=== PATIENT | female | born 1940 | race Caucasian/White ===

== ENCOUNTER 2019-07-28 16:24 | Outpatient (CLI) | payer MEDICARE, SELFPAY ==
--- NOTE | 2019-07-28 | XR_ITS ---
WS: [id number] LUMBAR SPINE TECHNIQUE: 3 views of the lumbar spine CLINICAL INFORMATION: BACK PAIN, HX OF SURGERY COMPARISON: 45 FINDINGS: Osteopenia. Lumbar scoliosis convex left. Aortic calcification. 5 nonrib-bearing lumbar vertebral bod ies. Disc space narrowing worse at L2-L3 L3-L4 and L4-L5. 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 Disc space narrowing L5-S1. Slight anterolisthesis L3 on L4 measuring 4 mm. Moderate facet arthropathy low er lumbar spine. XR/XR lumbar spine 2-3V* [id number] IMPRESSION: 1. Osteopenia. Lumbar scoliosis convex left. 2. No acute appearing compression fractures. 3. Disc space narrowing worse at L2-L3, L3-L4, and L4-L5. 4. 4 mm anterolisthesis L3 on L4.
== END 2019-07-28 16:25 | disposition home or self-care (01) ==
LOC: RADOUTREAD 07-29 11:39
PROVIDERS: PCP Family Medicine; Visit Provider Family Medicine
DX: Z76.89 Persons encountering health services in other specified circumstances (principal)

== ENCOUNTER 2020-01-22 18:39 | Emergency (ER) | payer MEDICARE, SELFPAY ==
[2020-01-22 18:48] VITALS: BP 169/78; PULSE 84; RESP 20; TEMP 36.6; O2SAT 90; BMI 26.6
--- NOTE | 2020-01-22 18:58 | ED_ITS ---
HPI - Female Genitourinary General: Chief complaint: Urogenital-Female Stated complaint: URINATION PROBLEMS Time Seen by Provider: 01/22/20 18:54 Source: patient Mode of arrival: ambulatory Limitations: no limitations History of Present Illness: HPI Narrative: 79-year-old female who states she has not been able to urinate since last night. Patient states that anytime she goes is only dribble. She is having some discomfort in her lower abdomen. She denies any fever. She denies any worsening improving factors. She has no history of urinary retention in the past. She has had no vomiting or diarrhea. Associated symptoms: Deny abdominal pain, headache(s) or nausea Review of Systems Const: Denies: fever(s), chills, body aches or change in appetite Eyes: Denies: blurry vision or eye discomfort ENMT: Denies: throat pain or dental pain Card: Denies: chest pain Resp: Denies: dyspnea GI: Denies: abdominal pain, nausea, vomiting or diarrhea : Reports: difficulty voiding Musc: Denies: neck pain or back pain Skin/Breast: Denies: rash Neuro: Denies: headache(s) Psych: Denies: depression Conner/Lymph: Denies: easy bruising All/Imm: Denies: urticaria Physical Exam Const: COMMON NORMALS: no acute distress, patient oriented x3 and healthy appearing HENMT: COMMON NORMALS: normocephalic and atraumatic HEAD & SCALP: normocephalic and atraumatic Eye: COMMON NORMALS: Equal, round and reactive pupils present and EOMs intact bilaterally PUPIL: Yes Equal, round and reactive pupils present Neck/C-Spine: COMMON NORMALS: full ROM and supple Chest: COMMONS NORMALS: normal inspection of the chest and normal palpation of entire chest wall Resp: COMMON NORMALS: normal respiratory effort, No retractions, No use of accessory muscles and clear to auscultation bilaterally AUSCULTATION: clear to auscultation bilaterally Cardio: COMMON NORMALS: regular rate, regular rhythm and No murmurs present (Cardio) RATE: regular rate RHYTHM: regular rhythm GI: COMMON NORMALS: Normal to inspection, nondistended, normoactive bowel sounds present, Soft to palpation, non-tender and no masses PALPATION: Yes Soft to palpation Extremity: COMMON NORMALS: normal to inspection and full ROM Neuro: COMMON NORMALS: patient oriented x3, moves all extremities and no focal motor deficits Psych: COMMON NORMALS: mental status grossly normal, Normal thought process present and cooperative THOUGHT PROCESS: Normal thought process present Skin: COMMON NORMALS: no rashes or lesions noted and no wounds GENERAL SKIN EXAM: no rashes or lesions noted Course Vital Signs: Vital signs: Vital Signs Temperature 97.9 F 01/22/20 18:48 Pulse Rate 75 01/22/20 20:29 Respiratory Rate 14 01/22/20 20:29 Blood Pressure 141/62 01/22/20 20:29 Pulse Oximetry 90 01/22/20 20:29 MDM - Female MDM Narrative: Medical decision making narrative: Patient presents with urinary hesitance and dysuria. Patient does have a urinary tract infection. CT scan here is normal and she had no urinary retention. We will place her on antibiotics. Patient is stable for discharge and is to follow-up with primary care doctor in 3 to 5 days return if worsening. Lab Data: Labs: Lab Results 01/22/20 01/22/20 01/22/20 Range/Units 19:30 20:22 20:22 WBC 7.8 (4.0-10.0) 10^3/ uL RBC 3.36 L (4.1-5.3) 10^6/u L Hgb 11.3 L (11.5-15.3) g/dL Hct 37.4 (37.0-47.0) % MCV 111.3 H (81-99) fL MCH 33.6 (28.0-34.0) pg MCHC 30.2 (30.0-36.0) g/dL RDW 14.7 (12.1-15.1) % Plt Count 248 (130-400) 10^3/c mm MPV 9.8 (7.4-10.4) fL Neut % (Auto) 54.3 % Lymph % (Auto) 29.5 % [place] % (Auto) 10.5 % Eos % (Auto) 4.3 % Baso % (Auto) 1.0 % Neut # (Auto) 4.26 (1.8-7.7) 10^3/u L Lymph # (Auto) 2.3 (0.8-4.8) 10^3/u L Clare # (Auto) 0.8 (0.2-0.9) 10^3/u L Eos # (Auto) 0.3 (0.0-0.8) 10^3/u L Baso # (Auto) 0.1 (0.0-0.1) 10^3/u L Nucleated RBC % (a uto) 0 % Nucleated RBCs # 0.0 /100WBC Sodium 135 L (136-145) mmol/L Chloride 103 (98-107) mmol/L Carbon Dioxide 26 (22-29) mmol/L BUN 24 H (8-23) mg/dL Creatinine 0.7 (0.5-0.9) mg/dL GFR Calculation Not Reportable Glucose 92 (65-115) mg/dL Calculated Osmolal ity 276 L (285-295) mOsm/k g Calcium 9.5 (8.5-10.5) mg/dL Total Bilirubin 1.7 H (0.15-1.2) mg/dL AST 32 (0-32) U/L ALT 18 (0-33) U/L Alkaline Phosphata se 66 (35-105) IU/L Total Protein 6.1 L (6.6-8.7) g/dL Albumin 4.2 (3.5-5.2) g/dL Globulin 1.9 (1.3-4.6) g/dL Urine Color Alpine (Yellow) Urine Appearance Clear (CLEAR) Urine pH 8 H (5-7) Ur Specific Gravit y 1.010 (1.005-1.030) Urine Protein 3+ H (Negative) Urine Glucose (UA) Norm (Normal) Urine Ketones Negative (Negative) Urine Blood Neg (Negative) Urine Nitrate Positive H (Negative) Urine Bilirubin 2+ H (NEGATIVE) Prot Sulfosalicyli c Acd Negative (Negative) Urine Urobilinogen 8 H (Negative) mg/dL Ur Leukocyte Gloria ase Negative (Negative) Urine RBC 0-4 H (0-2) /hpf Urine WBC 0-4 H (0-5) /hpf Ur Squamous Epith Cells 0-4 H (0-5) Amorphous Sediment Not Reportable Urine Bacteria Trace (NONE) Imaging Data: CT Abd/Pel: Radiologist's impression: [address] [address] [address] Scan Report Signed Patient: Meenu Villalba Ashwin Unit #: [id number] : 1940 Age/Sex: 79 / F ADM Date: 01/22/20 Loc: ER Room/Bed: Attending Dr: Ordering Provider/Ordering MD: Mar Leon MD Date of Service: 01/22/20 Procedure(s): CT abdomen pelvis wo con [id number] Accession Number(s): [id number] Report Number: [id number] PROCEDURE INFORMATION: Exam: CT Abdomen And Pelvis Without Contrast Exam date and time: 01/22/2020 8:21 PM Age: 79 years old Clinical indication: Prior surgery; Surgery date: 6+ months; Surgery type: L-sp; Patient HX: C/O weakness - nausea - difficulty urinating - bladder distention; Additional info: Abd pain TECHNIQUE: Imaging protocol: Computed tomography of the abdomen and pelvis without contrast. Radiation optimization: All CT scans at this facility use at least one of these dose optimization techniques: automated exposure control; mA and/or kV adjustment per patient size (includes targeted exams where dose is matched to clinical indication); or iterative reconstruction. COMPARISON: CR Hip 2-3v LEFT wwo Pelv* [id number] 08/23/2016 2:52 PM RADIATION DOSE METRICS: Total DLP (mGy-cm): 564.38 FINDINGS: Lungs: There are severe emphysematous changes at the lung bases. Liver: Normal. No mass. Gallbladder and bile ducts: There is sludge and/or gravel in the gallbladder. Pancreas: Normal. No ductal dilation. Spleen: Normal. No splenomegaly. Adrenals: Normal. No mass. Kidneys and ureters: Normal. No hydronephrosis. Stomach and bowel: There is diverticulosis of the colon without evidence of diverticulitis. Colonic constipation is present. Appendix: No evidence of appendicitis. Intraperitoneal space: Unremarkable. No free air. No significant fluid collection. Vasculature: Infrarenal lower abdominal aorta is ectatic.Calcified plaque is present within multiple vascular structures. Lymph nodes: Unremarkable. No enlarged lymph nodes. Bladder: There is a Squires catheter and air in the bladder. Reproductive: Unremarkable as visualized. Bones/joints: Unremarkable. No acute fracture. Soft tissues: Unremarkable. CT/CT abdomen pelvis wo con [id number] IMPRESSION: 1. Colonic constipation is present. 2. There are severe emphysematous changes at the lung bases. 3. There is sludge and/or gravel in the gallbladder. Discharge Plan Discharge Patient Disposition: Home Clinical Impression: Urinary tract infection Qualifiers: Urinary tract infection type: acute cystitis Hematuria presence: without hematuria Qualified Code(s): N30.00 - Acute cystitis without hematuria Condition: Stable Prescriptions: New Keflex 500 mg capsule 500 mg PO Q6H 7 Days Qty: 28 RF: 0 Discharge Orders: Discharge Order (Routine); Ordered 01/22/20 Ordered By: Mar Leon Referrals: Dottie Fletcher MD [Primary Care Provider] - 1-3 days Discharge Diet: Advance as tolerated Discharge Activity: Resume usual activity Patient Instructions: Urinary Tract Infection in Women (ED) Coding Level of Care Code ED Cistern Room Working Supervisor for Chg Fwd Exam Comprehensive
[2020-01-22 20:06] LABS: Urine Appearance Clear (CLEAR); Urine Color Orange (Yellow)
[2020-01-22 20:07] LABS: Bilirubin Urine 2+ (NEGATIVE); Blood Urine Neg (Negative); Glucose Urine UA Norm (Normal); Ketones Urine Negative (Negative); Leukocyte Esterase Urine Negative (Negative); Nitrate Urine Positive (Negative); Protein Urine 3+ (Negative); Sulfosalicylic Acid Urine Negative (Negative); Urobilinogen Urine 8 mg/dL (Negative); pH Urine 8 (5-7)
[2020-01-22 20:08] LABS: Add Urine Microscopic? YES
[2020-01-22 20:10] LABS: Add Urine Culture? No; Bacteria Urine TRACE; RBC Urine 0-4 /hpf (0-2); Squamous Epithelial Cell Urine 0-4 (0-5); WBC Urine 0-4 /hpf (0-5)
--- NOTE | 2020-01-22 20:14 | CTR_ITS ---
PROCEDURE INFORMATION: Exam: CT Abdomen And Pelvis Without Contrast Exam date and time: 01/22/2020 8:21 PM Age: 79 years old Clinical indication: Prior surgery; Surgery date: 6+ months; Surgery type: L-sp; Patient HX: C/O weakness - nausea - difficulty urinating - bladder distention; Additional info: Abd pain TECHNIQUE: Imaging protocol: Computed tomography of the abdomen and pelvis without contrast. Radiation optimization: All CT scans at this facility use at least one of these dose optimization techniques: automated exposure control; mA and/or kV adjustment per patient size (includes targeted exams where dose is matched to clinical indication); or iterative reconstruction. COMPARISON: CR Hip 2-3v LEFT wwo Pelv* [id number] 08/23/2016 2:52 PM RADIATION DOSE METRICS: Total DLP (mGy-cm): 564.38 FINDINGS: Lungs: There are severe emphysematous changes at the lung bases. Liver: Normal. No mass. Gallbladder and bile ducts: There is sludge and/or gravel in the gallbladder. Pancreas: Normal. No ductal dilation. Spleen: Normal. No splenomegaly. Adrenals: Normal. No mass. Kidneys and ureters: Normal. No hydronephrosis. Stomach and bowel: There is diverticulosis of the colon without evidence of diverticulitis. Colonic constipation is present. Appendix: No evidence of appendicitis. Intraperitoneal space: Unremarkable. No free air. No significant fluid collection. Vasculature: Infrarenal lower abdominal aorta is ectatic.Calcified plaque is present within multiple vascular structures. Lymph nodes: Unremarkable. No enlarged lymph nodes. Bladder: There is a Squires catheter and air in the bladder. Reproductive: Unremarkable as visualized. Bones/joints: Unremarkable. No acute fracture. Soft tissues: Unremarkable. CT/CT abdomen pelvis con [id number] IMPRESSION: 1. Colonic constipation is present. 2. There are severe emphysematous changes at the lung bases. 3. There is sludge and/or gravel in the gallbladder. Radiation Dose CTDIVOL = (mGy): DLP = 564.38 (mGy-cm)
[2020-01-22 20:27] LABS: Basophils # 0.1 10^3/uL (0.0-0.1); Eosinophils # 0.3 10^3/uL (0.0-0.8); Eosinophils % 4.3 %; Hematocrit 37.4 % (37.0-47.0); Hemoglobin 11.3 g/dL (11.5-15.3); Lymphocytes # 2.3 10^3/uL (0.8-4.8); Lymphocytes % 29.5 %; Mean Corpuscular HGB Conc 30.2 g/dL (30.0-36.0); Mean Corpuscular Hemoglobin 33.6 pg (28.0-34.0); Mean Corpuscular Volume 111.3 fL (81-99); Mean Platelet Volume 9.8 fL (7.4-10.4); Monocytes # 0.8 10^3/uL (0.2-0.9); Monocytes % 10.5 %; Neutrophils # 4.26 10^3/uL (1.8-7.7); Neutrophils % 54.3 %; Nucleated Red Blood Cells % 0 %; Platelet Count 248 10^3/cmm (130-400); Red Blood Count 3.36 10^6/uL (4.1-5.3); Red Cell Distribution Width 14.7 % (12.1-15.1); White Blood Count 7.8 10^3/uL (4.0-10.0)
[2020-01-22 20:29] VITALS: BP 141/62; PULSE 75; RESP 14; O2SAT 90
[2020-01-22] MEDS: sodium chloride 0.9% 1,000 ML 999 ML IV (20:30)
[2020-01-22 20:46] LABS: Alanine Aminotransferase 18 U/L (0-33); Albumin Level 4.2 g/dL (3.5-5.2); Alkaline Phosphatase 66 IU/L (35-105); Aspartate Amino Transferase 32 U/L (0-32); Blood Urea Nitrogen 24 mg/dL (8-23); Calcium 9.5 mg/dL (8.5-10.5); Carbon Dioxide 26 mmol/L (22-29); Chloride 103 mmol/L (98-107); Globulin 1.9 g/dL (1.3-4.6); Glucose 92 mg/dL (65-115); Total Bilirubin 1.7 mg/dL (0.15-1.2); Total Protein 6.1 g/dL (6.6-8.7)
[2020-01-22 21:27] LABS: Osmolality Calculated 278 mOsm/kg (285-295)
[2020-01-22 21:28] LABS: Anion Gap 11.3 (5-19); Potassium 4.3 mmol/L (3.5-5.1); Sodium 136 mmol/L (136-145)
[2020-01-22] MEDS: cefTRIAXone 1,000 MG in sodium chloride 0.9% (plus) 50 ML 100 MG IV (21:28)
[2020-01-22 21:29] VITALS: BP 138/92; PULSE 71; RESP 14; O2SAT 93
== END 2020-01-22 21:55 | disposition home or self-care (01) ==
PROVIDERS: Emergency Provider Emergency Medicine; PCP Family Medicine
DX: N30.00 Acute cystitis without hematuria (principal)
CPT/HCPCS: 12345; 51702; 74176; 80053; 81001; 85025; 87086; 96365; 99283; J0696; J7030

== ENCOUNTER 2020-07-06 15:03 | Emergency (ER) | payer MEDICARE, SELFPAY ==
[2020-07-06 15:12] VITALS: BP 129/77; PULSE 88; RESP 20; TEMP 36.6; O2SAT 91; BMI 21.7
[2020-07-06 15:16] VITALS: BP 140/72; PULSE 77; RESP 18; O2SAT 90
[2020-07-06 16:24] VITALS: BP 140/72; PULSE 78; RESP 18; O2SAT 92
--- NOTE | 2020-07-06 16:25 | PC.NURSE ---
History of COPD Wears O2 as needed
[2020-07-06 17:33] LABS: Add Urine Microscopic? YES; Bilirubin Urine Neg (Negative); Blood Urine Neg (Negative); Glucose Urine UA Norm (Normal); Ketones Urine Negative (Negative); Leukocyte Esterase Urine Trace (Negative); Nitrate Urine Negative (Negative); Protein Urine Trace (Negative); Urine Appearance Clear (CLEAR); Urine Color Yellow (Yellow); Urobilinogen Urine Norm (Negative); pH Urine 6.5 (5-7)
[2020-07-06 17:35] LABS: Alanine Aminotransferase 12 U/L (0-33); Albumin Level 3.8 g/dL (3.5-5.2); Alkaline Phosphatase 82 IU/L (35-105); Aspartate Amino Transferase 23 U/L (0-32); Blood Urea Nitrogen 20 mg/dL (8-23); Calcium 9.5 mg/dL (8.5-10.5); Carbon Dioxide 27 mmol/L (22-29); Chloride 104 mmol/L (98-107); Globulin 2.9 g/dL (1.3-4.6); Glucose 95 mg/dL (65-115); Osmolality Calculated 292 mOsm/kg (285-295); Sodium 140 mmol/L (136-145); Total Bilirubin 0.8 mg/dL (0.15-1.2); Total Protein 6.7 g/dL (6.6-8.7)
[2020-07-06 17:36] LABS: Add Urine Culture? No; Bacteria Urine 1+ /hpf; RBC Urine 0-4 /hpf (0-2); Squamous Epithelial Cell Urine 0-4 /hpf (0-5); WBC Urine 0-4 /hpf (0-5)
[2020-07-06 17:45] LABS: Basophils # 0.1 10^3/uL (0.0-0.1); Basophils % 0.9 %; Eosinophils # 0.4 10^3/uL (0.0-0.8); Eosinophils % 5.2 %; Hematocrit 39.1 % (37.0-47.0); Lymphocytes # 1.9 10^3/uL (0.8-4.8); Lymphocytes % 23.9 %; Mean Corpuscular HGB Conc 30.7 g/dL (30.0-36.0); Mean Corpuscular Hemoglobin 33.4 pg (28.0-34.0); Mean Corpuscular Volume 108.9 fL (81-99); Mean Platelet Volume 9.7 fL (7.4-10.4); Monocytes # 0.7 10^3/uL (0.2-0.9); Monocytes % 8.9 %; Neutrophils # 4.84 10^3/uL (1.8-7.7); Neutrophils % 60.7 %; Nucleated Red Blood Cells % 0 %; Platelet Count 301 10^3/cmm (130-400); Red Blood Count 3.59 10^6/uL (4.1-5.3); Red Cell Distribution Width 14.4 % (12.1-15.1)
[2020-07-06 18:20] VITALS: BP 135/96; PULSE 79; RESP 18; O2SAT 97
--- NOTE | 2020-07-06 18:26 | ED_ITS ---
HPI - Female Genitourinary General: Chief complaint: Urogenital-Female Stated complaint: phy referral/unable to urinate Time Seen by Provider: 07/06/20 16:17 History of Present Illness: HPI Narrative: The patient is a 79-year-old female who came in with urinary bladder obstruction. She has not urinated for the past 2 days. Squires catheter was placed on arrival with large urine output. She has had some urine infections in the past but never not been able to urinate. She feels suprapubic fullness. After Squires placed it resolved. Associated symptoms: Deny abdominal pain or headache(s) Review of Systems General: Reports: 10 or more systems reviewed and unremarkable except in HPI and below Const: Denies: fatigue Eyes: Denies: change in vision, blurry vision or eye redness ENMT: Denies: throat pain, swelling of lips/tongue, ear or mastoid pain or nasal congestion Card: Denies: chest pain, palpitations, irregular heart rhythm, edema, dyspnea on exertion or orthopnea Resp: Denies: dyspnea, productive cough or non-productive cough GI: Denies: abdominal pain, diarrhea or GI cramping : Reports: other (suprapubic fullness); Denies: flank pain, difficulty voiding, urinary frequency or urinary urgency Musc: Denies: neck pain, back pain, extremity pain, joint pain, joint redness, limited range of motion or muscle weakness Skin/Breast: Denies: rash, pruritus, erythema, skin pain or skin tenderness Neuro: Denies: headache(s), numbness in extremities, weakness in extremities, sensory changes, difficulty walking, dizziness, confusion or Slurred speech present Psych: Denies: anxiety or depression Endo: Denies: polyuria All/Imm: Denies: urticaria, throat swelling or tongue swelling Physical Exam Const: COMMON NORMALS: no acute distress, average body habitus, patient oriented x3, no limitations, healthy appearing, alert and well nourished GENERAL APPEARANCE: cooperative, comfortable, well kempt and well developed ORIENTATION/CONSCIOUSNESS: Yes awake, Yes oriented to person, Yes oriented to place and Yes oriented to time HENMT: COMMON NORMALS: normocephalic, external ears normal and Normal external nose present HEAD & SCALP: normal to inspection and normocephalic NOSE: Normal external nose present EXTERNAL EAR: Yes external ears normal MOUTH: Normal oral and palatal mucosa present THROAT: posterior oropharynx normal Eye: COMMON NORMALS: Equal, round and reactive pupils present and EOMs intact bilaterally GENERAL EYE: appearance normal, both eyes and all related structures PUPIL: Yes Equal, round and reactive pupils present Neck/C-Spine: COMMON NORMALS: full ROM, no lymphadenopathy, no meningeal signs and no JVD GENERAL: Yes normal visual inspection Lymph: LYMPHATIC: no lymphadenopathy noted Chest: COMMONS NORMALS: normal inspection of the chest and normal palpation of entire chest wall Resp: COMMON NORMALS: normal respiratory effort, No retractions, No use of accessory muscles, clear to auscultation bilaterally and percussion normal EFFORT & INSPECTION: Yes able to speak in complete sentences AUSCULTATION: clear to auscultation bilaterally PERCUSSION: percussion normal Cardio: COMMON NORMALS: no JVD, regular rate, regular rhythm, S1 normal heart sound present, S2 normal heart sound present and Peripheral pulses 2+ throughout RATE: regular rate RHYTHM: regular rhythm HEART SOUNDS: S1 normal heart sound present and S2 normal heart sound present PERIPHERAL PULSES: Peripheral pulses 2+ throughout GI: COMMON NORMALS: Normal to inspection, nondistended, normoactive bowel sounds present, Soft to palpation and no masses PALPATION: Yes Soft to palpation OTHER: Mild suprapubic tenderness and fullness present. After Squires placed this resolved : COMMON NORMALS: Yes no CVA tenderness BLADDER/KIDNEY EXAM: Yes no CVA tenderness Back/Pelvis: COMMON NORMALS: no CVA tenderness, thoracic and lumbar spine normal to inspection, no thoracic nor lumbar tenderness and thoraco-lumbar ROM normal Extremity: COMMON NORMALS: normal to inspection, full ROM, capillary refill normal, no joint enlargement and no pedal edema GENERAL: Yes normal exam except as noted Neuro: COMMON NORMALS: patient oriented x3, CN's II-XII intact bilaterally, moves all extremities, no focal motor deficits, no sensory deficits noted and gait normal SENSORIUM/ORIENTATION: Yes alert, Yes oriented to person, Yes oriented to place and Yes oriented to time MENINGEAL SIGNS: Yes no meningeal signs Psych: COMMON NORMALS: mental status grossly normal, Normal thought process present, cooperative, normal affect and speech normal APPEARANCE: Yes well kempt ATTITUDE: Yes calm SPEECH: Yes normal speech THOUGHT PROCESS: Normal thought process present Skin: COMMON NORMALS: no rashes or lesions noted GENERAL SKIN EXAM: no rashes or lesions noted Course Vital Signs: Vital signs: Vital Signs Temperature 97.9 F 07/06/20 15:12 Pulse Rate 79 07/06/20 18:20 Respiratory Rate 18 07/06/20 18:20 Blood Pressure 135/96 07/06/20 18:20 Pulse Oximetry 97 07/06/20 18:20 MDM - Female MDM Narrative: Medical decision making narrative: The patient came in with urinary bladder obstruction. A Squires was placed with lots of urine drained. She is now more comfortable. Kidney function normal. Stable for discharge and follow-up with urology. Case management referral placed to help with this. Differential Diagnosis: Differential diagnosis: Likely abdominal pain Lab Data: Labs: Lab Results 07/06/20 07/06/20 07/06/20 Range/Units 16:20 17:09 17:09 WBC 8.0 (4.0-10.0) 10^3/ uL RBC 3.59 L (4.1-5.3) 10^6/u L Hgb 12.0 (11.5-15.3) g/dL Hct 39.1 (37.0-47.0) % MCV 108.9 H (81-99) fL MCH 33.4 (28.0-34.0) pg MCHC 30.7 (30.0-36.0) g/dL RDW 14.4 (12.1-15.1) % Plt Count 301 (130-400) 10^3/c mm MPV 9.7 (7.4-10.4) fL Neut % (Auto) 60.7 % Lymph % (Auto) 23.9 % [place] % (Auto) 8.9 % Eos % (Auto) 5.2 % Baso % (Auto) 0.9 % Neut # (Auto) 4.84 (1.8-7.7) 10^3/u L Lymph # (Auto) 1.9 (0.8-4.8) 10^3/u L [place] # (Auto) 0.7 (0.2-0.9) 10^3/u L Eos # (Auto) 0.4 (0.0-0.8) 10^3/u L Baso # (Auto) 0.1 (0.0-0.1) 10^3/u L Nucleated RBC % (a uto) 0 % Nucleated RBCs # 0.0 /100WBC Sodium 140 (136-145) mmol/L Potassium 4.0 (3.5-5.1) mmol/L Chloride 104 (98-107) mmol/L Carbon Dioxide 27 (22-29) mmol/L Anion Gap 13.0 (5-19) BUN 20 (8-23) mg/dL Creatinine 0.6 (0.5-0.9) mg/dL GFR Calculation Not Reportable Glucose 95 (65-115) mg/dL Calculated Osmolal ity 292 (285-295) mOsm/k g Calcium 9.5 (8.5-10.5) mg/dL Total Bilirubin 0.8 (0.15-1.2) mg/dL AST 23 (0-32) U/L ALT 12 (0-33) U/L Alkaline Phosphata se 82 (35-105) IU/L Total Protein 6.7 (6.6-8.7) g/dL Albumin 3.8 (3.5-5.2) g/dL Globulin 2.9 (1.3-4.6) g/dL Urine Color Yellow (Yellow) Urine Appearance Clear (CLEAR) Urine pH 6.5 (5-7) Ur Specific Gravit y 1.030 (1.005-1.030) Urine Protein Trace (Negative) Urine Glucose (UA) Norm (Normal) Urine Ketones Negative (Negative) Urine Blood Neg (Negative) Urine Nitrate Negative (Negative) Urine Bilirubin Neg (Negative) Urine Urobilinogen Norm (Negative) mg/dL Ur Leukocyte Gloria ase Trace H (Negative) Urine RBC 0-4 H (0-2) /hpf Urine WBC 0-4 H (0-5) /hpf Ur Squamous Epith Cells 0-4 H (0-5) /hpf Amorphous Sediment Not Reportable Urine Bacteria 1+ H (NONE) /hpf Discharge Plan Discharge Patient Disposition: Home Clinical Impression: Bladder obstruction, Urinary tract infection Condition: Stable Prescriptions: New ciprofloxacin HCl 500 mg tablet 500 mg PO Q12H Qty: 20 RF: 0 No Action multivitamin Tablet 1 tab PO DAILY RF: 0 Ventolin HFA 90 mcg/actuation HFA aerosol inhaler 1 puff INHALATION Q4H PRN (Reason: Shortness Of Breath) RF: 0 Stiolto Respimat 2.5-2.5 mcg/actuation mist 1 puff INHALATION DAILY RF: 0 Discharge Orders: Discharge ED (Routine); Ordered 07/06/20 Ordered By: Saw Medrano Referrals: Anthony Nielson MD [Primary Care Provider] - Discharge Diet: Advance as tolerated Discharge Activity: Resume usual activity Patient Instructions: Acute Urinary Retention in Women (ED) Activity Restrictions/Additional Instructions: You have a Squires catheter that has been placed in the ED. Please follow-up with urology in 1 to 2 weeks to have this removed. Take the antibiotics to treat your urinary tract infection. Return to ER with worsening symptoms. I have placed a case management referral to help you get an appointment with a urologist. They should contact you tomorrow Coding Level of Care Code ED Social Sciences Instructor for Chg Fwd Exam Comprehensive
[2020-07-06] MEDS: ciprofloxacin 500 mg Tablet PO (18:39)
[2020-07-06 18:44] VITALS: BP 135/96; PULSE 75; RESP 18; TEMP -7.7; TEMP 18; O2SAT 98
--- NOTE | 2020-07-06 18:55 | ED_ITS ---
HPI - Female Genitourinary General: Chief complaint: Urogenital-Female Stated complaint: phy referral/unable to urinate Time Seen by Provider: 07/06/20 16:17 History of Present Illness: HPI Narrative: The patient is an 79-year-old female who came to the ER complaining she was not able to urinate for the past 2 days. She also had suprapubic fullness and tenderness there. She occasionally gets urinary tract infections. Squires catheter was placed with large urinary output. Associated symptoms: Deny abdominal pain or headache(s) Review of Systems General: Reports: 10 or more systems reviewed and unremarkable except in HPI and below Const: Denies: fatigue Eyes: Denies: change in vision, blurry vision or eye redness ENMT: Denies: throat pain, swelling of lips/tongue, ear or mastoid pain or nasal congestion Card: Denies: chest pain, palpitations, irregular heart rhythm, edema, dyspnea on exertion or orthopnea Resp: Denies: dyspnea, productive cough or non-productive cough GI: Denies: abdominal pain, diarrhea or GI cramping : Reports: oliguria; Denies: flank pain, difficulty voiding, urinary frequency or urinary urgency Musc: Denies: neck pain, back pain, extremity pain, joint pain, joint redness, limited range of motion or muscle weakness Skin/Breast: Denies: rash, pruritus, erythema, skin pain or skin tenderness Neuro: Denies: headache(s), numbness in extremities, weakness in extremities, sensory changes, difficulty walking, dizziness, confusion or Slurred speech present Psych: Denies: anxiety or depression Endo: Denies: polyuria All/Imm: Denies: urticaria, throat swelling or tongue swelling Physical Exam Const: COMMON NORMALS: no acute distress, average body habitus, patient oriented x3, no limitations, healthy appearing, alert and well nourished GENERAL APPEARANCE: cooperative, comfortable, well kempt and well developed ORIENTATION/CONSCIOUSNESS: Yes awake, Yes oriented to person, Yes oriented to place and Yes oriented to time HENMT: COMMON NORMALS: normocephalic, external ears normal and Normal external nose present HEAD & SCALP: normal to inspection and normocephalic NOSE: Normal external nose present EXTERNAL EAR: Yes external ears normal MOUTH: Normal oral and palatal mucosa present THROAT: posterior oropharynx normal Eye: COMMON NORMALS: Equal, round and reactive pupils present and EOMs intact bilaterally GENERAL EYE: appearance normal, both eyes and all related structures PUPIL: Yes Equal, round and reactive pupils present Neck/C-Spine: COMMON NORMALS: full ROM, no lymphadenopathy, no meningeal signs and no JVD GENERAL: Yes normal visual inspection Lymph: LYMPHATIC: no lymphadenopathy noted Chest: COMMONS NORMALS: normal inspection of the chest and normal palpation of entire chest wall Resp: COMMON NORMALS: normal respiratory effort, No retractions, No use of accessory muscles, clear to auscultation bilaterally and percussion normal EFFORT & INSPECTION: Yes able to speak in complete sentences AUSCULTATION: clear to auscultation bilaterally PERCUSSION: percussion normal Cardio: COMMON NORMALS: no JVD, regular rate, regular rhythm, S1 normal heart sound present, S2 normal heart sound present and Peripheral pulses 2+ throughout RATE: regular rate RHYTHM: regular rhythm HEART SOUNDS: S1 normal heart sound present and S2 normal heart sound present PERIPHERAL PULSES: Peripheral pulses 2+ throughout GI: COMMON NORMALS: Normal to inspection, nondistended, normoactive bowel sounds present, Soft to palpation and no masses INSPECTION: Yes normal to inspection PALPATION: Yes Soft to palpation OTHER: Mild suprapubic fullness and tenderness. : COMMON NORMALS: Yes no CVA tenderness BLADDER/KIDNEY EXAM: Yes no CVA tenderness Back/Pelvis: COMMON NORMALS: no CVA tenderness, thoracic and lumbar spine normal to inspection, no thoracic nor lumbar tenderness and thoraco-lumbar ROM normal Extremity: COMMON NORMALS: normal to inspection, full ROM, capillary refill normal, no joint enlargement and no pedal edema GENERAL: Yes normal exam except as noted Neuro: COMMON NORMALS: patient oriented x3, CN's II-XII intact bilaterally, m oves all extremities, no focal motor deficits, no sensory deficits noted and gait normal SENSORIUM/ORIENTATION: Yes alert, Yes oriented to person, Yes oriented to place and Yes oriented to time MENINGEAL SIGNS: Yes no meningeal signs Psych: COMMON NORMALS: mental status grossly normal, Normal thought process present, cooperative, normal affect and speech normal APPEARANCE: Yes well kempt ATTITUDE: Yes calm SPEECH: Yes normal speech THOUGHT PROCESS: Normal thought process present Skin: COMMON NORMALS: no rashes or lesions noted GENERAL SKIN EXAM: no rashes or lesions noted Course Vital Signs: Vital signs: Vital Signs Temperature 18 F L 01/21/21 18:44 Pulse Rate 75 07/06/20 18:44 Respiratory Rate 18 07/06/20 18:44 Blood Pressure 135/96 07/06/20 18:44 Pulse Oximetry 98 07/06/20 18:44 MDM - Female MDM Narrative: Medical decision making narrative: The patient came to the ER with acute urinary retention. Squires was placed with large urinary drainage. Kidney function was fine. Recommended keeping it in and following up with primary care doctor and urology however she demanded it be removed. At her request the Squires catheter was removed and she was discharged. Recommended returning to the ER in 6 hours if she does not urinate. Follow-up with primary care physician in 2 days. ER with worsening symptoms at any time Lab Data: Labs: Lab Results 07/06/20 07/06/20 07/06/20 Range/Units 16:20 17:09 17:09 WBC 8.0 (4.0-10.0) 10^3/ uL RBC 3.59 L (4.1-5.3) 10^6/u L Hgb 12.0 (11.5-15.3) g/dL Hct 39.1 (37.0-47.0) % MCV 108.9 H (81-99) fL MCH 33.4 (28.0-34.0) pg MCHC 30.7 (30.0-36.0) g/dL RDW 14.4 (12.1-15.1) % Plt Count 301 (130-400) 10^3/c mm MPV 9.7 (7.4-10.4) fL Neut % (Auto) 60.7 % Lymph % (Auto) 23.9 % [place] % (Auto) 8.9 % Eos % (Auto) 5.2 % Baso % (Auto) 0.9 % Neut # (Auto) 4.84 (1.8-7.7) 10^3/u L Lymph # (Auto) 1.9 (0.8-4.8) 10^3/u L [place] # (Auto) 0.7 (0.2-0.9) 10^3/u L Eos # (Auto) 0.4 (0.0-0.8) 10^3/u L Baso # (Auto) 0.1 (0.0-0.1) 10^3/u L Nucleated RBC % (a uto) 0 % Nucleated RBCs # 0.0 /100WBC Sodium 140 (136-145) mmol/L Potassium 4.0 (3.5-5.1) mmol/L Chloride 104 (98-107) mmol/L Carbon Dioxide 27 (22-29) mmol/L Anion Gap 13.0 (5-19) BUN 20 (8-23) mg/dL Creatinine 0.6 (0.5-0.9) mg/dL GFR Calculation Not Reportable Glucose 95 (65-115) mg/dL Calculated Osmolal ity 292 (285-295) mOsm/k g Calcium 9.5 (8.5-10.5) mg/dL Total Bilirubin 0.8 (0.15-1.2) mg/dL AST 23 (0-32) U/L ALT 12 (0-33) U/L Alkaline Phosphata se 82 (35-105) IU/L Total Protein 6.7 (6.6-8.7) g/dL Albumin 3.8 (3.5-5.2) g/dL Globulin 2.9 (1.3-4.6) g/dL Urine Color Yellow (Yellow) Urine Appearance Clear (CLEAR) Urine pH 6.5 (5-7) Ur Specific Gravit y 1.030 (1.005-1.030) Urine Protein Trace (Negative) Urine Glucose (UA) Norm (Normal) Urine Ketones Negative (Negative) Urine Blood Neg (Negative) Urine Nitrate Negative (Negative) Urine Bilirubin Neg (Negative) Urine Urobilinogen Norm (Negative) mg/dL Ur Leukocyte Gloria ase Trace H (Negative) Urine RBC 0-4 H (0-2) /hpf Urine WBC 0-4 H (0-5) /hpf Ur Squamous Epith Cells 0-4 H (0-5) /hpf Amorphous Sediment Not Reportable Urine Bacteria 1+ H (NONE) /hpf Discharge Plan Discharge Patient Disposition: Home Clinical Impression: Bladder obstruction, Urinary tract infection Condition: Stable Prescriptions: New ciprofloxacin HCl 500 mg tablet 500 mg PO Q12H Qty: 20 RF: 0 No Action multivitamin Tablet 1 tab PO DAILY RF: 0 Ventolin HFA 90 mcg/actuation HFA aerosol inhaler 1 puff INHALATION Q4H PRN (Reason: Shortness Of Breath) RF: 0 Stiolto Respimat 2.5-2.5 mcg/actuation mist 1 puff INHALATION DAILY RF: 0 Discharge Orders: Discharge ED (Routine); Ordered 07/06/20 Ordered By: Saw Medrano Referrals: Anthony Nielson MD [Primary Care Provider] - Discharge Diet: Advance as tolerated Discharge Activity: Resume usual activity Patient Instructions: Acute Urinary Retention in Women (ED) Activity Restrictions/Additional Instructions: You have a Squires catheter that has been placed in the ED. Please follow-up with urology in 1 to 2 weeks to have this removed. Take the antibiotics to treat your urinary tract infection. Return to ER with worsening symptoms. I have p laced a case management referral to help you get an appointment with a urologist. They should contact you tomorrow Coding Level of Care Code ED Business Instructor for Deonte Kaiser
--- NOTE | 2020-07-07 09:44 | DCPLANNER ---
medical services manager had message to schedule a follow up appointment for patient with Dr. Skelton. medical services manager called the office of Dr. Skelton, spoke with Michelle, gave clinic patients information. medical services manager was told that patients information would be printed and reviewed. Clinic will call patient with appointment information.
--- NOTE | 2020-07-11 07:56 | DCPLANNER ---
Patient has a follow up appointment scheduled for Friday, July 14, [address] at 8:[address] Skelton. Clinic will call patient with appointment information.
--- NOTE | 2020-07-18 08:41 | DCPLANNER ---
Patient had a follow up appointment scheduled for 07.14.[address] Skelton - appointment was cancelled
== END 2020-07-06 18:59 | disposition home or self-care (01) ==
PROVIDERS: Emergency Provider Family Medicine; PCP Family Medicine
DX: N39.0 Urinary tract infection, site not specified (principal); N32.0 Bladder-neck obstruction
CPT/HCPCS: 12345; 51702; 80053; 81001; 85025; 99283

== ENCOUNTER 2020-09-01 14:14 | Emergency (ER) | payer MEDICARE, SELFPAY ==
[2020-09-01 14:34] VITALS: BP 133/73; PULSE 99; RESP 22; TEMP 36.4; O2SAT 88; BMI 22.4
--- NOTE | 2020-09-01 15:12 | XR_ITS ---
WS: [id number] XR chest 1V portable [id number] REASON FOR EXAM: SOB FINDINGS: Comparison examination 12/15/2018. Mild tortuosity of the thoracic aorta without aneurysmal dilatation. Normal heart size. Right lower lobe airspace consolidation with right pleural effusion. There also appears to be patchy infiltrative change in the right upper lung. Bony thorax intact for age. XR/XR chest 1V portable [id number] IMPRESSION: Changes in the right lung compatible with subacute pneumonitis.
[2020-09-01 16:35] LABS: Basophils # 0.1 10^3/uL (0.0-0.1); Basophils % 1.5 %; Eosinophils # 0.3 10^3/uL (0.0-0.8); Hematocrit 37.4 % (37.0-47.0); Hemoglobin 11.1 g/dL (11.5-15.3); Lymphocytes % 11.7 %; Mean Corpuscular HGB Conc 29.7 g/dL (30.0-36.0); Mean Corpuscular Hemoglobin 31.7 pg (28.0-34.0); Mean Corpuscular Volume 106.9 fL (81-99); Mean Platelet Volume 9.2 fL (7.4-10.4); Monocytes # 0.9 10^3/uL (0.2-0.9); Monocytes % 9.8 %; Neutrophils # 6.36 10^3/uL (1.8-7.7); Neutrophils % 73.5 %; Nucleated Red Blood Cells % 0 %; Platelet Count 399 10^3/cmm (130-400); Red Cell Distribution Width 14.9 % (12.1-15.1); White Blood Count 8.7 10^3/uL (4.0-10.0)
[2020-09-01 16:43] LABS: D Dimer 1.39 ug/mIFEU (0-0.59)
[2020-09-01 16:53] LABS: Troponin(5th) Baseline 9 ng/L (0-10)
[2020-09-01 17:01] LABS: Procalcitonin 0.59 ng/mL (0-0.5)
--- NOTE | 2020-09-01 17:12 | ECG_ITS ---
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 Measurements Intervals Sharon Rate: 88 P: 81 OK: 158 QRS: 50 QRSD: 92 T: 64 QT: 359 QTc: 435 Interpretive Statements SINUS RHYTHM LOW QRS VOLTAGE IN PRECORDIAL LEADS [QRS DEFLECTION < 1.0 mV IN CHEST LEADS] SEPTAL MYOCARDIAL INFARCTION , PROBABLY OLD [40+ ms Q WAVE IN V1/V2] Compared to ECG 12/15/2018 21:14:13 Low QRS voltage now present Myocardial infarct finding still present Electronically Signed On 09-01-2020 23:28:13 CDT by Pilar Matta M.D. [id number]
[2020-09-01 17:13] LABS: Alanine Aminotransferase 14 U/L (0-33); Albumin Level 3.2 g/dL (3.5-5.2); Alkaline Phosphatase 113 IU/L (35-105); Anion Gap 15.8 (5-19); Aspartate Amino Transferase 18 U/L (0-32); Blood Urea Nitrogen 14 mg/dL (8-23); C Reactive Protein 53.2 mg/L (0.0-4.9); Calcium 8.7 mg/dL (8.5-10.5); Carbon Dioxide 24 mmol/L (22-29); Chloride 103 mmol/L (98-107); Creatinine Clr Calc Pharmacy 51.1025; Globulin 3.7 g/dL (1.3-4.6); Glucose 100 mg/dL (65-115); Osmolality Calculated 289 mOsm/kg (285-295); Potassium 3.8 mmol/L (3.5-5.1); Sodium 139 mmol/L (136-145); Total Bilirubin 0.6 mg/dL (0.15-1.2); Total Protein 6.9 g/dL (6.6-8.7)
--- NOTE | 2020-09-01 17:16 | CTR_ITS ---
PROCEDURE INFORMATION: Exam: CT Angiography Chest With Contrast Exam date and time: 09/01/2020 5:35 PM Age: 80 years old Clinical indication: Shortness of breath; Patient HX: C/O worsening SOB; Additional info: SOB, hypoxia TECHNIQUE: Imaging protocol: Computed tomographic angiography of the chest with contrast. 3D rendering (Not supervised by radiologist): MIP and/or 3D reconstructed images were created by the technologist. Radiation optimization: All CT scans at this facility use at least one of these dose optimization techniques: automated exposure control; mA and/or kV adjustment per patient size (includes targeted exams where dose is matched to clinical indication); or iterative reconstruction. Contrast material: OMNI 350; Contrast volume: 76 ml; Contrast route: INTRAVENOUS (IV); COMPARISON: CT chest con [id number] 01/10/2016 8:36 AM RADIATION DOSE METRICS: Total DLP (mGy-cm): 531.16 FINDINGS: There are degenerative changes of the spine. There is marked panlobular emphysema. There is a large right pleural effusion which is somewhat loculated. There are numerous pulmonary nodules throughout the right lung. The these are concerning for metastatic disease. There is a large central nodular which could represent a lung carcinoma primary measuring approximately 2.5 cm. The scarring versus is pulmonary nodules seen within the left upper lobe as well. The There is no pneumothorax. The central airways are normal in caliber. The thyroid gland is unremarkable. There is no axillary adenopathy. There is no mediastinal adenopathy. No hilar adenopathy is seen. There is no evidence for pulmonary embolism. The aorta is normal in caliber with no evidence for aneurysm or dissection. The heart is normal in size. There is no evidence for right heart failure. High density material is seen within the gallbladder which could represent stones or sludge. CT/CT angio chest PE protcl [id number] IMPRESSION: 1. Marked pulmonary emphysema. 2. Extensive pulmonary nodules especially involving the right lung concerning for metastatic disease. PET scanning should be considered. Bronchoscopy may be warranted. 3. Large right pleural effusion. 4. No evidence for pulmonary embolism. Radiation Dose CTDIVOL = (mGy): DLP = 531.16 (mGy-cm)
--- NOTE | 2020-09-01 17:59 | PC.NURSE ---
EKG done at done at 1745 and shown to ER doctor
[2020-09-01] MEDS: iohexol 350 mg/mL 100 mL Btl IV (18:16)
[2020-09-01] MEDS: cefTRIAXone 1,000 MG in sodium chloride 0.9% (plus) 50 ML 100 MG IV (18:28)
--- NOTE | 2020-09-01 19:03 | ED_ITS ---
HPI - SOB/Dyspnea General: Chief Complaint: Shortness of Breath/Dyspnea Stated Complaint: can't get 02 past 70% Time Seen by Provider: 09/01/20 14:54 Source: patient and family () Mode of arrival: ambulatory Limitations: no limitations History of Present Illness: HPI Narrative: She is an 80 year old female with a history of chronic respiratory failure from COPD and is on 2.5 lpm of oxygen. She has been feeling unwell for about 2 weeks and is more short of breath than usual. With any activity she gets short of breath. She noticed that when she walked about 6 feet her oxygen saturation dropped to about 70% on room air. When she arrived she was placed on oxygen at 3lpm and according to the nurse for home wheelchair to the bed on this oxygen her saturations dropped to the low 80s. She denies any fever but says she has had right-sided chest pain intermittently for about 2 weeks. MD elicited complaint: shortness of breath and chest pain Pertinent past history: COPD Onset (ago): week(s) (2) Context: occurred during exertion Timing: intermittent Severity: severe Exacerbating factors: exertion Relieving factors: rest Known history of: COPD Associated symptoms: Reports chest pain (right side) and cough; Deny abdominal pain, chest congestion, diaphoresis, dizziness, extremity pain, fever(s), hemoptysis, lightheadedness, myalgias, nausea, orthopnea, palpitations, paresthesias, polydipsia, polyuria, rash, sense of impending doom, syncope or vomiting Review of Systems General: Reports: 10 or more systems reviewed and unremarkable except in HPI and below Const: Denies: fever(s) or diaphoresis Eyes: Denies: change in vision or blurry vision ENMT: Denies: throat pain, enlarged tonsils, odynophagia, hoarseness, mouth pain or swelling of lips/tongue Card: Reports: chest pain (right side); Denies: palpitations, lightheadedness, syncope or orthopnea Resp: Denies: hemoptysis or chest congestion GI: Denies: abdominal pain, nausea or vomiting : Denies: flank pain, difficulty voiding, dysuria, urinary frequency, urinary urgency or urinary hesitancy Musc: Denies: extremity pain Skin/Breast: Denies: rash, pruritus or erythema Neuro: Denies: dizziness Endo: Denies: polyuria Physical Exam Const: COMMON NORMALS: no acute distress, average body habitus, patient oriented x3, no limitations, healthy appearing, alert and well nourished HENMT: COMMON NORMALS: normocephalic, atraumatic and moist oral mucous membranes HEAD & SCALP: normocephalic and atraumatic Eye: COMMON NORMALS: Equal, round and reactive pupils present, EOMs intact bilaterally, conjunctivae normal and no scleral icterus CONJUNCTIVA: Yes conjunctivae normal PUPIL: Yes Equal, round and reactive pupils present Neck/C-Spine: COMMON NORMALS: no meningeal signs and no JVD Chest: COMMONS NORMALS: normal inspection of the chest and normal palpation of entire chest wall Resp: COMMON NORMALS: normal respiratory effort, No retractions, No use of accessory muscles and percussion normal AUSCULTATION: rales and diminished lung sounds on the right PERCUSSION: percussion normal Cardio: COMMON NORMALS: no JVD, regular rate, regular rhythm, S1 normal heart sound present, S2 normal heart sound present, No gallops present (Cardio), No clicks present (Cardio), No murmurs present (Cardio), No rub (Cardio) and Peripheral pulses 2+ throughout RATE: regular rate RHYTHM: regular rhythm HEART SOUNDS: S1 normal heart sound present and S2 normal heart sound present PERIPHERAL PULSES: Peripheral pulses 2+ throughout GI: COMMON NORMALS: Normal to inspection, nondistended, normoactive bowel sounds present, Soft to palpation, non-tender, No hepatosplenomegaly present, no masses and no bruits PALPATION: Yes Soft to palpation and Yes No hepatosplenomegaly present Extremity: COMMON NORMALS: normal to inspection, full ROM, capillary refill normal, no calf tenderness and no pedal edema Neuro: COMMON NORMALS: patient oriented x3 SENSORIUM/ORIENTATION: Yes alert MENINGEAL SIGNS: Yes no meningeal signs Skin: COMMON NORMALS: no rashes or lesions noted, no wounds, turgor normal, no jaundice, no petechiae and no mottling GENERAL SKIN EXAM: no rashes or lesions noted and turgor normal Course Reevaluation(s): Reevaluation #1: Discussed her lab and imaging findings with her. Explained that the CT scan findings are worrisome for metastatic disease to the right lung as well as right-sided pleural effusion. Because her procalcitonin is mildly elevated I think she may also have some pneumonia in addition to the above. I explained that i would like to admit her for a work up of her lung findings, especially as she desaturates with any activity. She initially agreed but during our conversation she changed her mind and decided to go home since she has an appointment with the uniform patrol police officer, Dr. Urbina next week Friday. She said since he has access to records he can see what is going on and arrange for biopsies/pleural effusion analysis. Advised that if anything changes in her symptoms that she needs to return for evaluation. She voiced understanding and is in agreement with the plan. We will send her home with a prescription for antibiotics for pneumonia. Time: 19:03 Vital Signs: Vital signs: Vital Signs Temperature 97.6 F 09/01/20 14:34 Pulse Rate 90 09/01/20 19:43 Respiratory Rate 17 09/01/20 19:43 Blood Pressure 121/98 09/01/20 19:43 Pulse Oximetry 92 09/01/20 19:43 MDM - SOB/Dyspnea MDM Narrative: Medical decision making narrative: 80-year-old female patient with a history of COPD who presents to the emergency department with worsening shortness of breath. She also has right-sided chest pain. Evaluation in the emergency department including blood work, chest x-ray and CTA of her chest has pulmonary nodules concerning for metastatic disease of her right lung as well as a right pleural effusion. She desaturated with any activity even while she was on oxygen in the emergency department. Advised that she be admitted to the hospital but she declined admission since she has an appointment with the uniform patrol police officer next week Friday. She did promise to return if her symptoms worsen. She is sent home with a prescription for Augmentin and azithromycin for pneumonia. Medical Records: Attestation: I reviewed the patient's medical records. Lab Data: Attestation: I reviewed the patient's lab results. Labs: Lab Results 09/01/20 09/01/20 09/01/20 Range/Units 16:22 16:22 16:22 WBC 8.7 (4.0-10.0) 10^3/ uL RBC 3.50 L (4.1-5.3) 10^6/u L Hgb 11.1 L (11.5-15.3) g/dL Hct 37.4 (37.0-47.0) % MCV 106.9 H (81-99) fL MCH 31.7 (28.0-34.0) pg MCHC 29.7 L (30.0-36.0) g/dL RDW 14.9 (12.1-15.1) % Plt Count 399 (130-400) 10^3/c mm MPV 9.2 (7.4-10.4) fL Neut % (Auto) 73.5 % Lymph % (Auto) 11.7 % Zapata % (Auto) 9.8 % Eos % (Auto) 3.0 % Baso % (Auto) 1.5 % Neut # (Auto) 6.36 (1.8-7.7) 10^3/u L Lymph # (Auto) 1.0 (0.8-4.8) 10^3/u L Zapata # (Auto) 0.9 (0.2-0.9) 10^3/u L Eos # (Auto) 0.3 (0.0-0.8) 10^3/u L Baso # (Auto) 0.1 (0.0-0.1) 10^3/u L Nucleated RBC % (a uto) 0 % Nucleated RBCs # 0.0 /100WBC D-Dimer 1.39 H (0-0.59) ug/mIFE U Sodium 139 (136-145) mmol/L Potassium 3.8 (3.5-5.1) mmol/L Chloride 103 (98-107) mmol/L Carbon Dioxide 24 (22-29) mmol/L Anion Gap 15.8 (5-19) BUN 14 (8-23) mg/dL Creatinine 0.5 (0.5-0.9) mg/dL GFR Calculation Not Reportable Glucose 100 (65-115) mg/dL Calculated Osmolal ity 289 (285-295) mOsm/k g Calcium 8.7 (8.5-10.5) mg/dL Total Bilirubin 0.6 (0.15-1.2) mg/dL AST 18 (0-32) U/L ALT 14 (0-33) U/L Alkaline Phosphata se 113 H (35-105) IU/L Troponin T Baselin e (0-10) ng/L Troponin T 120 Min dickson (0-10) ng/L Delta Troponin T (0-10) ABS# C-Reactive Protein 53.2 H (0.0-4.9) mg/L Total Protein 6.9 (6.6-8.7) g/dL Albumin 3.2 L (3.5-5.2) g/dL Globulin 3.7 (1.3-4.6) g/dL Procalcitonin 0.59 H (0-0.5) ng/mL 09/01/20 09/01/20 Range/Units 16:22 18:26 WBC (4.0-10.0) 10^3/ uL RBC (4.1-5.3) 10^6/u L Hgb (11.5-15.3) g/dL Hct (37.0-47.0) % MCV (81-99) fL MCH (28.0-34.0) pg MCHC (30.0-36.0) g/dL RDW (12.1-15.1) % Plt Count (130-400) 10^3/c mm MPV (7.4-10.4) fL Neut % (Auto) % Lymph % (Auto) % Zapata % (Auto) % Eos % (Auto) % Baso % (Auto) % Neut # (Auto) (1.8-7.7) 10^3/u L Lymph # (Auto) (0.8-4.8) 10^3/u L Zapata # (Auto) (0.2-0.9) 10^3/u L Eos # (Auto) (0.0-0.8) 10^3/u L Baso # (Auto) (0.0-0.1) 10^3/u L Nucleated RBC % (a uto) % Nucleated RBCs # /100WBC D-Dimer (0-0.59) ug/mIFE U Sodium (136-145) mmol/L Potassium (3.5-5.1) mmol/L Chloride (98-107) mmol/L Carbon Dioxide (22-29) mmol/L Anion Gap (5-19) BUN (8-23) mg/dL Creatinine (0.5-0.9) mg/dL GFR Calculation Glucose (65-115) mg/dL Calculated Osmolal ity (285-295) mOsm/k g Calcium (8.5-10.5) mg/dL Total Bilirubin (0.15-1.2) mg/dL AST (0-32) U/L ALT (0-33) U/L Alkaline Phosphata se (35-105) IU/L Troponin T Baselin e 9 (0-10) ng/L Troponin T 120 Min dickson 9.74 (0-10) ng/L Delta Troponin T 0.74 (0-10) ABS# C-Reactive Protein (0.0-4.9) mg/L Total Protein (6.6-8.7) g/dL Albumin (3.5-5.2) g/dL Globulin (1.3-4.6) g/dL Procalcitonin (0-0.5) ng/mL Imaging Data^: CTA Chest: Attestation: I personally reviewed and interpreted this imaging study as follows: Radiologist's impression: [place] [address] CT Scan Report Signed Patient: Meenu Villalba #: [id number] : 1940Acct#:[id number] Age/Sex: 80 / FADM Date: 09/01/20 [facility] Dr: Ordering Provider/Ordering MD: Juan Luis Veliz [place] [facility] [place] of Service: 09/01/20 Procedure(s): CT angio chest PE prot [id number] Accession Number(s): [id number] Report Number: [id number] PROCEDURE INFORMATION: Exam: CT Angiography Chest With Contrast Exam date and time: 09/01/2020 5:35 PM Age: 80 years old Clinical indication: Shortness of breath; Patient HX: C/O worsening SOB; Additional info: SOB, hypoxia TECHNIQUE: Imaging protocol: Computed tomographic angiography of the chest with contrast. 3D rendering (Not supervised by radiologist): MIP and/or 3D reconstructed images were created by the technologist. Radiation optimization: All CT scans at this facility use at least one of these dose optimization techniques: automated exposure control; mA and/or kV adjustment per patient size (includes targeted exams where dose is matched to clinical indication); or iterative reconstruction. Contrast material: OMNI 350; Contrast volume: 76 ml; Contrast route: INTRAVENOUS (IV); COMPARISON: CT chest wo con [id number] 01/10/2016 8:36 AM RADIATION DOSE METRICS: Total DLP (mGy-cm): 531.16 FINDINGS: There are degenerative changes of the spine. There is marked panlobular emphysema. There is a large right pleural effusion which is somewhat loculated. There are numerous pulmonary nodules throughout the right lung. The these are concerning for metastatic disease. There is a large central nodular which could represent a lung carcinoma primary measuring approximately 2.5 cm. The scarring versus is pulmonary nodules seen within the left upper lobe as well. The There is no pneumothorax. The central airways are normal in caliber. The thyroid gland is unremarkable. There is no axillary adenopathy. There is no mediastinal adenopathy. No hilar adenopathy is seen. There is no evidence for pulmonary embolism. The aorta is normal in caliber with no evidence for aneurysm or dissection. The heart is normal in size. There is no evidence for right heart failure. High density material is seen within the gallbladder which could represent stones or sludge. CT/CT angio chest PE protcl [id number] IMPRESSION: 1. Marked pulmonary emphysema. 2. Extensive pulmonary nodules especially involving the right lung concerning for metastatic disease. PET scanning should be considered. Bronchoscopy may be warranted. 3. Large right pleural effusion. 4. No evidence for pulmonary embolism. Radiation Dose CTDIVOL = (mGy): DLP = 531.16 (mGy-cm) Dictated By:Santana Vaughan MD Signed By:Santana Vaughan Date/Time:09/01/201848 DD/ 46 CXR: Attestation: I personally reviewed and interpreted this imaging study as follows: Radiologist's impression: [address] [place] [address] XRay Report Signed Patient: Meenu Villalba #: [id number] : 1940Acct#:[id number] Age/Sex: 80 / FADM Date: 09/01/20 Loc: ERRoom/Bed: Attending Dr: Ordering Provider/Ordering MD: Juan Luis Veliz MD, [facility] [place] of Service: 09/01/20 Procedure(s): XR chest 1V portable [id number] Accession Number(s): [id number] Report Number: [id number] WS: [id number] XR chest 1V portable [id number] REASON FOR EXAM: SOB FINDINGS: Comparison examination 12/15/2018. Mild tortuosity of the thoracic aorta without aneurysmal dilatation. Normal heart size. Right lower lobe airspace consolidation with right pleural effusion. There also appears to be patchy infiltrative change in the right upper lung. Bony thorax intact for age. XR/XR chest 1V portable [id number] IMPRESSION: Changes in the right lung compatible with subacute pneumonitis. Dictated By:Jonathan Potts Jr, MD Signed By:Jonathan Potts Jr MDSigned Date/Time:09/01/20 1524 DD/ 1522 EKG Data^: EKG 1: Attestation: I personally reviewed and interpreted this EKG as follows: EKG Interpretation Date: 09/01/20 EKG interpretation time: 14:48 Prior EKG tracings: not available for review Interpretation: Sinus rhythm. Heart rate [address] changes. Discharge Plan Discharge Patient Disposition: Home Clinical Impression: Pulmonary nodules, Pleural effusion on right Pneumonia Qualifiers: Pneumonia type: due to unspecified organism Laterality: unspecified laterality Lung location: unspecified part of lung Qualified Code(s): J18.9 - Pneumonia, unspecified organism Acute and chronic respiratory failure Qualifiers: Respiratory failure complication: hypoxia Qualified Code(s): J96.21 - Acute and chronic respiratory failure with hypoxia Condition: Stable Prescriptions: New azithromycin 250 mg tablet See Rx Instructions .ROUTE .COMPLEX Qty: 6 RF: 0 amoxicillin 500 mg capsule 1,000 mg PO Q8H 7 Days Qty: 42 RF: 0 prednisone 20 mg tablet 20 mg PO DAILY 5 Days Qty: 10 RF: 0 Continued multivitamin Tablet 1 tab PO QAM RF: 0 cyclobenzaprine 10 mg Tablet 5 mg PO BID PRN (Reason: Muscle Spasm) RF: 0 calcium 500 mg Tablet 500 mg PO QAM RF: 0 naproxen 500 mg tablet 500 mg PO BID PRN (Reason: Pain) RF: 0 Trelegy Ellipta 200-62.5-25 mcg Blister With Device 1 inh INHALATION QAM RF: 0 Vitamin C 1 tab PO QAM RF: 0 Vitamin D3 1 cap PO QAM RF: 0 magnesium oxide 1 tab PO QAM RF: 0 vitamin A 1 cap PO QAM RF: 0 vitamin E 1 cap PO QAM RF: 0 Discharge Orders: Discharge ED (Routine); Ordered 09/01/20 Ordered By: Juan Luis Veliz Referrals: Anthony Nielson MD [Primary Care Provider] - 1-3 days Yves Urbina MD [Physician] - 09/06/20 (as scheduled) Discharge Diet: Usual diet Discharge Activity: Increase activity as tolerated Patient Instructions: Pleural Effusion (ED), Pulmonary Nodules (ED), Pneumonia (ED) Activity Restrictions/Additional Instructions: Return for any new or worsening symptoms. Follow-up with your primary care provider within 3 days. Follow-up with Dr. Urbina as scheduled next Friday. Take the antibiotic and steroids as prescribed. Coding Level of Care Code ED [employer] [facility] [employer] Fwd Exam Comprehensive
--- NOTE | 2020-09-01 19:04 | PC.NURSE ---
REPORT RECEIVED FROM [facility] TRANSFERRED TO [facility]
[2020-09-01 19:06] VITALS: BP 145/106; PULSE 88; RESP 16; O2SAT 94
[2020-09-01 19:17] LABS: Troponin 5 2HR 9.74 ng/L (0-10); Troponin 5 2HR Delta 0.74 ABS# (0-10)
[2020-09-01 19:43] VITALS: BP 121/98; PULSE 90; RESP 17; O2SAT 92
== END 2020-09-01 19:47 | disposition home or self-care (01) ==
PROVIDERS: Emergency Provider Family Medicine; PCP Family Medicine
DX: J44.0 Chronic obstructive pulmonary disease with (acute) lower respiratory infection (principal); J18.9 Pneumonia, unspecified organism; J96.21 Acute and chronic respiratory failure with hypoxia; R91.8 Other nonspecific abnormal finding of lung field; J90 Pleural effusion, not elsewhere classified
CPT/HCPCS: 71045; 71275; 80053; 84145; 84484; 85025; 85378; 86140; 93005; 96365; 99284; J0696; Q9967

== ENCOUNTER → 2020-09-06 12:42 | Day surgery (SDC) | payer MEDICARE, SELFPAY ==
[2020-09-06 13:00] VITALS: BP 153/80; PULSE 72; RESP 18; TEMP 36.6; O2SAT 98
--- NOTE | 2020-09-06 13:52 | XR_ITS ---
WS: [id number] Exam: XR chest 1V portable [id number] Date/Time of Exam: 09/06/2020 1:52 PM Reason For Exam: post thoracentesis Comparison 09/01/2020. There has been significant reduction in right pleural effusion apparently secondary to thoracentesis. There are multiple ill-defined nodules in the right lung. There are patchy infiltrates throughout th e right lung. The left lung is fully expanded. There is hyperinflation and emphysematous change noted . Cardiomediastinal structures are unremarkable. The lungs are fully expanded. No pneumothorax. Very small residual right pleural effusion remains. Thoracolumbar scoliosis. XR/XR chest 1V portable [id number] IMPRESSION: 1. Reduction in right-sided pleural effusion secondary to thoracentesis. No pne umothorax is seen. 2. Multiple ill-defined nodules in the right lung. Patchy infiltrates in the ri ght lung as well as emphysematous change.
--- NOTE | 2020-09-06 13:53 | PM.OP ---
Operative Report Date of procedure: September 06, 2020 Pulmonary & Critical Care Medicine Procedure - Thoracentesis Procedure: Right pleural thoracentesis Indication: Right pleural effusion Architectural Modeler(s): Yves Urbina MD Consent: Signed and placed in chart Anesthesia: 10 cc 1% lidocaine without epinephrine Description: Right pleural effusion was localized using ultrasound guidance and the site was marked accordingly. After chlorhexidine skin prep, area was draped in a sterile manner. 1% lidocaine was used for local anesthesia. Thoracentesis catheter was then inserted into the pleural space with aspiration of thousand cc of pleural fluid. Appearance was straw-colored. EBL: 5 cc Complications: None PCXR: 1. Reduction in right-sided pleural effusion secondary to thoracentesis. No pneumothorax is seen. 2. Multiple ill-defined nodules in the right lung. Patchy infiltrates in the right lung as well as emphysematous change. Ultrasound guidance used: Yes. Image saved to ultrasound machine yes. Image 1: Right pleural effusion Image 2: S/p right side thoracentesis Associated Problem List Diagnoses (1) Pleural effusion on right: (2) Pneumonia: Qualifiers: Laterality: unspecified laterality Lung location: unspecified part of lung Pneumonia type: due to unspecified organism Qualified Code(s): J18.9 - Pneumonia, unspecified organism (3) Pulmonary nodules:
[2020-09-06 14:49] LABS: Mononuclear %, Pleural Fluid 93 %; Mononuclear, Pleural Fluid # 1.049 10^3/uL; Polynuclear Cells, Pleural # 0.083 10^3/uL; Polynuclear Cells, Pleural % 7 %
[2020-09-06 16:06] LABS: Albumin Body Fluid 2.3 g/dL; Amylase Body Fluid 61 U/L; Cholesterol Body Fluid 64 mg/dL (0-200); Fluid Alkaline Phos. 40 IU/L; LDH Body Fluid 180 U/L; Total Protein Pleural Fluid 3.7 g/dL; Triglycerides Body Fluid 28 mg/dL (0-150); Uric Acid Body Fluid 4 mg/dL
[2020-09-06 16:53] LABS: Appearance, Pleural Fluid CLOUDY (CLEAR); Color, Pleural Fluid Yellow (Pale Yellow); Right Pleural Fluid Right Lung
[2020-09-20 10:08] LABS: PD-L1 (Clone 22C3) by IHC BBPL See Report
== END ==
LOC: OPS 12:50 → GILAB 12:53
PROVIDERS: PCP Family Medicine; Visit Provider Internal Medicine Pulmonary Disease
DX: J90 Pleural effusion, not elsewhere classified (principal); J18.9 Pneumonia, unspecified organism; R91.8 Other nonspecific abnormal finding of lung field
CPT/HCPCS: 32555; 71045; 80500; 82042; 82150; 82465; 82945; 83615; 83986; 84075; 84157; 84315; 84478; 84560; 87015; 87070; 87075; 87102; 87116; 87205; 87206; 87801; 88305; 88307; 88342; 89050

== ENCOUNTER 2020-09-12 09:58 | Outpatient (CLI) | payer MEDICARE, SELFPAY ==
[2020-09-12 12:21] LABS: Basophils # 0.2 10^3/uL (0.0-0.1); Basophils % 1.6 %; Eosinophils # 0.4 10^3/uL (0.0-0.8); Eosinophils % 3.9 %; Hematocrit 42.1 % (37.0-47.0); Hemoglobin 12.4 g/dL (11.5-15.3); Lymphocytes # 1.3 10^3/uL (0.8-4.8); Lymphocytes % 11.6 %; Mean Corpuscular HGB Conc 29.5 g/dL (30.0-36.0); Mean Corpuscular Hemoglobin 31.2 pg (28.0-34.0); Mean Corpuscular Volume 105.8 fL (81-99); Mean Platelet Volume 9.2 fL (7.4-10.4); Monocytes # 1.1 10^3/uL (0.2-0.9); Monocytes % 9.9 %; Neutrophils # 8.28 10^3/uL (1.8-7.7); Neutrophils % 72.6 %; Nucleated Red Blood Cells % 0 %; Platelet Count 465 10^3/cmm (130-400); Red Blood Count 3.98 10^6/uL (4.1-5.3); Red Cell Distribution Width 14.9 % (12.1-15.1); White Blood Count 11.4 10^3/uL (4.0-10.0)
[2020-09-12 12:55] LABS: Alanine Aminotransferase 14 U/L (0-33); Albumin Level 3.6 g/dL (3.5-5.2); Alkaline Phosphatase 98 IU/L (35-105); Anion Gap 11.7 (5-19); Aspartate Amino Transferase 18 U/L (0-32); Blood Urea Nitrogen 14 mg/dL (8-23); CA 125 47.5 U/mL (0-35); CA 15-3 89.2 U/mL (0-25); Calcium 9.3 mg/dL (8.5-10.5); Carbon Dioxide 30 mmol/L (22-29); Chloride 99 mmol/L (98-107); Globulin 3.7 g/dL (1.3-4.6); Glucose 98 mg/dL (65-115); Osmolality Calculated 284 mOsm/kg (285-295); Potassium 3.7 mmol/L (3.5-5.1); Sodium 137 mmol/L (136-145); Total Bilirubin 0.8 mg/dL (0.15-1.2); Total Protein 7.3 g/dL (6.6-8.7)
[2020-09-12 13:51] LABS: Carcinoembryonic Antigen 237.3 ng/mL (0.0-4.7)
--- NOTE | 2020-09-12 14:25 | ONC CON_ITS ---
Dr. Ling New Patient Note Patient: Meenu Villalba Unit #: [id number]: 1940 Dicatated By: Keri Ling M.D.Date of Visit: Sep 12, 2020 Onc MED New Patient/Consult Referring Physician: Yves Uribna History of Present Illness: Ms. 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 She was also complaining of right shoulder pain which was progressive in the last few weeks. So on September 01, 2020 she had [place] chest [place] [facility] [place] [facility] which showed no evidence of PE but extensive right pulmonary nodules and large right pleural effusion and marked pulmonary emphysema. At that time patient was advised inpatient care which he refused and she was discharged home on azithromycin and prednisone 20 mg p.o. daily for 5 days and was referred to pulmonology. As per medical record patient has history of stable right upper lobe nodular parenchymal scarring and before that in 2011 she underwent bronchoscopy and cervical mediastinoscopy for left lingular mass, both were negative for malignancy. She also had CT PET scan done which showed no abnormal uptake. Her follow-up CT scan of chest showed improvement of left lingular mass-effect or consolidation.. Patient has history of tuberculosis in 1940s and received treatment as outpatient. Patient has history of smoking but quit in 1999., No alcohol use. Patient denies any hemoptysis or hematemesis, denies any headaches blurred vision or double vision, denies any new bony pains except right shoulder pain, as per patient with thoracentesis her right shoulder pain did improve but now again progressive. No shortness of breath at rest, patient is on home oxygen. Denies any fever or chills denies any productive cough denies any jaundice denies any bony pains.Denies any weight loss Past Medical History: Ms. Villalba's medical history consists of chronic obstructive pulmonary disease, chronic respiratory failure, pulmonary nodules, and history of TB in 1945. Past Surgical History: Ms. Villalba's surgical/procedural history consists of Back Surgery in 1979. Medications: Calcium 1 Tablet (of 500 mg) Oral daily, Cholecalciferol 1 Tablet (of 125 mcg ) Oral daily, CVS E 1 Caplet (of 200 Units) Capsule Oral daily, Daily Value Multivitamin 1 Tablet Oral daily, Magnesium Oxide 1 Caplet (of 400 mg) Capsule Oral daily, Naprosyn 1 Tablet (of 500 mg) Oral q 12 hours PRN, Trelegy Ellipta 1 Inhalation (of 100-62.5-25 mcg/inh) Aerosol Powder, Breath Activated Inhalation daily, Vitamin A 1 Tablet (of 2400 mcg ) Oral daily, Vitamin C 1 Caplet (of 500 mg) Capsule Oral daily Allergies: Aspirin and Sulfamethoxazole-Trimethoprim. Social History: Ms. Villalba is and she is retired. Ms. Villalba quit smoking 21 years ago but had smoked for 41 years. She is a former drinker. Ms. Villalba reports the following support systems: lives with spouse, significant other, family, or friends and lives in own house. Family History: There is no documented family history. Review Of Symptoms: Review of Systems is not available for this patient. Vital Signs: Performed on Sep 12, 2020 11:00: 10, 5, 0.00, 0.00 sq.m, 94 % (LOW), 89 /min, 20 /min, 114/61 mm(hg), 96.4 F (LOW), and 132.6 lbs (HIGH). Performance Status: 2 - Ambulatory/capable of all self-care, unable to perform any work activities. Up and about more than 50% of waking hours. (ECOG) Physical Examination: ENMT - No mouth sores, no thrush, no jaundice, Respiratory - No breath sound at the right lung base few mid right lung crackles, left lung clear to auscultation with poor air entry, Cardiovascular - Regular rate and rhythm of heart, Abdomen - Soft, bowel sounds present, Extremities - No visible edema. Lab/Imaging: Most recent lab results are not available for this patient. Impression: Malignant pleural effusion per diagnostic/therapeutic thoracentesis done on September 06, 2020 and cytology confirmed positive for malignancy but immunohistochemistry is pending Right pleural effusion, malignant. COPD/emphysema, on home oxygen G6PD variant History of tuberculosis in childhood Degenerative disc disease History of recurrent urine tract infections. Plan: Discussed with patient regarding her pleural fluid cytology report which confirmed presence of malignant cell, case was discussed with pathology, immunohistochemistry stains to confirm the primary and histology is pending, also PD-L1 status, molecular profiling was also requested to identify targetable therapeutic mutations. Case was discussed with Dr. Urbina, regarding her progressive right shoulder pain as per patient, her pain did improve with thoracentesis, so was requested to evaluate her for repeat thoracentesis if needed. In the meantime we will give her prescription for Percocet. As per pulmonology, her CT PET scan which was done last Friday showed uptake in pleural effusion in the right lung, as well as there was a solitary lesion in the left lobe of the liver. We will obtain the report and review In the meantime,will obtain the report and review and also order tumor markers CA 19???9, CA-125, CEA, CA 15.3/CA 27-29 , will also obtain baseline CBC and CMP Patient return to clinic in 2 weeks for further discussion. Signed By: Keri Ling M.D. <<Signature on File>>
== END 2020-09-12 09:59 | disposition home or self-care (01) ==
LOC: ONCMED 10:02
PROVIDERS: PCP Family Medicine; Visit Provider Internal Medicine Hematology & Oncology
DX: C80.1 Malignant (primary) neoplasm, unspecified (principal); J91.0 Malignant pleural effusion; K76.9 Liver disease, unspecified; J43.9 Emphysema, unspecified; D75.A Glucose-6-phosphate dehydrogenase (G6PD) deficiency without anemia; M25.511 Pain in right shoulder; Z86.11 Personal history of tuberculosis; Z87.440 Personal history of urinary (tract) infections; Z87.891 Personal history of nicotine dependence; Z99.81 Dependence on supplemental oxygen
CPT/HCPCS: 36415; 80053; 82378; 85025; 86300; 86301; 86304; 99215

== ENCOUNTER 2020-09-13 10:55 | Outpatient (CLI) | payer MEDICARE, SELFPAY ==
[2020-09-14 11:37] LABS: CA 27.29 85 U/mL (<38)
== END 2020-09-13 10:56 | disposition home or self-care (01) ==
PROVIDERS: PCP Family Medicine; Visit Provider Internal Medicine Hematology & Oncology
DX: J91.0 Malignant pleural effusion (principal)
CPT/HCPCS: 36415; 86300

== ENCOUNTER → 2020-09-15 10:48 | Day surgery (SDC) | payer MEDICARE, SELFPAY ==
[2020-09-15 11:08] VITALS: BMI 21.9
[2020-09-15 11:14] VITALS: BP 134/67; PULSE 104; RESP 24; TEMP 36.5; O2SAT 89
--- NOTE | 2020-09-15 11:49 | XR_ITS ---
WS: [id number] CHEST XRAY TECHNIQUE: Portable chest. CLINICAL INFORMATION: post right thoracentesis COMPARISON: September 06, 2020 FINDINGS: Post right thoracentesis. No pneumothorax. Heart: Normal cardiac silhouette. Lungs: . No pneumothorax. Patchy infiltrates throughout the right lung with ill-defined opacities in the right lower lobe similar to previous. Hyperinflation with advanced emphysematous changes. Tiny am ount of residual right pleural fluid. Bones: Thoracolumbar curve. XR/XR chest 1V portable [id number] IMPRESSION: No pneumothorax post right thoracentesis.
--- NOTE | 2020-09-15 12:10 | PM.OP ---
Operative Report Date of procedure: September 15, 2020 Pulmonary & Critical Care Medicine Procedure -right side thoracentesis Procedure: Right pleural effusion thoracentesis Indication: Recurrent right pleural effusion Contact Center Associate(s): Yves Urbina MD Consent: Signed and placed in chart Anesthesia: 10 cc 1% lidocaine without epinephrine Description: Right pleural effusion was localized using ultrasound guidance and the site was marked accordingly. After chlorhexidine skin prep, area was draped in a sterile manner. 1% lidocaine was used for local anesthesia. Thoracentesis catheter was then inserted into the right pleural space with aspiration of 400 cc of pleural fluid. Appearance was straw-colored. Ultrasound guidance used: Yes. Image saved to ultrasound machine yes. Prior to thoracentesis right pleural effusion Post thoracentesis EBL: 5-10 cc Complications: None PCXR: No pneumothorax Associated Problem List Diagnoses (1) Recurrent right pleural effusion: (2) Small cell lung cancer:
== END | disposition home or self-care (01) ==
PROVIDERS: PCP Family Medicine; Visit Provider Internal Medicine Pulmonary Disease
DX: J90 Pleural effusion, not elsewhere classified (principal); C34.90 Malignant neoplasm of unspecified part of unspecified bronchus or lung
CPT/HCPCS: 32555; 71045

== ENCOUNTER → 2020-09-22 10:38 | Outpatient (BNVA) | payer MEDICARE, SELFPAY | PROVIDERS: PCP Family Medicine; Visit Provider Internal Medicine Pulmonary Disease | DX: C34.90 Malignant neoplasm of unspecified part of unspecified bronchus or lung (principal); Z20.822 Contact with and (suspected) exposure to COVID-19 | CPT/HCPCS: 87635 ==

== ENCOUNTER 2020-09-29 15:24 | Observation (INO) | payer MEDICARE, SELFPAY ==
[2020-09-27 17:16] VITALS: BMI 21.9
[2020-09-29] VITALS (19 sets, daily range): BP systolic 111–155; BP diastolic 63–97; PULSE 78–100; RESP 14–22; TEMP 36.3–36.7; O2SAT 90–100
--- NOTE | 2020-09-29 | SC_ITS ---
WS: [id number] C-arm fluoroscopy of the left chest for port placement, 09/29/2020 Clinical Data: RAMON CATH Comparison: Portable chest, 09/15/2020. Findings: A port has been inserted in the left internal jugular vein. SC/C-arm FL for CVA 42009 Impression: Satisfactory port insertion.
--- NOTE | 2020-09-29 | SCC_ITS ---
Procedure Done: Placement of PowerPort in the left internal jugular vein Fluoroscopic guidance and interpretation for placement of catheter Ultrasound guidance to access the right internal jugular vein 14.7 seconds of fluoroscopic guidance, for a cumulative dose of 3.95 mGy, was provided to Dr. Hernandez by the radiology department. C-arm images of the chest were saved for the patient's permanent record. [facility]
[2020-09-29] MEDS: sodium chloride 0.9% 1,000 ML 30 ML IV (12:10)
--- NOTE | 2020-09-29 12:21 | ANES.PREANE2 ---
Pre-Anesthetic Assessment Pre-Anesthetic Assessment: Height/Weight: Height 1.65 m Weight 59.874 kg Temp Pulse Resp BP Pulse Ox 97.8 F 88 16 135/89 94 09/29/20 11:59 09/29/20 11:59 09/29/20 11:59 09/29/20 11:59 09/29/20 11:59 Preop Diagnosis: cancer Proposed Procedure: Operation Date: 09/29/20 13:00 Proposed Procedures p Portacath Placement 02850 C34.90(Not Applicable) - Estrada Hernandez MD Was Beta Anurag taken within 24 hours: N/A Was Clonidine taken within 24 hours: N/A Last intake: Intake Last Liquid Date 09/28/20 Last Liquid Time 07:00 Last Solid Date 09/28/20 Last Solid Time 17:00 Social: Social History: Tobacco (h/o smoking) and No alcohol Exam: Pre-Anes Outpt Exam: alert, oriented x 3 and regular rate & rhythm Airway: Submandibular: WNL Cervical ROM: WNL MP: 2 Dentition: Full Pulmonary: Pulmonary: COPD Comments: Lung CA, pleural effusion, O2 Anesthetic Plan: ASA status: 3 Anesthesia: MAC Risk of > 500 ml blood loss (7ml/kg in children): No Meds/Allergies Current Medications: Current Medications Generic Name Dose Route Start Last Admin Trade Name Freq PRN Reason Stop Dose Admin Sodium Chloride 1,000 mls @ 30 ml s/hr 09/29/20 11:45 09/29/20 12:10 Sodium Chloride 0.9% IV 09/30/20 11:44 30 mls/hr .Q24H [place] Administration PFSH Anesthesia PFSH: Medical History Chronic obstructive pulmonary disease Small cell lung cancer Surgical History History of back surgery History of colonoscopy 2014 Social History Smoking and tobacco status: former smoker Quit status (tobacco): has quit using tobacco Year quit tobacco: 1999 [id number] Second hand smoke exposure: Yes Smoking risk assessment/counseling performed?: Yes Alcohol intake: former Caregiver/support person: No Lives independently: Yes Household members: spouse Housing: House Marital status: service: No Current occupational status: retired Pets and animals: Yes History of recent travel: No Current gender identity: Female Data Anesthesia Cardiac Studies: No Data to Display
--- NOTE | 2020-09-29 12:40 | W.PM.OPSUD ---
Surgery/Procedure H&P Update DATE OF PROCEDURE: September 29, 2020 DATE H&P PERFORMED: 09/18/20 H&P UPDATE INFORMATION: I have reviewed H&P completed within last 30 days, I have examined patient prior to procedure and No changes to prior documentation PREOP DIAGNOSIS: cancer PLANNED PROCEDURE: Operation Date: 09/29/20 13:00 Proposed Procedures p Portacath Placement 85302 C34.90(Not Applicable) - Estrada Hernandez MD
--- NOTE | 2020-09-29 13:07 | PM.OP ---
Operative Report Date of procedure: September 29, 2020 Pre-op Diagnosis: Right lung cancer Post-op diagnosis: same Procedure Done: Placement of PowerPort in the left internal jugular vein Fluoroscopic guidance and interpretation for placement of catheter Ultrasound guidance to access the right internal jugular vein Pathology: none sent Surgeon: Estrada Hernandez Anesthesia: MAC Complications: Left pneumothorax Condition: stable Disposition: PACU Procedure: The patient was taken to the Operating Room and the chest and neck bilaterally were prepped and draped in a sterile manner after the antibiotic had been administered and shoulder rolls had been placed. A total of 10 mL of 1% lidocaine with 0.5% Marcaine was infiltrated under the clavicle on the left side at the site of the planned entry into the subclavian vein. After 3 attempts I could not access the left subclavian vein and I was concerned that I had created an iatrogenic pneumothorax. An ultrasound was used to access the left internal jugular vein, patent flow noted with no evidence of thrombus. An introducer needle was then used to access the left internal jugular vein and after withdrawing blood syringe was removed and a guidewire passed under fluoroscopy into the superior vena cava. The site of the planned port was then marked on the chest and a 15 blade was used to make a 3 cm skin incision this was extended into the subcutaneous tissue using electrocautery and a subcutaneous pocket over the pectoralis fascia was created 2-0 Vicryl suture was used to suture the port to the pectoral fascia in the pocket on 3 sides. The catheter, after having been flushed with hep saline, was attached to the tunneler and a tunnel created between the port site and the left internal jugular vein entry site. Under fluoroscopy the dilator sheath was passed over the guidewire into the proximal superior vena cava. The inner dilator was removed and the sheath left behind and~ the catheter was introduced through the peel-away sheath with the tip in the superior vena cava. The peel-away sheath was removed. The proximal end of the catheter was cut to the right size and was attached to the port. Using a Narayan needle the port was accessed, it withdrew blood easily and flushed easily. A final 5cc of heparin was used to flush the PowerPort. The subcutaneous tissue was approximated using interrupted 3-0 Vicryl sutures and the skin at the introducer site and the port site was closed using subcuticular running 4-0 Monocryl sutures. Surgical glue was applied and the patient was stable throughout the procedure. Fluoroscopic guidance and interpretation was performed for introduction of the guidewire in the left internal jugular vein, passage of dilator and placement of catheter tip in the distal superior vena cava.
[2020-09-29] MEDS: heparin, porcine 1,000 unit/mL INJ 10 mL 6000 UNIT IRRIGATION (14:12)
[2020-09-29] MEDS: lidocaine 1% INJ 20 mL 10 ML INJECTION (14:24)
--- NOTE | 2020-09-29 14:43 | XR_ITS ---
WS: [id number] Portable AP upright chest, 09/29/2020 Clinical Data: port placement r/o ptx Comparison: Portable chest, 09/15/2020. Findings: There is a small left apical pneumothorax of 5%. The right internal jugular venous catheter ends in the superior vena cava. There is a moderate right pleural effusion which has increased. Ther e are pleural based densities in the right apex. There is interstitial change throughout the right lo wer lobe. The heart size is normal. XR/XR chest 1V portable [id number] Impression: 1. Small left apical pneumothorax following insertion of left internal jugular venous catheter. 2. Dr. Hernandez was notified of this finding at 1500 hours. 3. Development of right pleural effusion. 4. Development of pleural-based nodular densities in the right upper lobe.
[2020-09-29] MEDS: fentaNYL 50 mcg/mL INJ 2mL IVP ×2 (14:59→15:04)
--- NOTE | 2020-09-29 15:19 | ANE.PACU2 ---
Inpatient post-anesthesia follow up: Airway intact: Yes Vital signs: Temperature 97.4 F Pulse Rate 79 Respiratory Rate 21 Blood Pressure 113/69 Pulse Oximetry 91 Oxygen Delivery Me thod Nasal Cannula Oxygen Flow Rate 4 Fraction of Inspir ed Oxygen Hydration adequate: Yes Nausea and vomiting: No Pain level: 1 Mental status: Baseline
[2020-09-29] MEDS: oxyCODONE-APAP 5-325 mg Tablet 1 TAB PO (15:30)
[2020-09-29] MEDS: sennosides-docusate Tablet 1 TAB PO (17:46)
--- NOTE | 2020-09-29 19:18 | XR_ITS ---
WS: [id number] Portable AP upright chest, 09/29/2020, 1608 hours Clinical Data: left ptx Comparison: Portable chest, 09/29/2020, 1449 hours. Findings: The left pneumothorax remains the same. The left Port-A-Cath is in the same position. The r ight pleural effusion and right apical pleural thickening are the same. XR/XR chest 1V portable [id number] Impression: No change in small left apical pneumothorax.
[2020-09-30] VITALS: BP 122/65; PULSE 93; RESP 18; TEMP 36.7; O2SAT 97
[2020-09-30 04:00] VITALS: BP 114/70; PULSE 92; RESP 17; TEMP 36.6; O2SAT 95
--- NOTE | 2020-09-30 06:00 | XRR_ITS ---
PROCEDURE INFORMATION: Exam: XR Chest Exam date and time: 09/30/2020 7:13 AM Age: 80 years old Clinical indication: Shortness of breath; Additional info: Ptx TECHNIQUE: Imaging protocol: XR of the chest. Views: 1 view. COMPARISON: CR XR chest 1V portable [id number] 09/29/2020 2:48 PM FINDINGS: Lungs: The lungs are somewhat hyperinflated with increased interstitial markings, likely representing COPD. Nodular opacities are again seen scattered throughout the right lung, the largest in the right upper lobe. Streaky left basilar atelectasis. Biapical scarring noted. Pleural spaces: Unchanged small right pleural effusion with adjacent atelectasis. Pneumonia should be excluded clinically. Heart/Mediastinum: Stable cardiomediastinal silhouette. Vasculature: Left IJ approach MediPort is in satisfactory position, with distal tip in the SVC, approximately 7 cm above the SVC/RA junction. Bones/joints: Degenerative changes of the shoulder joints noted. No acute osseous injury seen. XR/XR chest 1V portable [id number] IMPRESSION: 1. Persistent small left pleural effusion with adjacent atelectasis. Pneumonia should be excluded clinically. 2. Possible mild pulmonary congestion. 3. COPD changes. 4. Unchanged nodular opacities throughout the right lung.
[2020-09-30 08:00] VITALS: BP 120/61; PULSE 87; RESP 18; TEMP 36.8; O2SAT 90
[2020-09-30] MEDS: sennosides-docusate Tablet 1 TAB PO (08:28)
[2020-09-30 08:37] VITALS: PULSE 101; RESP 18; O2SAT 93
--- NOTE | 2020-09-30 10:11 | PC.CHAP ---
Pastoral Care Encounter/Spiritual Assessment Type of Contact [] Declined storm door maker visit [] Patient/Family/Request visit [] Outpatient visit [] Follow-up visit [] Physician referral [] Code/Alert [x] Routine visit [] Staff referral [] Actively dying [] Patient sleeping [] Family support [] [] Out of room [] Palliative care [] [] Receiving care in room [] Pre-surgical visit [] Trauma [] Long length of stay [] ICU visit [] Other: Relational/Emotional Strength [x] Patient feels connected with others/family/visitors/staff [] Distress [] Loneliness/isolation [] Abandonment Spirituality of Patient [x] Person of Joyce [x] Attends Rastafari of their Joyce [x] Believes in Prayer [] Reads Bible or Latter Day materials [] There are Spiritual issues to be addressed Marketing Production Manager Interventions [x] Prayer [x] Active listening [x] Non-anxious presence [x] Spiritual/emotional support [] Crisis/trauma care [] Spiritual counseling [] Bereavement support [] Provided bereavement packet [] Provided Bible/devotional materials [] Provided toy/stuffed animal, coloring book to patient or family member [] Provided Communion [] Anointing/[place] [] Salvation [x] Completed spiritual assessment [] Other: Impact on Illness or Injury [] Angry [] Fearful [] Anxious [] Often cries [] Exhaustion [] Unable to work [] Unable to attend lutheran [] Unable to walk/stand [] Unable to read [] Unable to drive [] Unable to eat/drink [] Unable to sleep [] Unable to be with family [] Patient intubated [] Other: Summary Pt preparing to be discharged. SO in room who is her ride. As we visited, [employer] arrived with her tank to take with her. She requested prayer. Time spent with patient 5 m
--- NOTE | 2020-09-30 10:39 | PC.NURSE ---
discussed discharge instructions with the patient and her , both verbalized understanding. patient was taken by wheelchair with oxygen to private vehicle accompanied by her .
[2020-09-30 10:41] VITALS: BP 120/61; PULSE 101; RESP 18; TEMP 36.8; O2SAT 93
--- NOTE | 2020-10-02 19:02 | P.DS_ITS ---
Discharge Providers Date of Admission: 09/29/20 15:24 Date of Discharge: September 30, 2020 Attending Provider at Admission: Estrada Hernandez MD Attending Provider at Discharge: Estrada Hernandez MD Primary Care Provider: Anthony Nielson MD Reason for Visit 2 Reason for Visit: small cell lung cx Hospital Course Hospital Course This is a 80-year-old female with small cell cancer of the right lung who underwent a PowerPort placement on 09/29/2020. Postprocedure chest x-ray showed a small 5% left pneumothorax. Patient is admitted to the hospital for observati on and a chest x-ray the following morning showed resolution of pneumothorax. At time of discharge her vital signs are stable she is tolerating regular diet and her pain was well controlled Discharge Data Data Completed and Pending: Completed Studies During Hospitalization Category Date Time Status CXRP [XR chest 1V portable [id number]] R outine Exams 09/29/20 14:43 Completed XR chest 1V jhonny ble [id number] Routine Exams 09/29/20 19:18 Completed XR chest 1V jhonny ble [id number] Routine Exams 09/30/20 06:00 Completed Vitals: Last Vital Signs Temp 98.3 F 09/30/20 10:41 Pulse 101 H 09/30/20 10:41 Resp 18 09/30/20 10:41 BP 120/61 09/30/20 10:41 Pulse Ox 93 09/30/20 10:41 Discharge Plan Discharge Patient Disposition: Home Condition: Stable Prescriptions: Continued multivitamin Tablet 1 tab PO QAM RF: 0 oxycodone-acetaminophen 5-325 mg Tablet 1 tab PO Q6H PRN (Reason: Pain) RF: 0 Discharge Orders: Discharge Order (Routine); Ordered 09/30/20 Ordered By: Estrada Hernandez Referrals: Estrada Hernandez MD [Physician] - Patient Instructions: Using Oxygen at Home (GEN), Hypoxia (GEN), Opioid Safety Activity Restrictions/Additional Instructions: Diet Advance to normal diet as tolerated, increase fluid intake as much as possible. Activity Avoid strenuous activity for 2 weeks but continue with daily activities includin g walking as tolerated. Do not lift more than 10 pounds for 2 weeks Return to work/school You can return to work/ school whenever you feel ready as long as you don?t have to lift more than 10 pounds at work. If you have paperwork that needs to be completed for time off from work, please contact my office Driving You can resume driving once you stop using narcotic pain medications, and transi tion to non-opioid pain medications like Tylenol, Motrin, Aleve, etc. Medications Pain Take opioid pain medications as prescribed and transition to non-opioid pain medications like Tylenol, Motrin, Aleve etc. over the next few days. The goal of the pain medications is to make the pain bearable and not to be pain free since you recently had surgery. Resume all home medications after surgery as per the medication reconciliation list Nausea Nausea is common after surgery, take nausea medications as needed and stay on a liquid bland diet until nausea resolves. Constipation The combination of surgery, anesthesia and pain medications can result in constipation. Take stool softeners as prescribed. If you do not have a bowel movement in 3 days, please take an [id number] laxative like MiraLAX to address the constipation. Shower It is ok to shower but avoid getting the wound wet for 48 hours after surgery. Do not soak in bathtub, swimming pool or hot tub for 2 weeks. Wound care If you had open wound, pack it with ribbon gauze once daily. The glue applied to the incision will peel slowly over the next two weeks. The stitches used are dissolvable and will not need to be removed. If you have greer, they will be removed 2 weeks after surgery at follow up in my clinic. Do not apply antibiotics or other medications on the incision Problems with the wound You can develop some redness around the incision from bruising after surgery. If there is increasing pain, redness, tenderness around the incision with or without drainage, please contact my office to rule out an infection. Sometimes the skin at the incisions can separate, resulting in reopening of the wound. Cover the wound with antibiotic cream and sterile dressings and contact my office. Contact physician Call the office at [phone] during office hours or go the Emergency Room after hours for - ?Fever to 100.4 or greater ?Shaking chills ?Pain that increases over time ?Redness, warmth, or pus draining from incision sites ?Persistent nausea or inability to take in liquids Discharge Attestations Time Spent in Discharge Care*: less than 30 min Quality Metrics Clinical Quality Measures During this hospital stay, did patient experience: None Coding Level of Care Code Acute [facility] FW DC note
--- NOTE | 2020-10-04 17:19 | PC.RESP ---
Pulmonary Rehab information sent to patient.
== END 2020-09-30 10:25 | disposition home or self-care (01) ==
LOC: MEDSURG 15:25
PROVIDERS: Admitting Provider Surgery; PCP Family Medicine; Visit Provider Surgery
PROC: (CPT 36561; principal; 2020-09-29 13:00)
DX: C34.90 Malignant neoplasm of unspecified part of unspecified bronchus or lung (principal); J44.9 Chronic obstructive pulmonary disease, unspecified; Z99.81 Dependence on supplemental oxygen; Z87.891 Personal history of nicotine dependence
CPT/HCPCS: 36561; 71045; 77001; 94664; 94762; 96365; C1788; G0378; J0690; J1644; J2704; J3010; J3490; J7030

== ENCOUNTER 2020-10-09 09:40 | Outpatient (CLI) | payer MEDICARE, SELFPAY ==
[2020-10-09 10:30] LABS: Basophils # 0.1 10^3/uL (0.0-0.1); Basophils % 1.3 %; Eosinophils # 0.2 10^3/uL (0.0-0.8); Eosinophils % 3.4 %; Hemoglobin 11.5 g/dL (11.5-15.3); Lymphocytes # 1.1 10^3/uL (0.8-4.8); Lymphocytes % 16.4 %; Mean Corpuscular HGB Conc 29.5 g/dL (30.0-36.0); Mean Corpuscular Hemoglobin 31.1 pg (28.0-34.0); Mean Corpuscular Volume 105.4 fL (81-99); Mean Platelet Volume 9.8 fL (7.4-10.4); Monocytes # 0.8 10^3/uL (0.2-0.9); Monocytes % 11.6 %; Nucleated Red Blood Cells % 0 %; Platelet Count 434 10^3/cmm (130-400); Red Cell Distribution Width 17.2 % (12.1-15.1); White Blood Count 6.7 10^3/uL (4.0-10.0)
[2020-10-09] MEDS: alteplase 1 mg/mL SDV 2 mL 2 MG IV (10:30)
[2020-10-09 10:57] LABS: Alanine Aminotransferase < 5 U/L (0-33); Albumin Level 3.3 g/dL (3.5-5.2); Alkaline Phosphatase 129 IU/L (35-105); Anion Gap 14.1 (5-19); Aspartate Amino Transferase 25 U/L (0-32); Blood Urea Nitrogen 10 mg/dL (8-23); Calcium 8.4 mg/dL (8.5-10.5); Carbon Dioxide 27 mmol/L (22-29); Chloride 103 mmol/L (98-107); Globulin 3.5 g/dL (1.3-4.6); Glucose 96 mg/dL (65-115); Osmolality Calculated 289 mOsm/kg (285-295); Potassium 4.1 mmol/L (3.5-5.1); Sodium 140 mmol/L (136-145); Total Bilirubin 0.8 mg/dL (0.15-1.2); Total Protein 6.8 g/dL (6.6-8.7)
[2020-10-09 12:18] VITALS: RESP 16
[2020-10-09] MEDS: oxyCODONE-APAP 5-325 mg Tablet 1 TAB PO (12:18)
[2020-10-09] MEDS: ondansetron 2 mg/ML SDV 2 mL 8 MG IV (12:20)
[2020-10-09] MEDS: sodium chloride 0.9% 250 ML 75 ML IV (12:20)
--- NOTE | 2020-10-16 00:34 | ONC FU_ITS ---
[facility] Patient Note Patient: Meenu Villalba Unit #: [id number]: 1940 Dictated By: Ingris RasheedDate of Visit: Oct 09, 2020 Onc MED Follow-Up/Prog Note Chief Complaint: Malignant right pleural effusion History of Present Illness: Ms. Villalba is an 80-year-old female with history of severe COPD, history of tuberculosis in childhood, G6PD variant, degenerative disc disease, history of recurrent urinary tract infections, was evaluated by pulmonology on September 06, 2020 for progressive shortness of breath, as per patient on September 01, [address] [facility] for progressive shortness of breath over the period of 2 weeks and requiring more oxygen to maintain her saturation above 90% patient is on home oxygen chronically. She was also complaining of right shoulder pain which was progressive in the last few weeks. So on September 01, 2020 she had a CTA chest done in [facility] which showed no evidence of PE but extensive right pulmonary nodules and large right pleural effusion and marked pulmonary emphysema. At that time patient was advised inpatient care which he refused and she was discharged home on azithromycin and prednisone 20 mg p.o. daily for 5 days and was referred to pulmonology. As per medical record patient has history of stable right upper lobe nodular parenchymal scarring and before that in 2011 she underwent bronchoscopy and cervical mediastinoscopy for left lingular mass, both were negative for malignancy. She also had CT PET scan done which showed no abnormal uptake. Her follow-up CT scan of chest showed improvement of left lingular mass-effect or consolidation.. Patient has history of tuberculosis in 1940s and received treatment as outpatient. Patient has history of smoking but quit in 1999., No alcohol use. Patient denies any hemoptysis or hematemesis, denies any headaches blurred vision or double vision, denies any new bony pains except right shoulder pain, as per patient with thoracentesis her right shoulder pain did improve but now again progressive. No shortness of breath at rest, patient is on home oxygen. Denies any fever or chills denies any productive cough denies any jaundice denies any bony pains.Denies any weight loss. Ms. Villalba was seen by Dr. Ling on September 12, 2020 recommendations for treatment of the malignant cell/pleural effusion per therapeutic thoracentesis from September 06, 2020. The cytology confirmed positive for malignancy but immunohistochemistry is pending. Her PET CT imaging did show pleural effusion with uptake in the right lung as well as a solitary lesion in the left lobe of the liver. Dr. Ling recommended that she pursue treatment with carboplatin etoposide. She did have venous access device placement with a PowerPort into the internal left jugular vein per Dr. Hernandez on September 29, 2020. She had a small 5% left pneumothorax and was admitted for observation and the chest x-ray the following morning showed resolution of the pneumothorax. Mrs. Villalba is here today for her first cycle of carboplatin etoposide. She has no new concerns today. She states that she feels that she is healing well. Her Port-A-Cath does not seem to be bothering her. She has had no fever or chills. She denies any mouth sores, sore throat or difficulty swallowing. She denies any new shortness of breath orthopnea. She denies any cough or hemoptysis. She has had no nausea or vomiting. She denies any diarrhea or constipation. She denies any pre-existing significant peripheral neuropathy symptoms. She denies any mouth sores, sore throat or difficulty swallowing. Overall she states she feels pretty good but is short of breath but that is not new for her. She is not having orthopnea and again is not having hemoptysis. Her ECOG is 1. Past Medical History: Chronic obstructive pulmonary disease Chronic respiratory failure Pulmonary nodules History of TB in 89 Past Surgical History: Port placement in 2020 Back Surgery in 1979 Allergies: Aspirin and Sulfamethoxazole-Trimethoprim. Medications: Calcium 1 Tablet (of 500 mg) Oral daily Cholecalciferol 1 Tablet (of 125 mcg ) Oral daily CVS E 1 Caplet (of 200 Units) Capsule Oral daily Daily Value Multivitamin 1 Tablet Oral daily Magnesium Oxide 1 Caplet (of 400 mg) Capsule Oral daily Naprosyn 1 Tablet (of 500 mg) Oral q 12 hours PRN Trelegy Ellipta 1 Inhalation (of 100-62.5-25 mcg/inh) Aerosol Powder, Breath Activated Inhalation daily Vitamin A 1 Tablet (of 2400 mcg ) Oral daily Vitamin C 1 Caplet (of 500 mg) Capsule Oral daily Family History: Social History: Ms. Villalba is and she is retired. Ms. Villalba quit smoking 21 years ago but had smoked for 41 years. She is a former drinker. Ms. Villalba reports the following support systems: lives with spouse, significant other, family, or friends and lives in own house. Review Of Symptoms: see above Vital Signs: Performed on Oct 09, 2020 14:50 Height - 65.00 in Temperature - 98.1 F (LOW) Pulse - 97 /min Respiration - 16 /min BP - 116/60 mm(hg) O2 Sat - 90 % (LOW) Pain - 2 Performed on Oct 09, 2020 11:08 Height - 65.00 in Weight - 116.8 lbs (LOW) BSA - 1.57 sq.m BMI - 19.44 Temperature - 97.3 F (LOW) Pulse - 91 /min Respiration - 18 /min BP - 103/62 mm(hg) O2 Sat - 91 % (LOW) Pain - 2 Fatigue - 0,2 - Ambulatory/capable of all self-care, unable to perform any work activities. Up and about more than 50% of waking hours. (ECOG) Physical Examination: Constitutional Alert, oriented, no acute distress. Skin pink, warm and dry. Head Normocephalic; atraumatic. Eyes Conjunctivae and sclerae are clear and without icterus. Pupils are reactive and equal. Hematologic/Lymphatic No petechiae or purpura. No tender or palpable lymph nodes in the cervical or supraclavicular areas. Respiratory Lungs are clear to auscultation without rhonchi or wheezing. Cardiovascular Regular rate and rhythm of heart without murmurs,clicks, gallops or rubs. Abdomen Non-tender, non-distended, no masses or ascites. Good bowel sounds noted in all quads. No guarding or rebound tenderness. No pulsatile masses. Back/Spine Non-tender to palpation. Extremities No visible deformities, no cyanosis, clubbing or edema. Musculoskeletal No tenderness or swelling, normal range of motion without obvious weakness. Integumentary No rashes or lesions. Psychiatric Alert and oriented times three. Coherent speech. Verbalizes understanding of our discussions today. Laboratory:Test performed on Oct 09, 2020 10:05 Sodium 140 mmol/L Potassium 4.1 mmol/L Chloride 103 mmol/L CO2 27 mmol/L Anion Gap 14.1 BUN 10 mg/dL Creatinine 0.4 mg/dL Cr Clearance (Est) 104.7400 mL/min Glucose 96 mg/dL Osmolality - Calculated 289 mOsm/kg Calcium 8.4 mg/dL Protein, Total 6.8 g/dL Albumin 3.3 g/dL Globulin 3.5 g/dL Bilirubin, Total 0.8 mg/dL ALT (SGPT) < 5 U/L AST (SGOT) 25 U/L Alkaline Phosphatase 129 IU/L WBC 6.7 10 3/uL RBC 3.70 10 6/uL HGB 11.5 g/dL HCT 39.0 % MCV 105.4 fL MCH 31.1 pg MCHC 29.5 g/dL RDW 17.2 % Platelet Count 434 10 3/cmm MPV 9.8 fL Neutrophils 4.50 10 3/uL Lymphocytes 1.1 10 3/uL Monocytes 0.8 10 3/uL Eosinophils 0.2 10 3/uL Basophils 0.1 10 3/uL Neutrophil % 67.0 % Lymphocyte % 16.4 % Monocyte % 11.6 % Eosinophil % 3.4 % Basophils % 1.3 % NRBC % 0 % Impression: Malignant pleural effusion per diagnostic/therapeutic thoracentesis done on September 06, 2020 and cytology confirmed positive for malignancy but immunohistochemistry is pending Right pleural effusion, malignant. COPD/emphysema, on home oxygen G6PD variant History of tuberculosis in childhood Degenerative disc disease History of recurrent urine tract infections. Plan: PROBLEMS ADDRESSED TODAY !. Malignant pleural effusion- her pleural fluid cytology report confirmed presence of malignant cell. Her case was discussed with pathology per Dr Ling. immunohistochemistry stains to confirm the primary and histology is pending, also PD-L1 status, molecular profiling was also requested to identify targetable therapeutic mutations. Case was also discussed with Dr. Urbina per Dr Ling, regarding her progressive right shoulder pain as per patient, her pain did improve with thoracentesis. Mrs. Villalba been offered chemotherapy with carboplatin and etoposide. A. Proceed with cycle 1 day 1 carboplatin etoposide. B. Aggressive antiemetics prior to chemotherapy and Compazine lorazepam as needed for antiemetics at home. C. Today's labs reviewed in detail discussed with Mr. Villalba and a copy was given to her. WBC 6.7, hemoglobin 11.5, platelets 4 and 34,000 ANC is 4500. Potassium 4.1 creatinine 0.4 random glucose 96 LFTs are normal. Her CA 15-3 on September 12, 2020 was 89.2. CA 19 9 was normal at 0.6 her CA 27-29 was 85, Ca1 25 was 47.5 and her CEA was 237.3. D. I requested MRI of the head with contrast as part of her staging as well as family concerns of short-term memory loss, dizziness and confusion. 2. Follow-up plan A. She will have weekly interim counts with CBC CMP. PattiAlanis PaulaRush requested that she return for day follow-up in 1 week. C. She will be due for her second cycle of chemotherapy and office visit along with labs in 4 weeks. D. Mrs. Villalba was instructed to contact us in interim should questions or problems arise. 3. Patient education regarding chemotherapy treatment plan A. The patient was informed of chemotherapy plan and specific drugs were discussed. We also discussed how chemotherapy works and identified common side effects including alopecia; myelosuppression-including neutropenia, anemia, thrombocytopenia; peripheral neuropathy; fatigue; nausea; diarrhea; constipation; bleeding or bruising; skin changes; mouth sores; drug hypersensitivity/allergic reactions or anaphylaxis and extravasation. They have also been informed how to contact the clinic with side effects or symptoms, including but not limited to fever greater than 100.4???, chills, sore throat, bleeding or bruising that is not explained or mouth sores, cough, nasal discharge, diarrhea, constipation, nausea and/or vomiting not relieved with medications on hand at home, as well as any other concern or question they may have. Our hours are 8:00 a.m. to 4:30 p.m. on Friday through and 8-12:00 on Friday. However, someone is business operations analyst 24 hours per day and they have been advised to contact the [facility] at if it is after hours. We have also discussed potential long-term side effects of chemotherapy including secondary cancers, infertility, pulmonary complications, cardiac complications, and again peripheral neuropathy. We have discussed that they certainly need to let us know before taking any antioxidants or herbal or further dietary supplements, as we are unsure of how these agents react with chemotherapy and we request that they avoid these products for now. They were informed that it is okay to take multivitamins at normal doses. They verbally state that they understand to take all medications as directed by their healthcare provider unless otherwise indicated. They also verbalized understanding to leave the pressure dressing on the intravenous administration site for at least two hours after treatment. Instructions for oral care with baking soda and salt water rinses as well as a guide for use of [id number] medication were provided with the treatment plan. They have been given a written patient treatment plan, of which a copy is in the chart, as well as specific drug information. They have no questions and verbalized understanding and are willing to proceed with chemotherapy at this time. The majority of this visit was spent in face to face communication with this patient in regards to the plan of care, side effect identification and management. Total time spent on this patient's care today including review of patient's records prior to the visit, discussion of treatment plan, side effect identification and management as well as answering questions from the patient and family; and post visit documentation was 60 minutes. Signed By: Ingris Rasheed-, [facility] Serg Ling MD <<Signature on File>>
== END 2020-10-09 09:41 | disposition home or self-care (01) ==
PROVIDERS: PCP Family Medicine; Visit Provider Nurse Practitioner
DX: Z51.11 Encounter for antineoplastic chemotherapy (principal); J91.0 Malignant pleural effusion; J44.9 Chronic obstructive pulmonary disease, unspecified; J96.10 Chronic respiratory failure, unspecified whether with hypoxia or hypercapnia; R91.1 Solitary pulmonary nodule; Z99.81 Dependence on supplemental oxygen; Z79.899 Other long term (current) drug therapy
CPT/HCPCS: 36415; 36593; 80053; 85025; 96367; 96375; 96413; 96417; 99215; J1100; J2405; J2997; J7040; J7050; J9045; J9181

== ENCOUNTER 2020-10-10 06:28 | Outpatient (CLI) | payer MEDICARE, SELFPAY ==
[2020-10-10] MEDS: alteplase 1 mg/mL SDV 2 mL 2 MG IV (13:11)
[2020-10-10] MEDS: ondansetron 2 mg/ML SDV 2 mL 8 MG IVP (13:43)
[2020-10-10] MEDS: sodium chloride 0.9% 250 ML IV (13:43)
== END 2020-10-10 06:29 | disposition home or self-care (01) ==
LOC: ONCMED 06:30
PROVIDERS: PCP Family Medicine; Visit Provider Internal Medicine Hematology & Oncology
DX: Z51.11 Encounter for antineoplastic chemotherapy (principal); J91.0 Malignant pleural effusion; J96.10 Chronic respiratory failure, unspecified whether with hypoxia or hypercapnia; R91.1 Solitary pulmonary nodule; J43.9 Emphysema, unspecified; Z99.81 Dependence on supplemental oxygen; Z79.899 Other long term (current) drug therapy
CPT/HCPCS: 36593; 96367; 96375; 96413; J1100; J2405; J2997; J7040; J7050; J9181

== ENCOUNTER 2020-10-11 07:21 | Outpatient (CLI) | payer MEDICARE, SELFPAY ==
[2020-10-11] MEDS: palonosetron 0.25 mg/5 mL SDV IV (13:04)
[2020-10-11] MEDS: sodium chloride 0.9% 250 ML 75 ML IV (13:04)
== END 2020-10-11 07:22 | disposition home or self-care (01) ==
LOC: ONCMED 07:23
PROVIDERS: PCP Family Medicine; Visit Provider Internal Medicine Hematology & Oncology
DX: Z51.11 Encounter for antineoplastic chemotherapy (principal); J91.0 Malignant pleural effusion
CPT/HCPCS: 96367; 96413; J1100; J2469; J7040; J7050; J9181

== ENCOUNTER 2020-10-16 05:52 | Outpatient (RCR) | payer MEDICARE, SELFPAY ==
[2020-10-16 13:06] LABS: Basophils # 0.1 10^3/uL (0.0-0.1); Basophils % 0.8 %; Eosinophils % 0.5 %; Hematocrit 32.1 % (37.0-47.0); Hemoglobin 9.9 g/dL (11.5-15.3); Lymphocytes # 1.4 10^3/uL (0.8-4.8); Lymphocytes % 21.5 %; Mean Corpuscular HGB Conc 30.8 g/dL (30.0-36.0); Mean Corpuscular Hemoglobin 30.7 pg (28.0-34.0); Mean Corpuscular Volume 99.7 fL (81-99); Mean Platelet Volume 10.3 fL (7.4-10.4); Monocytes # 0.1 10^3/uL (0.2-0.9); Monocytes % 0.9 %; Neutrophils # 4.74 10^3/uL (1.8-7.7); Neutrophils % 72.9 %; Nucleated Red Blood Cells % 0 %; Platelet Count 177 10^3/cmm (130-400); Red Blood Count 3.22 10^6/uL (4.1-5.3); Red Cell Distribution Width 15.4 % (12.1-15.1); White Blood Count 6.5 10^3/uL (4.0-10.0)
[2020-10-16 13:51] LABS: Alanine Aminotransferase 10 U/L (0-33); Albumin Level 3.5 g/dL (3.5-5.2); Alkaline Phosphatase 104 IU/L (35-105); Anion Gap 14.7 (5-19); Aspartate Amino Transferase 20 U/L (0-32); Blood Urea Nitrogen 43 mg/dL (8-23); Calcium 8.6 mg/dL (8.5-10.5); Carbon Dioxide 25 mmol/L (22-29); Chloride 95 mmol/L (98-107); Globulin 3.1 g/dL (1.3-4.6); Glucose 119 mg/dL (65-115); Osmolality Calculated 284 mOsm/kg (285-295); Potassium 3.7 mmol/L (3.5-5.1); Sodium 131 mmol/L (136-145); Total Bilirubin 0.7 mg/dL (0.15-1.2); Total Protein 6.6 g/dL (6.6-8.7)
[2020-10-16 14:02] LABS: Slide Review Slide Review Perform
--- NOTE | 2020-10-24 22:20 | ONC FU_ITS ---
[facility] Patient Note Patient: Meenu Villalba Unit #: [id number]: [id number] Dictated By: Ingris RasheedDate of Visit: October 16, 2020 Onc MED Follow-Up/Prog Note Chief Complaint: Malignant right pleural effusion History of Present Illness: Ms. Villalba is an 80-year-old female with history of severe COPD, history of tuberculosis in childhood, G6PD variant, degenerative disc disease, history of recurrent urinary tract infections, was evaluated by pulmonology on September 06, 2020 for progressive shortness of breath, as per patient on September 01, 2020 she went to [facility] for progressive shortness of breath over the period of 2 weeks and requiring more oxygen to maintain her saturation above 90% patient is on home oxygen chronically. She was also complaining of right shoulder pain which was progressive in the last few weeks. So on September 01, 2020 she had a CTA chest done in [facility] which showed no evidence of PE but extensive right pulmonary nodules and large right pleural effusion and marked pulmonary emphysema. At that time patient was advised inpatient care which he refused and she was discharged home on azithromycin and prednisone 20 mg p.o. daily for 5 days and was referred to pulmonology. As per medical record patient has history of stable right upper lobe nodular parenchymal scarring and before that in 2011 she underwent bronchoscopy and cervical mediastinoscopy for left lingular mass, both were negative for malignancy. She also had CT PET scan done which showed no abnormal uptake. Her follow-up CT scan of chest showed improvement of left lingular mass-effect or consolidation.. Ms Villalba has history of tuberculosis in 1940s and received treatment as outpatient. Patient has history of smoking but quit in 1999., No alcohol use. She denies any hemoptysis or hematemesis, denies any headaches blurred vision or double vision, denies any new bony pains except right shoulder pain, as per patient with thoracentesis her right shoulder pain did improve but now again progressive. No shortness of breath at rest, patient is on home oxygen. Denies any fever or chills denies any productive cough denies any jaundice denies any bony pains. Denies any weight loss. Ms. Villalba was seen by Dr. Ling on September 12, 2020 recommendations for treatment of the malignant cell/pleural effusion per therapeutic thoracentesis from September 06, 2020. The cytology confirmed positive for malignancy but immunohistochemistry is pending. Her PET CT imaging did show pleural effusion with uptake in the right lung as well as a solitary lesion in the left lobe of the liver. Dr. Ling recommended that she pursue treatment with carboplatin etoposide. She did have venous access device placement with a PowerPort into the internal left jugular vein per Dr. Hernandez on September 29, 2020. She had a small 5% left pneumothorax and was admitted for observation and the chest x-ray the following morning showed resolution of the pneumothorax. Mrs. Villalba is here today for followup after starting her first cycle of carboplatin etoposide on September. She states overall she is doing pretty good. She did have some intermittent nausea but denies any emesis. She denies any vision changes or headaches. She denies any fever or chills. She states her appetite is relatively good. She states that her energy is fair. She is able to do her ADLs without any assistance. She has no new concerns today. She denies any pain. She states that she has been queasy off and on. She has had good luck with Zofran in the past. She denies any diarrhea or constipation. She denies any peripheral neuropathy. She has had no hearing changes or ringing in her ears. Her ECOG is 2. Past Medical History: Chronic obstructive pulmonary disease Chronic respiratory failure Pulmonary nodules History of TB in 89 Past Surgical History: Port placement in 2020 Back Surgery in 1979 Allergies: Aspirin and Sulfamethoxazole-Trimethoprim. Medications: Daily Value Multivitamin 1 Tablet Oral daily oxyCODONE-Acetaminophen 1 - 2 Tablet (of 5-325 mg) Oral q 4 hours PRN Prochlorperazine Maleate 1 Tablet (of 10 mg) Oral daily PRN Trelegy Ellipta 1 Inhalation (of 100-62.5-25 mcg/inh) Aerosol Powder, Breath Activated Inhalation daily Family History: Social History: Ms. Villalba is and she is retired. Ms. Villalba quit smoking 21 years ago but had smoked for 41 years. She is a former drinker. Ms. Villalba reports the following support systems: lives with spouse, significant other, family, or friends and lives in own house. Review Of Symptoms: <See Above> Vital Signs: Performed on October 16, 2020 14:07 Height - 65.00 in Temperature - 97.6 F (LOW) Pulse - 81 /min Respiration - 17 /min BP - 106/65 mm(hg) O2 Sat - 95 % (LOW) Pain - 0,2 - Ambulatory/capable of all self-care, unable to perform any work activities. Up and about more than 50% of waking hours. (ECOG) Physical Examination: Constitutional Alert, oriented, no acute distress. Skin pink, warm and dry. Head Normocephalic; atraumatic. Eyes Conjunctivae and sclerae are clear and without icterus. Pupils are reactive and equal. Back/Spine Non-tender to palpation. Extremities No visible deformities, no cyanosis, clubbing or edema. Musculoskeletal No tenderness or swelling, normal range of motion without obvious weakness. Integumentary No rashes or lesions. Psychiatric Alert and oriented times three. Coherent speech. Verbalizes understanding of our discussions today. Laboratory:Test performed on October 16, 2020 12:45 Sodium 131 mmol/L Potassium 3.7 mmol/L Chloride 95 mmol/L CO2 25 mmol/L Anion Gap 14.7 BUN 43 mg/dL Creatinine 0.9 mg/dL Cr Clearance (Est) 41.0000 mL/min Glucose 119 mg/dL Osmolality - Calculated 284 mOsm/kg Calcium 8.6 mg/dL Protein, Total 6.6 g/dL Albumin 3.5 g/dL Globulin 3.1 g/dL Bilirubin, Total 0.7 mg/dL ALT (SGPT) 10 U/L AST (SGOT) 20 U/L Alkaline Phosphatase 104 IU/L WBC 6.5 10 3/uL RBC 3.22 10 6/uL HGB 9.9 g/dL HCT 32.1 % MCV 99.7 fL MCH 30.7 pg MCHC 30.8 g/dL RDW 15.4 % Platelet Count 177 10 3/cmm MPV 10.3 fL Neutrophils 4.74 10 3/uL Lymphocytes 1.4 10 3/uL Monocytes 0.1 10 3/uL Eosinophils 0.0 10 3/uL Basophils 0.1 10 3/uL Neutrophil % 72.9 % Lymphocyte % 21.5 % Monocyte % 0.9 % Eosinophil % 0.5 % Basophils % 0.8 % NRBC % 0 % CBC Slide Review Slide Review Perform SLIDE REVIEW AGREES WITH AUTOMATED RESULT Impression: Malignant pleural effusion per diagnostic/therapeutic thoracentesis done on September 06, 2020 and cytology confirmed positive for malignancy but immunohistochemistry is pending Right pleural effusion, malignant. COPD/emphysema, on home oxygen G6PD variant History of tuberculosis in childhood Degenerative disc disease History of recurrent urine tract infections. Plan/Problems Addressed at this Visit: PROBLEMS ADDRESSED TODAY !. Malignant pleural effusion- her pleural fluid cytology report confirmed presence of malignant cell. Her case was discussed with pathology per Dr Ling. immunohistochemistry stains to confirm the primary and histology is pending, also PD-L1 status, molecular profiling was also requested to identify targetable therapeutic mutations. Case was also discussed with Dr. Urbina per Dr Ling, regarding her progressive right shoulder pain as per patient, her pain did improve with thoracentesis. Mrs. Villalba been offered chemotherapy with carboplatin and etoposide. A. Proceed with cycle 1 day 8 carboplatin etoposide. She was treated on days 1 through 3. B. Aggressive antiemetics prior to chemotherapy and Compazine lorazepam as needed for antiemetics at home. We will have her add scopolamine patch and ondansetron to her antiemetics at home. C. Today's labs reviewed in detail discussed with Ms. Villalba and a copy was given to her. WBC 6.5, hemoglobin 9.9, platelets 277,000, ANC is 4740. Potassium 3.7 random glucose 119 BUN is 40 creatinine 0.9 albumin 3.5 LFTs are normal. Her CA 15-3 on September 12, 2020 was 89.2. CA 19 9 was normal at 0.6 her CA 27-29 was 85, Ca1 25 was 47.5 and her CEA was 237.3. D. I requested MRI of the head with contrast as part of her staging as well as family concerns of short-term memory loss, dizziness and confusion. This has not yet been obtained. 2. Follow-up plan A. She will have weekly interim counts with CBC CMP. B. She will be due for her second cycle of chemotherapy and office visit along with labs in 3 weeks. C. Mrs. Villalba was instructed to contact us in interim should questions or problems arise. Signed By: Ingris Rasheed-, [facility] Keri Ling MD <<Signature on File>>
== END 2020-10-23 08:00 | disposition home or self-care (01) ==
LOC: ONCMED 05:52
PROVIDERS: PCP Family Medicine; Visit Provider Nurse Practitioner
DX: J91.0 Malignant pleural effusion (principal); J43.9 Emphysema, unspecified; Z86.11 Personal history of tuberculosis; M19.90 Unspecified osteoarthritis, unspecified site; N39.0 Urinary tract infection, site not specified; Z99.81 Dependence on supplemental oxygen; Z79.899 Other long term (current) drug therapy
CPT/HCPCS: 36415; 80053; 85025; 99214

== ENCOUNTER 2020-10-23 08:12 | Inpatient (IN) | payer MEDICARE, SELFPAY ==
[2020-10-23] VITALS (66 sets, daily range): BP systolic 70–138; BP diastolic 39–78; PULSE 84–143; RESP 15–37; TEMP 36.4–38.3; O2SAT 20–100; BMI 21.9
--- NOTE | 2020-10-23 08:55 | ECG_ITS ---
[facility] Test Date: 2020-10-23 Pat Name: Meenu Villalba Department: Room: Gender: Female [employer]: : [id number] Requested By: Hernan Christopher Order Number: [id number] Dafne MD: Gosia Rogel M.D. Measurements Intervals [place] Rate: 98 P: 78 VA: 149 QRS: 24 QRSD: 89 T: 93 QT: 324 QTc: 415 Interpretive Statements SINUS RHYTHM NONSPECIFIC ST & T-WAVE ABNORMALITY Compared to ECG 09/01/2020 17:43:34 T-wave abnormality now present Myocardial infarct finding no longer present Electronically Signed On 10-24-2020 9:28:26 CDT by Gosia Rogel M.D. [email or web address]
--- NOTE | 2020-10-23 08:55 | XRR_ITS ---
PROCEDURE INFORMATION: Exam: XR Chest Exam date and time: 10/23/2020 8:57 AM Age: 80 years old Clinical indication: Cough and dyspnea and shortness of breath; Prior surgery; Surgery type: Port; Patient HX: HX of lung cancer; Additional info: Dyspnea/cough TECHNIQUE: Imaging protocol: XR of the chest. Views: 1 view. COMPARISON: CR (CHEST, ) 09/30/2020 7:48 AM FINDINGS: Tubes, catheters and devices: Med port catheter again demonstrated. Lungs: Poorly defined ovoid density overlying the superolateral aspect of the right lung field, suspicious for malignancy. COPD and interstitial prominence. Pleural spaces: Unremarkable. Asymmetric right basilar airspace/pleural disease. Heart/Mediastinum: No cardiomegaly. Bones/joints: Osteopenia and degenerative change. XR/XR chest 1V portable [id number] IMPRESSION: 1. Poorly defined ovoid density overlying the superolateral aspect of the right lung field, suspicious for malignancy. 2. COPD and asymmetric right basilar airspace/pleural disease.
[2020-10-23 09:26] LABS: ABG PH Result 7.48 (7.35-7.45); Alveolar-Arterial Oxygen Gradi 4.3 mmHg (5-10); Arterial Blood Gas Hematocrit 26.3 % (37-47); Base Excess ABG 3.1 mmol/L (-2.0-2.0); Blood Gas Allen Test Pos; Blood Gas Operator Identificat CAK; Blood Gas Sample Site Radial, right; Blood Gas Sample Type Arterial; Carboxyhemoglobin 2.3 %THgb (0.4-20.1); HCO3 ABG 26.7 mmol/L (22-26); HGB O2 Sat 91.1 % (95-100); Ionized Calcium Level - ABG 1.2 mmol/L (1.1-1.4); Methemoglobin 0.9 % (0.4-1.5); Oxygen Device NC; Oxygen Saturation ABG 94.1; PO2 ABG 72.2 mmHg (80.0-100.0); Potassium Level - ABG 3.4 mmol/L (3.5-5.0); Total Hemoglobin 8.6 g/dL (12-16)
[2020-10-23 09:37] LABS: Lymphocytes # 0.2 10^3/uL (0.8-4.8); Lymphocytes % 72.7 %; Mean Corpuscular HGB Conc 31.5 g/dL (30.0-36.0); Mean Corpuscular Hemoglobin 30.5 pg (28.0-34.0); Mean Platelet Volume 12.5 fL (7.4-10.4); Monocytes % 12.1 %; Neutrophils % 15.2 %; Nucleated Red Blood Cells % 0 %; Red Blood Count 2.03 10^6/uL (4.1-5.3); Red Cell Distribution Width 15.2 % (12.1-15.1)
[2020-10-23 09:51] LABS: Alanine Aminotransferase 10 U/L (0-33); Albumin Level 3.4 g/dL (3.5-5.2); Alkaline Phosphatase 98 IU/L (35-105); Anion Gap 17.3 (5-19); Aspartate Amino Transferase 17 U/L (0-32); Blood Urea Nitrogen 44 mg/dL (8-23); Calcium 8.7 mg/dL (8.5-10.5); Carbon Dioxide 26 mmol/L (22-29); Chloride 91 mmol/L (98-107); Globulin 2.7 g/dL (1.3-4.6); Glucose 101 mg/dL (65-115); Osmolality Calculated 283 mOsm/kg (285-295); Potassium 3.3 mmol/L (3.5-5.1); Sodium 131 mmol/L (136-145); Total Bilirubin 1.2 mg/dL (0.15-1.2); Total Protein 6.1 g/dL (6.6-8.7)
--- NOTE | 2020-10-23 09:51 | W.ED.SOB ---
HPI - SOB/Dyspnea General: Chief Complaint: Shortness of Breath/Dyspnea Stated Complaint: SOB Time Seen by Provider: 10/23/20 08:16 History of Present Illness: HPI Narrative: 80-year-old female brought in by EMS. When she arrives here she first told me that her problem was she just been weak she has been getting progressively weak for the last few months she is distressed because her has to care for her and he can barely manage. She wants something done try to regain her health. We completed the rest of her interview she denied any active acute symptoms and denied any major medical problems. When I went back to review her electronic medical record found that she had recently been diagnosed lung cancer and it started on chemotherapy when I asked her about this she recalled it. Labs were ordered later in the visit when I went back to talk to her about the results she cannot recall that I had been in the room her is with her at that time. See notes below. MD elicited complaint: shortness of breath Pertinent past history: COPD and other (lung CA) Onset (ago): month(s) Context: recent illness and other (started chemno therapy 1 wk ago) Timing: constant and progressively worsening Severity: moderate Exacerbating factors: exertion Relieving factors: oxygen and rest Associated symptoms: Reports chest congestion; Deny abdominal pain, chest pain, cough, diaphoresis, dizziness, extremity pain, fever(s), hemoptysis, lightheadedness, myalgias, nausea, orthopnea, palpitations, paresthesias, polydipsia, polyuria, rash, sense of impending doom, syncope or vomiting Treatment prior to arrival: oxygen Review of Systems Const: Denies: fever(s) or diaphoresis ENMT: Denies: throat pain, ear or mastoid pain, nasal discharge or nasal congestion Card: Denies: chest pain, palpitations, lightheadedness, syncope or orthopnea Resp: Reports: chest congestion; Denies: hemoptysis GI: Denies: abdominal pain, nausea or vomiting : Denies: flank pain, difficulty voiding, dysuria, urinary frequency or urinary urgency Musc: Denies: extremity pain Skin/Breast: Denies: rash or pruritus Neuro: Denies: dizziness Endo: Denies: polyuria or polydipsia PFS ED PFSH: Medical History (Updated 10/24/20 @ 12:44 by Hernan Skaggs DO) Chronic obstructive pulmonary disease Small cell lung cancer Metastatic Surgical History History of back surgery History of colonoscopy 2014 Social History Smoking and tobacco status: former smoker Quit status (tobacco): has quit using tobacco Year quit tobacco: 1999 [id number] Second hand smoke exposure: Yes Smoking risk assessment/counseling performed?: Yes Alcohol intake: former Caregiver/support person: No Lives independently: Yes Household members: spouse Housing: House Marital status: service: No Current occupational status: retired Pets and animals: Yes History of recent travel: No Current gender identity: Female Physical Exam Const: COMMON NORMALS: no acute distress GENERAL APPEARANCE: cooperative and comfortable ORIENTATION/CONSCIOUSNESS: Yes awake and Yes oriented to person HENMT: COMMON NORMALS: normocephalic, atraumatic and hearing grossly normal bilaterally HEAD & SCALP: normocephalic and atraumatic Eye: COMMON NORMALS: Equal, round and reactive pupils present, EOMs intact bilaterally, conjunctivae normal and no scleral icterus CONJUNCTIVA: Yes conjunctivae normal PUPIL: Yes Equal, round and reactive pupils present Neck/C-Spine: COMMON NORMALS: no JVD Resp: COMMON NORMALS: normal respiratory effort, No retractions, No use of accessory muscles and clear to auscultation bilaterally AUSCULTATION: clear to auscultation bilaterally Cardio: COMMON NORMALS: no JVD, regular rate, regular rhythm and No murmurs present (Cardio) RATE: regular rate RHYTHM: regular rhythm GI: COMMON NORMALS: Soft to palpation and No hepatosplenomegaly present AUSCULTATION: Yes normoactive bowel sounds PALPATION: Yes Soft to palpation, No Tenderness to palpation present (GI), No Guarding due to palpation present (GI) and Yes No hepatosplenomegaly present Extremity: COMMON NORMALS: normal to inspection, capillary refill normal, no clubbing, cyanosis or edema, no calf tenderness and no pedal edema Neuro: SENSORIUM/ORIENTATION: Yes oriented to person Skin: COMMON NORMALS: no rashes or lesions noted GENERAL SKIN EXAM: no rashes or lesions noted Course Vital Signs: Vital signs: Vital Signs Temperature 97.2 F L 10/24/20 08:00 Pulse Rate 101 H 05/11/21 12:00 Respiratory Rate 33 H 10/24/20 12:00 Blood Pressure 112/69 10/24/20 12:00 Pulse Oximetry 84 L 10/24/20 12:00 MDM - SOB/Dyspnea MDM Narrative: Medical decision making narrative: Initial labs came back her hemoglobin significantly low at 6 to she is neutropenic and thrombocytopenic most likely due to her chemotherapy called talk to Dr. Ling he agreed with the recommendation that she be admitted for transfusion of blood possible platelet and reverse isolation prophylactic antibiotics and Neulasta. Went to Dr. Nolan this time and we talked her was in the room he was quite angry. He had expected her to be admitted directly to the floor because they wanted to be in the hospital and he did not feel was appropriate that she was in the emergency room charge nurse and I as well as the patient's nurse discussed this with him for approximately 30 minutes during the course of the conversation it became apparent that it was difficult for both the and the patient to follow the discussion he did not understand that we were recommending that she be admitted and was upset that we were going to send her home. When the was in the room the patient became upset and demanded to go home immediately. Earlier she had wanted to stay in the hospital. Mini-Mental status exam was performed at the bedside patient poor scored very poorly she could not do serial sevens she could not name or address or phone number could not identify time or place but was able to identify person. I called and talked with her son is next of kin he asked that we encourage him to continue to stay. I called Dr. Ling back asked him to come and help us try to convince her hoping that a familiar face would be able to convince her to stay. Talk to Dr. Redd about the situation. He seen the patient when he seen the patient and his was not in the room and she was once again very agreeable and understanding he did not was not opposed to admission. At that point we went ahead and admit the patient orders are written. Believe there is some underlying dementia with this patient which seems to be exacerbated by the stress of the situation and her medical condition. Lab Data: Labs: Lab Results 10/23/20 10/23/20 10/23/20 Range/Units 09:15 09:22 09:22 WBC 0.3 L* (4.0-10.0) 10^3/ uL RBC 2.03 L (4.1-5.3) 10^6/u L Hgb 6.2 L* (11.5-15.3) g/dL Hct 19.7 L* (37.0-47.0) % MCV 97.0 (81-99) fL MCH 30.5 (28.0-34.0) pg MCHC 31.5 (30.0-36.0) g/dL RDW 15.2 H (12.1-15.1) % Plt Count 10 L* (130-400) 10^3/c mm MPV 12.5 H (7.4-10.4) fL Neut % (Auto) 15.2 % Lymph % (Auto) 72.7 % [place] % (Auto) 12.1 % Eos % (Auto) 0.0 % Baso % (Auto) 0.0 % Neut # (Auto) 0.05 L* (1.8-7.7) 10^3/u L Lymph # (Auto) 0.2 L (0.8-4.8) 10^3/u L [place] # (Auto) 0.0 L (0.2-0.9) 10^3/u L Eos # (Auto) 0.0 (0.0-0.8) 10^3/u L Baso # (Auto) 0.0 (0.0-0.1) 10^3/u L Nucleated RBC % (a uto) 0 % Nucleated RBCs # 0.0 /100WBC Specimen Type Arterial Sample Site Radial, right ABG pH 7.48 H (7.35-7.45) ABG pCO2 36.0 (35-45) mmHg ABG pO2 72.2 L (80.0-100.0) mmH g ABG HCO3 26.7 H (22-26) mmol/L ABG O2 Saturation 94.1 ABG Base Excess 3.1 H (-2.0-2.0) mmol/ L Mahesh Test Pos A-a O2 Gradient 4.3 L (5-10) mmHg Hematocrit 26.3 L (37-47) % Hgb O2 Saturation 91.1 L (95-100) % Carboxyhemoglobin 2.3 (0.4-20.1) %THgb Methemoglobin 0.9 (0.4-1.5) % Total Hemoglobin 8.6 L (12-16) g/dL Sodium 133.0 131 L (131-143) mmol/L Potassium 3.4 L 3.3 L (3.5-5.0) mmol/L Glucose 105.0 101 (70-115) mg/dL Ionized Calcium 1.2 (1.1-1.4) mmol/L O2 Delivery Device Nc O2 Liters/Min 4.0 % Cushion Cover Inspector ID Cak Chloride 91 L (98-107) mmol/L Carbon Dioxide 26 (22-29) mmol/L Anion Gap 17.3 (5-19) BUN 44 H (8-23) mg/dL Creatinine 1.3 H (0.5-0.9) mg/dL GFR Calculation Not Reportable Calculated Osmolal ity 283 L (285-295) mOsm/k g Lactic Acid (0.5-2.2) mmol/L Calcium 8.7 (8.5-10.5) mg/dL Magnesium (1.7-2.3) mg/dL Iron (37-145) ug/dL TIBC mcg/dl % Saturation (20-50) % Unsat Iron Binding (112-347) ug/dL Ferritin (15-150) ng/mL Total Bilirubin 1.2 (0.15-1.2) mg/dL AST 17 (0-32) U/L ALT 10 (0-33) U/L Alkaline Phosphata se 98 (35-105) IU/L Total Protein 6.1 L (6.6-8.7) g/dL Albumin 3.4 L (3.5-5.2) g/dL Globulin 2.7 (1.3-4.6) g/dL Procalcitonin (0-0.5) ng/mL TSH (0.27-4.20) uIU/ mL Urine Color (Yellow) Urine Appearance (CLEAR) Urine pH (5-7) Ur Specific Gravit y (1.005-1.030) Urine Protein (Negative) Urine Glucose (UA) (Normal) Urine Ketones (Negative) Urine Blood (Negative) Urine Nitrate (Negative) Urine Bilirubin (Negative) Urine Urobilinogen (Negative) mg/dL Ur Leukocyte Gloria ase (Negative) Urine RBC (0-2) /hpf Urine WBC (0-5) /hpf Ur Squamous Epith Cells (0-5) /hpf Amorphous Sediment Urine Bacteria (NONE) /hpf Hyaline Casts /lpf Blood Type Rho(D) Type Antibody Screen Crossmatch 10/23/20 10/23/20 10/23/20 Range/Units 09:22 09:22 09:22 WBC (4.0-10.0) 10^3/ uL RBC (4.1-5.3) 10^6/u L Hgb (11.5-15.3) g/dL Hct (37.0-47.0) % MCV (81-99) fL MCH (28.0-34.0) pg MCHC (30.0-36.0) g/dL RDW (12.1-15.1) % Plt Count (130-400) 10^3/c mm MPV (7.4-10.4) fL Neut % (Auto) % Lymph % (Auto) % [place] % (Auto) % Eos % (Auto) % Baso % (Auto) % Neut # (Auto) (1.8-7.7) 10^3/u L Lymph # (Auto) (0.8-4.8) 10^3/u L [place] # (Auto) (0.2-0.9) 10^3/u L Eos # (Auto) (0.0-0.8) 10^3/u L Baso # (Auto) (0.0-0.1) 10^3/u L Nucleated RBC % (a uto) % Nucleated RBCs # /100WBC Specimen Type Sample Site ABG pH (7.35-7.45) ABG pCO2 (35-45) mmHg ABG pO2 (80.0-100.0) mmH g ABG HCO3 (22-26) mmol/L ABG O2 Saturation ABG Base Excess (-2.0-2.0) mmol/ L Mahesh Test A-a O2 Gradient (5-10) mmHg Hematocrit (37-47) % Hgb O2 Saturation (95-100) % Carboxyhemoglobin (0.4-20.1) %THgb Methemoglobin (0.4-1.5) % Total Hemoglobin (12-16) g/dL Sodium (131-143) mmol/L Potassium (3.5-5.0) mmol/L Glucose (70-115) mg/dL Ionized Calcium (1.1-1.4) mmol/L O2 Delivery Device O2 Liters/Min % Cushion Cover Inspector ID Chloride (98-107) mmol/L Carbon Dioxide (22-29) mmol/L Anion Gap (5-19) BUN (8-23) mg/dL Creatinine (0.5-0.9) mg/dL GFR Calculation Calculated Osmolal ity (285-295) mOsm/k g Lactic Acid (0.5-2.2) mmol/L Calcium (8.5-10.5) mg/dL Magnesium 1.7 (1.7-2.3) mg/dL Iron 165 H (37-145) ug/dL TIBC 182 mcg/dl % Saturation 90.6 H (20-50) % Unsat Iron Binding < 17 L (112-347) ug/dL Ferritin 1399 H (15-150) ng/mL Total Bilirubin (0.15-1.2) mg/dL AST (0-32) U/L ALT (0-33) U/L Alkaline Phosphata se (35-105) IU/L Total Protein (6.6-8.7) g/dL Albumin (3.5-5.2) g/dL Globulin (1.3-4.6) g/dL Procalcitonin 2.28 H (0-0.5) ng/mL TSH 2.80 (0.27-4.20) uIU/ mL Urine Color (Yellow) Urine Appearance (CLEAR) Urine pH (5-7) Ur Specific Gravit y (1.005-1.030) Urine Protein (Negative) Urine Glucose (UA) (Normal) Urine Ketones (Negative) Urine Blood (Negative) Urine Nitrate (Negative) Urine Bilirubin (Negative) Urine Urobilinogen (Negative) mg/dL Ur Leukocyte Gloria ase (Negative) Urine RBC (0-2) /hpf Urine WBC (0-5) /hpf Ur Squamous Epith Cells (0-5) /hpf Amorphous Sediment Urine Bacteria (NONE) /hpf Hyaline Casts /lpf Blood Type Rho(D) Type Antibody Screen Crossmatch 10/23/20 10/23/20 10/23/20 Range/Units 09:27 12:15 13:26 WBC (4.0-10.0) 10^3/ uL RBC (4.1-5.3) 10^6/u L Hgb (11.5-15.3) g/dL Hct (37.0-47.0) % MCV (81-99) fL MCH (28.0-34.0) pg MCHC (30.0-36.0) g/dL RDW (12.1-15.1) % Plt Count (130-400) 10^3/c mm MPV (7.4-10.4) fL Neut % (Auto) % Lymph % (Auto) % [place] % (Auto) % Eos % (Auto) % Baso % (Auto) % Neut # (Auto) (1.8-7.7) 10^3/u L Lymph # (Auto) (0.8-4.8) 10^3/u L [place] # (Auto) (0.2-0.9) 10^3/u L Eos # (Auto) (0.0-0.8) 10^3/u L Baso # (Auto) (0.0-0.1) 10^3/u L Nucleated RBC % (a uto) % Nucleated RBCs # /100WBC Specimen Type Sample Site ABG pH (7.35-7.45) ABG pCO2 (35-45) mmHg ABG pO2 (80.0-100.0) mmH g ABG HCO3 (22-26) mmol/L ABG O2 Saturation ABG Base Excess (-2.0-2.0) mmol/ L Mahesh Test A-a O2 Gradient (5-10) mmHg Hematocrit (37-47) % Hgb O2 Saturation (95-100) % Carboxyhemoglobin (0.4-20.1) %THgb Methemoglobin (0.4-1.5) % Total Hemoglobin (12-16) g/dL Sodium (131-143) mmol/L Potassium (3.5-5.0) mmol/L Glucose (70-115) mg/dL Ionized Calcium (1.1-1.4) mmol/L O2 Delivery Device O2 Liters/Min % Cushion Cover Inspector ID Chloride (98-107) mmol/L Carbon Dioxide (22-29) mmol/L Anion Gap (5-19) BUN (8-23) mg/dL Creatinine (0.5-0.9) mg/dL GFR Calculation Calculated Osmolal ity (285-295) mOsm/k g Lactic Acid 2.2 (0.5-2.2) mmol/L Calcium (8.5-10.5) mg/dL Magnesium (1.7-2.3) mg/dL Iron (37-145) ug/dL TIBC mcg/dl % Saturation (20-50) % Unsat Iron Binding (112-347) ug/dL Ferritin (15-150) ng/mL Total Bilirubin (0.15-1.2) mg/dL AST (0-32) U/L ALT (0-33) U/L Alkaline Phosphata se (35-105) IU/L Total Protein (6.6-8.7) g/dL Albumin (3.5-5.2) g/dL Globulin (1.3-4.6) g/dL Procalcitonin (0-0.5) ng/mL TSH (0.27-4.20) uIU/ mL Urine Color Yellow (Yellow) Urine Appearance Clear (CLEAR) Urine pH 5 (5-7) Ur Specific Gravit y 1.020 (1.005-1.030) Urine Protein Neg (Negative) Urine Glucose (UA) Norm (Normal) Urine Ketones 1+ H (Negative) Urine Blood Trace H (Negative) Urine Nitrate Negative (Negative) Urine Bilirubin Neg (Negative) Urine Urobilinogen Norm (Negative) mg/dL Ur Leukocyte Gloria ase Negative (Negative) Urine RBC 0-4 H (0-2) /hpf Urine WBC 0-4 H (0-5) /hpf Ur Squamous Epith Cells 0-4 H (0-5) /hpf Amorphous Sediment Not Reportable Urine Bacteria Trace (NONE) /hpf Hyaline Casts 0-4 H /lpf Blood Type O Positive Rho(D) Type Positive / 4+ Antibody Screen Negative Crossmatch See Detail Discharge Plan Discharge Patient Disposition: Admitted As Inpatient Admit Provider: Panfilo Redd Clinical Impression: Anemia, Thrombocytopenia, Small cell lung cancer, Leukopenia, Recurrent right pleural effusion, Dementia Condition: Stable Coding Level of Care Code ED Group Sales Manager for g Fwd Exam Comprehensive
[2020-10-23 10:03] LABS: Slide Review Slide Review Perform
[2020-10-23 10:05] LABS: Hematocrit 19.7 % (37.0-47.0); Hemoglobin 6.2 g/dL (11.5-15.3); Neutrophils # 0.05 10^3/uL (1.8-7.7); Platelet Count 10 10^3/cmm (130-400); White Blood Count 0.3 10^3/uL (4.0-10.0)
[2020-10-23 10:08] LABS: Add Urine Microscopic? YES; Bilirubin Urine Neg (Negative); Blood Urine Trace (Negative); Glucose Urine UA Norm (Normal); Ketones Urine 1+ (Negative); Leukocyte Esterase Urine Negative (Negative); Nitrate Urine Negative (Negative); Protein Urine Neg (Negative); Urine Appearance Clear (CLEAR); Urine Color Yellow (Yellow); Urobilinogen Urine Norm (Negative); pH Urine 5 (5-7)
[2020-10-23 10:09] LABS: Bacteria Urine TRACE /hpf; Hyaline Casts Urine 0-4 /lpf; RBC Urine 0-4 /hpf (0-2); Squamous Epithelial Cell Urine 0-4 /hpf (0-5); WBC Urine 0-4 /hpf (0-5)
[2020-10-23 10:10] LABS: Add Urine Culture? No
--- NOTE | 2020-10-23 11:48 | PC.NURSE ---
Dr Skaggs and Justin CN in room explaining labs and the importance of being hospitalized for abdnormal labs. Both and are not understanding the severity of the pt condition. Pt states Your playing a game on me We dont have to do your Bullshit Pt is not oriented with the situation and condition. agrees with his and thinks all not necessary.
--- NOTE | 2020-10-23 11:53 | PC.NURSE ---
ER doctor in room to speak with Pt and Spouse. Both parties are not understanding implications of AMA forms. Spouse states he will call the laborer cutting tool if we don't let them leave. Pt tells ER doctor that she doesn't know who made her come to the ER but then states she called 911 to come to the hospital. Pt is not alert and oriented at this time.
[2020-10-23 12:11] LABS: Magnesium 1.7 mg/dL (1.7-2.3)
[2020-10-23] MEDS: cefepime 2,000 MG in sodium chloride 0.9% (plus) 50 ML 100 MG IV (12:15)
[2020-10-23] MEDS: potassium chloride ER 20 mEq Tablet 40 MEQ PO (12:15)
--- NOTE | 2020-10-23 12:17 | CT_ITS ---
WS: [id number] CT HEAD NONCONTRAST HISTORY: AMS, lung CA TECHNIQUE: Contiguous axial imaging performed through the brain in 2.5 mm imaging. Bone and soft tiss ue windows. Sagittal and coronal reformats reviewed. All CT scans at [facility] use at le ast one of these dose optimization techniques: automated exposure control; mA and/or kV adjustment pe r patient size (includes targeted exams where dose is matched to clinical indication); or iterative r econstruction. DLP: 871.55 mGy.cm COMPARISON: 09/13/2015 No acute intracranial hemorrhage, midline shift or mass effect. Mild atrophy and mild chronic microvascular ischemic disease. Several small lacunar infarcts in the i nsular ribbons and external capsules bilaterally. No large infarct. No sulcal effacement. Bilateral b orly ganglia calcifications. Ventricles: Normal size with no hydrocephalus. Paranasal sinuses: As visualized are clear. Mastoid air cells: Well pneumatized. Calvarium and scalp: Skull is intact with no soft tissue edema or swelling. CT/CT head wo con* [id number] IMPRESSION: 1. No acute intracranial hemorrhage or edema. 2. Mild atrophy with chronic microvascular ischemic disease.
[2020-10-23 13:02] LABS: Procalcitonin 2.28 ng/mL (0-0.5)
--- NOTE | 2020-10-23 13:35 | PM.HP ---
Providers/Chief Complaint Chief Complaint: SOB History of Present Illness Meenu Villalba is a 80 year old female who presents to the emergency department with shortness of breath, fatigue, severe weakness. She denies any fever. She recently started chemotherapy with carboplatinum etopside for metastatic lung cancer. She has had no significant cough. There is been no exposure to Covid, personal history of Covid. She has not seen any blood in her stools or had any black or tarry stools. and patient relates she has had some memory problems in the last several months. She reports she has some low back pain for which she takes oxycodone, and has not had a dose today. She has had no hemoptysis, loss of bowel or bladder control, paresthesias. Review of Systems General: Reports: 10 or more systems reviewed and unremarkable except in HPI and below Const: Reports: fatigue and malaise; Denies: fever(s) or chills Eyes: Denies: change in vision ENMT: Denies: throat pain Card: Denies: chest pain Resp: Reports: dyspnea; Denies: productive cough or non-productive cough GI: Denies: abdominal pain, nausea or vomiting : Denies: flank pain Musc: Denies: neck pain Skin/Breast: Denies: rash Neuro: Denies: headache(s) Psych: Reports: anxiety and memory loss; Denies: depression Endo: Denies: polyuria Conner/Lymph: Denies: easy bruising All/Imm: Denies: urticaria Medications/Allergies Home Medications Medication Instructions Recorded Confirmed Last Taken Type oxycodone-acetaminophen 1 tab PO Q6H PRN 09/29/20 10/23/20 10/22/20 History naproxen 500 mg PO BID PRN 10/23/20 10/23/20 Unknown History ondansetron HCl [Zofran] 4 mg PO Q6H PRN 10/23/20 10/23/20 Unknown History prochlorperazine maleate 10 mg PO Q6H PRN 10/23/20 10/23/20 Unknown History scopolamine base 1 mg TRANSDERMAL Q3D 10/23/20 10/23/20 10/23/20 History Allergies Allergy/AdvReac Type Severity Reaction Status Date / Time aspirin Allergy Unknown Verified 10/23/20 08:23 PFSH Acute PFSH: Medical History (Updated 10/23/20 @ 14:20 by Panfilo Redd MD) Chronic obstructive pulmonary disease Small cell lung cancer Metastatic Surgical History History of back surgery History of colonoscopy 2014 Social History Smoking and tobacco status: former smoker Quit status (tobacco): has quit using tobacco Year quit tobacco: 1999 [id number] Second hand smoke exposure: Yes Smoking risk assessment/counseling performed?: Yes Alcohol intake: former Caregiver/support person: No Lives independently: Yes Household members: spouse Housing: House Marital status: service: No Current occupational status: retired Pets and animals: Yes History of recent travel: No Current gender identity: Female Vitals/I&O/Wt Last Vital Signs Temp 97.8 F 10/23/20 08:14 Pulse 111 H 10/23/20 12:00 Resp 23 H 10/23/20 12:00 BP 95/47 10/23/20 12:00 Pulse Ox 95 10/23/20 12:00 10/22/20 10/23/20 10/23/20 22:59 06:59 14:59 Intake Total 50 / 50 Balance 50 / 50 Weight last 48 hrs Weight 59.874 kg Physical Exam Narrative: EXAM NARRATIVE: General exam is an anxious appearing female, in mild respiratory distress HEENT: Pupils equally round. Oropharynx clear. Neck is supple no lymphadenopathy or thyromegaly Cardiovascular slight tachycardia, regular, no murmur Lungs diminished breath sounds at the bases no wheezes or crackles Abdomen is soft, positive bowel sounds. No obvious organomegaly exam is deferred Extremities no cyanosis clubbing or edema Skin no rash Neuro no focal deficits, 5-minute recall 1/3. Reflective of conversation, need for transfusion, cares her performs for her.. Data : 10/23/20 09:22 10/23/20 09:22 Other data: ABG demonstrates pH is 7.48, PCO2 36, PO2 72 on 4 L. LFTs are within normal limits. Lactate acid is within normal limits. Magnesium level 1.7 Procalcitonin 2.28 Urinalysis 0-4 reds 0-[address] no acute changes Chest x-ray right lung mass, right pleural effusion, unchanged EKG demonstrates sinus rhythm, normal axis, nonspecific ST-T wave changes A&P Assessment and plan (1) Anemia: Significant anemia since starting chemotherapy Check stool Hemoccult, iron studies but I suspect this to be chemotherapy-induced Transfuse 1 unit packed red blood cells secondary to hemoglobin of 6.2. Recheck hemoglobin tomorrow following transfusion. Status: Acute (2) Leukopenia: ANC 50. Cefepime initiated in the emergency department Obtain blood and urine cultures Continue cefepime every 12 hours Neupogen will be initiated, and I have discussed this with oncology. Status: Acute (3) Thrombocytopenia: Significant thrombocytopenia. Although likely not actively bleeding with her significant anemia will transfuse 1 unit of pheresis platelets Repeat platelet count in the morning Status: Acute (4) Small cell lung cancer: Widely metastatic. Chemotherapy recently started. Dr. Ling is his primary oncologist. Status: Acute (5) Acute kidney injury: Hydration Recheck creatinine in the morning Status: Acute (6) Hyponatremia: Follow sodium closely. May be secondary to lung malignancy, or renal failure CT head negative for acute abnormality. Status: Acute Additional A&P Information Chronic hypoxic respiratory failure, chronically on 4 L of oxygen for COPD. DuoNeb as needed. Full code currently, will need to readdress SCDs for DVT prophylaxis ICU admission secondary to severe symptomatic anemia as well as severe thrombocytopenia. Protonix for GI prophylaxis Attestations Medical Necessity Statement*: Will need greater than 2 midnight stay for treatment of severe pancytopenia post chemotherapy as well as concern for infection secondary to ANC less than 500 Time Spent in Patient Care: Greater than 35 minutes Critical Care Time: Critical Care Time (min): 69 Other Attestations: The high probability of a clinically significant, sudden or life threatening deterioration of the patient's [hematology, pulmonary, renal] system(s) required my full and direct attention, intervention and personal management. The critical care time is as shown. This time is in addition to time spent performing any reported procedures but includes the following: [x] Data and vital sign review and interpretation [x] Patient assessment, examination and intervention [x] Documentation [x] Medication orders and management Coding Level of Care Code Acute Outreach Liaison for [facility] Fwd Diagnoses Anemia D64.9 Leukopenia D72.819 Thrombocytopenia D69.6 Small cell lung cancer C34.90 Acute kidney injury N17.9 Hyponatremia E87.1
[2020-10-23] MEDS: sodium chloride 0.9% 500 ML 100 ML IV (14:00)
[2020-10-23 14:02] LABS: Lactic Sepsis W/Reflex 2.2 mmol/L (0.5-2.2)
[2020-10-23 14:50] LABS: Iron 165 ug/dL (37-145)
[2020-10-23 15:09] LABS: Ferritin 1399 ng/mL (15-150); Percent Saturation 90.6 % (20-50); Total Iron Binding Capacity 182 mcg/dl; Unsaturated Iron Binding < 17 ug/dL (112-347)
[2020-10-23 15:25] LABS: Reflex Lactate Order REFLEX LACTIC ORDERD
[2020-10-23] MEDS: sodium chlor 0.9% + KCl 20 mEq 20 MEQ/1,000 ML BAG 75 MEQ IV (16:51)
[2020-10-23] MEDS: alteplase 1 mg/mL SDV 2 mL 2 MG XX ×2 (17:08→18:49)
--- NOTE | 2020-10-23 18:17 | PC.NURSE ---
Patient was brought to unit at 1500 on 4 L NC. One unit of blood was already running. Patient is alert and oriented to self, place, time and situation but is confused. stated that this is baseline.
[2020-10-23 19:07] LABS: Lactic Acid level (Lactate) 1.7 mmol/L (0.5-2.2)
[2020-10-23] MEDS: ipratropium-albuterol 3 mL Neb INHALATION (20:15)
[2020-10-23] MEDS: oxyCODONE-APAP 5-325 mg Tablet 1 TAB PO (21:45)
[2020-10-23] MEDS: LORazepam 2 mg/mL INJ 1 mL 0.5 MG IVP (22:05)
[2020-10-24] VITALS (70 sets, daily range): BP systolic 69–139; BP diastolic 30–91; PULSE 72–130; RESP 11–34; TEMP 36.2–37.9; O2SAT 73–100
[2020-10-24] MEDS: cefepime 2,000 MG in sodium chloride 0.9% (plus) 50 ML 100 MG IV ×2 (00:34→12:46)
[2020-10-24] MEDS: lactated ringers 500 ML 999 ML IV (01:34)
[2020-10-24 02:16] LABS: Hematocrit 23.1 % (37.0-47.0); Hemoglobin 7.7 g/dL (11.5-15.3)
[2020-10-24] MEDS: sodium chloride 0.9% 500 ML 999 ML IV (02:44)
[2020-10-24 05:16] LABS: Hematocrit 26.3 % (37.0-47.0); Lymphocytes # 0.3 10^3/uL (0.8-4.8); Lymphocytes % 82.9 %; Mean Corpuscular HGB Conc 32.7 g/dL (30.0-36.0); Mean Corpuscular Hemoglobin 30.1 pg (28.0-34.0); Mean Platelet Volume 9.2 fL (7.4-10.4); Monocytes # 0.1 10^3/uL (0.2-0.9); Monocytes % 14.3 %; Neutrophils % 2.8 %; Nucleated Red Blood Cells % 0 %; Platelet Count 51 10^3/cmm (130-400); Red Blood Count 2.86 10^6/uL (4.1-5.3); Red Cell Distribution Width 17.2 % (12.1-15.1)
[2020-10-24] MEDS: sodium chlor 0.9% + KCl 20 mEq 20 MEQ/1,000 ML BAG 75 MEQ IV ×2 (05:17→21:56)
[2020-10-24 05:37] LABS: Hemoglobin 8.6 g/dL (11.5-15.3); Neutrophils # 0.01 10^3/uL (1.8-7.7); White Blood Count 0.4 10^3/uL (4.0-10.0)
[2020-10-24 05:38] LABS: Slide Review Slide Review Perform
[2020-10-24 05:49] LABS: Alanine Aminotransferase 10 U/L (0-33); Albumin Level 2.9 g/dL (3.5-5.2); Alkaline Phosphatase 89 IU/L (35-105); Anion Gap 11.4 (5-19); Aspartate Amino Transferase 17 U/L (0-32); Blood Urea Nitrogen 37 mg/dL (8-23); Carbon Dioxide 25 mmol/L (22-29); Chloride 102 mmol/L (98-107); Globulin 2.7 g/dL (1.3-4.6); Glucose 100 mg/dL (65-115); Osmolality Calculated 287 mOsm/kg (285-295); Potassium 4.4 mmol/L (3.5-5.1); Sodium 134 mmol/L (136-145); Total Bilirubin 1.3 mg/dL (0.15-1.2); Total Protein 5.6 g/dL (6.6-8.7)
--- NOTE | 2020-10-24 05:49 | PC.NURSE ---
Shift Summary Patient in room resting sitting up, received 1 unit of blood and 1 of platelets, she had a panic attack over some back pain around 2100, gave her oxy but she was breathing so hard, and complaining of pain constantly that her respiratory rate jumped and her heart rate spiked, had to give her Ativan just to get her to relax long enough for her pain medicine to kick in. After she received her blood, her blood pressure became very soft, Contacted Dr Tena and received orders to rechecked her hemoglobin and gave her a 1 L bolus around 0300 still not much improvement so had to get an order from Dr Tena for Levo, Patient woke up around 4 and while awake her pressures improved, but once she fell back asleep her maps dropped down into the 50s again so started the Levo.
[2020-10-24] MEDS: ipratropium-albuterol 3 mL Neb INHALATION ×3 (07:39→20:59)
[2020-10-24] MEDS: pantoprazole DR 40 mg Tablet PO (09:20)
[2020-10-24] MEDS: vancomycin 750 MG in sodium chloride 0.9% 250 ML 250 MG IV (09:20)
--- NOTE | 2020-10-24 10:07 | PM.PN ---
Subjective Subjective: Interval history: Meenu reports she feels okay this morning. She denies being short of breath. She did run a temperature last night, the highest being 100.9. Medications: Reviewed: Yes Vitals/I&O/Wt Last Vital Signs Temp 97.2 F L 10/24/20 08:00 Pulse 80 10/24/20 08:00 Resp 22 H 10/24/20 08:00 BP 134/58 10/24/20 08:00 Pulse Ox 100 10/24/20 07:39 10/23/20 10/24/20 10/24/20 22:59 06:59 14:59 Intake Total 435 / 485 1342.887 / 1827.887 543.128 / 543.128 Output Total 300 / 300 150 / 450 Balance 135 / 185 1192.887 / 1377.887 543.128 / 543.128 Weight last 48 hrs Weight 56.245 kg Weight 59.874 kg Physical Exam Narrative: EXAM NARRATIVE: General exam no apparent distress Neck is supple no lymphadenopathy or thyromegaly Cardiovascular slight tachycardia, regular, no murmur Lungs diminished breath sounds at the bases no wheezes or crackles Abdomen is soft, positive bowel sounds. No obvious organomegaly Extremities no cyanosis clubbing or edema Data : 10/24/20 04:41 10/24/20 04:41 Micro: Microbiology 10/23/20 09:27 Urine Culture - Preliminary Urine,Clean Catch 10/23/20 13:34 Blood Culture - Preliminary Blood SPECIMEN COLLECTED 10/23/20 13:26 Blood Culture - Preliminary Blood SPECIMEN COLLECTED A&P Assessment and plan (1) Anemia: Significant anemia since starting chemotherapy No evidence of iron deficiency. Stool Hemoccult pending. I suspect this to be chemotherapy-induced Received 1 unit packed red blood cells and hemoglobin improved to 8.6 Status: Acute (2) Leukopenia: ANC today 10, lower than yesterday Now with fever and neutropenia Continue cefepime Add vancomycin Await cultures Continue Neupogen started October 23 Status: Acute (3) Thrombocytopenia: Significant thrombocytopenia. No active bleeding Improved to 51,000 following 1 pheresis unit of platelets October 23 Status: Acute (4) Small cell lung cancer: Widely metastatic. Chemotherapy recently started. Dr. Ling is his primary oncologist. Status: Acute (5) Acute kidney injury: With hydration renal function has returned to baseline Status: Acute (6) Hyponatremia: Improved with hydration CT head negative for acute abnormality. Status: Acute Additional A&P Information Hypotension. Norepinephrine started last night. Will wean off. Chronic hypoxic respiratory failure, chronically on 4 L of oxygen for COPD. DuoNeb as needed. Full code currently, will need to readdress SCDs for DVT prophylaxis Protonix for GI prophylaxis Potential transfer to floor today if weans off norepinephrine and continues to remain stable. Attestations Medical Necessity Statement*: Needs continued hospitalization for IV antibiotics secondary to fever neutropenia, awaiting cultures Critical Care Time: The high probability of a clinically significant, sudden or life threatening deterioration of the patient's [hematologic, infectious, pulmonary] system(s) required my full and direct attention, intervention and personal management. The critical care time is as shown. This time is in addition to time spent performing any reported procedures but includes the following: [x] Data and vital sign review and interpretation [x] Patient assessment, examination and intervention [x] Documentation [x] Medication orders and management Critical Care Time (min): 34 Coding Level of Care Code Acute Neurosurgical Nurse Practitioner for Chg Fwd Diagnoses Anemia D64.9 Leukopenia D72.819 Thrombocytopenia D69.6 Small cell lung cancer C34.90 Acute kidney injury N17.9 Hyponatremia E87.1
--- NOTE | 2020-10-24 17:51 | PC.NURSE ---
Patients was in room and raised his voice at this nurse saying, How am I suppose to get an update on my when I cant hear my phone This nurse explained to patients that the only way we communicate with family is via phone or in person in the hospital. Patients responded, I need to know what is going on with my god damn . The situation was deescalated and the nurse explained that the would have to get updates in person since he cant hear on his phone.
[2020-10-25] VITALS (27 sets, daily range): BP systolic 76–124; BP diastolic 37–78; PULSE 78–115; RESP 15–32; TEMP 36.5–37.3; O2SAT 89–99; BMI 21.8
[2020-10-25] MEDS: cefepime 2,000 MG in sodium chloride 0.9% (plus) 50 ML 100 MG IV ×2 (00:07→11:30)
--- NOTE | 2020-10-25 00:15 | PC.NURSE ---
called report to ale Nelson RN
[2020-10-25] MEDS: ipratropium-albuterol 3 mL Neb INHALATION ×3 (01:37→18:56)
[2020-10-25] MEDS: oxyCODONE-APAP 5-325 mg Tablet 1 TAB PO (01:43)
[2020-10-25] MEDS: vancomycin 750 MG in sodium chloride 0.9% 250 ML 250 MG IV (03:23)
--- NOTE | 2020-10-25 04:22 | PC.NURSE ---
Pt taken by bed to room 266 tolerated well VSS
[2020-10-25 07:20] LABS: Hematocrit 24.7 % (37.0-47.0); Lymphocytes # 0.5 10^3/uL (0.8-4.8); Lymphocytes % 79.4 %; Mean Corpuscular HGB Conc 32.4 g/dL (30.0-36.0); Mean Corpuscular Hemoglobin 29.9 pg (28.0-34.0); Mean Corpuscular Volume 92.2 fL (81-99); Mean Platelet Volume 10.7 fL (7.4-10.4); Monocytes # 0.1 10^3/uL (0.2-0.9); Monocytes % 8.8 %; Neutrophils % 10.3 %; Nucleated Red Blood Cells % 0 %; Platelet Count 44 10^3/cmm (130-400); Red Blood Count 2.68 10^6/uL (4.1-5.3); Red Cell Distribution Width 17.4 % (12.1-15.1)
[2020-10-25 07:36] LABS: Alanine Aminotransferase 9 U/L (0-33); Albumin Level 2.8 g/dL (3.5-5.2); Alkaline Phosphatase 81 IU/L (35-105); Anion Gap 9.8 (5-19); Aspartate Amino Transferase 14 U/L (0-32); Blood Urea Nitrogen 22 mg/dL (8-23); Calcium 7.8 mg/dL (8.5-10.5); Carbon Dioxide 25 mmol/L (22-29); Chloride 106 mmol/L (98-107); Globulin 2.5 g/dL (1.3-4.6); Glucose 94 mg/dL (65-115); Osmolality Calculated 287 mOsm/kg (285-295); Potassium 3.8 mmol/L (3.5-5.1); Sodium 137 mmol/L (136-145); Total Protein 5.3 g/dL (6.6-8.7)
[2020-10-25 08:42] LABS: Neutrophils # 0.07 10^3/uL (1.8-7.7); Slide Review Slide Review Perform; White Blood Count 0.7 10^3/uL (4.0-10.0)
[2020-10-25] MEDS: pantoprazole DR 40 mg Tablet PO (08:46)
[2020-10-25] MEDS: sodium chlor 0.9% + KCl 20 mEq 20 MEQ/1,000 ML BAG 75 MEQ IV (10:49)
--- NOTE | 2020-10-25 13:34 | P.PN_ITS ---
Subjective Subjective: Interval history: Meenu feels weak and more short of breath this morning. Medications: Reviewed: Yes Vitals/I&O/Wt Last Vital Signs Temp 97.7 F 10/25/20 12:00 Pulse 101 H 10/25/20 12:00 Resp 18 10/25/20 12:00 BP 76/47 10/25/20 12:00 Pulse Ox 94 10/25/20 12:00 10/24/20 10/25/20 10/25/20 22:59 06:59 14:59 Intake Total 1260 / 2294.061 865 / 3159.061 2284.5 / 2284.5 Output Total 300 / 300 Balance 1260 / 2294.061 565 / 2859.061 2284.5 / 2284.5 Weight last 48 hrs Weight 59.557 kg Weight 59.421 kg Weight 56.245 kg Physical Exam Narrative: EXAM NARRATIVE: General exam no apparent distress Neck is supple no lymphadenopathy or thyromegaly Cardiovascular regular rate and rhythm, no murmur Lungs diminished breath sounds at the bases no wheezes or crackles Abdomen is soft, positive bowel sounds. No obvious organomegaly Extremities no cyanosis clubbing or edema Data : 10/25/20 06:42 10/25/20 06:42 Micro: Microbiology 10/23/20 09:27 Urine Culture - Final Urine,Clean Catch 10/23/20 13:34 Blood Culture - Preliminary Blood NEGATIVE TO DATE 10/23/20 13:26 Blood Culture - Preliminary Blood NEGATIVE TO DATE A&P Assessment and plan (1) Anemia: Significant anemia since starting chemotherapy No evidence of iron deficiency. Stool Hemoccult pending. I suspect this to be chemotherapy-induced Received 1 unit packed red blood cells and hemoglobin today is 8.0. Status: Acute (2) Leukopenia: ANC today 70, slightly improved Continue vancomycin and cefepime for fever with neutropenia. Cultures negative to date. Continue Neupogen started October 23 Status: Acute (3) Thrombocytopenia: Significant thrombocytopenia. No active bleeding Improved to 51,000 following 1 pheresis unit of platelets October 23. Today 44,000 Status: Acute (4) Small cell lung cancer: Widely metastatic. Chemotherapy recently started. Dr. Ling is his primary oncologist. Status: Acute (5) Acute kidney injury: With hydration renal function has returned to baseline She is now tolerating p.o. intake. Fluids discontinued today Status: Acute (6) Hyponatremia: Improved with hydration CT head negative for acute abnormality. Status: Acute Additional A&P Information Hypotension. Improved Chronic hypoxic respiratory failure, chronically on 4 L of oxygen for COPD. DuoNeb as needed. Weakness. Physical therapy consultation. Add nutritional supplement Protein calorie malnutrition present on admission. At calorie supplement. Full code currently SCDs for DVT prophylaxis Protonix for GI prophylaxis Will need home health. Attestations Medical Necessity Statement*: Needs continued hospitalization for IV antibiotics secondary to fever and neutropenia, awaiting recovery of neutrophil count Coding Level of Care Code Acute Natural Gas Shothole Driller for Chg Fwd Diagnoses Anemia D64.9 Leukopenia D72.819 Thrombocytopenia D69.6 Small cell lung cancer C34.90 Acute kidney injury N17.9 Hyponatremia E87.1
--- NOTE | 2020-10-25 13:42 | PC.OT ---
OT SCREEN COMPLETED. PATIENT WAS ABLE TO DEMONSTRATE BED MOBILITY AND ADL PERFORMANCE WITH OUT DIFFICULTIES. REPORTS THAT SHE JUST WANTS TO GO HOME. NO FURTHER SKILLED OT REQUIRED AT THIS TIME.
--- NOTE | 2020-10-25 17:03 | PC.PT ---
PT note; patient sleeping on multiple attempts at evaluation today, will reattempt tomorrow.
--- NOTE | 2020-10-25 18:56 | PC.RESP ---
Pulmonary Rehab information sent to patient.
[2020-10-25 20:42] LABS: Vancomycin Trough < 4.0 ug/mL (10-15)
[2020-10-25] MEDS: vancomycin 1,000 MG in sodium chloride 0.9% 250 ML 250 MG IV (21:30)
[2020-10-26] VITALS (9 sets, daily range): BP systolic 95–103; BP diastolic 54–64; PULSE 91–99; RESP 16–25; TEMP 36.4–37.2; O2SAT 86–96; BMI 21.8
[2020-10-26] MEDS: cefepime 2,000 MG in sodium chloride 0.9% (plus) 50 ML 100 MG IV (00:11)
[2020-10-26] MEDS: LORazepam 2 mg/mL INJ 1 mL 0.5 MG IVP (01:17)
[2020-10-26 05:28] LABS: Basophils % 1.5 %; Hematocrit 26.2 % (37.0-47.0); Hemoglobin 8.2 g/dL (11.5-15.3); Lymphocytes # 0.9 10^3/uL (0.8-4.8); Lymphocytes % 41.3 %; Mean Corpuscular HGB Conc 31.3 g/dL (30.0-36.0); Mean Corpuscular Hemoglobin 29.8 pg (28.0-34.0); Mean Corpuscular Volume 95.3 fL (81-99); Mean Platelet Volume 12.8 fL (7.4-10.4); Monocytes # 0.4 10^3/uL (0.2-0.9); Monocytes % 19.4 %; Neutrophils % 31.5 %; Platelet Count 45 10^3/cmm (130-400); Red Blood Count 2.75 10^6/uL (4.1-5.3); Red Cell Distribution Width 17.4 % (12.1-15.1); White Blood Count 2.1 10^3/uL (4.0-10.0)
[2020-10-26 05:46] LABS: Anion Gap 8.6 (5-19); Blood Urea Nitrogen 13 mg/dL (8-23); Calcium 7.6 mg/dL (8.5-10.5); Carbon Dioxide 26 mmol/L (22-29); Chloride 106 mmol/L (98-107); Glucose 89 mg/dL (65-115); Osmolality Calculated 284 mOsm/kg (285-295); Potassium 3.6 mmol/L (3.5-5.1); Sodium 137 mmol/L (136-145)
[2020-10-26 06:05] LABS: Neutrophils # 0.65 10^3/uL (1.8-7.7)
[2020-10-26 06:06] LABS: Slide Review Slide Review Perform
--- NOTE | 2020-10-26 08:43 | P.DS_ITS ---
Discharge Providers Date of Admission: 10/23/20 15:36 Date of Discharge: October 26, 2020 Attending Provider at Admission: Panfilo Redd MD Attending Provider at Discharge: Panfilo Redd MD Diagnoses at Discharge Discharge Diagnosis (1) Anemia: Status: Acute (2) Leukopenia: Status: Acute (3) Thrombocytopenia: Status: Acute (4) Small cell lung cancer: Status: Acute Permanent problem details: Metastatic (5) Acute kidney injury: Status: Acute (6) Hyponatremia: Status: Acute Reason for Visit Reason for Visit: SOB Hospital Course Hospital Course Meenu is an 80-year-old female with metastatic lung cancer who presented with pancytopenia following chemotherapy. Shortly after admission she developed fever. Pneumonia was not noted on x-ray. Minimal right pleural effusion was noted, consistent with x-rays done following previous thoracentesis. Urinalysis was negative. Cultures were obtained and she was started on cefepime as well as vancomycin and monitored closely. She was given 1 pheresis unit of platelets secondary to markedly low platelet count of 10,001 unit of packed red blood cells secondary to hemoglobin of 6.2 which was symptomatic. During her hospital stay fever went away, cultures ultimately were negative, and with Neupogen her white blood cell count increased to 2.1 by discharged with an ANC of 650. Her ANC at time of admission was 50. She will follow-up with her primary care oncologist in 3 to 5 days. She will finish a 7-day course of Levaquin. Home oxygen evaluation prior to discharge. Home health and home physical therapy at discharge. Physical Exam Narrative: EXAM NARRATIVE: General exam no apparent distress Cardiovascular regular rate and rhythm Lungs diminished breath sounds bilaterally but clear Abdomen is soft, positive bowel sounds Extremities no cyanosis clubbing or edema Discharge Data Data Completed and Pending: Completed Studies During Hospitalization Category Date Time Status CT head wo con* 7 0450 Stat Cat Scan 10/23/20 12:17 Completed XR chest 1V jhonny [id number] Stat Exams 10/23/20 08:55 Completed Pending at discharge Category Date Time Status Blood Culture Sta t Lab 10/23/20 13:34 Results Labs from last 24 hours 10/26/20 10/26/20 10/25/20 04:26 04:26 20:00 WBC 2.1 L RBC 2.75 L Hgb 8.2 L Hct 26.2 L MCV 95.3 MCH 29.8 MCHC 31.3 RDW 17.4 H Plt Count 45 L MPV 12.8 H Neut % (Auto) 31.5 Lymph % (Auto) 41.3 [place] % (Auto) 19.4 Eos % (Auto) 1.0 Baso % (Auto) 1.5 Neut # (Auto) 0.65 L* Lymph # (Auto) 0.9 [place] # (Auto) 0.4 Eos # (Auto) 0.0 Baso # (Auto) 0.0 Nucleated RBC % (a uto) 1.0 Nucleated RBCs # 0.0 Sodium 137 Potassium 3.6 Chloride 106 Carbon Dioxide 26 Anion Gap 8.6 BUN 13 Creatinine 0.4 L GFR Calculation Not Reportable Glucose 89 Calculated Osmolal ity 284 L Calcium 7.6 L Vancomycin Trough < 4.0 L 10/25/20 06:42 WBC 0.7 L* RBC 2.68 L Hgb 8.0 L Hct 24.7 L MCV 92.2 MCH 29.9 MCHC 32.4 RDW 17.4 H Plt Count 44 L MPV 10.7 H Neut % (Auto) 10.3 Lymph % (Auto) 79.4 [place] % (Auto) 8.8 Eos % (Auto) 0.0 Baso % (Auto) 0.0 Neut # (Auto) 0.07 L* Lymph # (Auto) 0.5 L [place] # (Auto) 0.1 L Eos # (Auto) 0.0 Baso # (Auto) 0.0 Nucleated RBC % (a uto) 0 Nucleated RBCs # 0.0 Sodium Potassium Chloride Carbon Dioxide Anion Gap BUN Creatinine GFR Calculation Glucose Calculated Osmolal ity Calcium Vancomycin Trough Vitals: Last Vital Signs Temp 97.5 F L 10/26/20 07:54 Pulse 91 10/26/20 07:54 Resp 25 H 10/26/20 07:54 BP 98/60 10/26/20 07:54 Pulse Ox 93 10/26/20 07:54 Discharge Plan Discharge Patient Disposition: Home Health Service Condition: Stable Prescriptions: New levofloxacin 750 mg tablet 750 mg PO DAILY 7 Days Qty: 7 RF: 0 pantoprazole 40 mg Tablet,Delayed Release (Dr/Ec) 40 mg PO DAILY Qty: 30 RF: 0 Continued oxycodone-acetaminophen 5-325 mg Tablet 1 tab PO Q6H PRN (Reason: Pain) RF: 0 Zofran 4 mg Tablet 4 mg PO Q6H PRN (Reason: Nausea) RF: 0 prochlorperazine maleate 10 mg tablet 10 mg PO Q6H PRN (Reason: Nausea) RF: 0 scopolamine base 1 mg over 3 days patch 3 day 1 mg transdermal Q3D RF: 0 Discontinued naproxen 500 mg tablet 500 mg PO BID PRN (Reason: Pain) RF: 0 Discharge Orders: Discharge Order (Routine); Ordered 10/26/20 Ordered By: Panfilo Redd Referrals: Keri Ling MD [Staff Physician] - 4-7 days Discharge Diet: Regular Discharge Activity: Increase activity as tolerated Patient Instructions: Opioid Safety Activity Restrictions/Additional Instructions: Ensure 3 times a day with meals Keep follow-up with your oncologist Take all medicine as prescribed Home health with home physical therapy Home oxygen evaluation prior to discharge Discharge Attestations Time Spent in Discharge Care*: greater than 30 min Quality Metrics Clinical Quality Measures During this hospital stay, did patient experience: None Coding Level of Care Code Acute g DC note Diagnoses Anemia D64.9 Leukopenia D72.819 Thrombocytopenia D69.6 Small cell lung cancer C34.90 Acute kidney injury N17.9 Hyponatremia E87.1
[2020-10-26] MEDS: pantoprazole DR 40 mg Tablet PO (09:00)
[2020-10-26] MEDS: vancomycin 1,000 MG in sodium chloride 0.9% 250 ML 250 MG IV (09:04)
--- NOTE | 2020-10-26 09:35 | PC.SOCIAL ---
Pg 2 IMM Explained to pt & spouse Pg 2 IMM. No questions voiced. Provided pt a copy. Signed, dated, & timed a copy & placed in chart.
--- NOTE | 2020-10-26 12:13 | PC.NURSE ---
Patient given discharge instructions, all questions answered. Patients port de-accessed, pt tolerated well. Patient discharged at this time in stable condition.
--- NOTE | 2020-10-26 14:49 | PC.PT ---
PT evaluation attempted this a.m., patient sitting up eating with spouse, patient spouse state no needs, planning to return home this afternoon
== END 2020-10-26 11:45 | disposition home health service (06) | DRG 809 ==
LOC: ER 13:07 → ICU 14:20 → MEDSURG 10-25 04:26
PROVIDERS: Internal Medicine; Admitting Provider Internal Medicine; Emergency Provider Family Medicine; Visit Provider Internal Medicine
DX: D61.810 Antineoplastic chemotherapy induced pancytopenia (principal); C34.90 Malignant neoplasm of unspecified part of unspecified bronchus or lung; N17.9 Acute kidney failure, unspecified; E87.1 Hypo-osmolality and hyponatremia; J96.11 Chronic respiratory failure with hypoxia; E46 Unspecified protein-calorie malnutrition; J90 Pleural effusion, not elsewhere classified; D61.1 Drug-induced aplastic anemia; T45.1X5A Adverse effect of antineoplastic and immunosuppressive drugs, initial encounter; D70.1 Agranulocytosis secondary to cancer chemotherapy; Z79.899 Other long term (current) drug therapy; M54.5 Low back pain; Z79.891 Long term (current) use of opiate analgesic; J44.9 Chronic obstructive pulmonary disease, unspecified; Z87.891 Personal history of nicotine dependence; Z99.81 Dependence on supplemental oxygen; Z68.21 Body mass index [BMI] 21.0-21.9, adult
CPT/HCPCS: 36415; 36430; 36591; 36600; 70450; 71045; 80048; 80051; 80053; 80202; 81001; 82330; 82728; 82805; 83540; 83550; 83605; 83735; 84145; 84443; 85014; 85018; 85025; 86850; 86900; 86920; 87040; 87086; 87641; 93005; 94640; 96365; 96372; 99285; 99291; 99292; J0692; J1442; J2060; J2997; J3370; J7040; J7050; P9016; P9035

== ENCOUNTER 2020-12-08 10:02 | Outpatient (CLI) | payer MEDICARE, SELFPAY ==
[2020-12-08 11:29] LABS: Basophils # 0.1 10^3/uL (0.0-0.1); Basophils % 0.9 %; Eosinophils # 0.1 10^3/uL (0.0-0.8); Eosinophils % 1.5 %; Hematocrit 37.7 % (37.0-47.0); Hemoglobin 11.5 g/dL (11.5-15.3); Lymphocytes # 1.2 10^3/uL (0.8-4.8); Lymphocytes % 12.9 %; Mean Corpuscular HGB Conc 30.5 g/dL (30.0-36.0); Mean Corpuscular Hemoglobin 31.4 pg (28.0-34.0); Mean Platelet Volume 10.2 fL (7.4-10.4); Monocytes # 0.9 10^3/uL (0.2-0.9); Monocytes % 9.4 %; Neutrophils # 6.93 10^3/uL (1.8-7.7); Nucleated Red Blood Cells % 0 %; Platelet Count 266 10^3/cmm (130-400); Red Blood Count 3.66 10^6/uL (4.1-5.3); Red Cell Distribution Width 20.8 % (12.1-15.1); White Blood Count 9.2 10^3/uL (4.0-10.0)
[2020-12-08 11:50] LABS: Alanine Aminotransferase 6 U/L (0-33); Albumin Level 3.3 g/dL (3.5-5.2); Alkaline Phosphatase 106 IU/L (35-105); Anion Gap 17.8 (5-19); Aspartate Amino Transferase 17 U/L (0-32); Blood Urea Nitrogen 11 mg/dL (8-23); Calcium 9.3 mg/dL (8.5-10.5); Carbon Dioxide 23 mmol/L (22-29); Chloride 100 mmol/L (98-107); Globulin 3.4 g/dL (1.3-4.6); Glucose 86 mg/dL (65-115); Osmolality Calculated 283 mOsm/kg (285-295); Potassium 3.8 mmol/L (3.5-5.1); Sodium 137 mmol/L (136-145); Total Bilirubin 1.1 mg/dL (0.15-1.2); Total Protein 6.7 g/dL (6.6-8.7)
[2020-12-09 12:53] LABS: Quest SARS-CoV-2 RNA NOT DETECTED (NOT DETECTED)
== END 2020-12-08 10:03 | disposition home or self-care (01) ==
LOC: ONCMED 10:06
PROVIDERS: Visit Provider Internal Medicine Hematology & Oncology
DX: J91.0 Malignant pleural effusion (principal); C78.7 Secondary malignant neoplasm of liver and intrahepatic bile duct; J43.9 Emphysema, unspecified; Z99.81 Dependence on supplemental oxygen; Z79.899 Other long term (current) drug therapy; Z20.822 Contact with and (suspected) exposure to COVID-19
CPT/HCPCS: 36415; 80053; 85025; 87635

== ENCOUNTER 2020-12-13 05:49 | Outpatient (RCR) | payer MEDICARE, SELFPAY ==
--- NOTE | 2020-12-11 11:36 | ONC FU_ITS ---
Dr. Ling follow up note Patient: Meenu Villalba Unit #: [id number]: 1940 Dicatated By: Keri Ling M.D.Date of Visit:Dec 11, 2020 Onc Med Follow-up/Prog Note History of Present Illness: Ms. Villalba is an 80-year-old female with history of severe COPD, history of tuberculosis in childhood, G6PD variant, degenerative disc disease, history of recurrent urinary tract infections, was evaluated by pulmonology on September 06, 2020 for progressive shortness of breath, as per patient on September 01, 2020 she went to [facility] for progressive shortness of breath over the period of 2 weeks and requiring more oxygen to maintain her saturation above 90% patient is on home oxygen chronically. She was also complaining of right shoulder pain which was progressive in the last few weeks. So on September 01, 2020 she had a CTA chest done in [facility] which showed no evidence of PE but extensive right pulmonary nodules and large right pleural effusion and marked pulmonary emphysema. At that time patient was advised inpatient care which he refused and she was discharged home on azithromycin and prednisone 20 mg p.o. daily for 5 days and was referred to pulmonology. As per medical record patient has history of stable right upper lobe nodular parenchymal scarring and before that in 2011 she underwent bronchoscopy and cervical mediastinoscopy for left lingular mass, both were negative for malignancy. She also had CT PET scan done which showed no abnormal uptake. Her follow-up CT scan of chest showed improvement of left lingular mass-effect or consolidation.. Ms Villalba has history of tuberculosis in 1940s and received treatment as outpatient. Patient has history of smoking but quit in 1999., No alcohol use. She denies any hemoptysis or hematemesis, denies any headaches blurred vision or double vision, denies any new bony pains except right shoulder pain, as per patient with thoracentesis her right shoulder pain did improve but now again progressive. No shortness of breath at rest, patient is on home oxygen. Denies any fever or chills denies any productive cough denies any jaundice denies any bony pains. Denies any weight loss. Ms. Villalba was seen on September 12, 2020 recommendations for treatment of the malignant cell/pleural effusion per therapeutic thoracentesis from September 06, 2020. The cytology confirmed positive for malignancy but immunohistochemistry Confirmed small cell lung cancer. Her PET CT imaging did show pleural effusion with uptake in the right lung as well as a solitary lesion in the left lobe of the liver. recommended that she pursue treatment with carboplatin etoposide. She did have venous access device placement with a PowerPort into the internal left jugular vein per Dr. Hernandez on September 29, 2020. She had a small 5% left pneumothorax and was admitted for observation and the chest x-ray the following morning showed resolution of the pneumothorax. r first cycle of carboplatin etoposide was started on September. Came for follow-up, denies any specific complaint except generalized weakness and fatigue, poor appetite, as per patient she tolerated first cycle of chemotherapy well but subsequently got sick and was admitted to hospital and then due to 1 or another reason she could not come for follow-up. Now her children are helping her and she wants to try systemic therapy again. Denies any fever chills denies any nausea or vomiting denies any diarrhea or constipation denies any hemoptysis or hematemesis, off and on right shoulder pain but somewhat better. No headaches blurred vision or double vision, no melena or hematochezia. Medications: Daily Value Multivitamin 1 Tablet Oral daily, oxyCODONE-Acetaminophen 1 - 2 Tablet (of 5-325 mg) Oral q 4 hours PRN, Prochlorperazine Maleate 1 Tablet (of 10 mg) Oral daily PRN, Trelegy Ellipta 1 Inhalation (of 100-62.5-25 mcg/inh) Aerosol Powder, Breath Activated Inhalation daily Allergies: Aspirin and Sulfamethoxazole-Trimethoprim. Review of Systems: Review of Systems is not available for this patient. Vital Signs: Performed on Dec 11, 2020 10:59 Height - 65.00 in Weight - 104.2 lbs (LOW) BSA - 1.50 sq.m BMI - 17.34 (LOW) Performance Status: 1 - No physically strenuous activity, but ambulatory and able to carry out light or sedentary work (e.g. office work, light house work). (ECOG) Physical Examination: ENMT - No mouth sores, no thrush, no jaundice, Respiratory - Few right lung basilar rales otherwise clear, Cardiovascular - Regular rate and rhythm of heart, Abdomen - Soft, bowel sounds present, Extremities - No visible edema. Lab/Imaging: Test performed on Dec 08, 2020 11:35 SARS-CoV-2 RNA (COVID-19) NOT DETECTED A Not Detected (negative) test result for this test means that SARS-CoV-2 RNA was not present in the specimen above the limit of detection. A negative result does not rule out the possibility of COVID-19 and should not be used as the sole basis for treatment or patient management decisions. If COVID-19 is still suspected, based on exposure history together with other clinical findings, re-testing should be considered in consultation with public health authorities. Laboratory test results should always be considered in the context of clinical observations and epidemiological data in making a final diagnosis and patient management decisions. This patient specimen was tested using an FDA EUA pooling method. Patient specimens with low viral loads may not be detected in sample pools due to the decreased sensitivity of pooled testing. Please review the Fact Sheets and FDA authorized labeling available for health care providers and patients using the following websites: [email or web address]-19/[email or web address]/fact-sheet2 [email or web address]/home/Covid-19/Patients/NAAT/ fact-sheet2 This test has been authorized by the FDA under an Emergency Use Authorization (EUA) for use by authorized laboratories. Due to the current public health emergency, [facility] is receiving a high volume of samples from a wide variety of swabs and media for COVID-19 testing. In order to serve patients during this public health crisis, samples from appropriate clinical sources are being tested. Negative test results derived from specimens received in non-commercially manufactured viral collection and transport media, or in media and sample collection kits not yet authorized by FDA for COVID-19 testing should be cautiously evaluated and the patient potentially subjected to extra precautions such as additional clinical monitoring, including collection of an additional specimen. Methodology: Nucleic Acid Amplification Test (NAAT) includes RT-PCR or TMA Additional information about COVID-19 can be found at the [facility] website: [email or web address]. THIS TEST WAS PERFORMED AT: [facility] [address] [place] [address] JASON BRADLEY DO,MPH Test performed on Dec 08, 2020 10:57 Sodium 137 mmol/L Potassium 3.8 mmol/L Chloride 100 mmol/L CO2 23 mmol/L Anion Gap 17.8 BUN 11 mg/dL Creatinine 0.4 mg/dL Cr Clearance (Est) 92.2600 mL/min Glucose 86 mg/dL Osmolality - Calculated 283 mOsm/kg Calcium 9.3 mg/dL Protein, Total 6.7 g/dL Albumin 3.3 g/dL Globulin 3.4 g/dL Bilirubin, Total 1.1 mg/dL ALT (SGPT) 6 U/L AST (SGOT) 17 U/L Alkaline Phosphatase 106 IU/L WBC 9.2 10 3/uL RBC 3.66 10 6/uL HGB 11.5 g/dL HCT 37.7 % MCV 103.0 fL MCH 31.4 pg MCHC 30.5 g/dL RDW 20.8 % Platelet Count 266 10 3/cmm MPV 10.2 fL Neutrophils 6.93 10 3/uL Lymphocytes 1.2 10 3/uL Monocytes 0.9 10 3/uL Eosinophils 0.1 10 3/uL Basophils 0.1 10 3/uL Neutrophil % 75.0 % Lymphocyte % 12.9 % Monocyte % 9.4 % Eosinophil % 1.5 % Basophils % 0.9 % NRBC % 0 % Test performed on Dec 08, 2020 00:00 Manual Diff Cancelled via OM: Cancelled in Connected System Test performed on October 16, 2020 12:45 CBC Slide Review Slide Review Perform SLIDE REVIEW AGREES WITH AUTOMATED RESULT Impression: Malignant pleural effusion per diagnostic/therapeutic thoracentesis done on September 06, 2020 and cytology confirmed positive for malignancy but immunohistochemistry Confirmed small cell lung cancer Right pleural effusion, malignant. CT PET scan showed uptake in right pleural effusion as well as a solitary lesion in the left lobe of the liver COPD/emphysema, on home oxygen G6PD variant History of tuberculosis in childhood Degenerative disc disease History of recurrent urine tract infections. Plan: Discussed with patient regarding her labs white blood count 9.2 hemoglobin 11.5 hematocrit 37.7 platelets 266,000 CMP within normal limits Clinically, patient is doing reasonably well now being treated with systemic therapy with carboplatin/etoposide., Her cycle #2 was delayed, initially because of in patient care due to hospitalization and then due to some personal reasons. Now patient is willing to proceed with further systemic therapy so we will proceed with cycle #2 with carboplatin/etoposide today followed by Neulasta to prevent chemotherapy-induced neutropenia and leukopenia and patient return to clinic 1 week after the third dose of etoposide with CBC CMP, plan to do follow-up CT PET scan after next cycle of chemotherapy if it shows good response, will consolidate with another cycle and may add immunotherapy/Tecentriq, which will be used as maintenance after fourth cycle of chemotherapy. Patient was advised and encouraged to maintain nutrition and hydration, will continue supportive care as neededCase and her prognosis, was discussed with patient, her and her daughter in detail Signed By: Keri Ling M.D. <<Signature on File>>
[2020-12-11] MEDS: ondansetron 2 mg/ML SDV 2 mL 8 MG IVP (12:00)
[2020-12-11] MEDS: sodium chloride 0.9% 250 ML IV (12:00)
[2020-12-12] MEDS: sodium chloride 0.9% 250 ML 75 ML IV (10:55)
[2020-12-12] MEDS: ondansetron 2 mg/ML SDV 2 mL 8 MG IVP (10:55)
[2020-12-13] MEDS: sodium chloride 0.9% 250 ML 75 ML IV (10:46)
[2020-12-13] MEDS: palonosetron 0.25 mg/5 mL SDV IV (10:46)
[2020-12-13] MEDS: alteplase 1 mg/mL SDV 2 mL 2 MG IV (11:25)
== END 2020-12-13 23:59 | disposition home or self-care (01) ==
LOC: ONCMED 05:49
PROVIDERS: Visit Provider Internal Medicine Hematology & Oncology
DX: Z51.11 Encounter for antineoplastic chemotherapy (principal); J91.0 Malignant pleural effusion; J43.9 Emphysema, unspecified; Z99.81 Dependence on supplemental oxygen; M19.90 Unspecified osteoarthritis, unspecified site; Z87.440 Personal history of urinary (tract) infections; Z86.19 Personal history of other infectious and parasitic diseases; Z79.899 Other long term (current) drug therapy
CPT/HCPCS: 96367; 96375; 96413; 96417; 99215; J1100; J2405; J2469; J2997; J7040; J7050; J9045; J9181

== ENCOUNTER 2021-01-10 05:44 | Outpatient (RCR) | payer MEDICARE, SELFPAY ==
[2020-12-19 10:13] LABS: Basophils % 1.4 %; Eosinophils # 0.1 10^3/uL (0.0-0.8); Eosinophils % 1.7 %; Hematocrit 22.7 % (37.0-47.0); Hemoglobin 7.1 g/dL (11.5-15.3); Lymphocytes # 0.8 10^3/uL (0.8-4.8); Lymphocytes % 26.7 %; Mean Corpuscular HGB Conc 31.3 g/dL (30.0-36.0); Mean Corpuscular Hemoglobin 31.4 pg (28.0-34.0); Mean Corpuscular Volume 100.4 fL (81-99); Mean Platelet Volume 10.3 fL (7.4-10.4); Monocytes % 0.7 %; Nucleated Red Blood Cells % 0 %; Platelet Count 128 10^3/cmm (130-400); Red Blood Count 2.26 10^6/uL (4.1-5.3); Red Cell Distribution Width 18.6 % (12.1-15.1); White Blood Count 2.9 10^3/uL (4.0-10.0)
[2020-12-19 10:33] LABS: Alanine Aminotransferase 9 U/L (0-33); Albumin Level 3.3 g/dL (3.5-5.2); Alkaline Phosphatase 83 IU/L (35-105); Anion Gap 13.2 (5-19); Aspartate Amino Transferase 15 U/L (0-32); Blood Urea Nitrogen 26 mg/dL (8-23); Calcium 8.7 mg/dL (8.5-10.5); Carbon Dioxide 29 mmol/L (22-29); Chloride 96 mmol/L (98-107); Glucose 107 mg/dL (65-115); Osmolality Calculated 285 mOsm/kg (285-295); Potassium 3.2 mmol/L (3.5-5.1); Sodium 135 mmol/L (136-145); Total Bilirubin 1.4 mg/dL (0.15-1.2); Total Protein 6.3 g/dL (6.6-8.7)
[2020-12-19 10:49] LABS: Slide Review Slide Review Perform
[2020-12-19] MEDS: sodium chloride 0.9% 250 ML 999 ML IV (11:40)
[2020-12-19] MEDS: alteplase 1 mg/mL SDV 2 mL 2 MG IV (11:50)
[2020-12-19] MEDS: diphenhydrAMINE 25 mg Capsule PO (12:10)
[2020-12-19] MEDS: acetaminophen 325 mg Tablet 650 MG PO (12:10)
[2020-12-19 13:55] VITALS: BP 111/52; PULSE 74; RESP 18; TEMP 36.2; O2SAT 98
[2020-12-19 14:10] VITALS: BP 112/54; PULSE 76; RESP 18; TEMP 36.6; O2SAT 99
[2020-12-19 14:40] VITALS: BP 112/56; PULSE 97; RESP 18; TEMP 36.4; O2SAT 97
[2020-12-19 15:15] VITALS: BP 108/52; PULSE 76; RESP 18; TEMP 36.5; O2SAT 99
[2020-12-19] MEDS: FUROsemide 10 mg/mL SDV 2mL 20 MG IV (15:20)
[2020-12-19 18:07] LABS: Magnesium 1.5 mg/dL (1.7-2.3)
--- NOTE | 2020-12-20 17:42 | ONC FU_ITS ---
Dr. Ling follow up note Patient: Meenu Villalba Unit #: [id number]: 1940 Dicatated By: Keri Ling M.D.Date of Visit:Dec 19, 2020 Onc Med Follow-up/Prog Note History of Present Illness: Ms. 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 She was also complaining of right shoulder pain which was progressive in the last few weeks. So on September 01, 2020 she had a CTA chest done in [facility] which showed no evidence of PE but extensive right pulmonary nodules and large right pleural effusion and marked pulmonary emphysema. At that time patient was advised inpatient care which he refused and she was discharged home on azithromycin and prednisone 20 mg p.o. daily for 5 days and was referred to pulmonology. As per medical record patient has history of stable right upper lobe nodular parenchymal scarring and before that in 2011 she underwent bronchoscopy and cervical mediastinoscopy for left lingular mass, both were negative for malignancy. She also had CT PET scan done which showed no abnormal uptake. Her follow-up CT scan of chest showed improvement of left lingular mass-effect or consolidation.. Ms Villalba has history of tuberculosis in 1940s and received treatment as outpatient. Patient has history of smoking but quit in 1999., No alcohol use. She denies any hemoptysis or hematemesis, denies any headaches blurred vision or double vision, denies any new bony pains except right shoulder pain, as per patient with thoracentesis her right shoulder pain did improve but now again progressive. No shortness of breath at rest, patient is on home oxygen. Denies any fever or chills denies any productive cough denies any jaundice denies any bony pains. Denies any weight loss. Ms. Villalba was seen on September 12, 2020 recommendations for treatment of the malignant cell/pleural effusion per therapeutic thoracentesis from September 06, 2020. The cytology confirmed positive for malignancy but immunohistochemistry Confirmed small cell lung cancer. Her PET CT imaging did show pleural effusion with uptake in the right lung as well as a solitary lesion in the left lobe of the liver. recommended that she pursue treatment with carboplatin etoposide. She did have venous access device placement with a PowerPort into the internal left jugular vein per Dr. Hernandez on September 29, 2020. She had a small 5% left pneumothorax and was admitted for observation and the chest x-ray the following morning showed resolution of the pneumothorax. r first cycle of carboplatin etoposide was started on September. Came for follow-up, complaining of generalized weakness and fatigue, but no chest pain or shortness of breath at rest but dyspnea on exertion, no melena or hematochezia, no hemoptysis or hematemesis, no jaundice, no fever chills, no sore throat, tolerating systemic therapy With carboplatin/etoposide well otherwise Medications: Daily Value Multivitamin 1 Tablet Oral daily, oxyCODONE-Acetaminophen 1 - 2 Tablet (of 5-325 mg) Oral q 4 hours PRN, Prochlorperazine Maleate 1 Tablet (of 10 mg) Oral daily PRN, Trelegy Ellipta 1 Inhalation (of 100-62.5-25 mcg/inh) Aerosol Powder, Breath Activated Inhalation daily Allergies: Aspirin and Sulfamethoxazole-Trimethoprim. Review of Systems: Review of Systems is not available for this patient. Vital Signs: Performed on Dec 19, 2020 12:00 Height - 65.00 in Temperature - 98.3 F (LOW) Pulse - 90 /min Respiration - 20 /min BP - 90/55 mm(hg) O2 Sat - 93 % (LOW) Pain - 0 Performance Status: 2 - Ambulatory/capable of all self-care, unable to perform any work activities. Up and about more than 50% of waking hours. (ECOG) Physical Examination: ENMT - No mouth sores, no thrush, no jaundice, Respiratory - Poor air entry otherwise clear, Cardiovascular - Regular rate and rhythm of heart, Abdomen - Soft, bowel sounds present, Extremities - No visible edema. Lab/Imaging: Test performed on Dec 08, 2020 11:35 SARS-CoV-2 RNA (COVID-19) NOT DETECTED A Not Detected (negative) test result for this test means that SARS-CoV-2 RNA was not present in the specimen above the limit of detection. A negative result does not rule out the possibility of COVID-19 and should not be used as the sole basis for treatment or patient management decisions. If COVID-19 is still suspected, based on exposure history together with other clinical findings, re-testing should be considered in consultation with public health authorities. Laboratory test results should always be considered in the context of clinical observations and epidemiological data in making a final diagnosis and patient management decisions. This patient specimen was tested using an FDA EUA pooling method. Patient specimens with low viral loads may not be detected in sample pools due to the decreased sensitivity of pooled testing. Please review the Fact Sheets and FDA authorized labeling available for health care providers and patients using the following websites: [email or web address]/fact-sheet2 [email or web address]/home/Covid-19/Patients/NAAT/ fact-sheet2 This test has been authorized by the FDA under an Emergency Use Authorization (EUA) for use by authorized laboratories. Due to the current public health emergency, [facility] is receiving a high volume of samples from a wide variety of swabs and media for COVID-19 testing. In order to serve patients during this public health crisis, samples from appropriate clinical sources are being tested. Negative test results derived from specimens received in non-commercially manufactured viral collection and transport media, or in media and sample collection kits not yet authorized by FDA for COVID-19 testing should be cautiously evaluated and the patient potentially subjected to extra precautions such as additional clinical monitoring, including collection of an additional specimen. Methodology: Nucleic Acid Amplification Test (NAAT) includes RT-PCR or TMA Additional information about COVID-19 can be found at the [facility] website: [email or web address]. THIS TEST WAS PERFORMED AT: [facility] [employer] [facility] [address] [place] [address] JASON BRADLEY DO,MPH Test performed on Dec 08, 2020 10:57 Sodium 137 mmol/L Potassium 3.8 mmol/L Chloride 100 mmol/L CO2 23 mmol/L Anion Gap 17.8 BUN 11 mg/dL Creatinine 0.4 mg/dL Cr Clearance (Est) 92.2600 mL/min Glucose 86 mg/dL Osmolality - Calculated 283 mOsm/kg Calcium 9.3 mg/dL Protein, Total 6.7 g/dL Albumin 3.3 g/dL Globulin 3.4 g/dL Bilirubin, Total 1.1 mg/dL ALT (SGPT) 6 U/L AST (SGOT) 17 U/L Alkaline Phosphatase 106 IU/L WBC 9.2 10 3/uL RBC 3.66 10 6/uL HGB 11.5 g/dL HCT 37.7 % MCV 103.0 fL MCH 31.4 pg MCHC 30.5 g/dL RDW 20.8 % Platelet Count 266 10 3/cmm MPV 10.2 fL Neutrophils 6.93 10 3/uL Lymphocytes 1.2 10 3/uL Monocytes 0.9 10 3/uL Eosinophils 0.1 10 3/uL Basophils 0.1 10 3/uL Neutrophil % 75.0 % Lymphocyte % 12.9 % Monocyte % 9.4 % Eosinophil % 1.5 % Basophils % 0.9 % NRBC % 0 % Test performed on Dec 08, 2020 00:00 Manual Diff Cancelled via OM: Cancelled in [employer]cted System Test performed on October 16, 2020 12:45 CBC Slide Review Slide Review Perform SLIDE REVIEW AGREES WITH AUTOMATED RESULT Impression: Malignant pleural effusion per diagnostic/therapeutic thoracentesis done on September 06, 2020 and cytology confirmed positive for malignancy but immunohistochemistry Confirmed small cell lung cancer Right pleural effusion, malignant. CT PET scan showed uptake in right pleural effusion as well as a solitary lesion in the left lobe of the liver COPD/emphysema, on home oxygen G6PD variant History of tuberculosis in childhood Degenerative disc disease History of recurrent urine tract infections. Plan: 22.7 plateletsDiscussed with patient regarding her labs white blood count 2.9 hemoglobin 7.1 128,000 ANC 1900 CMP within normal limit except potassium 3.2 Clinically, patient doing reasonably well now in mild to moderate distress due to progressive anemia, will consider 2 units of packed RBC for symptomatic anemia, her CBC shows progressive leukopenia, patient was supposed to get Neulasta to prevent chemotherapy-induced neutropenia/leukopenia, somehow was not done. Will monitor blood counts closely and if her ANC drops below 500, consider prophylactic antibiotics. We will also consider potassium supplements and also check magnesium level if low, will consider supplement. Patient return in 1 week with CBC CMP and will also consider abdominal sonogram to assess hepatic lesion and chest x-ray to assess malignant pleural effusion, if there is any improvement with the treatment and plan need to consider CT PET scan after next cycle of chemotherapy, if there is a complete remission, may consider consolidation with additional cycle or may switch her to maintenance immunotherapy with Tecentriq Signed By: Keri Ling M.D. <<Signature on File>>
[2020-12-27 13:38] LABS: Eosinophils % 0.7 %; Hematocrit 22.4 % (37.0-47.0); Hemoglobin 7.1 g/dL (11.5-15.3); Lymphocytes % 70.7 %; Mean Corpuscular HGB Conc 31.7 g/dL (30.0-36.0); Mean Corpuscular Hemoglobin 31.3 pg (28.0-34.0); Mean Corpuscular Volume 98.7 fL (81-99); Mean Platelet Volume 10.5 fL (7.4-10.4); Monocytes # 0.4 10^3/uL (0.2-0.9); Monocytes % 25.2 %; Neutrophils % 2.7 %; Nucleated Red Blood Cells # 0.1 /100WBC; Nucleated Red Blood Cells % 3.4 %; Platelet Count 40 10^3/cmm (130-400); Positive M 1; Red Blood Count 2.27 10^6/uL (4.1-5.3); White Blood Count 1.5 10^3/uL (4.0-10.0)
[2020-12-27 13:53] LABS: Alanine Aminotransferase 8 U/L (0-33); Albumin Level 3.5 g/dL (3.5-5.2); Alkaline Phosphatase 96 IU/L (35-105); Anion Gap 15.9 (5-19); Aspartate Amino Transferase 14 U/L (0-32); Blood Urea Nitrogen 15 mg/dL (8-23); Calcium 8.8 mg/dL (8.5-10.5); Carbon Dioxide 28 mmol/L (22-29); Chloride 95 mmol/L (98-107); Globulin 2.8 g/dL (1.3-4.6); Glucose 106 mg/dL (65-115); Neutrophils # 0.04 10^3/uL (1.8-7.7); Osmolality Calculated 283 mOsm/kg (285-295); Sodium 136 mmol/L (136-145); Total Bilirubin 0.6 mg/dL (0.15-1.2); Total Protein 6.3 g/dL (6.6-8.7)
[2020-12-27 13:54] LABS: Slide Review Slide Review Perform
[2020-12-27 14:08] LABS: Potassium 2.9 mmol/L (3.5-5.1)
[2020-12-27] MEDS: alteplase 1 mg/mL SDV 2 mL 2 MG IV (16:27)
[2020-12-27] MEDS: levofloxacin-dextrose 5 % 500 MG/100 ML PREMIX 100 MG IV (16:30)
[2020-12-27 17:06] VITALS: RESP 16; O2SAT 92
[2020-12-27] MEDS: oxyCODONE-APAP 5-325 mg Tablet 1 TAB PO (17:06)
[2020-12-28] MEDS: alteplase 1 mg/mL SDV 2 mL 2 MG IV (11:45)
[2020-12-29] MEDS: alteplase 1 mg/mL SDV 2 mL 2 MG IV ×2 (10:20→11:50)
[2020-12-29 11:27] LABS: Hematocrit 21.8 % (37.0-47.0); Hemoglobin 6.9 g/dL (11.5-15.3); Mean Corpuscular HGB Conc 31.7 g/dL (30.0-36.0); Mean Corpuscular Hemoglobin 31.7 pg (28.0-34.0); Mean Platelet Volume 10.4 fL (7.4-10.4); Platelet Count 104 10^3/cmm (130-400); Red Blood Count 2.18 10^6/uL (4.1-5.3); Red Cell Distribution Width 18.5 % (12.1-15.1); White Blood Count 1.7 10^3/uL (4.0-10.0)
[2020-12-29 12:25] LABS: Slide Review Slide Review Perform
[2020-12-29 12:30] LABS: Absolute Segmented Neutrophil 0.1 10/cmm (1.6-7.1); Corrected White Blood Count 1.6 10^3/cmm (4.8-10.8); Lymphocytes 51 %; Lymphocytes Absolute 0.9 10^3/cmm (1.2-3.4); Macrocytosis 1+; Monocytes Absolute 0.6 10^3/cmm (0.1-0.6); Platelet Estimate Decreased (Normal); Polychromasia 1+; Segmented Neutrophils 8 %; Total Cells Counted 100 (0-100)
[2020-12-29 12:34] LABS: Absolute Neutrophil 0.2 10^3/cmm (1.4-6.5); Eosinophils 0 %
[2020-12-29] MEDS: sodium chloride 0.9% 250 ML 999 ML IV (13:17)
[2020-12-29] MEDS: ondansetron 2 mg/ML SDV 2 mL 8 MG IVP (13:18)
--- NOTE | 2020-12-31 16:13 | ONC FU_ITS ---
Dr. Ling follow up note Patient: Meenu Villalba Unit #: [id number]: 1940 Dicatated By: Keri Ling M.D.Date of Visit:Dec 27, 2020 Onc Med Follow-up/Prog Note History of Present Illness: Ms. Villalba is an 80-year-old female with history of severe COPD, history of tuberculosis in childhood, G6PD variant, degenerative disc disease, history of recurrent urinary tract infections, was evaluated by pulmonology on September 06, 2020 for progressive shortness of breath, as per patient on September 01, 2020 she went to [facility] for progressive shortness of breath over the period of 2 weeks and requiring more oxygen to maintain her saturation above 90% patient is on home oxygen chronically. She was also complaining of right shoulder pain which was progressive in the last few weeks. So on September 01, 2020 she had a CTA chest done in [facility] which showed no evidence of PE but extensive right pulmonary nodules and large right pleural effusion and marked pulmonary emphysema. At that time patient was advised inpatient care which he refused and she was discharged home on azithromycin and prednisone 20 mg p.o. daily for 5 days and was referred to pulmonology. As per medical record patient has history of stable right upper lobe nodular parenchymal scarring and before that in 2011 she underwent bronchoscopy and cervical mediastinoscopy for left lingular mass, both were negative for malignancy. She also had CT PET scan done which showed no abnormal uptake. Her follow-up CT scan of chest showed improvement of left lingular mass-effect or consolidation.. Ms Villalba has history of tuberculosis in 1940s and received treatment as outpatient. Patient has history of smoking but quit in 1999., No alcohol use. She denies any hemoptysis or hematemesis, denies any headaches blurred vision or double vision, denies any new bony pains except right shoulder pain, as per patient with thoracentesis her right shoulder pain did improve but now again progressive. No shortness of breath at rest, patient is on home oxygen. Denies any fever or chills denies any productive cough denies any jaundice denies any bony pains. Denies any weight loss. Ms. Villalba was seen on September 12, 2020 recommendations for treatment of the malignant cell/pleural effusion per therapeutic thoracentesis from September 06, 2020. The cytology confirmed positive for malignancy but immunohistochemistry Confirmed small cell lung cancer. Her PET CT imaging did show pleural effusion with uptake in the right lung as well as a solitary lesion in the left lobe of the liver. recommended that she pursue treatment with carboplatin etoposide. She did have venous access device placement with a PowerPort into the internal left jugular vein per Dr. Hernandez on September 29, 2020. She had a small 5% left pneumothorax and was admitted for observation and the chest x-ray the following morning showed resolution of the pneumothorax. r first cycle of carboplatin etoposide was started on September. Came for follow-up, complaining of generalized weakness and fatigue, as per patient last night she had a fall got large ecchymosis on the right face but denies any fever chills, denies any nausea or vomiting but poor oral intake and generalized weakness and fatigue, unable to navigate even with support denies any dysuria or hematuria denies any sore throat denies any sinus problem denies any headaches blurred vision double vision denies any melena or hematochezia denies any hemoptysis or hematemesis denies any jaundice tolerating systemic chemotherapy reasonably well, patient was supposed to receive Neulasta after her second cycle of chemotherapy with carboplatin/etoposide which she completed on December 19, 2020 but somehow it was not given Medications: Daily Value Multivitamin 1 Tablet Oral daily, oxyCODONE-Acetaminophen 1 - 2 Tablet (of 5-325 mg) Oral q 4 hours PRN, Prochlorperazine Maleate 1 Tablet (of 10 mg) Oral daily PRN, Trelegy Ellipta 1 Inhalation (of 100-62.5-25 mcg/inh) Aerosol Powder, Breath Activated Inhalation daily Allergies: Aspirin and Sulfamethoxazole-Trimethoprim. Review of Systems: Review of Systems is not available for this patient. Vital Signs: Performed on Dec 27, 2020 16:53 Height - 65.00 in Temperature - 98.9 F (HIGH) Pulse - 102 /min (HIGH) Respiration - 20 /min BP - 98/64 mm(hg) O2 Sat - 92 % (LOW) Pain - 7 Fatigue - 7 Performance Status: 3 - Capable of only limited self-care, confined to bed or chair more than 50% of waking hours. (ECOG) Physical Examination: ENMT - No mouth sores, no thrush dry oral mucosa, Mild ecchymosis involving right face but no edema or puffiness, Respiratory - Lungs are clear to auscultation, Cardiovascular - Regular rate and rhythm of heart, Abdomen - Soft, bowel sounds present, Extremities - No visible edema. Lab/Imaging: Test performed on Dec 08, 2020 11:35 SARS-CoV-2 RNA (COVID-19) NOT DETECTED A Not Detected (negative) test result for this test means that SARS-CoV-2 RNA was not present in the specimen above the limit of detection. A negative result does not rule out the possibility of COVID-19 and should not be used as the sole basis for treatment or patient management decisions. If COVID-19 is still suspected, based on exposure history together with other clinical findings, re-testing should be considered in consultation with public health authorities. Laboratory test results should always be considered in the context of clinical observations and epidemiological data in making a final diagnosis and patient management decisions. This patient specimen was tested using an FDA EUA pooling method. Patient specimens with low viral loads may not be detected in sample pools due to the decreased sensitivity of pooled testing. Please review the Fact Sheets and FDA authorized labeling available for health care providers and patients using the following websites: https://[email or web address]/home/[email or web address]/[email or web address]/fact-sheet2 https://[email or web address]/home/[email or web address]-19/Patients/NAAT/ fact-sheet2 This test has been authorized by the FDA under an Emergency Use Authorization (EUA) for use by authorized laboratories. Due to the current public health emergency, [facility] is receiving a high volume of samples from a wide variety of swabs and media for COVID-19 testing. In order to serve patients during this public health crisis, samples from appropriate clinical sources are being tested. Negative test results derived from specimens received in non-commercially manufactured viral collection and transport media, or in media and sample collection kits not yet authorized by FDA for COVID-19 testing should be cautiously evaluated and the patient potentially subjected to extra precautions such as additional clinical monitoring, including collection of an additional specimen. Methodology: Nucleic Acid Amplification Test (NAAT) includes RT-PCR or TMA Additional information about COVID-19 can be found at the [employer] website: www.[employer].com/Covid19. THIS TEST WAS PERFORMED AT: [facility] [id number] JASON BRADLEY DO,MPH Test performed on Dec 08, 2020 10:57 Sodium 137 mmol/L Potassium 3.8 mmol/L Chloride 100 mmol/L CO2 23 mmol/L Anion Gap 17.8 BUN 11 mg/dL Creatinine 0.4 mg/dL Cr Clearance (Est) 92.2600 mL/min Glucose 86 mg/dL Osmolality - Calculated 283 mOsm/kg Calcium 9.3 mg/dL Protein, Total 6.7 g/dL Albumin 3.3 g/dL Globulin 3.4 g/dL Bilirubin, Total 1.1 mg/dL ALT (SGPT) 6 U/L AST (SGOT) 17 U/L Alkaline Phosphatase 106 IU/L WBC 9.2 10 3/uL RBC 3.66 10 6/uL HGB 11.5 g/dL HCT 37.7 % MCV 103.0 fL MCH 31.4 pg MCHC 30.5 g/dL RDW 20.8 % Platelet Count 266 10 3/cmm MPV 10.2 fL Neutrophils 6.93 10 3/uL Lymphocytes 1.2 10 3/uL Monocytes 0.9 10 3/uL Eosinophils 0.1 10 3/uL Basophils 0.1 10 3/uL Neutrophil % 75.0 % Lymphocyte % 12.9 % Monocyte % 9.4 % Eosinophil % 1.5 % Basophils % 0.9 % NRBC % 0 % Test performed on Dec 08, 2020 00:00 Manual Diff Cancelled via OM: Cancelled in Connected System Test performed on October 16, 2020 12:45 CBC Slide Review Slide Review Perform SLIDE REVIEW AGREES WITH AUTOMATED RESULT Impression: Malignant pleural effusion per diagnostic/therapeutic thoracentesis done on September 06, 2020 and cytology confirmed positive for malignancy but immunohistochemistry Confirmed small cell lung cancer Right pleural effusion, malignant. CT PET scan showed uptake in right pleural effusion as well as a solitary lesion in the left lobe of the liver COPD/emphysema, on home oxygen G6PD variant History of tuberculosis in childhood Degenerative disc disease History of recurrent urine tract infections. Plan: Discussed with patient regarding her labs white blood count 1.5 hemoglobin 7.1 hematocrit 22.4 platelets 40,000 ANC 40 CMP within normal limit except potassium 2.9 Clinically, patient is not doing too well, clinically it appears she may have sepsis, patient was advised to go to the emergency room for admission and possible inpatient care And also may benefit from CT scan of head although there is no neurological signs symptoms, but because of copayment during her previous admission to the hospital, is refusing to take her to hospital knowing the risk versus benefits, patient was encouraged to go to hospital and was ensured that we will discuss with hospital authorities regarding medical bill or any assistance, despite of reassurance patient's and patient refused to go to hospital so in that case we will consider gentle hydration and also consider potassium 20 mEq over 2 hours along with magnesium 1 g as her mag level was 1.5 and because of symptomatic anemia will consider 2 units of packed RBC and also give her prescription for Levaquin 500 mg daily and check a urinalysis if it shows infection will consider culture and sensitivity. Patient was again advised to go to hospital in case her symptoms worsen, expressed full understanding. She will return to clinic on Friday with CBC CMP, will monitor her electrolytes especially potassium and magnesium level and continue Levaquin prophylaxis because of neutropenia, Patient was advised to maintain hydration Signed By: Keri Ling M.D. <<Signature on File>>
--- NOTE | 2021-01-01 10:10 | XRR_ITS ---
PROCEDURE INFORMATION: Exam: XR Chest Exam date and time: 01/01/2021 10:10 AM Age: 80 years old Clinical indication: Injury or trauma; Cough and fever and shortness of breath; Blunt trauma (contusions or hematomas); Prior surgery; Surgery type: Port placement; Patient HX: Fall last week, really weak, short of breath, difficulty breathing. HX of small cell lung cancer; Additional info: Baseline/cough/shortness of breath/fever TECHNIQUE: Imaging protocol: XR of the chest. Views: 2 views. COMPARISON: CR XR chest 1V portable [id number] 10/23/2020 8:57 AM FINDINGS: Tubes, catheters and devices: Left IJ approach MediPort is in satisfactory position, with distal tip in the SVC, approximately 9 cm above the SVC/RA junction. Lungs: The lungs are somewhat hyperinflated with increased interstitial markings, likely representing COPD. Unchanged small right pleural effusion effusion. Bibasilar atelectasis noted, right greater than left. Pneumonia should be excluded clinically. A nodular opacity is re-identified about the lateral aspect of the right upper lobe. No pneumothorax. Pleural spaces: Unremarkable. No pleural effusion. No pneumothorax. Heart/Mediastinum: Stable cardiomediastinal silhouette. Bones/joints: Degenerative changes of the spine and shoulder joints noted. XR/XR chest 2V* [id number] IMPRESSION: 1. COPD changes. 2. Chronic small right pleural effusion with adjacent atelectasis. Pneumonia should be excluded clinically.
[2021-01-01] MEDS: sodium chloride 0.9% 250 ML 999 ML IV (12:00)
[2021-01-01] MEDS: diphenhydrAMINE 25 mg Capsule PO (12:00)
[2021-01-01] MEDS: acetaminophen 325 mg Tablet 650 MG PO (12:00)
[2021-01-01] MEDS: FUROsemide 10 mg/mL SDV 2mL 20 MG IV (12:00)
[2021-01-01 12:05] LABS: Basophils % 0.4 %; Eosinophils % 0.2 %; Hematocrit 25.8 % (37.0-47.0); Hemoglobin 7.8 g/dL (11.5-15.3); Lymphocytes # 1.6 10^3/uL (0.8-4.8); Lymphocytes % 36.2 %; Mean Corpuscular HGB Conc 30.2 g/dL (30.0-36.0); Mean Corpuscular Hemoglobin 31.8 pg (28.0-34.0); Mean Corpuscular Volume 105.3 fL (81-99); Monocytes # 1.4 10^3/uL (0.2-0.9); Monocytes % 30.2 %; Neutrophils # 1.39 10^3/uL (1.8-7.7); Neutrophils % 31.2 %; Nucleated Red Blood Cells # 0.2 /100WBC; Nucleated Red Blood Cells % 3.4 %; Platelet Count 301 10^3/cmm (130-400); Red Blood Count 2.45 10^6/uL (4.1-5.3); Red Cell Distribution Width 23.8 % (12.1-15.1); White Blood Count 4.5 10^3/uL (4.0-10.0)
[2021-01-01 12:58] LABS: Alanine Aminotransferase 7 U/L (0-33); Albumin Level 3.3 g/dL (3.5-5.2); Alkaline Phosphatase 95 IU/L (35-105); Aspartate Amino Transferase 12 U/L (0-32); Blood Urea Nitrogen 11 mg/dL (8-23); Calcium 8.5 mg/dL (8.5-10.5); Carbon Dioxide 26 mmol/L (22-29); Chloride 101 mmol/L (98-107); Globulin 3.2 g/dL (1.3-4.6); Glucose 99 mg/dL (65-115); Osmolality Calculated 283 mOsm/kg (285-295); Sodium 137 mmol/L (136-145); Total Bilirubin 0.6 mg/dL (0.15-1.2); Total Protein 6.5 g/dL (6.6-8.7)
--- NOTE | 2021-01-01 18:04 | ONC FU_ITS ---
Dr. Ling follow up note Patient: Meenu Villalba Unit #: [id number]: 1940 Dicatated By: Keri Ling M.D.Date of Visit:Jan 01, 2021 Onc Med Follow-up/Prog Note History of Present Illness: Ms. Villalba is an 80-year-old female with history of severe COPD, history of tuberculosis in childhood, G6PD variant, degenerative disc disease, history of recurrent urinary tract infections, was evaluated by pulmonology on September 06, 2020 for progressive shortness of breath, as per patient on September 01, 2020 she went to [facility] for progressive shortness of breath over the period of 2 weeks and requiring more oxygen to maintain her saturation above 90% patient is on home oxygen chronically. She was also complaining of right shoulder pain which was progressive in the last few weeks. So on September 01, 2020 she had a CTA chest done in [facility] which showed no evidence of PE but extensive right pulmonary nodules and large right pleural effusion and marked pulmonary emphysema. At that time patient was advised inpatient care which he refused and she was discharged home on azithromycin and prednisone 20 mg p.o. daily for 5 days and was referred to pulmonology. As per medical record patient has history of stable right upper lobe nodular parenchymal scarring and before that in 2011 she underwent bronchoscopy and cervical mediastinoscopy for left lingular mass, both were negative for malignancy. She also had CT PET scan done which showed no abnormal uptake. Her follow-up CT scan of chest showed improvement of left lingular mass-effect or consolidation.. Ms Villalba has history of tuberculosis in 1940s and received treatment as outpatient. Patient has history of smoking but quit in 1999., No alcohol use. She denies any hemoptysis or hematemesis, denies any headaches blurred vision or double vision, denies any new bony pains except right shoulder pain, as per patient with thoracentesis her right shoulder pain did improve but now again progressive. No shortness of breath at rest, patient is on home oxygen. Denies any fever or chills denies any productive cough denies any jaundice denies any bony pains. Denies any weight loss. Ms. Villalba was seen on September 12, 2020 recommendations for treatment of the malignant cell/pleural effusion per therapeutic thoracentesis from September 06, 2020. The cytology confirmed positive for malignancy but immunohistochemistry Confirmed small cell lung cancer. Her PET CT imaging did show pleural effusion with uptake in the right lung as well as a solitary lesion in the left lobe of the liver. recommended that she pursue treatment with carboplatin etoposide. She did have venous access device placement with a PowerPort into the internal left jugular vein per Dr. Hernandez on September 29, 2020. She had a small 5% left pneumothorax and was admitted for observation and the chest x-ray the following morning showed resolution of the pneumothorax. r first cycle of carboplatin etoposide was started on September. Came for follow-up, complaining of generalized weakness and fatigue but no nausea or vomiting, no diarrhea or constipation, no fever chills, overall feeling better since last week, on prophylactic Levaquin, denies any dysuria or hematuria denies any cough or sore throat, denies any more syncopal attacks denies any mouth sores. Medications: Daily Value Multivitamin 1 Tablet Oral daily, oxyCODONE-Acetaminophen 1 - 2 Tablet (of 5-325 mg) Oral q 4 hours PRN, Prochlorperazine Maleate 1 Tablet (of 10 mg) Oral daily PRN, Trelegy Ellipta 1 Inhalation (of 100-62.5-25 mcg/inh) Aerosol Powder, Breath Activated Inhalation daily Allergies: Aspirin and Sulfamethoxazole-Trimethoprim. Review of Systems: Review of Systems is not available for this patient. Vital Signs: Vitals are not available for this patient. Performance Status: 1 - No physically strenuous activity, but ambulatory and able to carry out light or sedentary work (e.g. office work, light house work). (ECOG) Physical Examination: ENMT - . No mouth sores, no thrush, no jaundice, old healing ecchymosis involving right face, Respiratory - Lungs are clear to auscultation, Cardiovascular - Regular rate and rhythm of heart, Abdomen - Soft, bowel sounds present, Extremities - No visible edema. Lab/Imaging: Test performed on Dec 08, 2020 11:35 SARS-CoV-2 RNA (COVID-19) NOT DETECTED A Not Detected (negative) test result for this test means that SARS-CoV-2 RNA was not present in the specimen above the limit of detection. A negative result does not rule out the possibility of COVID-19 and should not be used as the sole basis for treatment or patient management decisions. If COVID-19 is still suspected, based on exposure history together with other clinical findings, re-testing should be considered in consultation with public health authorities. Laboratory test results should always be considered in the context of clinical observations and epidemiological data in making a final diagnosis and patient management decisions. This patient specimen was tested using an FDA EUA pooling method. Patient specimens with low viral loads may not be detected in sample pools due to the decreased sensitivity of pooled testing. Please review the Fact Sheets and FDA authorized labeling available for health care providers and patients using the following websites: [email or web address]/[email or web address]/fact-sheet2 https://[email or web address]/home/Covid-19/Patients/NAAT/ fact-sheet2 This test has been authorized by the FDA under an Emergency Use Authorization (EUA) for use by authorized laboratories. Due to the current public health emergency, [facility] is receiving a high volume of samples from a wide variety of swabs and media for COVID-19 testing. In order to serve patients during this public health crisis, samples from appropriate clinical sources are being tested. Negative test results derived from specimens received in non-commercially manufactured viral collection and transport media, or in media and sample collection kits not yet authorized by FDA for COVID-19 testing should be cautiously evaluated and the patient potentially subjected to extra precautions such as additional clinical monitoring, including collection of an additional specimen. Methodology: Nucleic Acid Amplification Test (NAAT) includes RT-PCR or TMA Additional information about COVID-19 can be found at the [employer] website: [email or web address].[email or web address]/[email or web address]. THIS TEST WAS PERFORMED AT: [employer] [address] [id number] JASON BRADLEY DO,MPH Test performed on Dec 08, 2020 10:57 Sodium 137 mmol/L Potassium 3.8 mmol/L Chloride 100 mmol/L CO2 23 mmol/L Anion Gap 17.8 BUN 11 mg/dL Creatinine 0.4 mg/dL Cr Clearance (Est) 92.2600 mL/min Glucose 86 mg/dL Osmolality - Calculated 283 mOsm/kg Calcium 9.3 mg/dL Protein, Total 6.7 g/dL Albumin 3.3 g/dL Globulin 3.4 g/dL Bilirubin, Total 1.1 mg/dL ALT (SGPT) 6 U/L AST (SGOT) 17 U/L Alkaline Phosphatase 106 IU/L WBC 9.2 10 3/uL RBC 3.66 10 6/uL HGB 11.5 g/dL HCT 37.7 % MCV 103.0 fL MCH 31.4 pg MCHC 30.5 g/dL RDW 20.8 % Platelet Count 266 10 3/cmm MPV 10.2 fL Neutrophils 6.93 10 3/uL Lymphocytes 1.2 10 3/uL Monocytes 0.9 10 3/uL Eosinophils 0.1 10 3/uL Basophils 0.1 10 3/uL Neutrophil % 75.0 % Lymphocyte % 12.9 % Monocyte % 9.4 % Eosinophil % 1.5 % Basophils % 0.9 % NRBC % 0 % Test performed on Dec 08, 2020 00:00 Manual Diff Cancelled via OM: Cancelled in Connected System Test performed on October 16, 2020 12:45 CBC Slide Review Slide Review Perform SLIDE REVIEW AGREES WITH AUTOMATED RESULT Impression: Malignant pleural effusion per diagnostic/therapeutic thoracentesis done on September 06, 2020 and cytology confirmed positive for malignancy but immunohistochemistry Confirmed small cell lung cancer Right pleural effusion, malignant. CT PET scan showed uptake in right pleural effusion as well as a solitary lesion in the left lobe of the liver COPD/emphysema, on home oxygen G6PD variant History of tuberculosis in childhood Degenerative disc disease History of recurrent urine tract infections. Plan: Discussed with patient regarding her labs white blood count 4.5 compared to 1.7 on 12/29/2020 hemoglobin 7.8 hematocrit 25.8 platelets 301,000 ANC 1390 CMP within normal limits Clinically, patient is doing well, no more episode of dizziness or lightheadedness, no fever chills, follow-up labs shows resolution of neutropenia/leukopenia but hemoglobin still less than 8 g and patient symptomatic, will consider 2 units of packed RBC infusion. Patient had chest x-ray done which shows mild right pleural effusion otherwise no other pulmonary mass or infiltrate, she was scheduled for hepatic sonogram to assess liver lesion but patient took half piece of bread this morning, as per radiology abdominal sonogram was canceled as she was supposed to be n.p.o. after midnight., At this point we will cancel abdominal sonogram as chest x-ray shows near resolution of malignant pleural effusion thus response to chemotherapy, patient will return to clinic in 1 week with CBC CMP if reasonable, will consider third cycle of chemotherapy with Tecentriq/carboplatin/etoposide followed by Neulasta to prevent chemotherapy-induced neutropenia and leukopenia and then also consider follow-up CT PET scan after next cycle of chemotherapy and if it shows complete resolution, then will consider 1 more cycle as as consolidation followed by maintenance therapy with Tecentriq alone Signed By: Keri Ling M.D. <<Signature on File>>
[2021-01-04] MEDS: alteplase 1 mg/mL SDV 2 mL 2 MG IV (10:40)
[2021-01-04 10:46] LABS: Basophils # 0.1 10^3/uL (0.0-0.1); Basophils % 0.8 %; Eosinophils % 0.2 %; Hematocrit 37.1 % (37.0-47.0); Hemoglobin 12.1 g/dL (11.5-15.3); Lymphocytes # 1.2 10^3/uL (0.8-4.8); Lymphocytes % 19.2 %; Mean Corpuscular HGB Conc 32.6 g/dL (30.0-36.0); Mean Corpuscular Volume 98.1 fL (81-99); Mean Platelet Volume 10.2 fL (7.4-10.4); Monocytes # 1.6 10^3/uL (0.2-0.9); Monocytes % 25.2 %; Neutrophils # 3.36 10^3/uL (1.8-7.7); Neutrophils % 53.8 %; Nucleated Red Blood Cells % 0 %; Platelet Count 266 10^3/cmm (130-400); Red Blood Count 3.78 10^6/uL (4.1-5.3); Red Cell Distribution Width 24.3 % (12.1-15.1); White Blood Count 6.2 10^3/uL (4.0-10.0)
[2021-01-04 10:52] LABS: Alanine Aminotransferase 6 U/L (0-33); Alkaline Phosphatase 94 IU/L (35-105); Anion Gap 13.9 (5-19); Aspartate Amino Transferase 13 U/L (0-32); Blood Urea Nitrogen 10 mg/dL (8-23); Calcium 8.3 mg/dL (8.5-10.5); Carbon Dioxide 24 mmol/L (22-29); Chloride 101 mmol/L (98-107); Globulin 3.3 g/dL (1.3-4.6); Glucose 100 mg/dL (65-115); Osmolality Calculated 279 mOsm/kg (285-295); Potassium 3.9 mmol/L (3.5-5.1); Sodium 135 mmol/L (136-145); Total Bilirubin 0.7 mg/dL (0.15-1.2); Total Protein 6.3 g/dL (6.6-8.7)
--- NOTE | 2021-01-04 14:00 | ONC FU_ITS ---
Dr. Ling follow up note Patient: Meenu Villalba Unit #: [id number]: [id number] Dicatated By: Keri Ling M.D.Date of Visit:Jan 04, 2021 Onc Med Follow-up/Prog Note History of Present Illness: Ms. Villalba is an 80-year-old female with history of severe COPD, history of tuberculosis in childhood, G6PD variant, degenerative disc disease, history of recurrent urinary tract infections, was evaluated by pulmonology on September 06, 2020 for progressive shortness of breath, as per patient on September 01, 2020 she went to [facility] for progressive shortness of breath over the period of 2 weeks and requiring more oxygen to maintain her saturation above 90% patient is on home oxygen chronically. She was also complaining of right shoulder pain which was progressive in the last few weeks. So on September 01, 2020 she had a CTA chest done in [facility] which showed no evidence of PE but extensive right pulmonary nodules and large right pleural effusion and marked pulmonary emphysema. At that time patient was advised inpatient care which he refused and she was discharged home on azithromycin and prednisone 20 mg p.o. daily for 5 days and was referred to pulmonology. As per medical record patient has history of stable right upper lobe nodular parenchymal scarring and before that in 2011 she underwent bronchoscopy and cervical mediastinoscopy for left lingular mass, both were negative for malignancy. She also had CT PET scan done which showed no abnormal uptake. Her follow-up CT scan of chest showed improvement of left lingular mass-effect or consolidation.. Ms Villalba has history of tuberculosis in 1940s and received treatment as outpatient. Patient has history of smoking but quit in 1999., No alcohol use. She denies any hemoptysis or hematemesis, denies any headaches blurred vision or double vision, denies any new bony pains except right shoulder pain, as per patient with thoracentesis her right shoulder pain did improve but now again progressive. No shortness of breath at rest, patient is on home oxygen. Denies any fever or chills denies any productive cough denies any jaundice denies any bony pains. Denies any weight loss. Ms. Villalba was seen on September 12, 2020 recommendations for treatment of the malignant cell/pleural effusion per therapeutic thoracentesis from September 06, 2020. The cytology confirmed positive for malignancy but immunohistochemistry Confirmed small cell lung cancer. Her PET CT imaging did show pleural effusion with uptake in the right lung as well as a solitary lesion in the left lobe of the liver. recommended that she pursue treatment with carboplatin etoposide. She did have venous access device placement with a PowerPort into the internal left jugular vein per Dr. Hernandez on September 29, 2020. She had a small 5% left pneumothorax and was admitted for observation and the chest x-ray the following morning showed resolution of the pneumothorax. r first cycle of carboplatin etoposide was started on September. Came for follow-up, denies any specific complaints, no fever chills, no nausea or vomiting, no diarrhea constipation, as per patient she is feeling much better since blood transfusion, now more energetic, no night sweats, no new bony pains except some discomfort in the right scapular area Medications: Daily Value Multivitamin 1 Tablet Oral daily, oxyCODONE-Acetaminophen 1 - 2 Tablet (of 5-325 mg) Oral q 4 hours PRN, Prochlorperazine Maleate 1 Tablet (of 10 mg) Oral daily PRN, Trelegy Ellipta 1 Inhalation (of 100-62.5-25 mcg/inh) Aerosol Powder, Breath Activated Inhalation daily Allergies: Aspirin and Sulfamethoxazole-Trimethoprim. Review of Systems: Review of Systems is not available for this patient. Vital Signs: Performed on Jan 04, 2021 13:10 Height - 65.00 in Temperature - 97.9 F (LOW) Pulse - 87 /min Respiration - 18 /min BP - 114/69 mm(hg) O2 Sat - 92 % (LOW) Pain - 0 Fatigue - 8 Performance Status: 1 - No physically strenuous activity, but ambulatory and able to carry out light or sedentary work (e.g. office work, light house work). (ECOG) Physical Examination: ENMT - No mouth sores, no thrush, no jaundice, Respiratory - Lungs are clear to auscultation, Cardiovascular - Regular rate and rhythm of heart, Abdomen - Soft, bowel sounds present, Extremities - No visible edema. Lab/Imaging: Test performed on Dec 08, 2020 11:35 SARS-CoV-2 RNA (COVID-19) NOT DETECTED A Not Detected (negative) test result for this test means that SARS-CoV-2 RNA was not present in the specimen above the limit of detection. A negative result does not rule out the possibility of COVID-19 and should not be used as the sole basis for treatment or patient management decisions. If COVID-19 is still suspected, based on exposure history together with other clinical findings, re-testing should be considered in consultation with public health authorities. Laboratory test results should always be considered in the context of clinical observations and epidemiological data in making a final diagnosis and patient management decisions. This patient specimen was tested using an FDA EUA pooling method. Patient specimens with low viral loads may not be detected in sample pools due to the decreased sensitivity of pooled testing. Please review the Fact Sheets and FDA authorized labeling available for health care providers and patients using the following websites: https://[email or web address]/[email or web address]/fact-sheet2 https://[email or web address].com/home/Covid-19/Patients/NAAT/ fact-sheet2 This test has been authorized by the FDA under an Emergency Use Authorization (EUA) for use by authorized laboratories. Due to the current public health emergency, [facility] is receiving a high volume of samples from a wide variety of swabs and media for COVID-19 testing. In order to serve patients during this public health crisis, samples from appropriate clinical sources are being tested. Negative test results derived from specimens received in non-commercially manufactured viral collection and transport media, or in media and sample collection kits not yet authorized by FDA for COVID-19 testing should be cautiously evaluated and the patient potentially subjected to extra precautions such as additional clinical monitoring, including collection of an additional specimen. Methodology: Nucleic Acid Amplification Test (NAAT) includes RT-PCR or TMA Additional information about COVID-19 can be found at the [facility] website: [email or web address]/[email or web address]. THIS TEST WAS PERFORMED AT: [facility] [id number] [place] [address] JASON BRADLEY DO,MPH Test performed on Dec 08, 2020 10:57 Sodium 137 mmol/L Potassium 3.8 mmol/L Chloride 100 mmol/L CO2 23 mmol/L Anion Gap 17.8 BUN 11 mg/dL Creatinine 0.4 mg/dL Cr Clearance (Est) 92.2600 mL/min Glucose 86 mg/dL Osmolality - Calculated 283 mOsm/kg Calcium 9.3 mg/dL Protein, Total 6.7 g/dL Albumin 3.3 g/dL Globulin 3.4 g/dL Bilirubin, Total 1.1 mg/dL ALT (SGPT) 6 U/L AST (SGOT) 17 U/L Alkaline Phosphatase 106 IU/L WBC 9.2 10 3/uL RBC 3.66 10 6/uL HGB 11.5 g/dL HCT 37.7 % MCV 103.0 fL MCH 31.4 pg MCHC 30.5 g/dL RDW 20.8 % Platelet Count 266 10 3/cmm MPV 10.2 fL Neutrophils 6.93 10 3/uL Lymphocytes 1.2 10 3/uL Monocytes 0.9 10 3/uL Eosinophils 0.1 10 3/uL Basophils 0.1 10 3/uL Neutrophil % 75.0 % Lymphocyte % 12.9 % Monocyte % 9.4 % Eosinophil % 1.5 % Basophils % 0.9 % NRBC % 0 % Test performed on Dec 08, 2020 00:00 Manual Diff Cancelled via OM: Cancelled in Connected System Test performed on October 16, 2020 12:45 CBC Slide Review Slide Review Perform SLIDE REVIEW AGREES WITH AUTOMATED RESULT Impression: Malignant pleural effusion per diagnostic/therapeutic thoracentesis done on September 06, 2020 and cytology confirmed positive for malignancy but immunohistochemistry Confirmed small cell lung cancer Right pleural effusion, malignant. CT PET scan showed uptake in right pleural effusion as well as a solitary lesion in the left lobe of the liver COPD/emphysema, on home oxygen G6PD variant History of tuberculosis in childhood Degenerative disc disease History of recurrent urine tract infections. Plan: Discussed with patient regarding her labs white blood count 6.2 hemoglobin 12.1 g compared to 7.8 g on January 01, 2021 which was prior to 2 units of packed RBC. Hematocrit 37.1 platelets 266,000 ANC 3360 CMP within normal limits Clinically, patient is doing well with no new signs symptoms, her pancytopenia has resolved but required 2 units of packed RBC, CMP within normal limits so patient will return to clinic on Friday to start cycle #3 with carboplatin/etoposide/Tecentriq followed by Neulasta to prevent chemotherapy-induced neutropenia/leukopenia. And will consider follow-up CT PET scan after next cycle of chemotherapy to assess disease response Signed By: Keri Ling M.D. <<Signature on File>>
[2021-01-08] MEDS: ondansetron 2 mg/ML SDV 2 mL 8 MG IVP (10:30)
[2021-01-08] MEDS: sodium chloride 0.9% 250 ML IV (10:30)
[2021-01-09] MEDS: alteplase 1 mg/mL SDV 2 mL 2 MG IV (10:26)
[2021-01-09] MEDS: ondansetron 2 mg/ML SDV 2 mL 8 MG IVP (11:18)
[2021-01-09] MEDS: sodium chloride 0.9% 250 ML 999 ML IV (11:18)
[2021-01-10] MEDS: palonosetron 0.25 mg/5 mL SDV IVP (10:12)
[2021-01-10] MEDS: sodium chloride 0.9% 250 ML 999 ML IV (10:12)
[2021-01-10] MEDS: pegfilgrastim 6 mg/0.6 mL Kit (onpro) SUBCUT (12:00)
== END 2021-01-13 23:59 | disposition home or self-care (01) ==
LOC: ONCMED 05:44
PROVIDERS: Visit Provider Internal Medicine Hematology & Oncology
DX: Z51.12 Encounter for antineoplastic immunotherapy (principal); Z51.11 Encounter for antineoplastic chemotherapy; C34.81 Malignant neoplasm of overlapping sites of right bronchus and lung; J91.0 Malignant pleural effusion; J43.9 Emphysema, unspecified; Z99.81 Dependence on supplemental oxygen; M47.9 Spondylosis, unspecified; Z86.19 Personal history of other infectious and parasitic diseases; Z87.440 Personal history of urinary (tract) infections; Z79.899 Other long term (current) drug therapy
CPT/HCPCS: 36415; 36593; 71046; 80053; 83735; 85007; 85025; 86850; 86900; 86920; 96360; 96365; 96366; 96367; 96374; 96375; 96376; 96377; 96413; 96417; 99214; 99215; J1100; J1940; J1956; J2405; J2469; J2505; J2997; J3475; J3480; J7040; J7050; J9022; J9045; J9181; P9016; P9040

== ENCOUNTER 2021-01-22 12:10 | Inpatient (IN) | payer MEDICARE, SELFPAY ==
[2021-01-22] VITALS (15 sets, daily range): BP systolic 102–131; BP diastolic 55–76; PULSE 81–91; RESP 18–20; TEMP 36.6–37.1; O2SAT 89–96; BMI 21.3
--- NOTE | 2021-01-22 12:18 | XRR_ITS ---
PROCEDURE INFORMATION: Exam: XR Chest Exam date and time: 01/22/2021 12:18 PM Age: 80 years old Clinical indication: Condition or disease; Other: Covid; Additional info: Hypoxia covid TECHNIQUE: Imaging protocol: XR of the chest. Views: 1 view. COMPARISON: CR XR chest 2V* [id number] 01/01/2021 10:17 AM FINDINGS: Tubes, catheters and devices: There is a left subclavian catheter whose tip is in the superior vena cava. Lungs: There is patchy opacification in the mid and inferior left lung. There is chronic lung change. Pleural spaces: There are small bilateral pleural effusions. No pneumothorax. Heart/Mediastinum: Unremarkable. No cardiomegaly. Bones/joints: Unremarkable. XR/XR chest 1V portable [id number] IMPRESSION: There is patchy opacification in the mid and inferior left lung consistent with atelectasis and/or pneumonia. There are small bilateral pleural effusions.
[2021-01-22 12:42] LABS: ABG PCO2 40.6 mmHg (35-45); ABG PH Result 7.49 (7.35-7.45); Arterial Blood Gas Hematocrit 28.6 % (37-47); Base Excess ABG 7.3 mmol/L (-2.0-2.0); Blood Gas Allen Test Pos; Blood Gas Operator Identificat CAK; Blood Gas Sample Site Radial, right; Blood Gas Sample Type Arterial; Carboxyhemoglobin 0.4 %THgb (0.4-20.1); HCO3 ABG 31.2 mmol/L (22-26); HGB O2 Sat 97.1 % (95-100); Ionized Calcium Level - ABG 1.2 mmol/L (1.1-1.4); Methemoglobin 0.8 % (0.4-1.5); Oxygen Device NRB; Oxygen Saturation ABG 98.3; Potassium Level - ABG 3.2 mmol/L (3.5-5.0); Total Hemoglobin 9.3 g/dL (12-16)
--- NOTE | 2021-01-22 13:44 | PC.PHAR ---
PT STATES SHE TAKES CARE OF HER OWN MEDICATIONS-
[2021-01-22 13:53] LABS: Basophils # 0.1 10^3/uL (0.0-0.1); Basophils % 1.4 %; Eosinophils % 0.2 %; Hematocrit 22.3 % (37.0-47.0); Lymphocytes # 0.8 10^3/uL (0.8-4.8); Lymphocytes % 19.1 %; Mean Corpuscular HGB Conc 31.4 g/dL (30.0-36.0); Mean Corpuscular Hemoglobin 30.4 pg (28.0-34.0); Mean Platelet Volume 12.8 fL (7.4-10.4); Monocytes # 0.8 10^3/uL (0.2-0.9); Monocytes % 18.4 %; Neutrophils # 2.45 10^3/uL (1.8-7.7); Neutrophils % 58.1 %; Nucleated Red Blood Cells % 0 %; Red Cell Distribution Width 17.7 % (12.1-15.1); White Blood Count 4.2 10^3/uL (4.0-10.0)
[2021-01-22] MEDS: dexamethasone 4 mg/mL INJ 6 MG IVP (14:08)
[2021-01-22 14:10] LABS: D Dimer 1.94 ug/mIFEU (0-0.59)
--- NOTE | 2021-01-22 14:13 | ED_ITS ---
HPI - COVID General: Chief Complaint: ER Hold Stated Complaint: Pain in L ABD Time Seen by Provider: 01/22/21 12:18 Triage information: Has fever, cough or shortness of breath . No known COVID + exposure last 14 days History of Present Illness: HPI Narrative: 80-year-old female with presents emergency room complaining of hemoptysis for the last 3 days increasing shortness of breath on arrival she is in the 60% on nasal cannula. With heated high flow she sats of the low 90s. She has not been known to have Covid in the past nor is she been vaccinated.Patient denied any history of cancers she appears extremely cachectic however when I reviewed her notes she has a history of small cell lung cancer. She denies any chest pain at this time. Her presenting complaint listed in the ER's note is left abdominal pain talk to her her problem is more shortness of breath with hemoptysis. MD complaint: has COVID symptoms Prior covid testing: no COVID 19 common symptoms: positive cough and fatigue; negative non-productive cough, productive cough, dyspnea, throat pain, nasal congestion, nausea, vomiting or diarrhea COVID 19 other sytmptoms: positive requiring more oxygen, respiratory distress and confusion; negative chest pain Onset (ago): day(s) Severity: severe Pertinent comorbid conditions: cancer (lung) and on home oxygen Treatment prior to arrival: oxygen COVID Results: SARS-CoV-2 Antigen (Rapid) Negative (Negative) 01/22/21 13:33 01/22/21 SARS-CoV-2 RNA (RT-PCR) Not detected (NOT DETECTED) 12/08/20 11:35 12/08/20 Nasal/Oral Coronavirus 2019 PCR Not detected 01/22/21 13:33 01/22/21 Review of Systems Const: Reports: fatigue ENMT: Denies: throat pain, ear or mastoid pain, nasal discharge or nasal congestion Card: Denies: chest pain, edema, dyspnea on exertion or orthopnea Resp: Denies: dyspnea, productive cough or non-productive cough GI: Denies: abdominal pain, nausea, vomiting, hematemesis, coffee ground emesis, diarrhea, constipation, bloating, hematochezia or melena : Denies: flank pain, difficulty voiding, dysuria, urinary frequency or urinary urgency Skin/Breast: Denies: rash or pruritus Neuro: Reports: confusion PFSH ED PFSH: Medical History Chronic obstructive pulmonary disease Small cell lung cancer Metastatic Surgical History History of back surgery History of colonoscopy 2014 Social History Smoking and tobacco status: former smoker Quit status (tobacco): has quit using tobacco Year quit tobacco: 1999 [id number] Second hand smoke exposure: Yes Smoking risk assessment/counseling performed?: Yes Alcohol intake: former Caregiver/support person: No Lives independently: Yes Household members: spouse Housing: House Marital status: service: No Current occupational status: retired Pets and animals: Yes History of recent travel: No Current gender identity: Female Physical Exam Const: ORIENTATION/CONSCIOUSNESS: Yes awake, Yes oriented to person, Yes oriented to place and Yes oriented to time HENMT: COMMON NORMALS: normocephalic, atraumatic and hearing grossly normal bilaterally HEAD & SCALP: normocephalic and atraumatic Neck/C-Spine: COMMON NORMALS: no JVD Resp: COMMON NORMALS: normal respiratory effort, No retractions, No use of accessory muscles and clear to auscultation bilaterally AUSCULTATION: clear to auscultation bilaterally Cardio: COMMON NORMALS: no JVD, regular rate, regular rhythm and No murmurs present (Cardio) RATE: regular rate RHYTHM: regular rhythm GI: COMMON NORMALS: Soft to palpation and No hepatosplenomegaly present AUSCULTATION: Yes normoactive bowel sounds PALPATION: Yes Soft to palpation, No Tenderness to palpation present (GI), No Guarding due to palpation present (GI) and Yes No hepatosplenomegaly present Extremity: COMMON NORMALS: normal to inspection, capillary refill normal, no clubbing, cyanosis or edema, no calf tenderness and no pedal edema Neuro: SENSORIUM/ORIENTATION: Yes oriented to person, Yes oriented to place and Yes oriented to time Skin: COMMON NORMALS: no rashes or lesions noted GENERAL SKIN EXAM: no rashes or lesions noted Course Vital Signs: Vital signs: Vital Signs Temperature 97.7 F 01/28/21 17:08 Pulse Rate 91 01/28/21 17:08 Respiratory Rate 17 01/28/21 17:08 Blood Pressure 100/61 01/28/21 17:08 Pulse Oximetry 95 01/28/21 17:08 MDM - COVID MDM Narrative: Medical decision making narrative: Patient significantly confused with increased cough and shortness of breath. No known previous diagnosis of Covid she did not been vaccinated. We will screen her for Covid she is also significantly anemic we will go ahead and admit her. Discussed with the patient hospitalist and with the . Patient required redirection multiple times due to her confusion. Lab Data: Labs: Lab Results 01/22/21 01/22/21 01/22/21 Range/Units 12:30 13:33 13:33 WBC 4.2 (4.0-10.0) 10^3/ uL RBC 2.30 L (4.1-5.3) 10^6/u L Hgb 7.0 L (11.5-15.3) g/dL Hct 22.3 L (37.0-47.0) % MCV 97.0 (81-99) fL MCH 30.4 (28.0-34.0) pg MCHC 31.4 (30.0-36.0) g/dL RDW 17.7 H (12.1-15.1) % Plt Count 17 L* (130-400) 10^3/c mm MPV 12.8 H (7.4-10.4) fL Neut % (Auto) 58.1 % Lymph % (Auto) 19.1 % [place] % (Auto) 18.4 % Eos % (Auto) 0.2 % Baso % (Auto) 1.4 % Neut # (Auto) 2.45 (1.8-7.7) 10^3/u L Lymph # (Auto) 0.8 (0.8-4.8) 10^3/u L [place] # (Auto) 0.8 (0.2-0.9) 10^3/u L Eos # (Auto) 0.0 (0.0-0.8) 10^3/u L Baso # (Auto) 0.1 (0.0-0.1) 10^3/u L Nucleated RBC % (a uto) 0 % Nucleated RBCs # 0.0 /100WBC D-Dimer (0-0.59) ug/mIFE U Specimen Type Arterial Sample Site Radial, right ABG pH 7.49 H (7.35-7.45) ABG pCO2 40.6 (35-45) mmHg ABG pO2 211.0 H (80.0-100.0) mmH g ABG HCO3 31.2 H (22-26) mmol/L ABG O2 Saturation 98.3 ABG Base Excess 7.3 H (-2.0-2.0) mmol/ L Mahesh Test Pos A-a O2 Gradient Not Reportable Hematocrit 28.6 L (37-47) % Hgb O2 Saturation 97.1 (95-100) % Carboxyhemoglobin 0.4 (0.4-20.1) %THgb Methemoglobin 0.8 (0.4-1.5) % Total Hemoglobin 9.3 L (12-16) g/dL Sodium 138.0 138 (131-143) mmol/L Potassium 3.2 L 3.3 L (3.5-5.0) mmol/L Glucose 122.0 H 100 (70-115) mg/dL Ionized Calcium 1.2 (1.1-1.4) mmol/L O2 Delivery Device Nrb O2 Liters/Min 15.0 % Mechanical Equipment Test Engineer ID Cak Chloride 98 (98-107) mmol/L Carbon Dioxide 29 (22-29) mmol/L Anion Gap 14.3 (5-19) BUN 23 (8-23) mg/dL Creatinine 0.5 (0.5-0.9) mg/dL GFR Calculation Not Reportable Calculated Osmolal ity 290 (285-295) mOsm/k g Lactic Acid (0.5-2.2) mmol/L Calcium 8.9 (8.5-10.5) mg/dL Total Bilirubin 0.4 (0.15-1.2) mg/dL AST 12 (0-32) U/L ALT < 5 (0-33) U/L Alkaline Phosphata se 107 H (35-105) IU/L Creatine Kinase 12 L (26-192) U/L C-Reactive Protein 117.5 H (0.0-4.9) mg/L NT-Pro-B Natriuret Pep (0-450) pg/mL Total Protein 6.0 L (6.6-8.7) g/dL Albumin 3.3 L (3.5-5.2) g/dL Globulin 2.7 (1.3-4.6) g/dL Lipase 15 (13-60) U/L Procalcitonin 1.06 H (0-0.5) ng/mL TSH (0.27-4.20) uIU/ mL Nasal/Oral COVID-1 9 PCR SARS-CoV-2 Ag (Rap id) (Negative) Blood Type Rho(D) Type Antibody Screen Crossmatch 01/22/21 01/22/21 01/22/21 Range/Units 13:33 13:33 13:33 WBC (4.0-10.0) 10^3/ uL RBC (4.1-5.3) 10^6/u L Hgb (11.5-15.3) g/dL Hct (37.0-47.0) % MCV (81-99) fL MCH (28.0-34.0) pg MCHC (30.0-36.0) g/dL RDW (12.1-15.1) % Plt Count (130-400) 10^3/c mm MPV (7.4-10.4) fL Neut % (Auto) % Lymph % (Auto) % [place] % (Auto) % Eos % (Auto) % Baso % (Auto) % Neut # (Auto) (1.8-7.7) 10^3/u L Lymph # (Auto) (0.8-4.8) 10^3/u L [place] # (Auto) (0.2-0.9) 10^3/u L Eos # (Auto) (0.0-0.8) 10^3/u L Baso # (Auto) (0.0-0.1) 10^3/u L Nucleated RBC % (a uto) % Nucleated RBCs # /100WBC D-Dimer 1.94 H (0-0.59) ug/mIFE U Specimen Type Sample Site ABG pH (7.35-7.45) ABG pCO2 (35-45) mmHg ABG pO2 (80.0-100.0) mmH g ABG HCO3 (22-26) mmol/L ABG O2 Saturation ABG Base Excess (-2.0-2.0) mmol/ L Mahesh Test A-a O2 Gradient Hematocrit (37-47) % Hgb O2 Saturation (95-100) % Carboxyhemoglobin (0.4-20.1) %THgb Methemoglobin (0.4-1.5) % Total Hemoglobin (12-16) g/dL Sodium (131-143) mmol/L Potassium (3.5-5.0) mmol/L Glucose (70-115) mg/dL Ionized Calcium (1.1-1.4) mmol/L O2 Delivery Device O2 Liters/Min % Mechanical Equipment Test Engineer ID Chloride (98-107) mmol/L Carbon Dioxide (22-29) mmol/L Anion Gap (5-19) BUN (8-23) mg/dL Creatinine (0.5-0.9) mg/dL GFR Calculation Calculated Osmolal ity (285-295) mOsm/k g Lactic Acid 1.3 (0.5-2.2) mmol/L Calcium (8.5-10.5) mg/dL Total Bilirubin (0.15-1.2) mg/dL AST (0-32) U/L ALT (0-33) U/L Alkaline Phosphata se (35-105) IU/L Creatine Kinase (26-192) U/L C-Reactive Protein (0.0-4.9) mg/L NT-Pro-B Natriuret Pep (0-450) pg/mL Total Protein (6.6-8.7) g/dL Albumin (3.5-5.2) g/dL Globulin (1.3-4.6) g/dL Lipase (13-60) U/L Procalcitonin (0-0.5) ng/mL TSH (0.27-4.20) uIU/ mL Nasal/Oral COVID-1 9 PCR SARS-CoV-2 Ag (Rap id) Negative (Negative) Blood Type Rho(D) Type Antibody Screen Crossmatch 01/22/21 01/22/21 01/22/21 Range/Units 13:33 13:33 16:03 WBC (4.0-10.0) 10^3/ uL RBC (4.1-5.3) 10^6/u L Hgb (11.5-15.3) g/dL Hct (37.0-47.0) % MCV (81-99) fL MCH (28.0-34.0) pg MCHC (30.0-36.0) g/dL RDW (12.1-15.1) % Plt Count (130-400) 10^3/c mm MPV (7.4-10.4) fL Neut % (Auto) % Lymph % (Auto) % [place] % (Auto) % Eos % (Auto) % Baso % (Auto) % Neut # (Auto) (1.8-7.7) 10^3/u L Lymph # (Auto) (0.8-4.8) 10^3/u L [place] # (Auto) (0.2-0.9) 10^3/u L Eos # (Auto) (0.0-0.8) 10^3/u L Baso # (Auto) (0.0-0.1) 10^3/u L Nucleated RBC % (a uto) % Nucleated RBCs # /100WBC D-Dimer (0-0.59) ug/mIFE U Specimen Type Sample Site ABG pH (7.35-7.45) ABG pCO2 (35-45) mmHg ABG pO2 (80.0-100.0) mmH g ABG HCO3 (22-26) mmol/L ABG O2 Saturation ABG Base Excess (-2.0-2.0) mmol/ L Mahesh Test A-a O2 Gradient Hematocrit (37-47) % Hgb O2 Saturation (95-100) % Carboxyhemoglobin (0.4-20.1) %THgb Methemoglobin (0.4-1.5) % Total Hemoglobin (12-16) g/dL Sodium (131-143) mmol/L Potassium (3.5-5.0) mmol/L Glucose (70-115) mg/dL Ionized Calcium (1.1-1.4) mmol/L O2 Delivery Device O2 Liters/Min % Mechanical Equipment Test Engineer ID Chloride (98-107) mmol/L Carbon Dioxide (22-29) mmol/L Anion Gap (5-19) BUN (8-23) mg/dL Creatinine (0.5-0.9) mg/dL GFR Calculation Calculated Osmolal ity (285-295) mOsm/k g Lactic Acid (0.5-2.2) mmol/L Calcium (8.5-10.5) mg/dL Total Bilirubin (0.15-1.2) mg/dL AST (0-32) U/L ALT (0-33) U/L Alkaline Phosphata se (35-105) IU/L Creatine Kinase (26-192) U/L C-Reactive Protein (0.0-4.9) mg/L NT-Pro-B Natriuret Pep 315 (0-450) pg/mL Total Protein (6.6-8.7) g/dL Albumin (3.5-5.2) g/dL Globulin (1.3-4.6) g/dL Lipase (13-60) U/L Procalcitonin (0-0.5) ng/mL TSH 2.40 (0.27-4.20) uIU/ mL Nasal/Oral COVID-1 9 PCR Not detected SARS-CoV-2 Ag (Rap id) (Negative) Blood Type O Positive Rho(D) Type Positive / 4+ Antibody Screen Negative Crossmatch See Detail COVID Results: SARS-CoV-2 Antigen (Rapid) Negative (Negative) 01/22/21 13:33 01/22/21 SARS-CoV-2 RNA (RT-PCR) Not detected (NOT DETECTED) 12/08/20 11:35 12/08/20 Nasal/Oral Coronavirus 2019 PCR Not detected 01/22/21 13:33 01/22/21 Discharge Plan Discharge Patient Disposition: Admitted As Inpatient Admit Provider: Stalin Alexis Clinical Impression: Metastatic lung carcinoma, Dementia, Anemia, Thrombocytopenia, Pneumonia, Hypokalemia Condition: Stable Discharge Activity: Resume usual activity Coding Level of Care Code ED Research Leader for Deonte Kaiser
[2021-01-22 14:16] LABS: Lactic Sepsis W/Reflex 1.3 mmol/L (0.5-2.2)
[2021-01-22 14:20] LABS: SARS Covid-2 Antigen Negative (Negative)
[2021-01-22 14:21] LABS: Alanine Aminotransferase < 5 U/L (0-33); Albumin Level 3.3 g/dL (3.5-5.2); Alkaline Phosphatase 107 IU/L (35-105); Anion Gap 14.3 (5-19); Aspartate Amino Transferase 12 U/L (0-32); Blood Urea Nitrogen 23 mg/dL (8-23); C Reactive Protein 117.5 mg/L (0.0-4.9); Calcium 8.9 mg/dL (8.5-10.5); Carbon Dioxide 29 mmol/L (22-29); Chloride 98 mmol/L (98-107); Creatine Phosphokinase 12 U/L (26-192); Globulin 2.7 g/dL (1.3-4.6); Glucose 100 mg/dL (65-115); Lipase 15 U/L (13-60); Osmolality Calculated 290 mOsm/kg (285-295); Potassium 3.3 mmol/L (3.5-5.1); Sodium 138 mmol/L (136-145); Total Bilirubin 0.4 mg/dL (0.15-1.2)
[2021-01-22 14:26] LABS: Procalcitonin 1.06 ng/mL (0-0.5)
[2021-01-22 14:32] LABS: Platelet Count 17 10^3/cmm (130-400)
--- NOTE | 2021-01-22 17:28 | CTR_ITS ---
PROCEDURE INFORMATION: Exam: CT Head Without Contrast Exam date and time: 01/22/2021 5:28 PM Age: 80 years old Clinical indication: Altered mental status/memory loss; Additional info: HX lung CA TECHNIQUE: Imaging protocol: Computed tomography of the head without contrast. Radiation optimization: All CT scans at this facility use at least one of these dose optimization techniques: automated exposure control; mA and/or kV adjustment per patient size (includes targeted exams where dose is matched to clinical indication); or iterative reconstruction. COMPARISON: CT head wo con* [id number] 10/23/2020 1:08 PM RADIATION DOSE METRICS: Total DLP (mGy-cm): 683.42 FINDINGS: Brain: Moderate white matter disease and volume loss are identified. There is no acute infarct or edema. No hemorrhage. Cerebral ventricles: No ventriculomegaly. Paranasal sinuses: Visualized sinuses are unremarkable. No fluid levels. Mastoid air cells: Visualized mastoid air cells are well aerated. Bones/joints: Unremarkable. No acute fracture. Soft tissues: Unremarkable. CT/CT head wo con* [id number] IMPRESSION: There are no acute concerning abnormalities. Radiation Dose CTDIVOL = (mGy): DLP = 683.42 (mGy-cm)
--- NOTE | 2021-01-22 17:51 | PM.HP ---
Providers/Chief Complaint Primary Care Provider: Anthony Nielson MD Chief Complaint: Pain in L ABD History of Present Illness Meenu Villalba is a 80 year old female with a past medical history of malignant pleural effusion per diagnostic thoracocentesis on September 06, 2020, immunohistochemistry confirmed small cell lung cancer, with recent PET scan showing uptake in the right pleural effusion, and a solitary lesion in the left lobe of the liver, COPD and emphysema requiring 4 L, G6PD variant, history of tuberculosis in childhood, degenerative disc disease, history of recurrent urinary tract infections, history of chemotherapy-induced anemia/thrombocytopenia/leukopenia who presents to [facility] due to cough, shortness of breath. Currently patient is quite frustrated about being here in the hospital, she tells me that she does not want me to examine her, she she does not know who I am, I did introduce myself, but patient is still quite frustrated, she tells me that she does not trust me. I was able to discern from her, that recently she has been complaining of cough, shortness of breath, and she want to see Dr. Ling because she trusts him. She does not think she has a pneumonia. She does not think she has Covid, she has not received the Covid vaccines. Denies any fevers. No abdominal pain. Does report of bloody cough. She did receive cycle 3 of carboplatin etoposide and Tecentriq followed by shanna Acevedo the week of January 08. Review of Systems Const: Denies: fever(s) Card: Denies: chest pain Resp: Reports: dyspnea and non-productive cough GI: Denies: abdominal pain : Denies: dysuria Medications/Allergies Home Medications Medication Instructions Recorded Confirmed Last Taken Type oxycodone-acetaminophen 1 - 2 tab PO Q4H PRN 09/29/20 01/22/21 10/22/20 History ondansetron HCl [Zofran] 4 mg PO Q6H PRN 10/23/20 01/22/21 Unknown History prochlorperazine maleate 10 mg PO Q6H PRN 10/23/20 01/22/21 Unknown History vbfrwuqdaab-pikjfwaai-fcmzgbjd 1 inh INHALATION DAILY 01/22/21 01/22/21 Unknown History [Trelegy Ellipta] multivitamin 1 tab PO DAILY 01/22/21 01/22/21 Unknown History Allergies Allergy/AdvReac Type Severity Reaction Status Date / Time aspirin Allergy Unknown Verified 01/22/21 13:43 PFSH Acute PFSH: Medical History Chronic obstructive pulmonary disease Small cell lung cancer Metastatic Surgical History History of back surgery History of colonoscopy 2014 Social History Smoking and tobacco status: former smoker Quit status (tobacco): has quit using tobacco Year quit tobacco: 1999 [id number] Second hand smoke exposure: Yes Smoking risk assessment/counseling performed?: Yes Alcohol intake: former Caregiver/support person: No Lives independently: Yes Household members: spouse Housing: House Marital status: service: No Current occupational status: retired Pets and animals: Yes History of recent travel: No Current gender identity: Female Vitals/I&O/Wt Last Vital Signs Temp 97.9 F 01/22/21 13:18 Pulse 84 01/22/21 16:48 Resp 18 01/22/21 16:48 BP 111/60 01/22/21 16:48 Pulse Ox 94 01/22/21 16:48 Weight last 48 hrs Weight 59.874 kg Physical Exam Narrative: EXAM NARRATIVE: Patient refused examination Data : 01/22/21 13:33 01/22/21 13:33 Micro: Microbiology 01/22/21 15:56 Blood Culture - Preliminary Blood SPECIMEN COLLECTED 01/22/21 13:33 Blood Culture - Preliminary Blood SPECIMEN COLLECTED A&P Assessment and plan (1) Acute respiratory failure with hypoxia: -Secondary to left lower lobe pneumonia -Covid PUI, rapid negative -She is immunocompromised given non-small cell lung cancer, and recent chemotherapy -D-dimer 1.94, CRP 117.5, pro-Giovanny 1.06 -Currently on 40 L 40% FiO2 Plan: -Currently patient is in ER hold -Covid PUI, continue on isolation -Requires broad-spectrum antibiotic therapy, vancomycin, Zosyn, however patient refused antibiotic therapy -Blood cultures, urine cultures, urine bacterial antigen, Covid PCR -Monitor respiratory status closely -Oxygen therapy, wean as tolerated -Budesonide, albuterol -Vitamin C, zinc, vitamin D - Decadron -For anemia, likely chemotherapy associated anemia, recommend transfuse 1 unit PRBC, monitor hemoglobin patient refuses transfusion -For thrombocytopenia, likely chemotherapy associated thrombocytopenia, recommend transfuse 1 unit platelet, monitor platelet count however patient refuses transfusion -Full code -Anticoagulation currently contraindicated given anemia and thrombocytopenia, SCDs will be given Status: Acute (2) Thrombocytopenia: Status: Acute (3) Anemia: Status: Acute (4) Small cell lung cancer: Status: Acute (5) Recurrent right pleural effusion: Status: Acute (6) Left lower lobe pneumonia: Status: Acute (7) Person under investigation for COVID-19: Status: Acute Attestations Medical Necessity Statement*: This note is a consult note, patient is an ER hold, potentially to be transferred to facility where bed is available patient was seen as a ER consult Coding Level of Care Code Acute Ceramic Chemist for Deonte Fwd Diagnoses Acute respiratory failure with hypoxia J96.01 Thrombocytopenia D69.6 Anemia D64.9 Small cell lung cancer C34.90 Recurrent right pleural effusion J90 Left lower lobe pneumonia J18.9 Person under investigation for COVID-19 Z20.822
[2021-01-22 18:11] LABS: NT Pro B Type Natriuretic Pept 315 pg/mL (0-450)
--- NOTE | 2021-01-22 19:18 | PC.NURSE ---
Son Farhat called for update; pt gave permission to discuss her care with him and her . Farhat: [phone]
[2021-01-22] MEDS: ALPRAZolam 0.5 mg Tablet 0.25 MG PO (20:03)
--- NOTE | 2021-01-22 20:14 | CTR_ITS ---
PROCEDURE INFORMATION: Exam: CTA Chest With Contrast Exam date and time: 01/22/2021 8:14 PM Age: 80 years old Clinical indication: Other: Hypoxia; Prior surgery; Surgery type: Port; Additional info: Hypoxia, HX of lung CA TECHNIQUE: Imaging protocol: Computed tomographic angiography of the chest with contrast. 3D rendering (Not supervised by radiologist): MIP and/or 3D reconstructed images were created by the technologist. Radiation optimization: All CT scans at this facility use at least one of these dose optimization techniques: automated exposure control; mA and/or kV adjustment per patient size (includes targeted exams where dose is matched to clinical indication); or iterative reconstruction. Contrast material: OMNI 350; Contrast volume: 56 ml; Contrast route: INTRAVENOUS (IV); COMPARISON: CT angio chest PE protcl [id number] 01/22/2021 7:47 PM RADIATION DOSE METRICS: Total DLP (mGy-cm): 366.72 FINDINGS: Pulmonary arteries: Normal. No pulmonary emboli. Aorta: Unremarkable. No aortic aneurysm. No aortic dissection. Lungs: There is linear atelectasis/scar in the upper lobes of the lung. There is lung emphysema. There is a 1 cm pleural based nodule in the right upper lobe on series 2, image 267, pleural based consolidation in the left lower lobe measuring 3.6 x 1.9 cm on image 276, 1.1 cm pleural based nodule in the medial right lower lobe on image 381, 1.6 cm pleural based nodule in the right lower lobe on image 420. There is several nodules in the right lower lobe on image 444 and a 1.2 cm nodule in the left lower lobe on image 377. There are multifocal cystic areas throughout the lungs and especially in the left lower lobe of the lung as seen on series 2, image 411. No significant traction bronchiectasis. Pleural spaces: There is a small right pleural effusion which is partially loculated. No pneumothorax. Heart: Unremarkable. No cardiomegaly. No pericardial effusion. Mediastinal space: There is calcification in the subcarinal mediastinum and bilateral thoracic hilum. Lymph nodes: Unremarkable. No enlarged lymph nodes. Liver: There is a 1.1 cm hypodense mass in the lateral segment of the left liver on series 2, image 484. Bones/joints: There is an old healing sternal fracture. No acute fracture. Soft tissues: Unremarkable. CT/CT angio chest PE protcl [id number] IMPRESSION: There are bilateral lung nodules consistent with metastatic disease. There is a mass in the left liver suggestive of metastatic disease. Radiation Dose CTDIVOL = (mGy): DLP = 366.72 (mGy-cm)
[2021-01-22] MEDS: iohexol 350 mg/mL 100 mL Btl IV (20:42)
[2021-01-22] MEDS: ascorbic acid 500 mg Tablet PO (21:07)
[2021-01-22] MEDS: pantoprazole 40 mg SDV IVP (21:07)
[2021-01-22] MEDS: zinc gluconate 50 mg Tablet PO (21:07)
[2021-01-22] MEDS: budesonide 0.5 mg/2 mL Neb INHALATION (21:08)
[2021-01-22] MEDS: azithromycin 500 MG in sodium chloride 0.9% 250 ML 250 MG IV (21:08)
[2021-01-22] MEDS: cefTRIAXone 1,000 MG in sodium chloride 0.9% (plus) 50 ML 100 MG IV (21:08)
[2021-01-22] MEDS: enoxaparin 40 mg/0.4 mL Syringe SUBCUT (21:37)
--- NOTE | 2021-01-22 22:22 | PC.NURSE ---
Assisted onto bedside toilet by tech, but pt threw her toilet paper into the hat, contaminating it. Will try again in a few minutes.
[2021-01-22] MEDS: vancomycin 750 MG in sodium chloride 0.9% 250 ML 250 MG IV (23:36)
[2021-01-23] VITALS (16 sets, daily range): BP systolic 108–144; BP diastolic 27–88; PULSE 80–110; RESP 18–24; TEMP 36.3–36.9; O2SAT 91–96; BMI 16.9
[2021-01-23 00:39] LABS: Add Urine Culture? No; Add Urine Microscopic? YES; Bacteria Urine TRACE /hpf; Bilirubin Urine 1+ (Negative); Blood Urine 2+ (Negative); Glucose Urine UA Norm (Normal); Ketones Urine 1+ (Negative); Leukocyte Esterase Urine Negative (Negative); Nitrate Urine Negative (Negative); Protein Urine Neg (Negative); Urine Appearance Clear (CLEAR); Urine Color Yellow (Yellow); Urobilinogen Urine 1 mg/dL (Negative); pH Urine 6.5 (5-7)
[2021-01-23] MEDS: piperacillin-tazobactam 3.375 GM in sodium chloride 0.9% (plus) 50 ML IV ×3 (01:12→23:50)
[2021-01-23] MEDS: LORazepam 2 mg/mL INJ 1 mL 1 MG IVP ×2 (07:32→22:12)
[2021-01-23] MEDS: dexamethasone 10 mg/mL INJ 6 MG IVP (07:32)
[2021-01-23 07:40] LABS: Basophils % 0.1 %; Lymphocytes # 1.8 10^3/uL (0.8-4.8); Lymphocytes % 22.9 %; Mean Corpuscular HGB Conc 33.3 g/dL (30.0-36.0); Mean Corpuscular Hemoglobin 30.7 pg (28.0-34.0); Mean Corpuscular Volume 92.2 fL (81-99); Mean Platelet Volume 10.5 fL (7.4-10.4); Monocytes # 1.3 10^3/uL (0.2-0.9); Monocytes % 16.4 %; Neutrophils # 4.35 10^3/uL (1.8-7.7); Neutrophils % 55.5 %; Nucleated Red Blood Cells # 0.1 /100WBC; Nucleated Red Blood Cells % 0.8 %; Platelet Count 126 10^3/cmm (130-400); Red Blood Count 2.93 10^6/uL (4.1-5.3); Red Cell Distribution Width 17.2 % (12.1-15.1); White Blood Count 7.9 10^3/uL (4.0-10.0)
[2021-01-23 07:51] LABS: INR 0.98 (0.8-1.2)
[2021-01-23 08:01] LABS: Lactate (Lactic Acid level) 3.2 mmol/L (0.5-2.2)
[2021-01-23 08:03] LABS: Alanine Aminotransferase 9 U/L (0-33); Albumin Level 3.7 g/dL (3.5-5.2); Alkaline Phosphatase 110 IU/L (35-105); Anion Gap 17.3 (5-19); Aspartate Amino Transferase 12 U/L (0-32); Blood Urea Nitrogen 17 mg/dL (8-23); C Reactive Protein 106.2 mg/L (0.0-4.9); Calcium 9.2 mg/dL (8.5-10.5); Carbon Dioxide 26 mmol/L (22-29); Chloride 100 mmol/L (98-107); Globulin 3.1 g/dL (1.3-4.6); Glucose 115 mg/dL (65-115); Magnesium 1.3 mg/dL (1.7-2.3); Osmolality Calculated 292 mOsm/kg (285-295); Phosphorus 2.7 mg/dL (2.5-4.5); Potassium 3.3 mmol/L (3.5-5.1); Sodium 140 mmol/L (136-145); Total Bilirubin 0.7 mg/dL (0.15-1.2); Total Protein 6.8 g/dL (6.6-8.7)
[2021-01-23 08:07] LABS: NT Pro B Type Natriuretic Pept 916 pg/mL (0-450); Procalcitonin 0.93 ng/mL (0-0.5)
[2021-01-23 08:10] LABS: Slide Review Slide Review Perform
--- NOTE | 2021-01-23 08:15 | XRR_ITS ---
PROCEDURE INFORMATION: Exam: XR Chest Exam date and time: 01/23/2021 8:15 AM Age: 80 years old Clinical indication: Cough and dyspnea; Additional info: Dyspnea/cough TECHNIQUE: Imaging protocol: XR of the chest. Views: 1 view. COMPARISON: CR XR chest 1V portable [id number] 01/22/2021 1:38 PM FINDINGS: Tubes, catheters and devices: A MediPort catheter is present in satisfactory position with the tip projecting in the SVC. Lungs: There is stable left pulmonary consolidation which is consistent with pneumonia. Bilateral interstitial pulmonary fibrosis is present with emphysematous changes in the upper lobes. There is stable loculated effusion in the right base. Pleural spaces: Unremarkable. No pleural effusion. No pneumothorax. Heart/Mediastinum: Unremarkable. No cardiomegaly. Bones/joints: Unremarkable. XR/XR chest 1V portable [id number] IMPRESSION: 1. Stable left lung infiltrate consistent with pneumonia. 2. Bilateral pulmonary emphysema and fibrosis with stable loculated small right effusion.
--- NOTE | 2021-01-23 08:15 | CT_ITS ---
WS: [id number] CT HEAD TECHNIQUE: Noncontrast CT of the head obtained from the skullbase to the vertex. CLINICAL INFORMATION: Fall COMPARISON: January 22, 2021 DLP: [address] scans at [facility] use at least one of these dose optimization techniques: automat ed exposure control; mA and/or kV adjustment per patient size (includes targeted exams where dose is matched to clinical indication); or iterative reconstruction. FINDINGS: No evidence of intracranial hemorrhage or mass effect. Ventricular system and basal cisterns are daniel nt. Mild small vessel changes with moderate parenchymal volume loss. No extra-axial fluid collections . Paranasal sinuses and mastoid air cells are well aerated. . Soft tissue edema overlying the right fro ntal calvarium laterally. No visualized calvarial fractures. CT/CT head wo con* [id number] IMPRESSION: 1. No evidence of intracranial hemorrhage or mass effect. 2. Mild small vessel changes. Moderate parenchymal volume loss. 3. Soft tissue edema overlying the right frontal calvarium. No visualized frac tures. 4. No acute intracranial findings.
[2021-01-23] MEDS: vancomycin 750 MG in sodium chloride 0.9% 250 ML 166 MG IV ×2 (08:36→22:18)
--- NOTE | 2021-01-23 08:37 | PC.NURSE ---
Addendum entered by Hillary Ojeda RN 01/23/21 08:42: ED PHYSICIAN WAS MADE AWARE AND PRIMARY NURSE Original Note: PT WAS SITTING ON THE FLOOR WHEN I ENTERED THE ROOM. PT HAS A RED RAISED AREA ON HTE RIGHT SIDE OF THE PTS HEAD. PTS O2 WAS 72% ON HER HEATED HIGH FLOW O2. PT WAS PLACED BACK INTO THE BED AND HER O2 SAT WENT BACK TO 93% WITH SOME COACHING ON HER BREATHING.
[2021-01-23 14:10] LABS: Coronavirus Test Green County Not Detected
--- NOTE | 2021-01-23 16:47 | PM.PN ---
Subjective Subjective: Interval history: 80-year-old female with a past medical history significant for G6PD variant, degenerative disc disease, recurrent urinary tract infections, small cell lung cancer with recurrent malignant pleural effusion and 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Laboratory workup on arrival showed a WBC of 4.2, hemoglobin of 7.0, hematocrit of 22.3 and a platelet count of 17. Sodium 138, potassium 3.3, chloride 98, bicarb 29, BUN 23 and creatinine of 0.5. LFTs were within normal limits. Procalcitonin of 1.06. Urinalysis showed negative leukocyte esterase and nitrites. COVID-19 rapid antigen and PCR were both negative.Imaging studies included chest x-ray which showed patchy opacification of the mid inferior left lung consistent with atelectasis or pneumonia.CT of chest showed bilateral lung nodules consistent with metastatic disease with a mass in the left liver suggestive of also metastatic disease.Head CT did not show any evidence of intracranial hemorrhage or mass effect.Patient was started on BiPAP. Addition was started on broad-spectrum antibiotics including vancomycin and Zosyn. 01/23/2021 Patient was seen while in emergency room period was on BiPAP at the time of my evaluation. No new clinical events overnight. Medications: Reviewed: Yes Vitals/I&O/Wt Last Vital Signs Temp 97.4 F L 01/23/21 15:57 Pulse 87 01/23/21 15:57 Resp 18 01/23/21 15:57 BP 141/76 01/23/21 15:57 Pulse Ox 95 01/23/21 15:57 01/23/21 01/23/21 01/23/21 06:59 14:59 22:59 Intake Total 1048 / 1398 250 / 250 50 / 300 Balance 1048 / 1398 250 / 250 50 / 300 Weight last 48 hrs Weight 47.627 kg Weight 59.874 kg Physical Exam Narrative: EXAM NARRATIVE: General-Alert awake on BiPAP HEENT-Grossly unremarkable Chest -nonlabored respiration on BiPAP CVS -normal sinus rhythm Abdomen- nondistended Extremities-no edema Data : 01/23/21 07:30 01/23/21 07:30 Micro: Microbiology 01/22/21 15:56 Blood Culture - Preliminary Blood NEGATIVE TO DATE 01/22/21 13:33 Blood Culture - Preliminary Blood NEGATIVE TO DATE 01/22/21 23:15 Bacterial Antigens - Final Urine,Clean Catch A&P Assessment and plan (1) Acute respiratory failure with hypoxia: -Secondary to left lower lobe pneumonia -Covid PUI, rapid negative -She is immunocompromised given non-small cell lung cancer, and recent chemotherapy -D-dimer 1.94, CRP 117.5, pro-Giovanny 1.06 -Currently on Bipap - Wean as tolerated Plan: Continue current management Broad specturm abx Follow up on culture Budesonide, albuterol Status: Acute (2) Thrombocytopenia: Status: Acute (3) Anemia: Status: Acute (4) Small cell lung cancer: Status: Acute (5) Recurrent right pleural effusion: Status: Acute (6) Left lower lobe pneumonia: Status: Acute (7) Person under investigation for COVID-19: Status: Acute Attestations Medical Necessity Statement*: Will continue current management of respiratory failure due to pneumonia requiring iv abx and ppv Time Spent in Patient Care: Greater than 35 minutes Coding Level of Care Code Acute Campaign Consultant for Deonte Kaiser Diagnoses Acute respiratory failure with hypoxia J96.01 Thrombocytopenia D69.6 Anemia D64.9 Small cell lung cancer C34.90 Recurrent right pleural effusion J90 Left lower lobe pneumonia J18.9 Person under investigation for COVID-19 Z20.822
[2021-01-23] MEDS: pantoprazole 40 mg SDV IVP (17:24)
[2021-01-23] MEDS: ascorbic acid 500 mg Tablet PO (17:24)
--- NOTE | 2021-01-23 18:07 | PC.NURSE ---
Admit Note Patient admitted to med/surg from ER via [facility]. Covering service notified. Patient presents with hypoxia, suspected COVID, lung CA, anemia, thrombocytopenia . Orders reviewed & will continue to monitor. Patient and/or compliance representative oriented to environment, equipment, and informed of the following as found in the admission booklet: patient rights & responsibilities, visitor policy, hand and respiratory hygiene practice. Other education includes: medication, fall safety, calling for help, bed alarm. Patient and/or compliance representative states verbal understanding, patient will need teaching reinforced.
--- NOTE | 2021-01-23 18:23 | PC.NURSE ---
Shift Note Patient was transferred from the ER, during this shift. Patient is pleasantly confused. Patient talks to Harjohnnyd . Patient is able to get up to BSC with one assist. Patient has taken off her oxygen during this shift. Frequent safety and comfort rounds continue. Orders and/or nursing care completed as indicated. Patient monitored for response to intervention and treatment(s). Education provided includes calling for help, not getting up without assistance. oxygen use, and medications. Patient and/or training representative patient states verbal understanding, teaching will need to be reinforced. Will continue to monitor.
[2021-01-23 19:46] LABS: Vancomycin Trough 10.6 ug/mL (10-15)
--- NOTE | 2021-01-23 20:33 | PC.NURSE ---
i reported high pluse 110 and reported low temp 97.5 to nurse
[2021-01-23] MEDS: haloperidol inj 5 mg/mL INJ 1 mL 1 MG IVP (21:11)
--- NOTE | 2021-01-23 21:45 | PC.NURSE ---
Vanc was supposed to be hung at 1900. Lab did not draw vanc trough until 1818 and lab did not come back until after 1900. By the time vanc trough came back, patient was too combative to hang medication. 1mg of haldol has been given and vanc will be hung as soon as patient calms down.
[2021-01-24] VITALS (11 sets, daily range): BP systolic 99–150; BP diastolic 60–83; PULSE 85–106; RESP 14–18; TEMP 36.3–36.8; O2SAT 91–100
--- NOTE | 2021-01-24 00:23 | PC.NURSE ---
i reported low temp 97.5 and high pluse 106 to nurse
[2021-01-24] MEDS: LORazepam 2 mg/mL INJ 1 mL 1 MG IVP ×2 (02:41→09:16)
--- NOTE | 2021-01-24 04:47 | PC.NURSE ---
i reported low temp 97.4 to nurse
--- NOTE | 2021-01-24 05:18 | PC.NURSE ---
Shift Note Frequent safety and comfort rounds continue. Orders and/or nursing care completed as indicated. Patient monitored for response to intervention and treatment(s). Education provided includes[not pulling out port access, medication, importance of wearing oxygen, not getting up without help, and not being verbally or physically aggressive]. Patient and/or field representative verbalized understanding, but multiple times reinforcement was needed]. Patient had to be given haldol 1mg IVP x1 and ativan 1mg IVP x2 due to verbal and physical aggression towards staff. Patient is currently sleeping and has been removed from heated high flow due to breaking the oxygen delivery apparatus in half. Patient is currently on 5LNC.
[2021-01-24] MEDS: zinc gluconate 50 mg Tablet PO (09:14)
[2021-01-24] MEDS: cholecalciferol (vitamin D3) 1,000 unit Tablet 1000 UNIT PO (09:14)
[2021-01-24] MEDS: ascorbic acid 500 mg Tablet PO ×2 (09:14→17:33)
[2021-01-24] MEDS: dexamethasone 10 mg/mL INJ 6 MG IVP (09:14)
[2021-01-24] MEDS: piperacillin-tazobactam 3.375 GM in sodium chloride 0.9% (plus) 50 ML IV (09:15)
[2021-01-24 10:07] LABS: Basophils % 0.1 %; Eosinophils % 0.1 %; Hematocrit 32.8 % (37.0-47.0); Hemoglobin 10.4 g/dL (11.5-15.3); Lymphocytes # 1.9 10^3/uL (0.8-4.8); Lymphocytes % 15.3 %; Mean Corpuscular HGB Conc 31.7 g/dL (30.0-36.0); Mean Corpuscular Hemoglobin 30.3 pg (28.0-34.0); Mean Corpuscular Volume 95.6 fL (81-99); Mean Platelet Volume 10.7 fL (7.4-10.4); Monocytes # 1.9 10^3/uL (0.2-0.9); Monocytes % 15.1 %; Neutrophils % 61.4 %; Nucleated Red Blood Cells # 0.3 /100WBC; Nucleated Red Blood Cells % 2.1 %; Platelet Count 124 10^3/cmm (130-400); Red Blood Count 3.43 10^6/uL (4.1-5.3); Red Cell Distribution Width 17.4 % (12.1-15.1); White Blood Count 12.7 10^3/uL (4.0-10.0)
--- NOTE | 2021-01-24 10:26 | PC.NUTR ---
Nutrition assessment for low BMI. Recommend monitor weight, due to discrepancy between admit and current weight, as well as recent wt loss per admission screen. Will add Ensure Plus with meals. Recommend to encourage po intakes of meals/supplements to optimize nutrition and promote weight maintenance, and provide meal preferences as available. See full RD assessment for further details.
[2021-01-24 10:38] LABS: Alanine Aminotransferase 11 U/L (0-33); Albumin Level 3.5 g/dL (3.5-5.2); Alkaline Phosphatase 116 IU/L (35-105); Blood Urea Nitrogen 12 mg/dL (8-23); C Reactive Protein 62.4 mg/L (0.0-4.9); Calcium 8.8 mg/dL (8.5-10.5); Carbon Dioxide 23 mmol/L (22-29); Chloride 98 mmol/L (98-107); Globulin 3.3 g/dL (1.3-4.6); Glucose 94 mg/dL (65-115); Magnesium 1.3 mg/dL (1.7-2.3); Osmolality Calculated 284 mOsm/kg (285-295); Phosphorus 3.2 mg/dL (2.5-4.5); Sodium 137 mmol/L (136-145); Total Bilirubin 0.7 mg/dL (0.15-1.2); Total Protein 6.8 g/dL (6.6-8.7)
[2021-01-24 10:40] LABS: Anion Gap 19.4 (5-19); Aspartate Amino Transferase 19 U/L (0-32); Potassium 3.4 mmol/L (3.5-5.1)
[2021-01-24 10:48] LABS: Slide Review Slide Review Perform
[2021-01-24] MEDS: vancomycin 750 MG in sodium chloride 0.9% 250 ML 250 MG IV ×2 (12:03→22:30)
[2021-01-24 14:04] LABS: ABG PCO2 41.1 mmHg (35-45); ABG PH Result 7.46 (7.35-7.45); Alveolar-Arterial Oxygen Gradi 2.5 mmHg (5-10); Arterial Blood Gas Hematocrit 32.4 % (37-47); Base Excess ABG 5.1 mmol/L (-2.0-2.0); Blood Gas Allen Test Pos; Blood Gas Sample Site Radial, left; Blood Gas Sample Type Arterial; Carboxyhemoglobin 1.1 %THgb (0.4-20.1); HCO3 ABG 29.4 mmol/L (22-26); HGB O2 Sat 93.9 % (95-100); Ionized Calcium Level - ABG 1.2 mmol/L (1.1-1.4); Oxygen Device NC; Oxygen Saturation ABG 95.9; PO2 ABG 79.1 mmHg (80.0-100.0); Potassium Level - ABG 3.2 mmol/L (3.5-5.0); Total Hemoglobin 10.6 g/dL (12-16)
[2021-01-24 15:58] LABS: INR 1.02 (0.8-1.2)
[2021-01-24 16:26] LABS: Lactate (Lactic Acid level) 1.4 mmol/L (0.5-2.2)
[2021-01-24 16:41] LABS: NT Pro B Type Natriuretic Pept 5517 pg/mL (0-450); Procalcitonin 0.81 ng/mL (0-0.5)
[2021-01-24] MEDS: pantoprazole 40 mg SDV IVP (17:32)
[2021-01-24] MEDS: acetaminophen 325 mg Tablet 650 MG PO (17:32)
[2021-01-24] MEDS: budesonide 0.5 mg/2 mL Neb INHALATION (19:15)
--- NOTE | 2021-01-24 20:26 | PM.PN ---
Subjective Subjective: Interval history: Patient wasVery drowsy and confused at the time of my evaluation. Family at bedside. This was after receiving Ativan. Medications: Reviewed: Yes Vitals/I&O/Wt Last Vital Signs Temp 97.6 F 01/24/21 19:57 Pulse 98 01/24/21 19:57 Resp 16 01/24/21 19:57 BP 99/60 01/24/21 19:57 Pulse Ox 93 01/24/21 19:57 01/24/21 01/24/21 01/24/21 06:59 14:59 22:59 Intake Total 300 / 600 334.583 / 334.583 15.417 / 350.000 Output Total 120 / 220 390 / 390 Balance 180 / 380 -55.417 / -55.417 15.417 / -40.000 Weight last 48 hrs Weight 47.627 kg Physical Exam Narrative: EXAM NARRATIVE: General : confused drowsy HEENT-Grossly unremarkable Chest -nonlabored respiration on o2 via NC CVS -normal sinus rhythm Abdomen- nondistended Extremities-no edema Data : 01/24/21 09:23 01/24/21 09:23 Micro: Microbiology 01/22/21 23:15 Urine Culture - Preliminary Urine,Clean Catch Bacterial Antigens - Final 01/22/21 15:56 Blood Culture - Preliminary Blood NEGATIVE TO DATE A&P Assessment and plan (1) Acute respiratory failure with hypoxia: -Secondary to left lower lobe pneumonia -Covid PUI, rapid negative -She is immunocompromised given non-small cell lung cancer, and recent chemotherapy -D-dimer 1.94, CRP 117.5, pro-Giovanny 1.06 -Continue to use Bipap as neee -Continue Current abx -Wean o2 as tolerated -ABG in am -Continue buesonide an albuterol Status: Acute (2) Thrombocytopenia: Status: Acute (3) Anemia: Status: Acute (4) Small cell lung cancer: Status: Acute (5) Recurrent right pleural effusion: Status: Acute (6) Left lower lobe pneumonia: Status: Acute (7) Person under investigation for COVID-19: Status: Acute (8) Altered mental status: Exacerbated due to meds including ativan Avoid sedative med aspiration precautions. Status: Acute Attestations Medical Necessity Statement*: will require further hospitalization for management of pneumonia, altered mental status. Time Spent in Patient Care: Greater than 35 minutes (>than 50% of time spent in counselling and/or direct pt care on unit). Coding Level of Care Code Acute Director Process Engineering for Deonte Fwd Diagnoses Acute respiratory failure with hypoxia J96.01 Thrombocytopenia D69.6 Anemia D64.9 Small cell lung cancer C34.90 Recurrent right pleural effusion J90 Left lower lobe pneumonia J18.9 Person under investigation for COVID-19 Z20.822 Altered mental status R41.82
[2021-01-24] MEDS: enoxaparin 40 mg/0.4 mL Syringe SUBCUT (20:27)
[2021-01-24] MEDS: magnesium sulfate premix 2 GM/50 ML PIGGYBACK IV (21:25)
[2021-01-24] MEDS: potassium chloride premix 100 ML 50 MEQ IV (23:32)
[2021-01-25] VITALS (17 sets, daily range): BP systolic 99–123; BP diastolic 62–77; PULSE 79–95; RESP 16–20; TEMP 36.3–36.6; O2SAT 90–98
[2021-01-25] MEDS: piperacillin-tazobactam 3.375 GM in sodium chloride 0.9% (plus) 50 ML IV ×3 (01:48→20:31)
[2021-01-25] MEDS: albuterol 8 gm MDI 2 PUFF INHALATION ×3 (04:55→21:12)
[2021-01-25 05:07] LABS: ABG PCO2 43.3 mmHg (35-45); ABG PH Result 7.46 (7.35-7.45); Arterial Blood Gas Hematocrit 30.5 % (37-47); Base Excess ABG 6.5 mmol/L (-2.0-2.0); Blood Gas Allen Test Pos; Blood Gas Operator Identificat HARKR; Blood Gas Sample Site Brachial, right; Blood Gas Sample Type Arterial; Oxygen Device NC
[2021-01-25] MEDS: acetaminophen 325 mg Tablet 650 MG PO (05:11)
[2021-01-25 05:31] LABS: Hematocrit 29.9 % (37.0-47.0); Hemoglobin 9.5 g/dL (11.5-15.3); Mean Corpuscular HGB Conc 31.8 g/dL (30.0-36.0); Mean Corpuscular Hemoglobin 30.6 pg (28.0-34.0); Mean Corpuscular Volume 96.5 fL (81-99); Mean Platelet Volume 10.4 fL (7.4-10.4); Platelet Count 133 10^3/cmm (130-400); Red Cell Distribution Width 17.4 % (12.1-15.1)
[2021-01-25 05:32] LABS: INR 1.04 (0.8-1.2)
[2021-01-25 06:03] LABS: Lactate (Lactic Acid level) 1.2 mmol/L (0.5-2.2)
[2021-01-25 06:16] LABS: NT Pro B Type Natriuretic Pept 4959 pg/mL (0-450); Procalcitonin 1.04 ng/mL (0-0.5)
[2021-01-25 06:19] LABS: Slide Review Slide Review Perform
[2021-01-25] MEDS: oxyCODONE-APAP 5-325 mg Tablet PO ×4 (06:24→21:26)
[2021-01-25 06:27] LABS: Alanine Aminotransferase 10 U/L (0-33); Albumin Level 3.3 g/dL (3.5-5.2); Alkaline Phosphatase 100 IU/L (35-105); Anion Gap 11.4 (5-19); Aspartate Amino Transferase 18 U/L (0-32); Blood Urea Nitrogen 15 mg/dL (8-23); C Reactive Protein 48.2 mg/L (0.0-4.9); Calcium 8.7 mg/dL (8.5-10.5); Carbon Dioxide 28 mmol/L (22-29); Chloride 105 mmol/L (98-107); Globulin 2.7 g/dL (1.3-4.6); Glucose 94 mg/dL (65-115); Magnesium 1.8 mg/dL (1.7-2.3); Osmolality Calculated 293 mOsm/kg (285-295); Phosphorus 3.1 mg/dL (2.5-4.5); Potassium 3.4 mmol/L (3.5-5.1); Sodium 141 mmol/L (136-145); Total Bilirubin 0.5 mg/dL (0.15-1.2)
[2021-01-25 06:38] LABS: Absolute Neutrophil 4.6 10^3/cmm (1.4-6.5); Band Neutrophils Absolute 0.6 10^3/cmm (0.0-1.2); Eosinophils 0 %; Lymphocytes 44 %; Lymphocytes Absolute 4.5 10^3/cmm (1.2-3.4); Monocytes Absolute 0.1 10^3/cmm (0.1-0.6); Platelet Estimate Normal (Normal); Segmented Neutrophils 40 %; Total Cells Counted 100 (0-100)
[2021-01-25] MEDS: zinc gluconate 50 mg Tablet PO (08:34)
[2021-01-25] MEDS: dexamethasone 10 mg/mL INJ 6 MG IVP (08:34)
[2021-01-25] MEDS: ascorbic acid 500 mg Tablet PO ×2 (08:34→17:00)
[2021-01-25] MEDS: cholecalciferol (vitamin D3) 1,000 unit Tablet 1000 UNIT PO (08:34)
[2021-01-25] MEDS: vancomycin 750 MG in sodium chloride 0.9% 250 ML 250 MG IV ×2 (10:18→23:52)
--- NOTE | 2021-01-25 10:24 | PC.CHAP ---
Pastoral Care Encounter/Spiritual Assessment Type of Contact [] Declined radiological equipment specialist visit [] Patient/Family/Request visit [] Outpatient visit [] Follow-up visit [] Physician referral [] Code/Alert [] Routine visit [] Staff referral [x] Actively dying [] Patient sleeping [] Family support [] [] Out of room [] Palliative care [] [] Receiving care in room [] Pre-surgical visit [] Trauma [x] Long length of stay [] ICU visit [] Other: Relational/Emotional Strength [] Patient feels connected with others/family/visitors/staff [] Distress [] Loneliness/isolation [] Abandonment Spirituality of Patient [] Person of Joyce [] Attends Mormonism of their Joyce [] Believes in Prayer [] Reads Bible or Hoahaoism materials [] There are Spiritual issues to be addressed Customer Account Executive Interventions [] Prayer [] Active listening [] Non-anxious presence [] Spiritual/emotional support [] Crisis/trauma care [] Spiritual counseling [] Bereavement support [] Provided bereavement packet [] Provided Bible/devotional materials [] Provided toy/stuffed animal, coloring book to patient or family member [] Provided Communion [] Anointing/[place] [] Salvation [] Completed spiritual assessment [] Other: Impact on Illness or Injury [] Angry [] Fearful [] Anxious [] Often cries [] Exhaustion [] Unable to work [] Unable to attend taoism [] Unable to walk/stand [] Unable to read [] Unable to drive [] Unable to eat/drink [] Unable to sleep [] Unable to be with family [x] Patient intubated [] Other: Summary unable to communicate, on life support Time spent with patient x
[2021-01-25] MEDS: budesonide 0.5 mg/2 mL Neb INHALATION ×2 (10:30→21:07)
--- NOTE | 2021-01-25 11:32 | PC.SOCIAL ---
Imm Update pg 2 of IMM updated w/ patient and copy provided.
--- NOTE | 2021-01-25 16:44 | PM.PN ---
Subjective Subjective: Interval history: Overnight patients mental status had returned to baseline. patient was complaining of slight respiratory distress. Stated she was not able to take a complete deep breath. 0xygen saturations remained stable. No fever, chills, nausea vomiting overnight. Medications: Reviewed: Yes Vitals/I&O/Wt Last Vital Signs Temp 97.8 F 01/25/21 15:21 Pulse 91 01/25/21 15:52 Resp 18 01/25/21 15:50 BP 111/66 01/25/21 15:21 Pulse Ox 93 01/25/21 15:50 01/25/21 01/25/21 01/25/21 06:59 14:59 22:59 Intake Total 400 / 800.000 370 / 370 Output Total 350 / 740 Balance 50 / 60.000 370 / 370 Physical Exam Narrative: EXAM NARRATIVE: General : Alert awake and oriented x3 HEENT-Grossly unremarkable Chest -nonlabored respiration on o2 via NC CVS -normal sinus rhythm Abdomen- nondistended Extremities-no edema Data : 01/25/21 05:07 01/25/21 05:07 Micro: Microbiology 01/22/21 23:15 Urine Culture - Final Urine,Clean Catch Bacterial Antigens - Final A&P Assessment and plan (1) Acute respiratory failure with hypoxia: -Secondary to left lower lobe pneumonia -Covid PUI, rapid negative -She is immunocompromised given non-small cell lung cancer, and recent chemotherapy -D-dimer 1.94, CRP 117.5, pro-Giovanny 1.06 -Continue to use Bipap as neee -Continue Current abx -Wean o2 as tolerated -Continue buesonide an albuterol -Following with pulmonary medicine outpatient will consider consultation Status: Acute (2) Thrombocytopenia: Status: Acute (3) Anemia: Status: Acute (4) Small cell lung cancer: Status: Acute (5) Recurrent right pleural effusion: Status: Acute (6) Left lower lobe pneumonia: Status: Acute (7) Person under investigation for COVID-19: Status: Acute (8) Altered mental status: Exacerbated due to meds including ativan Avoid sedative med aspiration precautions. Status: Acute Attestations Medical Necessity Statement*: Require further hospitalization For management of respiratory distress. Time Spent in Patient Care: Greater than 35 minutes (>than 50% of time spent in counselling and/or direct pt care on unit). Coding Level of Care Code Acute Risk Management Specialist for Chg Fwd Diagnoses Acute respiratory failure with hypoxia J96.01 Thrombocytopenia D69.6 Anemia D64.9 Small cell lung cancer C34.90 Recurrent right pleural effusion J90 Left lower lobe pneumonia J18.9 Person under investigation for COVID-19 Z20.822 Altered mental status R41.82
[2021-01-25] MEDS: pantoprazole 40 mg SDV IVP (17:00)
[2021-01-25] MEDS: enoxaparin 40 mg/0.4 mL Syringe SUBCUT (20:31)
[2021-01-26] VITALS (19 sets, daily range): BP systolic 106–151; BP diastolic 61–77; PULSE 66–107; RESP 14–20; TEMP 36.2–37; O2SAT 85–99
[2021-01-26] MEDS: oxyCODONE-APAP 5-325 mg Tablet PO ×5 (01:13→20:25)
[2021-01-26] MEDS: piperacillin-tazobactam 3.375 GM in sodium chloride 0.9% (plus) 50 ML IV ×3 (03:28→20:24)
[2021-01-26 05:21] LABS: Basophils % 0.1 %; Eosinophils % 0.1 %; Hemoglobin 8.8 g/dL (11.5-15.3); Lymphocytes # 1.8 10^3/uL (0.8-4.8); Lymphocytes % 12.8 %; Mean Corpuscular HGB Conc 31.4 g/dL (30.0-36.0); Mean Corpuscular Hemoglobin 31.3 pg (28.0-34.0); Mean Corpuscular Volume 99.6 fL (81-99); Mean Platelet Volume 10.7 fL (7.4-10.4); Monocytes # 1.6 10^3/uL (0.2-0.9); Monocytes % 11.2 %; Neutrophils # 9.44 10^3/uL (1.8-7.7); Neutrophils % 68.6 %; Nucleated Red Blood Cells # 0.3 /100WBC; Platelet Count 132 10^3/cmm (130-400); Red Blood Count 2.81 10^6/uL (4.1-5.3); Red Cell Distribution Width 17.5 % (12.1-15.1); White Blood Count 13.8 10^3/uL (4.0-10.0)
[2021-01-26 05:47] LABS: Alanine Aminotransferase 11 U/L (0-33); Albumin Level 3.3 g/dL (3.5-5.2); Alkaline Phosphatase 92 IU/L (35-105); Anion Gap 9.7 (5-19); Aspartate Amino Transferase 18 U/L (0-32); Blood Urea Nitrogen 18 mg/dL (8-23); Calcium 8.7 mg/dL (8.5-10.5); Carbon Dioxide 28 mmol/L (22-29); Chloride 106 mmol/L (98-107); Globulin 2.7 g/dL (1.3-4.6); Glucose 92 mg/dL (65-115); Magnesium 1.3 mg/dL (1.7-2.3); Osmolality Calculated 294 mOsm/kg (285-295); Sodium 141 mmol/L (136-145); Total Bilirubin 0.5 mg/dL (0.15-1.2)
[2021-01-26 06:17] LABS: Potassium 2.7 mmol/L (3.5-5.1)
[2021-01-26 07:35] LABS: Slide Review Slide Review Perform
[2021-01-26] MEDS: budesonide 0.5 mg/2 mL Neb INHALATION ×2 (08:16→21:06)
[2021-01-26] MEDS: albuterol 8 gm MDI 2 PUFF INHALATION ×2 (08:17→21:06)
[2021-01-26] MEDS: zinc gluconate 50 mg Tablet PO (08:36)
[2021-01-26] MEDS: cholecalciferol (vitamin D3) 1,000 unit Tablet 1000 UNIT PO (08:36)
[2021-01-26] MEDS: dexamethasone 10 mg/mL INJ 6 MG IVP (08:36)
[2021-01-26] MEDS: ascorbic acid 500 mg Tablet PO ×2 (08:36→17:52)
--- NOTE | 2021-01-26 09:06 | PC.RESP ---
PULMONARY REHAB INFORMATION SENT TO PATIENT.
--- NOTE | 2021-01-26 09:09 | PC.RESP ---
Therapist was called at 0835 by nurse stating that patient had taken oxymask off and sats were low 80s. Nurse placed oxymask back on patient at 15LPM with sat only in mid 80s. Therapist told nurse to place NRB on patient at 15LPM until therapist could arrive. Patient sats came up to 91-92%. when therapist arrived, therapist placed patient back on oxymask due to sats being 97% on NRB. Heated highflow was placed at 40L 80% with a sat of 92%. Patient seems to be tolerating well.
[2021-01-26] MEDS: vancomycin 750 MG in sodium chloride 0.9% 250 ML 250 MG IV (10:35)
[2021-01-26] MEDS: magnesium sulfate premix 2 GM/50 ML PIGGYBACK IV (15:10)
--- NOTE | 2021-01-26 16:20 | PM.PN ---
Subjective Subjective: Interval history: Patient noted to be hypoxic Medications: Reviewed: Yes Vitals/I&O/Wt Last Vital Signs Temp 97.8 F 01/26/21 20:00 Pulse 85 01/26/21 21:10 Resp 18 01/26/21 21:05 BP 151/77 01/26/21 20:00 Pulse Ox 95 01/26/21 21:05 01/26/21 01/26/21 01/27/21 14:59 22:59 06:59 Intake Total 300 / 300 400 / 700 Output Total 275 / 275 Balance 300 / 300 125 / 425 Physical Exam Narrative: EXAM NARRATIVE: General : Alert awake and oriented x3 HEENT-Grossly unremarkable Chest -nonlabored respiration on o2 via NC CVS -normal sinus rhythm Abdomen- nondistended Extremities-no edema Data : 01/26/21 05:08 01/26/21 05:08 A&P Assessment and plan (1) Acute respiratory failure with hypoxia: -Secondary to left lower lobe pneumonia -Covid PUI, rapid negative -She is immunocompromised given non-small cell lung cancer, and recent chemotherapy -D-dimer 1.94, CRP 117.5, pro-Giovanny 1.06 -Continue to use Bipap as neee -Continue Current abx -Wean o2 as tolerated -Continue buesonide an albuterol -Following with pulmonary medicine outpatient will consider consultation Status: Acute (2) Thrombocytopenia: Status: Acute (3) Anemia: Status: Acute (4) Small cell lung cancer: Status: Acute (5) Recurrent right pleural effusion: Status: Acute (6) Left lower lobe pneumonia: Status: Acute (7) Person under investigation for COVID-19: Status: Acute (8) Altered mental status: Exacerbated due to meds including ativan Avoid sedative med aspiration precautions. Status: Acute Attestations Medical Necessity Statement*: will continue hospitalization for management of resp failure Time Spent in Patient Care: Greater than 35 minutes (>than 50% of time spent in counselling and/or direct pt care on unit). 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
[2021-01-26] MEDS: pantoprazole 40 mg SDV IVP (19:46)
[2021-01-26] MEDS: enoxaparin 40 mg/0.4 mL Syringe SUBCUT (20:24)
[2021-01-26 22:30] LABS: Vancomycin Trough 15.9 ug/mL (10-15)
[2021-01-26 23:50] LABS: Potassium 3.1 mmol/L (3.5-5.1)
[2021-01-27] VITALS (15 sets, daily range): BP systolic 102–157; BP diastolic 54–94; PULSE 57–106; RESP 12–23; TEMP 36.3–36.8; O2SAT 85–99
[2021-01-27] MEDS: vancomycin 750 MG in sodium chloride 0.9% 250 ML 250 MG IV ×2 (00:14→11:49)
[2021-01-27] MEDS: oxyCODONE-APAP 5-325 mg Tablet PO ×3 (00:49→18:33)
[2021-01-27] MEDS: piperacillin-tazobactam 3.375 GM in sodium chloride 0.9% (plus) 50 ML IV ×3 (05:21→20:28)
[2021-01-27 06:41] LABS: Hematocrit 29.6 % (37.0-47.0); Hemoglobin 9.5 g/dL (11.5-15.3); Mean Corpuscular HGB Conc 32.1 g/dL (30.0-36.0); Mean Corpuscular Hemoglobin 31.6 pg (28.0-34.0); Mean Corpuscular Volume 98.3 fl (81-99); Mean Platelet Volume 10.7 fL (7.4-10.4); Platelet Count 183 10^3/cmm (130-400); Red Blood Count 3.01 10^6/uL (4.1-5.3)
[2021-01-27 07:42] LABS: Anion Gap 10.9 (5-19); Blood Urea Nitrogen 12 mg/dL (8-23); Calcium 8.7 mg/dL (8.5-10.5); Carbon Dioxide 30 mmol/L (22-29); Chloride 103 mmol/L (98-107); Glucose 86 mg/dL (65-115); Osmolality Calculated 291 mOsm/kg (285-295); Sodium 141 mmol/L (136-145)
[2021-01-27 07:45] LABS: Potassium 2.9 mmol/L (3.5-5.1)
[2021-01-27] MEDS: albuterol 8 gm MDI 2 PUFF INHALATION (07:59)
[2021-01-27] MEDS: budesonide 0.5 mg/2 mL Neb INHALATION (07:59)
--- NOTE | 2021-01-27 08:14 | PC.SOCIAL ---
IM discussed with Son Farhat and he verbalized understanding.He and spouse of patient will be in later to visit.
[2021-01-27] MEDS: ascorbic acid 500 mg Tablet PO ×2 (08:33→17:37)
[2021-01-27] MEDS: cholecalciferol (vitamin D3) 1,000 unit Tablet 1000 UNIT PO (08:33)
[2021-01-27] MEDS: dexamethasone 10 mg/mL INJ 6 MG IVP (08:33)
[2021-01-27] MEDS: zinc gluconate 50 mg Tablet PO (08:33)
[2021-01-27 10:04] LABS: Slide Review Slide Review Perform
[2021-01-27 10:08] LABS: Absolute Segmented Neutrophil 14.2 10/cmm (1.6-7.1); Band Neutrophils Absolute 0.8 10^3/cmm (0.0-1.2); Eosinophils 0 %; Lymphocytes 9 %; Lymphocytes Absolute 1.8 10^3/cmm (1.2-3.4); Segmented Neutrophils 71 %; Total Cells Counted 100 (0-100)
[2021-01-27 10:09] LABS: Anisocytosis 2+; Macrocytosis 2+; Platelet Estimate Normal (Normal); Poikilocytosis Trace
[2021-01-27] MEDS: potassium chloride premix 100 ML 25 MEQ IV (11:36)
--- NOTE | 2021-01-27 12:12 | P.PN_ITS ---
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 Laboratory workup on arrival showed a WBC of 4.2, hemoglobin of 7.0, hematocrit of 22.3 and a platelet count of 17. Sodium 138, potassium 3.3, chloride 98, bicarb 29, BUN 23 and creatinine of 0.5. LFTs were within normal limits. Procalcitonin of 1.06. Urinalysis showed negative leukocyte esterase and nitrites. COVID-19 rapid antigen and PCR were both negative.Imaging studies included chest x-ray which showed patchy opacification of the mid inferior left lung consistent with atelectasis or pneumonia. CT of chest showed bilateral lung nodules consistent with metastatic disease with a mass in the left liver suggestive of also metastatic disease. Head CT did not show any evidence of intracranial hemorrhage or mass effect. Patient was started on BiPAP. Addition was started on broad-spectrum antibiotics including vancomycin and Zosyn. patient was initially suspected of COVID-19 pneumonia for which she was started on Decadron 6 mg daily. PCR however returned negative. Decadron was then discontinue. Prednisone was then initiated. Patients respiratory status continue to wax and wane. At nighttime she became confused and continue to pull off her oxygen. Noted to have hypoxia with exertion. Required high-flow nasal cannula. Restarted on her home trilogy. 01/27/2021 Overnight patient did become hypoxic again as well as confused. Was transitioned to high-flow nasal cannula. Medications: Reviewed: Yes Vitals/I&O/Wt Last Vital Signs Temp 97.4 F L 01/27/21 11:30 Pulse 82 01/27/21 11:30 Resp 16 01/27/21 11:30 BP 102/54 01/27/21 11:30 Pulse Ox 95 01/27/21 11:30 01/26/21 01/27/21 01/27/21 22:59 06:59 14:59 Intake Total 400 / 700 420 / 1120 50 / 50 Output Total 275 / 275 200 / 475 Balance 125 / 425 220 / 645 50 / 50 Physical Exam Narrative: EXAM NARRATIVE: General : Alert awake and oriented x3 On high- flow nasal cannula HEENT-Grossly unremarkable Chest -nonlabored respiration CVS -normal sinus rhythm Abdomen- nondistended Extremities-no edema Data : 01/27/21 05:54 01/27/21 05:54 A&P Assessment and plan (1) Acute respiratory failure with hypoxia: -Secondary to left lower lobe pneumonia with underlying severe o2 dependent COPD exacerbation -Covid rapid & PCR negative -She is immunocompromised given non-small cell lung cancer, and recent chemotherapy -D-dimer 1.94, CRP 117.5, pro-Giovanny 1.06 -Continue to use Bipap as needed -Resume home Trelegy -Change decadron to prednsisone 40 mg PO daily -Continue zosyn for now -D/C vancomycin -Culture negative - Afebrile -Wean o2 as tolerated Status: Acute (2) Thrombocytopenia: Status: Acute (3) Anemia: Status: Acute (4) Small cell lung cancer: Status: Acute (5) Recurrent right pleural effusion: Repeat chest xray today May consider thoracentesis Status: Acute (6) Left lower lobe pneumonia: Management as noted above Status: Acute (7) Altered mental status: Exacerbated due to meds including ativan Avoid sedative med Aspiration precautions. Change haldol IV to IM Status: Acute (8) Hypokalemia: K 2.9 today KCL 40 meq iv x 1 Repeat BMP in am Status: Acute (9) DVT prophylaxis: Lovenox 40 mg SQ daily Status: Acute Attestations Medical Necessity Statement*: Require further hospitalization for management of hypoxic respiratory failure Time Spent in Patient Care: Greater than 35 minutes (>than 50% of time spent in counselling and/or direct pt care on unit) . Coding Level of Care Code Acute [employer] for [employer] Diagnoses Acute respiratory failure with hypoxia J96.01 Thrombocytopenia D69.6 Anemia D64.9 Small cell lung cancer C34.90 Recurrent right pleural effusion J90 Left lower lobe pneumonia J18.9 Altered mental status R41.82 Hypokalemia E87.6 DVT prophylaxis Z29.9
[2021-01-27] MEDS: pantoprazole DR 40 mg Tablet PO (17:37)
[2021-01-27] MEDS: enoxaparin 40 mg/0.4 mL Syringe SUBCUT (20:28)
[2021-01-28] VITALS (10 sets, daily range): BP systolic 100–159; BP diastolic 61–83; PULSE 72–94; RESP 9–17; TEMP 36.4–36.6; O2SAT 60–99
[2021-01-28] MEDS: oxyCODONE-APAP 5-325 mg Tablet PO ×2 (03:11→10:12)
[2021-01-28] MEDS: piperacillin-tazobactam 3.375 GM in sodium chloride 0.9% (plus) 50 ML IV ×2 (03:11→12:23)
[2021-01-28] MEDS: ALPRAZolam 0.5 mg Tablet PO (03:13)
[2021-01-28] MEDS: cholecalciferol (vitamin D3) 1,000 unit Tablet 1000 UNIT PO (09:24)
[2021-01-28] MEDS: ascorbic acid 500 mg Tablet PO (09:24)
[2021-01-28] MEDS: predniSONE 20 mg Tablet 40 MG PO (09:27)
[2021-01-28 12:19] LABS: Blood Urea Nitrogen 11 mg/dL (8-23); Calcium 8.6 mg/dL (8.5-10.5); Carbon Dioxide 32 mmol/L (22-29); Chloride 104 mmol/L (98-107); Glucose 122 mg/dL (65-115); Osmolality Calculated 295 mOsm/kg (285-295); Sodium 142 mmol/L (136-145)
[2021-01-28] MEDS: potassium chloride ER 20 mEq Tablet 40 MEQ PO (14:59)
--- NOTE | 2021-01-28 16:01 | PM.DCS ---
Discharge Providers Date of Admission: 01/22/21 18:27 Date of Discharge: January 28, 2021 Attending Provider at Admission: Stalin Alexis MD Attending Provider at Discharge: Marco Lazcano Primary Care Provider: Anthony Nielson MD Diagnoses at Discharge Discharge Diagnosis (1) Acute respiratory failure with hypoxia: Status: Resolved (2) Thrombocytopenia: Status: Resolved (3) Anemia: Status: Resolved (4) Small cell lung cancer: Status: Resolved Permanent problem details: Metastatic (5) Recurrent right pleural effusion: Status: Resolved (6) Left lower lobe pneumonia: Status: Resolved (7) Altered mental status: Status: Resolved (8) Hypokalemia: Status: Resolved (9) DVT prophylaxis: Status: Acute Reason for Visit Reason for Visit: Pain in L ABD Hospital Course Hospital Course 80-year-old female with a past medical history significant for G6PD variant, degenerative disc disease, recurrent urinary tract infections, small cell lung cancer with recurrent malignant pleural effusion and 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 Laboratory workup on arrival showed a WBC of 4.2, hemoglobin of 7.0, hematocrit of 22.3 and a platelet count of 17. Sodium 138, potassium 3.3, chloride 98, bicarb 29, BUN 23 and creatinine of 0.5. LFTs were within normal limits. Procalcitonin of 1.06. Urinalysis showed negative leukocyte esterase and nitrites. COVID-19 rapid antigen and PCR were both negative.Imaging studies included chest x-ray which showed patchy opacification of the mid inferior left lung consistent with atelectasis or pneumonia. CT of chest showed bilateral lung nodules consistent with metastatic disease with a mass in the left liver suggestive of also metastatic disease. Head CT did not show any evidence of intracranial hemorrhage or mass effect. Patient was started on BiPAP. Addition was started on broad-spectrum antibiotics including vancomycin and Zosyn. patient was initially suspected of COVID-19 pneumonia for which she was started on Decadron 6 mg daily. PCR however returned negative. Decadron was then discontinue. Prednisone was then initiated. Patients respiratory status continue to wax and wane. At nighttime she became confused and continue to pull off her oxygen. Noted to have hypoxia with exertion. Required high-flow nasal cannula. Restarted on her home trilogy.Patients oxygen saturation at rest was read down to her baseline however with any exertion to required up to 14 L of O2 via nasal cannula. Case was discussed with pulmonary medicine. Hospice was recommended however refused. Patient was discharged after oxygen was arranged. Advised to follow-up with pulmonary medicine. Steroid taper was also ordered at discharge. Physical Exam Narrative: EXAM NARRATIVE: General : Alert awake and oriented x3 On regular nasal cannula, chronically ill-appearing HEENT-Grossly unremarkable Chest -nonlabored respiration CVS -normal sinus rhythm Abdomen- nondistended Extremities-no edema Discharge Data Data Completed and Pending: Completed Studies During Hospitalization Category Date Time Status CT angio chest PE protcl 18614 Rout ine Cat Scan 01/22/21 20:[address] head wo con* 7 0450 Stat Cat Scan 01/22/21 17:[address] head wo con* 7 0450 Stat Cat Scan 01/23/21 08:15 Completed XR chest 1V jhonny ble [id number] Stat Exams 01/22/21 12:18 Completed XR chest 1V jhonny ble [id number] Stat Exams 01/23/21 08:15 Completed Vitals: Last Vital Signs Temp 97.7 F 01/28/21 17:08 Pulse 91 01/28/21 17:08 Resp 17 01/28/21 17:08 BP 100/61 01/28/21 17:08 Pulse Ox 95 01/28/21 17:08 Discharge Plan Discharge Patient Disposition: Home Condition: Stable Prescriptions: New pantoprazole 40 mg Tablet,Delayed Release (Dr/Ec) 40 mg PO DAILY@1700 Qty: 30 RF: 0 Augmentin 875-125 mg tablet 1 tab PO BID Qty: 10 RF: 0 prednisone 5 mg tablets,dose pack See Rx Instructions .ROUTE .COMPLEX Qty: 21 RF: 0 Continued oxycodone-acetaminophen 5-325 mg Tablet 1 - 2 tab PO Q4H PRN (Reason: Pain) RF: 0 multivitamin Tablet 1 tab PO DAILY RF: 0 Trelegy Ellipta 200-62.5-25 mcg blister with device 1 inh INHALATION DAILY RF: 0 ondansetron HCl [Zofran] 4 mg Tablet 4 mg PO Q6H PRN (Reason: Nausea) RF: 0 prochlorperazine maleate 10 mg tablet 10 mg PO Q6H PRN (Reason: Nausea) RF: 0 Discharge Orders: Discharge Order (Routine); Ordered 01/28/21 Ordered By: Marco Lazcano Other Ambulatory Orders: Basic Metabolic Panel (Routine) Timeframe: 3 Days Facility: [facility] - Location: Lab - Main Lab Ordered By: Marco Lazcano DME: Oxygen (Order) Location: None Selected Ordered By: Marco Lazcano Referrals: Anthony Nielson MD [Primary Care Provider] - (Please call Friday to schedule a follow up appointment. ) DatarYves MD [Physician] - 1-3 days Discharge Diet: As Directed Discharge Activity: Resume usual activity Patient Instructions: Prednisone (By mouth), Amoxicillin/Clavulanate Potassium (By mouth), Pantoprazole (By mouth), Viral Pneumonia (GEN), Opioid Safety, Pneumonia Stoplight, Using Oxygen at Home Discharge Attestations Time Spent in Discharge Care*: greater than 30 min Specific Discharge Activities: educating patient, educating and/or supporting family/caregiver, discussing with pcp/other providers, discussing with rn field case manager/social workers/dc planners, documenting/other paperwork and evaluating patient/reviewing data Status at Discharge: Cognitive status at discharge: mildly impaired cognition, Behavioral status at discharge: dependent in ADL's, Functional status at discharge: other assisted ambulation Overall status at discharge: patient is progressing back to baseline Quality Metrics Clinical Quality Measures During this hospital stay, did patient experience: None Coding Level of Care Code Acute g [facility] note Diagnoses Acute respiratory failure with hypoxia J96.01 Thrombocytopenia D69.6 Anemia D64.9 Small cell lung cancer C34.90 Recurrent right pleural effusion J90 Left lower lobe pneumonia J18.9 Altered mental status R41.82 Hypokalemia E87.6 DVT prophylaxis Z29.9
--- NOTE | 2021-01-31 09:37 | PC.SOCIAL ---
phone calls made for discharge follow up with no answer.
== END 2021-01-28 17:09 | disposition home or self-care (01) | DRG 189 ==
LOC: ER 13:44 → ER IP 18:52 → MEDSURG 01-23 14:30
PROVIDERS: Physician Assistant; Admitting Provider Family Medicine; Emergency Provider Family Medicine; PCP Family Medicine; Visit Provider Hospitalist
DX: J96.01 Acute respiratory failure with hypoxia (principal); J18.9 Pneumonia, unspecified organism; C34.90 Malignant neoplasm of unspecified part of unspecified bronchus or lung; R64 Cachexia; Z68.1 Body mass index [BMI] 19.9 or less, adult; J91.0 Malignant pleural effusion; Z99.81 Dependence on supplemental oxygen; J43.9 Emphysema, unspecified; Z87.891 Personal history of nicotine dependence; F03.90 Unspecified dementia, unspecified severity, without behavioral disturbance, psychotic disturbance, mood disturbance, and anxiety; D64.81 Anemia due to antineoplastic chemotherapy; T45.1X5A Adverse effect of antineoplastic and immunosuppressive drugs, initial encounter; D69.59 Other secondary thrombocytopenia; E87.6 Hypokalemia; Z86.11 Personal history of tuberculosis; Z87.440 Personal history of urinary (tract) infections; Z79.899 Other long term (current) drug therapy; Z79.891 Long term (current) use of opiate analgesic
CPT/HCPCS: 36415; 36430; 36600; 70450; 71045; 71275; 80048; 80051; 80053; 80202; 81001; 82330; 82550; 82803; 82805; 83605; 83690; 83735; 83880; 84100; 84132; 84145; 84443; 85007; 85025; 85378; 85610; 86140; 86403; 86850; 86900; 86920; 87040; 87086; 87426; 87635; 94640; 96365; 96367; 96372; 99285; C9113; J0456; J0696; J1100; J1630; J1650; J2060; J2543; J3370; J3475; J3480; J3535; J7050; J7512; J7626; P9016; Q9967

== ENCOUNTER 2021-02-08 12:13 | Outpatient (CLI) | payer MEDICARE, SELFPAY ==
--- NOTE | 2021-02-08 12:25 | XR_ITS ---
WS: [id number] Exam: XR chest 2V* [id number] Date/Time of Exam: 02/08/2021 12:25 PM Reason For Exam: PNEUMONIA Comparison 01/23/2021. Pulmonary infiltrates have markedly improved since prior study. Extensive changes of fibrosis and hon eycombing noted. Blunted right costophrenic angle may represent pleural thickening or pleural effusio n. Heart size is normal. A left subclavian port ends in the lower one third of the SVC. XR/XR chest 2V* [id number] IMPRESSION: 1. Infiltrates have essentially resolved since prior study. 2. Extensive chronic pulmonary parenchymal changes noted. 3. Blunted right costophrenic angle which may represent pleural effusion or ple ural thickening. This is somewhat nodular in appearance.
--- NOTE | 2021-02-08 12:26 | XR_ITS ---
WS: [id number] Exam: XR thoracic spine 2V [id number] Date/Time of Exam: 02/08/2021 12:26 PM Reason For Exam: BACK PAIN There is a high-grade compression fracture of T6 with about 70% loss of vertebral height. There is al so a biconcave compression fracture of T5 with about 40% loss of vertebral height. No obvious posteri or displacement. No other fractures are seen. Marked osteopenia. Mild spondylosis. Paraspinal soft ti ssues are unremarkable. XR/XR thoracic spine 2V [id number] IMPRESSION: 1. Insufficiency compression fractures of the T5 and T6. Age is indeterminate. No obvious posterior displacement noted. 2. Marked osteopenia. Degenerative change.
== END 2021-02-08 12:14 | disposition home or self-care (01) ==
PROVIDERS: PCP Family Medicine; Visit Provider Family Medicine
DX: J18.9 Pneumonia, unspecified organism (principal); C34.90 Malignant neoplasm of unspecified part of unspecified bronchus or lung
CPT/HCPCS: 71046; 72070

== ENCOUNTER 2021-03-21 11:29 | Outpatient (CLI) | payer MEDICARE, SELFPAY ==
--- NOTE | 2021-03-21 11:40 | XR_ITS ---
WS: [id number] XR chest 2V* [id number] REASON FOR EXAM: rule out pleural effusion FINDINGS: Chemotherapy infusion port over the left chest with transverse left jugular catheter with the tip at the junction of the innominate vein and superior vena cava. No change from 02/08/2021. Severe bullous change in the lungs. Blunting of the right costophrenic small effusions/pleural thickening. No change compared to . There are multiple bilateral pulmonary nodules most prominent on the right. These nodules appear to h ave increased in size compared to 02/07/2021. XR/XR chest 2V* [id number] IMPRESSION: Right pleural abnormality stable. Multiple pulmonary nodules which may have increased in size compared to the pre vious study.
[2021-03-21 11:52] LABS: Basophils % 0.2 %; Eosinophils # 0.1 10^3/uL (0.0-0.8); Eosinophils % 1.2 %; Hematocrit 30.4 % (37.0-47.0); Hemoglobin 9.1 g/dL (11.5-15.3); Mean Corpuscular HGB Conc 29.9 g/dL (30.0-36.0); Mean Corpuscular Hemoglobin 33.6 pg (28.0-34.0); Mean Corpuscular Volume 112.2 fl (81-99); Monocytes # 0.5 10^3/uL (0.2-0.9); Monocytes % 8.2 %; Neutrophils # 4.13 10^3/uL (1.8-7.7); Neutrophils % 73.2 %; Nucleated Red Blood Cells % 0 %; Platelet Count 177 10^3/cmm (130-400); Red Blood Count 2.71 10^6/uL (4.1-5.3); Red Cell Distribution Width 19.3 % (12.1-15.1); White Blood Count 5.6 10^3/uL (4.0-10.0)
[2021-03-21 12:15] LABS: Alanine Aminotransferase 8 U/L (0-33); Albumin Level 3.3 g/dL (3.5-5.2); Alkaline Phosphatase 95 IU/L (35-105); Aspartate Amino Transferase 14 U/L (0-32); Blood Urea Nitrogen 13 mg/dL (8-23); Calcium 9.3 mg/dL (8.5-10.5); Carbon Dioxide 28 mmol/L (22-29); Chloride 98 mmol/L (98-107); Globulin 3.9 g/dL (1.3-4.6); Glucose 96 mg/dL (65-115); Osmolality Calculated 282 mOsm/kg (285-295); Sodium 136 mmol/L (136-145); Total Bilirubin 0.6 mg/dL (0.15-1.2); Total Protein 7.2 g/dL (6.6-8.7)
== END 2021-03-21 11:30 | disposition home or self-care (01) ==
PROVIDERS: Absent Provider Internal Medicine Hematology & Oncology; PCP Family Medicine; Visit Provider Internal Medicine Pulmonary Disease
DX: C78.00 Secondary malignant neoplasm of unspecified lung (principal); R91.8 Other nonspecific abnormal finding of lung field
CPT/HCPCS: 36415; 71046; 80053; 85025

== ENCOUNTER 2021-03-28 06:23 | Outpatient (RCR) | payer MEDICARE, SELFPAY ==
[2021-03-27] MEDS: alteplase 1 mg/mL SDV 2 mL 2 MG IV (13:16)
[2021-03-27 13:54] LABS: Basophils % 0.2 %; Eosinophils # 0.1 10^3/uL (0.0-0.8); Eosinophils % 2.6 %; Hematocrit 28.7 % (37.0-47.0); Hemoglobin 8.5 g/dL (11.5-15.3); Lymphocytes # 1.5 10^3/uL (0.8-4.8); Mean Corpuscular HGB Conc 29.6 g/dL (30.0-36.0); Mean Corpuscular Hemoglobin 33.7 pg (28.0-34.0); Mean Corpuscular Volume 113.9 fl (81-99); Mean Platelet Volume 10.1 fL (7.4-10.4); Monocytes # 0.5 10^3/uL (0.2-0.9); Monocytes % 10.3 %; Neutrophils % 57.5 %; Nucleated Red Blood Cells % 0 %; Platelet Count 171 10^3/cmm (130-400); Red Blood Count 2.52 10^6/uL (4.1-5.3); Red Cell Distribution Width 18.8 % (12.1-15.1)
[2021-03-27 14:20] LABS: Alanine Aminotransferase 9 U/L (0-33); Albumin Level 3.3 g/dL (3.5-5.2); Alkaline Phosphatase 107 IU/L (35-105); Anion Gap 12.8 (5-19); Aspartate Amino Transferase 14 U/L (0-32); Blood Urea Nitrogen 17 mg/dL (8-23); Calcium 9.1 mg/dL (8.5-10.5); Carbon Dioxide 30 mmol/L (22-29); Chloride 101 mmol/L (98-107); Globulin 3.7 g/dL (1.3-4.6); Glucose 90 mg/dL (65-115); Osmolality Calculated 291 mOsm/kg (285-295); Potassium 3.8 mmol/L (3.5-5.1); Sodium 140 mmol/L (136-145); Total Bilirubin 0.4 mg/dL (0.15-1.2)
--- NOTE | 2021-03-28 18:05 | ONC FU_ITS ---
Dr. Ling follow up note Patient: Meenu Villalba Unit #: [id number]: 1940 Dicatated By: Keri Ling M.D.Date of Visit:Mar 28, 2021 Onc Med Follow-up/Prog Note History of Present Illness: Ms. Villalba is an 80-year-old female with history of severe COPD, history of tuberculosis in childhood, G6PD variant, degenerative disc disease, history of recurrent urinary tract infections, was evaluated by pulmonology on September 06, 2020 for progressive shortness of breath, as per patient on September 01, 2020 she went to [facility] for progressive shortness of breath over the period of 2 weeks and requiring more oxygen to maintain her saturation above 90% patient is on home oxygen chronically. She was also complaining of right shoulder pain which was progressive in the last few weeks. So on September 01, 2020 she had a CTA chest done in [facility] which showed no evidence of PE but extensive right pulmonary nodules and large right pleural effusion and marked pulmonary emphysema. At that time patient was advised inpatient care which he refused and she was discharged home on azithromycin and prednisone 20 mg p.o. daily for 5 days and was referred to pulmonology. As per medical record patient has history of stable right upper lobe nodular parenchymal scarring and before that in 2011 she underwent bronchoscopy and cervical mediastinoscopy for left lingular mass, both were negative for malignancy. She also had CT PET scan done which showed no abnormal uptake. Her follow-up CT scan of chest showed improvement of left lingular mass-effect or consolidation.. Ms Villalba has history of tuberculosis in 1940s and received treatment as outpatient. Patient has history of smoking but quit in 1999., No alcohol use. She denies any hemoptysis or hematemesis, denies any headaches blurred vision or double vision, denies any new bony pains except right shoulder pain, as per patient with thoracentesis her right shoulder pain did improve but now again progressive. No shortness of breath at rest, patient is on home oxygen. Denies any fever or chills denies any productive cough denies any jaundice denies any bony pains. Denies any weight loss. Ms. Villalba was seen on September 12, 2020 recommendations for treatment of the malignant cell/pleural effusion per therapeutic thoracentesis from September 06, 2020. The cytology confirmed positive for malignancy but immunohistochemistry Confirmed small cell lung cancer. Her PET CT imaging did show pleural effusion with uptake in the right lung as well as a solitary lesion in the left lobe of the liver. recommended that she pursue treatment with carboplatin etoposide. She did have venous access device placement with a PowerPort into the internal left jugular vein per Dr. Hernandez on September 29, 2020. She had a small 5% left pneumothorax and was admitted for observation and the chest x-ray the following morning showed resolution of the pneumothorax. r first cycle of carboplatin etoposide was started on September. Came for follow-up, complaining of generalized weakness and fatigue, dyspnea on exertion, recently underwent chest x-ray on March 21, 2021 which showed right pleural small effusion/pleural thickening and multiple pulmonary nodules which may have increased in size compared to previous studies done on February 07, [address] PET scan done on February 10, 2021 showed interval improvement in the right-sided nodules and pleural plaques. Resolution of right-sided pleural effusion. Improvement in mediastinal lymphadenopathy. No change in the left hepatic lobe mets. Mild interval improvement in the upper abdominal adenopathy. A new subpleural activity in the left lower lobe likely inflammatory Patient received her last chemotherapy with carboplatin/etoposide on January 08, 2021 through 01/10/2021 followed by [facility], patient was supposed to come back after CT PET scan but patient never came back despite of the messages left, as per nurse his son was also contacted, as per patient she was in and out of hospital and also following with many doctors so she could not come. Until recently her adz worker sent her back.Patient denies any hemoptysis or hematemesis denies any fever chills denies any nausea or vomiting denies any diarrhea constipation, denies any headache blurred vision double vision but generalized weakness and fatigue, now on home oxygen Medications: Daily Value Multivitamin 1 Tablet Oral daily, oxyCODONE-Acetaminophen 1 - 2 Tablet (of 5-325 mg) Oral q 4 hours PRN, Prochlorperazine Maleate 1 Tablet (of 10 mg) Oral daily PRN, Trelegy Ellipta 1 Inhalation (of 100-62.5-25 mcg/inh) Aerosol Powder, Breath Activated Inhalation daily Allergies: Aspirin and Sulfamethoxazole-Trimethoprim. Review of Systems: Review of Systems is not available for this patient. Vital Signs: Performed on Mar 28, 2021 10:41 Height - 65.00 in Temperature - 98.3 F (LOW) Pulse - 96 /min Respiration - 18 /min BP - 104/67 mm(hg) O2 Sat - 97 % Pain - 3 Fatigue - 3 Performance Status: 2 - Ambulatory/capable of all self-care, unable to perform any work activities. Up and about more than 50% of waking hours. (ECOG) Physical Examination: ENMT - No mouth sores, no thrush, no jaundice, Respiratory - Poor air entry otherwise clear, Cardiovascular - Regular rate and rhythm of heart, Abdomen - Soft, bowel sounds present, Extremities - No visible edema. Lab/Imaging: Test performed on Mar 27, 2021 13:17 Sodium 140 mmol/L Potassium 3.8 mmol/L Chloride 101 mmol/L CO2 30 mmol/L Anion Gap 12.8 BUN 17 mg/dL Creatinine 0.4 mg/dL Cr Clearance (Est) 82.3000 mL/min Glucose 90 mg/dL Osmolality - Calculated 291 mOsm/kg Calcium 9.1 mg/dL Protein, Total 7.0 g/dL Albumin 3.3 g/dL Globulin 3.7 g/dL Bilirubin, Total 0.4 mg/dL ALT (SGPT) 9 U/L AST (SGOT) 14 U/L Alkaline Phosphatase 107 IU/L WBC 5.0 10 3/uL RBC 2.52 10 6/uL HGB 8.5 g/dL HCT 28.7 % MCV 113.9 fl MCH 33.7 pg MCHC 29.6 g/dL RDW 18.8 % Platelet Count 171 10 3/cmm MPV 10.1 fL Neutrophils 2.90 10 3/uL Lymphocytes 1.5 10 3/uL Monocytes 0.5 10 3/uL Eosinophils 0.1 10 3/uL Basophils 0.0 10 3/uL Neutrophil % 57.5 % Lymphocyte % 29.0 % Monocyte % 10.3 % Eosinophil % 2.6 % Basophils % 0.2 % NRBC % 0 % Test performed on Dec 08, 2020 11:35 SARS-CoV-2 RNA (COVID-19) NOT DETECTED A Not Detected (negative) test result for this test means that SARS-CoV-2 RNA was not present in the specimen above the limit of detection. A negative result does not rule out the possibility of COVID-19 and should not be used as the sole basis for treatment or patient management decisions. If COVID-19 is still suspected, based on exposure history together with other clinical findings, re-testing should be considered in consultation with public health authorities. Laboratory test results should always be considered in the context of clinical observations and epidemiological data in making a final diagnosis and patient management decisions. This patient specimen was tested using an FDA EUA pooling method. Patient specimens with low viral loads may not be detected in sample pools due to the decreased sensitivity of pooled testing. Please review the Fact Sheets and FDA authorized labeling available for health care providers and patients using the following websites: [email or web address]/fact-[email or web address]/ fact-sheet2 This test has been authorized by the FDA under an Emergency Use Authorization (EUA) for use by authorized laboratories. Due to the current public health emergency, [employer] [facility] is receiving a high volume of samples from a wide variety of swabs and media for COVID-19 testing. In order to serve patients during this public health crisis, samples from appropriate clinical sources are being tested. Negative test results derived from specimens received in non-commercially manufactured viral collection and transport media, or in media and sample collection kits not yet authorized by FDA for COVID-19 testing should be cautiously evaluated and the patient potentially subjected to extra precautions such as additional clinical monitoring, including collection of an additional specimen. Methodology: Nucleic Acid Amplification Test (NAAT) includes RT-PCR or TMA Additional information about COVID-19 can be found at the [employer] website: [email or web address].ST[employer]er/Covid19. THIS TEST WAS PERFORMED AT: [email or web address] [address] [address] JASON BRADLEY DO,MPH Test performed on Dec 08, 2020 00:00 Manual Diff Cancelled via OM: Cancelled in Connected System Test performed on October 16, 2020 12:45 CBC Slide Review Slide Review Perform SLIDE REVIEW AGREES WITH AUTOMATED RESULT Impression: Malignant pleural effusion per diagnostic/therapeutic thoracentesis done on September 06, 2020 and cytology confirmed positive for malignancy but immunohistochemistry Confirmed small cell lung cancer Right pleural effusion, malignant. CT PET scan showed uptake in right pleural effusion as well as a solitary lesion in the left lobe of the liver COPD/emphysema, on home oxygen G6PD variant History of tuberculosis in childhood Degenerative disc disease History of recurrent urine tract infections. Plan: Discussed with patient regarding her labs white blood count 5 hemoglobin 8.5 hematocrit 28.7 platelets 171,000 CMP within normal limits Clinically, patient is doing reasonably well except in mild distress due to dyspnea on exertion, now on home oxygen and also complaining of generalized weakness and fatigue, her recently done CT PET scan shows good response to palliative chemotherapy with carboplatin and etoposide but somehow after her last cycle in in the last week of December 2020 patient did not come back, as per nursing multiple message was left finally contacted her son on the other hand as per patient they never received any message moreover she was in and out of the hospital and also following other doctors, patient and her were made aware of her prognosis especially when patient is not following chemotherapy schedule. At this point, will obtain CT scan of chest abdomen and bone scan to assess disease status and if there is no sign of progression, will consider continue with carboplatin/etoposide followed by Neulasta to prevent chemotherapy-induced neutropenia leukopenia on the other hand if there is evidence of disease progression, may consider treating her with lurbinectedin Patient will return to clinic after CT scan of chest abdomen and bone scan done, and with CBC CMP, for further discussion As far as anemia is concerned, we will continue to monitor and consider blood transfusion if hemoglobin less than 8 g Signed By: Keri Ling M.D. <<Signature on File>>
== END 2021-04-15 23:59 | disposition home or self-care (01) ==
LOC: ONCMED 06:23
PROVIDERS: PCP Family Medicine; Visit Provider Internal Medicine Hematology & Oncology
DX: C34.81 Malignant neoplasm of overlapping sites of right bronchus and lung (principal); J91.0 Malignant pleural effusion; C78.7 Secondary malignant neoplasm of liver and intrahepatic bile duct; J43.9 Emphysema, unspecified; G31.89 Other specified degenerative diseases of nervous system; Z99.81 Dependence on supplemental oxygen; Z87.440 Personal history of urinary (tract) infections; Z86.11 Personal history of tuberculosis
CPT/HCPCS: 36415; 36593; 80053; 85025; 96374; 99214; J2997

== ENCOUNTER 2021-04-30 12:59 | Outpatient (CLI) | payer MEDICARE, SELFPAY ==
--- NOTE | 2021-04-30 13:14 | CTR_ITS ---
PROCEDURE INFORMATION: Exam: CT Chest Without and With Contrast; Diagnostic Exam date and time: 04/30/2021 1:14 PM Age: 80 years old Clinical indication: Abdominal tenderness; Shortness of breath; Additional info: Lung cancer restaging TECHNIQUE: Imaging protocol: Diagnostic computed tomography of the chest without and with contrast. Radiation optimization: All CT scans at this facility use at least one of these dose optimization techniques: automated exposure control; mA and/or kV adjustment per patient size (includes targeted exams where dose is matched to clinical indication); or iterative reconstruction. Contrast material: OMNI 300; Contrast volume: 75 ml; Contrast route: INTRAVENOUS (IV); COMPARISON: CT angio chest PE protcl [id number] 01/22/2021 8:38 PM RADIATION DOSE METRICS: Total DLP (mGy-cm): 1043 FINDINGS: Lungs: Multifocal nodular airspace opacities throughout both lung salazar along with multiple pleural based nodules, right greater than left. These nodules appear increased in number and size compared to prior exam, for instance 1 in the right middle lobe abutting the pleural surface measures 15 mm currently previously measuring approximately approximately 12 mm. Diffuse emphysematous changes. Pleural spaces: See Lungs finding. Heart: Coronary artery atherosclerotic calcifications. Aorta: Unremarkable. No aortic aneurysm. Lymph nodes: Scattered enlarged mediastinal lymph nodes measuring up to 19 mm, similar to prior exam. Bones/joints: Multilevel compression fractures in the upper thoracic spine without retropulsion of bony fragments new compared to prior exam. Chronic sternal fracture again seen Soft tissues: Unremarkable. IMPRESSION: 1. Multifocal nodular airspace opacities throughout both lung salazar along with multiple pleural based nodules, right greater than left. These nodules appear increased in number and size compared to prior exam, for instance 1 in the right middle lobe abutting the pleural surface measures 15 mm currently previously measuring approximately approximately 12 mm, reflecting progression of disease. 2. Scattered enlarged mediastinal lymph nodes measuring up to 19 mm, similar to prior exam. 3. Coronary artery atherosclerotic calcifications. 4. Diffuse emphysematous changes. 5. Multilevel compression fractures in the upper thoracic spine without retropulsion of bony fragments new compared to prior exam. PROCEDURE INFORMATION: Exam: CT Abdomen Without And With Contrast Exam date and time: 04/30/2021 1:14 PM Age: 80 years old Clinical indication: Abdominal tenderness; Shortness of breath; Additional info: Lung cancer restaging TECHNIQUE: Imaging protocol: Computed tomography images of the abdomen without and with intravenous contrast. Radiation optimization: All CT scans at this facility use at least one of these dose optimization techniques: automated exposure control; mA and/or kV adjustment per patient size (includes targeted exams where dose is matched to clinical indication); or iterative reconstruction. Contrast material: OMNI 300; Contrast volume: 75 ml; Contrast route: INTRAVENOUS (IV); COMPARISON: CT angio chest PE protcl [id number] 01/22/2021 8:38 PM RADIATION DOSE METRICS: Total DLP (mGy-cm): 1043 FINDINGS: Liver: Left hepatic lobe 5.6 cm low-density mass better visualized on today's exam consistent with metastatic disease along with several other lesions throughout the liver in the left and right hepatic lobes not previously seen consistent with progression of metastatic disease. Gallbladder and bile ducts: Cholelithiasis. Pancreas: Normal. No ductal dilation. Spleen: Normal. No splenomegaly. Adrenals: Normal. No mass. Kidneys and ureters: Normal. No hydronephrosis. Stomach and bowel: Visualized stomach and bowel are unremarkable. No obstruction. No mucosal thickening. Intraperitoneal space: Unremarkable. No free air. No significant fluid collection. Lymph nodes: Unremarkable. No enlarged lymph nodes. Vasculature: Unremarkable. No abdominal aortic aneurysm. Bones/joints: Unremarkable. No acute fracture. No dislocation. Soft tissues: Unremarkable. CT/CT chest abd wo/w con IMPRESSION: 1. Left hepatic lobe 5.6 cm low-density mass better visualized on today's exam consistent with metastatic disease along with several other lesions throughout the liver in the left and right hepatic lobes not previously seen consistent with progression of metastatic disease. 2. Cholelithiasis. Radiation Dose CTDIVOL = (mGy): DLP = 1043~1043 (mGy-cm)
[2021-04-30] MEDS: iohexol 300 mg/mL 100 mL Btl IV (15:18)
== END 2021-04-30 13:00 | disposition home or self-care (01) ==
PROVIDERS: PCP Family Medicine; Visit Provider Internal Medicine Medical Oncology
DX: C34.81 Malignant neoplasm of overlapping sites of right bronchus and lung (principal); K80.20 Calculus of gallbladder without cholecystitis without obstruction; R16.0 Hepatomegaly, not elsewhere classified
CPT/HCPCS: 71260; 74170

== ENCOUNTER 2021-05-18 08:30 | Outpatient (CLI) | payer MEDICARE, SELFPAY ==
--- NOTE | 2021-05-18 08:41 | NM_ITS ---
WS: [id number] NUCLEAR MEDICINE BONE SCAN Radiopharmaceutical: 25.4 Tc-99m MDP mCi IV Injection site: Antecubital Postinjection imaging delay: 1 hr CLINICAL INFORMATION: RESTAGING EVALUATION/LUNG CANCER COMPARISON: PET/CT February 10, 2021 FINDINGS: Bone lesions: Diffuse metastatic disease involving the bony calvarium. Additional metastatic lesions involving the ribs bilaterally. Increased focal uptake involving the thoracic inlet, manubrium, and p roximal sternum also suspicious for metastatic disease. Additional patchy areas of uptake involving t he bony pelvis and iliac wings also suspicious for metastatic disease. Soft tissue contours: Normal. Kidneys: Normal. Other findings: None. NM/NM bone scan whole body* [id number] IMPRESSION: 1. Diffuse metastatic disease involving the bony calvarium. 2. Suspected subtle metastatic lesions diffusely involving the ribs bilaterall y. 3. Increased focal uptake involving the thoracic inlet, manubrium and proximal sternum suspicious for metastatic disease. 4. Patchy areas of uptake involving the bony pelvis and iliac wings also suspi cious for metastatic disease
== END 2021-05-18 08:31 | disposition home or self-care (01) ==
PROVIDERS: PCP Family Medicine; Visit Provider Internal Medicine Hematology & Oncology
DX: C34.90 Malignant neoplasm of unspecified part of unspecified bronchus or lung (principal)
CPT/HCPCS: 78306; A9561

== ENCOUNTER 2021-05-21 13:21 | Outpatient (CLI) | payer MEDICARE, SELFPAY ==
[2021-05-21 14:29] LABS: Alanine Aminotransferase 9 U/L (0-33); Albumin Level 3.5 g/dL (3.5-5.2); Alkaline Phosphatase 121 IU/L (35-105); Aspartate Amino Transferase 26 U/L (0-32); Blood Urea Nitrogen 16 mg/dL (8-23); Calcium 8.6 mg/dL (8.5-10.5); Carbon Dioxide 25 mmol/L (22-29); Chloride 101 mmol/L (98-107); Globulin 3.4 g/dL (1.3-4.6); Glucose 114 mg/dL (65-115); Osmolality Calculated 292 mOsm/kg (285-295); Sodium 140 mmol/L (136-145); Total Bilirubin 0.4 mg/dL (0.15-1.2); Total Protein 6.9 g/dL (6.6-8.7)
[2021-05-21 14:40] LABS: Anion Gap 17.9 (5-19); Potassium 3.9 mmol/L (3.5-5.1)
[2021-05-21 14:43] LABS: Basophils # 0.1 10^3/uL (0.0-0.1); Basophils % 0.6 %; Eosinophils # 0.1 10^3/uL (0.0-0.8); Eosinophils % 1.5 %; Hematocrit 29.2 % (37.0-47.0); Mean Corpuscular HGB Conc 30.8 g/dL (30.0-36.0); Mean Corpuscular Hemoglobin 34.9 pg (28.0-34.0); Mean Corpuscular Volume 113.2 fl (81-99); Mean Platelet Volume 10.3 fL (7.4-10.4); Monocytes # 0.7 10^3/uL (0.2-0.9); Monocytes % 8.8 %; Neutrophils % 76.6 %; Nucleated Red Blood Cells % 0 %; Platelet Count 239 10^3/cmm (130-400); Red Blood Count 2.58 10^6/uL (4.1-5.3); Red Cell Distribution Width 16.4 % (12.1-15.1)
--- NOTE | 2021-05-21 16:56 | ONC FU_ITS ---
Dr. Ling follow up note Patient: Meenu Villalba Unit #: [id number]: 1940 Dicatated By: Keri Ling M.D.Date of Visit:May 21, 2021 Onc Med Follow-up/Prog Note History of Present Illness: Ms. Villalba is an 80-year-old female with history of severe COPD, history of tuberculosis in childhood, G6PD variant, degenerative disc disease, history of recurrent urinary tract infections, was evaluated by pulmonology on September 06, 2020 for progressive shortness of breath, as per patient on September 01, 2020 she went to [facility] for progressive shortness of breath over the period of 2 weeks and requiring more oxygen to maintain her saturation above 90% patient is on home oxygen chronically. She was also complaining of right shoulder pain which was progressive in the last few weeks. So on September 01, 2020 she had a CTA chest done in [facility] which showed no evidence of PE but extensive right pulmonary nodules and large right pleural effusion and marked pulmonary emphysema. At that time patient was advised inpatient care which he refused and she was discharged home on azithromycin and prednisone 20 mg p.o. daily for 5 days and was referred to pulmonology. As per medical record patient has history of stable right upper lobe nodular parenchymal scarring and before that in 2011 she underwent bronchoscopy and cervical mediastinoscopy for left lingular mass, both were negative for malignancy. She also had CT PET scan done which showed no abnormal uptake. Her follow-up CT scan of chest showed improvement of left lingular mass-effect or consolidation.. Ms Villalba has history of tuberculosis in 1940s and received treatment as outpatient. Patient has history of smoking but quit in 1999., No alcohol use. She denies any hemoptysis or hematemesis, denies any headaches blurred vision or double vision, denies any new bony pains except right shoulder pain, as per patient with thoracentesis her right shoulder pain did improve but now again progressive. No shortness of breath at rest, patient is on home oxygen. Denies any fever or chills denies any productive cough denies any jaundice denies any bony pains. Denies any weight loss. Ms. Villalba was seen on September 12, 2020 recommendations for treatment of the malignant cell/pleural effusion per therapeutic thoracentesis from September 06, 2020. The cytology confirmed positive for malignancy but immunohistochemistry Confirmed small cell lung cancer. Her PET CT imaging did show pleural effusion with uptake in the right lung as well as a solitary lesion in the left lobe of the liver. recommended that she pursue treatment with carboplatin etoposide. She did have venous access device placement with a PowerPort into the internal left jugular vein per Dr. Hernandez on September 29, 2020. She had a small 5% left pneumothorax and was admitted for observation and the chest x-ray the following morning showed resolution of the pneumothorax. r first cycle of carboplatin etoposide was started on September. dyspnea on exertion, recently underwent chest x-ray on March 21, 2021 which showed right pleural small effusion/pleural thickening and multiple pulmonary nodules which may have increased in size compared to previous studies done on February 07, [address] PET scan done on February 10, 2021 showed interval improvement in the right-sided nodules and pleural plaques. Resolution of right-sided pleural effusion. Improvement in mediastinal lymphadenopathy. No change in the left hepatic lobe mets. Mild interval improvement in the upper abdominal adenopathy. A new subpleural activity in the left lower lobe likely inflammatory Patient received her last chemotherapy with carboplatin/etoposide on January 08, 2021 through 01/10/2021 followed by [facility], patient was supposed to come back after CT PET scan but patient never came back despite of the messages left, as per nurse his son was also contacted, as per patient she was in and out of hospital and also following with many doctors so she could not come. 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 These nodules appear increased in number and size compared to prior exam. Scattered enlarged mediastinal lymph nodes measuring up to 19 mm similar to prior exam. Diffuse emphysematous changes. Multilevel compression fracture in the upper thoracic spine without retropulsion of bony fragment, new compared to prior exam. Left hepatic lobe 5.6 cm low-density mass along with several other lesions throughout the liver in the left and right hepatic lobes not previously seen consistent with progression of disease. Bone scan done on May 18, 2021 shows diffuse metastatic disease involving bony calvarium. Subtle metastatic lesions diffusely involving bilateral ribs. Increased focal uptake involving thoracic inlet, manubrium and proximal sternum and bony pelvis and iliac wings Came for follow-up, complaining of generalized weakness and fatigue, chronic lower back/pelvic pain, under control with current pain medication, denies any hemoptysis or hematemesis, denies any jaundice, denies any abdominal pain, but generalized weakness and fatigue, on home oxygen, also complaining dyspnea on exertion., No headaches blurred vision double vision Medications: Daily Value Multivitamin 1 Tablet Oral daily, oxyCODONE-Acetaminophen 1 - 2 Tablet (of 5-325 mg) Oral q 4 hours PRN, Prochlorperazine Maleate 1 Tablet (of 10 mg) Oral daily PRN, Trelegy Ellipta 1 Inhalation (of 100-62.5-25 mcg/inh) Aerosol Powder, Breath Activated Inhalation daily Allergies: Aspirin and Sulfamethoxazole-Trimethoprim. Review of Systems: Review of Systems is not available for this patient. Vital Signs: Performed on May 21, 2021 15:19 Height - 65.00 in Temperature - 98.5 F Pulse - 104 /min (HIGH) Respiration - 16 /min BP - 108/72 mm(hg) O2 Sat - 91 % (LOW) Pain - 5 Fatigue - 3 Performance Status: 2 - Ambulatory/capable of all self-care, unable to perform any work activities. Up and about more than 50% of waking hours. (ECOG) Physical Examination: ENMT - No mouth sores, no thrush, no jaundice, Respiratory - Poor air entry otherwise clear, Cardiovascular - Regular rate and rhythm of heart, Abdomen - Soft, bowel sounds present, Extremities - No visible edema. Lab/Imaging: Test performed on Mar 27, 2021 13:17 Sodium 140 mmol/L Potassium 3.8 mmol/L Chloride 101 mmol/L CO2 30 mmol/L Anion Gap 12.8 BUN 17 mg/dL Creatinine 0.4 mg/dL Cr Clearance (Est) 82.3000 mL/min Glucose 90 mg/dL Osmolality - Calculated 291 mOsm/kg Calcium 9.1 mg/dL Protein, Total 7.0 g/dL Albumin 3.3 g/dL Globulin 3.7 g/dL Bilirubin, Total 0.4 mg/dL ALT (SGPT) 9 U/L AST (SGOT) 14 U/L Alkaline Phosphatase 107 IU/L WBC 5.0 10 3/uL RBC 2.52 10 6/uL HGB 8.5 g/dL HCT 28.7 % MCV 113.9 fl MCH 33.7 pg MCHC 29.6 g/dL RDW 18.8 % Platelet Count 171 10 3/cmm MPV 10.1 fL Neutrophils 2.90 10 3/uL Lymphocytes 1.5 10 3/uL Monocytes 0.5 10 3/uL Eosinophils 0.1 10 3/uL Basophils 0.0 10 3/uL Neutrophil % 57.5 % Lymphocyte % 29.0 % Monocyte % 10.3 % Eosinophil % 2.6 % Basophils % 0.2 % NRBC % 0 % Test performed on Dec 08, 2020 11:35 SARS-CoV-2 RNA (COVID-19) NOT DETECTED A Not Detected (negative) test result for this test means that SARS-CoV-2 RNA was not present in the specimen above the limit of detection. A negative result does not rule out the possibility of COVID-19 and should not be used as the sole basis for treatment or patient management decisions. If COVID-19 is still suspected, based on exposure history together with other clinical findings, re-testing should be considered in consultation with public health authorities. Laboratory test results should always be considered in the context of clinical observations and epidemiological data in making a final diagnosis and patient management decisions. This patient specimen was tested using an FDA EUA pooling method. Patient specimens with low viral loads may not be detected in sample pools due to the decreased sensitivity of pooled testing. Please review the Fact Sheets and FDA authorized labeling available for health care providers and patients using the following websites: https://www.[employer]com/home/Covid-19/HCP/NAAT/fact-sheet2 https://www.[employer]/home/Covid-19/Patients/NAAT/ fact-sheet2 This test has been authorized by the FDA under an Emergency Use Authorization (EUA) for use by authorized laboratories. Due to the current public health emergency, [employer] is receiving a high volume of samples from a wide variety of swabs and media for COVID-19 testing. In order to serve patients during this public health crisis, samples from appropriate clinical sources are being tested. Negative test results derived from specimens received in non-commercially manufactured viral collection and transport media, or in media and sample collection kits not yet authorized by FDA for COVID-19 testing should be cautiously evaluated and the patient potentially subjected to extra precautions such as additional clinical monitoring, including collection of an additional specimen. Methodology: Nucleic Acid Amplification Test (NAAT) includes RT-PCR or TMA Additional information about COVID-19 can be found at the [employer] website: www.[facility]/Covid19. THIS TEST WAS PERFORMED AT: [employer] [email or web address] [id number] [place] [address] JASON BRADLEY DO,MPH Test performed on Dec 08, 2020 00:00 Manual Diff Cancelled via OM: Cancelled in Connected System Impression: Malignant pleural effusion per diagnostic/therapeutic thoracentesis done on September 06, 2020 and cytology confirmed positive for malignancy but immunohistochemistry Confirmed small cell lung cancer Right pleural effusion, malignant. CT PET scan showed uptake in right pleural effusion as well as a solitary lesion in the left lobe of the liver COPD/emphysema, on home oxygen G6PD variant History of tuberculosis in childhood Degenerative disc disease History of recurrent urine tract infections. Plan: Discussed with patient regarding her labs white blood count 8 hemoglobin 9 hematocrit 29.2 platelets 239,000 CMP within normal limits and follow-up CT scan of abdomen/chest and bone scan finding which shows disease progression, last dose of chemo with carboplatin/etoposide was done in December 2020 and no further chemo due to noncompliance Clinically, patient is doing reasonably well but her performance status continues to decline, there is evidence of dementia and both patient and her both lives alone and there is also issues regarding communication, patient's is hard of hearing and does not want us to call, rather send him a letter. And does not want to wait for long with the treatment. CT scan of chest abdomen and bone scan findings were discussed with patient, her and her son and informed that she has disease progression as patient is not taking chemotherapy as recommended, her last chemotherapy was done in December 2020 after that patient has been noncompliant and was seen in March, at that time CT scan of chest and bone scan was ordered to assess disease status, Today, we had a long discussion regarding treatment options, considering her overall performance status and her social status, patient and her lives alone and and issues regarding communication and compliance, hospice care was discussed and encouraged but refused and patient also wants to try something before she consider hospice so at this point, we will consider changing her chemotherapy to docetaxel and modify her dose to 60 mg per metered square with Neulasta support to prevent chemotherapy-induced neutropenia leukopenia and also consider monthly Xgeva to prevent skeletal related complication. All the side effect possible benefits associated with docetaxel including but not limited to, bone marrow suppression, nausea vomiting, hair loss, peripheral neuropathy, fluid retention were mentioned and with Xgeva, hypocalcemia, mandible necrosis were mentioned further teaching was done by chemotherapy nurse. Patient return to clinic 1 week after chemotherapy with CBC CMP We will also give her Percocet 5/325 1 to 2 tablet 4 to 6-hour for her chronic back pain As far as anemia is concerned, multifactorial we will continue to monitor and consider blood transfusion if less than 8 g Signed By: Keri Ling M.D. <<Signature on File>>
== END 2021-05-21 13:22 | disposition home or self-care (01) ==
PROVIDERS: PCP Family Medicine; Visit Provider Internal Medicine Hematology & Oncology
DX: C34.81 Malignant neoplasm of overlapping sites of right bronchus and lung (principal); C78.7 Secondary malignant neoplasm of liver and intrahepatic bile duct; C79.51 Secondary malignant neoplasm of bone; J91.0 Malignant pleural effusion; D64.9 Anemia, unspecified; J44.9 Chronic obstructive pulmonary disease, unspecified; Z99.81 Dependence on supplemental oxygen; Z86.11 Personal history of tuberculosis; M19.90 Unspecified osteoarthritis, unspecified site
CPT/HCPCS: 36415; 80053; 85025; 99214

== ENCOUNTER 2021-05-22 17:35 | Emergency (ER) | payer MEDICARE, SELFPAY ==
[2021-05-22 17:50] VITALS: BP 130/74; PULSE 116; RESP 22; TEMP 36.7; O2SAT 96; BMI 20.7
[2021-05-22 17:56] VITALS: BP 130/74; PULSE 115; RESP 22; O2SAT 99
--- NOTE | 2021-05-22 18:01 | ED_ITS ---
HPI - SOB/Dyspnea General: Chief Complaint: Shortness of Breath/Dyspnea Stated Complaint: SOB: ON 14L; OXYGEN AT HOME//TANK HERE RUNNING LOW Time Seen by Provider: 05/22/21 18:01 Source: patient Mode of arrival: ambulatory Limitations: no limitations History of Present Illness: HPI Narrative: 80-year-old female with COPD along with small cell cancer states she has had increasing shortness of breath over the last 3 days states she feels like her nose is plugged and she is having nasal congestion and that is why she came. Patient's pulse ox in the 50s in the waiting room but she did not have her oxygen on she is on 14 L of oxygen at baseline she denies any cough denies any fever denies any pain denies any worsening improving factors. Associated symptoms: Deny abdominal pain, chest pain, fever(s), nausea or vomiting Review of Systems Const: Denies: fever(s), chills, body aches or change in appetite Eyes: Denies: blurry vision or eye discomfort ENMT: Denies: throat pain or dental pain Card: Denies: chest pain Resp: Reports: dyspnea and non-productive cough GI: Denies: abdominal pain, nausea, vomiting or diarrhea : Denies: dysuria Musc: Denies: neck pain or back pain Skin/Breast: Denies: rash Neuro: Denies: headache(s) Psych: Denies: depression Conner/Lymph: Denies: easy bruising All/Imm: Denies: urticaria PFSH ED PFSH: Medical History Chronic obstructive pulmonary disease Small cell lung cancer Metastatic Surgical History History of back surgery History of colonoscopy 2014 Social History Smoking and tobacco status: former smoker Quit status (tobacco): has quit using tobacco Year quit tobacco: 1999 [id number] Second hand smoke exposure: Yes Smoking risk assessment/counseling performed?: Yes Alcohol intake: former Caregiver/support person: No Lives independently: Yes Household members: spouse Housing: House Marital status: service: No Current occupational status: retired Pets and animals: Yes History of recent travel: No Current gender identity: Female Physical Exam Const: COMMON NORMALS: no acute distress and patient oriented x3 GENERAL APPEARANCE: ill appearing HENMT: COMMON NORMALS: normocephalic and atraumatic HEAD & SCALP: normocephalic and atraumatic Eye: COMMON NORMALS: Equal, round and reactive pupils present and EOMs intact bilaterally PUPIL: Yes Equal, round and reactive pupils present Neck/C-Spine: COMMON NORMALS: full ROM and supple Chest: COMMONS NORMALS: normal inspection of the chest and normal palpation of entire chest wall Resp: COMMON NORMALS: normal respiratory effort, No retractions and No use of accessory muscles AUSCULTATION: wheezes Cardio: COMMON NORMALS: regular rate, regular rhythm and No murmurs present (Cardio) RATE: regular rate RHYTHM: regular rhythm GI: COMMON NORMALS: Normal to inspection, nondistended, normoactive bowel sounds present, Soft to palpation, non-tender and no masses PALPATION: Yes Soft to palpation Extremity: COMMON NORMALS: normal to inspection and full ROM Neuro: COMMON NORMALS: patient oriented x3, moves all extremities and no focal motor deficits Psych: COMMON NORMALS: mental status grossly normal, Normal thought process present and cooperative THOUGHT PROCESS: Normal thought process present Skin: COMMON NORMALS: no rashes or lesions noted and no wounds GENERAL SKIN EXAM: no rashes or lesions noted Course Vital Signs: Vital signs: Vital Signs Temperature 98.1 F 05/22/21 17:50 Pulse Rate 115 H 05/22/21 17:56 Respiratory Rate 22 H 05/22/21 17:56 Blood Pressure 130/74 05/22/21 17:56 Pulse Oximetry 99 05/22/21 17:56 MDM - SOB/Dyspnea MDM Narrative: Medical decision making narrative: Patient refused all testing and imaging here she states she is for her nose suctioned RT did suction her nose and she states she feels much improved she is on her 15 L of oxygen here and is 94% she refused any lab draws patient has medical decision capacity I recommended her to have some testing but she refused she is stable for discharge at this time she is return if worsening she is to follow-up with PCP. Discharge Plan Discharge Patient Disposition: Home Clinical Impression: Congested nose, Dyspnea Condition: Stable Prescriptions: No Action budesonide [Pulmicort] 0.25 mg/2 mL suspension for nebulization 0.25 mg inhalation BID Qty: 60 RF: 11 formoterol fumarate [Perforomist] 20 mcg/2 mL solution for nebulization 2 ml inhalation BID Qty: 60 RF: 11 Yupelri 175 mcg/3 mL solution for nebulization 175 mcg inhalation DAILY Qty: 60 RF: 11 (DME) nebulizers Misc See Rx Instructions .Route Qty: 1 RF: 0 oxycodone-acetaminophen 5-325 mg Tablet 1 - 2 tab PO Q4H PRN (Reason: Pain) RF: 0 multivitamin Tablet 1 tab PO DAILY RF: 0 Trelegy Ellipta 200-62.5-25 mcg blister with device 1 inh INHALATION DAILY RF: 0 pantoprazole 40 mg Tablet,Delayed Release (Dr/Ec) 40 mg PO DAILY@1700 Qty: 30 RF: 0 Augmentin 875-125 mg tablet 1 tab PO BID Qty: 10 RF: 0 prednisone 5 mg tablets,dose pack See Rx Instructions .ROUTE .COMPLEX Qty: 21 RF: 0 ondansetron HCl [Zofran] 4 mg Tablet 4 mg PO Q6H PRN (Reason: Nausea) RF: 0 prochlorperazine maleate 10 mg tablet 10 mg PO Q6H PRN (Reason: Nausea) RF: 0 Discharge Orders: Discharge ED (Routine); Ordered 05/22/21 Ordered By: Mar Leon Referrals: Anthony Nielson MD [Primary Care Provider] - 1-3 days Discharge Diet: Advance as tolerated Discharge Activity: Resume usual activity Patient Instructions: Dyspnea (ED) Coding Level of Care Code ED Cabinetmaker Maintenance for Chg Fwd Exam Comprehensive
--- NOTE | 2021-05-22 18:14 | PC.NURSE ---
PATIENT REFUSING ALL TESTING. PATIENT STATES THAT HER BLOOD WORK AND TESTS HAVE BEEN RECENTLY DONE AND SHE KNOWS I'M OK.
== END 2021-05-22 18:37 | disposition home or self-care (01) ==
PROVIDERS: Emergency Provider Emergency Medicine; PCP Family Medicine
DX: R06.00 Dyspnea, unspecified (principal); R09.81 Nasal congestion; J44.9 Chronic obstructive pulmonary disease, unspecified; Z85.118 Personal history of other malignant neoplasm of bronchus and lung; Z87.891 Personal history of nicotine dependence
CPT/HCPCS: 99281

== ENCOUNTER 2021-05-28 06:37 | Outpatient (CLI) | payer MEDICARE, SELFPAY ==
[2021-05-28] MEDS: alteplase 1 mg/mL SDV 2 mL 2 MG IV ×2 (11:00→12:10)
[2021-05-28 11:19] LABS: Basophils # 0.1 10^3/uL (0.0-0.1); Basophils % 0.5 %; Eosinophils % 0.3 %; Hematocrit 31.7 % (37.0-47.0); Hemoglobin 9.7 g/dL (11.5-15.3); Lymphocytes # 1.2 10^3/uL (0.8-4.8); Mean Corpuscular HGB Conc 30.6 g/dL (30.0-36.0); Mean Corpuscular Hemoglobin 34.5 pg (28.0-34.0); Mean Corpuscular Volume 112.8 fl (81-99); Mean Platelet Volume 10.3 fL (7.4-10.4); Monocytes # 0.9 10^3/uL (0.2-0.9); Monocytes % 9.5 %; Neutrophils # 7.11 10^3/uL (1.8-7.7); Neutrophils % 76.2 %; Nucleated Red Blood Cells % 0 %; Platelet Count 272 10^3/cmm (130-400); Red Blood Count 2.81 10^6/uL (4.1-5.3); White Blood Count 9.4 10^3/uL (4.0-10.0)
[2021-05-28 11:41] LABS: Alanine Aminotransferase 12 U/L (0-33); Albumin Level 3.5 g/dL (3.5-5.2); Alkaline Phosphatase 117 IU/L (35-105); Aspartate Amino Transferase 21 U/L (0-32); Blood Urea Nitrogen 14 mg/dL (8-23); Carbon Dioxide 26 mmol/L (22-29); Chloride 99 mmol/L (98-107); Globulin 3.2 g/dL (1.3-4.6); Glucose 107 mg/dL (65-115); Osmolality Calculated 287 mOsm/kg (285-295); Sodium 138 mmol/L (136-145); Total Bilirubin 0.3 mg/dL (0.15-1.2); Total Protein 6.7 g/dL (6.6-8.7)
--- NOTE | 2021-05-28 14:16 | IR_ITS ---
WS: [id number] PORT-A-CATH DEVICE CHECK WITH FLUOROSCOPY TECHNIQUE: Fluoroscopy with port injection FLUOROSCOPY TIME: 1.0 seconds CLINICAL INFORMATION: PORT A CATH -NO BLOOD RETURN FINDINGS: Indwelling left Port-A-Cath was injected with approximately 25-30 cc of contrast using real-time fluo roscopy. Images demonstrate a fibrin sheath overlying the distal catheter. Partial occlusion of the c atheter tip with contrast visualized extending into the SVC and also flowing retrograde along the fib [place]in sheath IR/[place] [id number] IMPRESSION: Partial occlusion of the SVC catheter tip with fibrin sheath.
[2021-05-28] MEDS: iohexol 300 mg/mL 50 mL Btl IV (14:40)
[2021-05-28] MEDS: diphenhydrAMINE 50 mg/mL SDV 1mL 25 MG IV (14:47)
[2021-05-28] MEDS: famotidine 20 mg/2 mL INJ IVP (14:48)
[2021-05-28] MEDS: ondansetron 2 mg/ML SDV 2 mL 8 MG IV (14:49)
[2021-05-28] MEDS: sodium chloride 0.9% 250 ML 75 ML IV (14:49)
[2021-05-28] MEDS: pegfilgrastim 6 mg/0.6 mL Kit (onpro) SUBCUT (16:15)
== END 2021-05-28 06:38 | disposition home or self-care (01) ==
PROVIDERS: PCP Family Medicine; Visit Provider Internal Medicine Hematology & Oncology
DX: Z51.11 Encounter for antineoplastic chemotherapy (principal); C34.81 Malignant neoplasm of overlapping sites of right bronchus and lung; J91.0 Malignant pleural effusion; J43.9 Emphysema, unspecified; Z99.81 Dependence on supplemental oxygen
CPT/HCPCS: 36593; 36598; 80053; 85025; 96367; 96372; 96375; 96376; 96377; 96413; J1100; J1200; J2405; J2505; J2997; J3490; J7050; J9171; Q9967

== ENCOUNTER 2021-05-30 13:27 | Emergency (ER) | payer MEDICARE, SELFPAY ==
[2021-05-30 13:37] VITALS: BP 107/50; PULSE 114; RESP 25; TEMP 36.8; O2SAT 92; BMI 17.3
--- NOTE | 2021-05-30 13:49 | W.ED.SOB ---
HPI - SOB/Dyspnea General: Chief Complaint: Shortness of Breath/Dyspnea Stated Complaint: TROUBLE BREATHING Time Seen by Provider: 05/30/21 13:49 History of Present Illness: HPI Narrative: Ms. Villalba is an 80-year-old lady with history of metastatic lung cancer who presents to the emergency department due to back and chest pain. She reports being under relatively poor baseline health without significant changes however earlier today developed nontraumatic pain that she describes as severe in her mid to right scapular region. She has baseline shortness of breath and at baseline wears 14 L/min of oxygen via nasal cannula. This has likely not changed significantly. There are no other specific changes in health, exacerbating, or relieving factors identified. History somewhat limited by patient's recollection. She is currently on chemotherapy. at bedside does provide some history. Review of Systems General: Reports: 10 or more systems reviewed and unremarkable except in HPI and below PFSH ED PFSH: Medical History Chronic obstructive pulmonary disease Small cell lung cancer Metastatic Surgical History History of back surgery History of colonoscopy 2014 Social History Quit status (tobacco): has quit using tobacco Year quit tobacco: 1999 [id number] Second hand smoke exposure: Yes Smoking risk assessment/counseling performed?: Yes Alcohol intake: former Caregiver/support person: No Lives independently: Yes Household members: spouse Housing: House Marital status: service: No Current occupational status: retired Pets and animals: Yes History of recent travel: No Current gender identity: Female Physical Exam Narrative: EXAM NARRATIVE: GENERAL/CONSTITUTIONAL -chronically ill-appearing, frail Eyes - PERRL, no conjunctival injection ENMT - Atraumatic external nose and ears. NECK - supple. trachea midline CARDIOVASCULAR -tachycardic rate and regular rhythm RESPIRATORY - diminished to auscultation in the right upper lobe region. Tachypnea despite supplemental oxygen. No rhonda respiratory distress ABDOMEN/GI - Nontender/Nondistended. MSK - Extremities without obvious deformity or tenderness to palpation SKIN - Warm, Dry NEURO - alert and appropriately oriented. Moves all extremities equally. Course ED course: - Patient was seen and evaluated by me at bedside - Patient placed on cardiac monitors, IV access obtained - Initial evaluation notable for frail appearance, uncomfortable due to pain - Analgesia ordered and RT treatment ordered - Labs notable for marked leukocytosis which is increased from prior. Macrocytic anemia. Metabolic panel without acute finding to explain patient's symptoms. Initial troponin is negative though repeat not obtained due to patient leaving - Imaging notable for similar findings to prior - Patient left AGAINST MEDICAL ADVICE prior to completion of evaluation or discussion of findings. Ultimately, given patient's tachycardia and new pain I would have like to obtain a CTA given history of cancer however this was not obtained. - Subsequently I did discuss the case with the patient's primary oncologist. Patient recently received Neulasta which likely explains both the pain and the leukocytosis. She does have pain medication at home. Vital Signs: Vital signs: Vital Signs Temperature 98.2 F 05/30/21 13:37 Pulse Rate 84 05/30/21 15:50 Respiratory Rate 24 H 05/30/21 15:50 Blood Pressure 124/86 05/30/21 15:50 Pulse Oximetry 94 05/30/21 15:50 MDM - SOB/Dyspnea Medical Records: Attestation: I reviewed the patient's medical records. Lab Data: Attestation: I reviewed the patient's lab results. Labs: Lab Results 05/30/21 05/30/21 05/30/21 14:32 14:32 14:32 WBC 22.7 10^3/uL H 10 ^3/uL (4.0-10.0) RBC 2.81 10^6/uL L 10 ^6/uL (4.1-5.3) Hgb 9.8 g/dL L g/dL (11.5-15.3) Hct 32.1 % L % (37.0-47.0) MCV 114.2 fl H fl (81-99) MCH 34.9 pg H pg (28.0-34.0) MCHC 30.5 g/dL g/dL (30.0-36.0) RDW 15.9 % H % (12.1-15.1) Plt Count 201 10^3/cmm 10^3 /cmm (130-400) MPV 10.5 fL H fL (7.4-10.4) Neut % (Auto) 92.0 % % Lymph % (Auto) 2.9 % % [place] % (Auto) 0.7 % % Eos % (Auto) 0.1 % % Baso % (Auto) 0.3 % % Neut # (Auto) 20.88 10^3/uL H 1 0^3/uL (1.8-7.7) Lymph # (Auto) 0.7 10^3/uL L 10^ 3/uL (0.8-4.8) [place] # (Auto) 0.2 10^3/uL 10^3/ uL (0.2-0.9) Eos # (Auto) 0.0 10^3/uL 10^3/ uL (0.0-0.8) Baso # (Auto) 0.1 10^3/uL 10^3/ uL (0.0-0.1) Nucleated RBC % (a uto) 0 % % Nucleated RBCs # 0.0 /100WBC /100W BC Sodium 140 mmol/L mmol/L (136-145) Potassium 3.8 mmol/L mmol/L (3.5-5.1) Chloride 98 mmol/L mmol/L (98-107) Carbon Dioxide 26 mmol/L mmol/L (22-29) Anion Gap 19.8 H (5-19) BUN 20 mg/dL mg/dL (8-23) Creatinine 0.3 mg/dL L mg/dL (0.5-0.9) GFR Calculation Not Reportable Glucose 108 mg/dL mg/dL (65-115) Calculated Osmolal ity 293 mOsm/kg mOsm/ kg (285-295) Calcium 8.7 mg/dL mg/dL (8.5-10.5) Total Bilirubin 0.7 mg/dL mg/dL (0.15-1.2) AST 33 U/L H U/L (0-32) ALT 16 U/L U/L (0-33) Alkaline Phosphata se 121 IU/L H IU/L (35-105) Troponin T Baselin e 10 ng/L ng/L (0-10) Total Protein 6.7 g/dL g/dL (6.6-8.7) Albumin 3.7 g/dL g/dL (3.5-5.2) Globulin 3.0 g/dL g/dL (1.3-4.6) EKG Data^: EKG 1: Attestation: I personally reviewed and interpreted this EKG as follows: EKG Interpretation Date: 05/30/21 EKG interpretation time: 14:18 Interpretation: Twelve-lead EKG shows a regular rhythm at a rate of 108. HI interval 138, QRS duration 82, QTc 398. Normal axis. Interpretation: Sinus tachycardia Discharge Plan Discharge Patient Disposition: Left Against Medical Advice Prescriptions: No Action budesonide [Pulmicort] 0.25 mg/2 mL suspension for nebulization 0.25 mg inhalation BID Qty: 60 RF: 11 formoterol fumarate [Perforomist] 20 mcg/2 mL solution for nebulization 2 ml inhalation BID Qty: 60 RF: 11 Yupelri 175 mcg/3 mL solution for nebulization 175 mcg inhalation DAILY Qty: 60 RF: 11 (DME) nebulizers Misc See Rx Instructions .Route Qty: 1 RF: 0 oxycodone-acetaminophen 5-325 mg Tablet 1 - 2 tab PO Q4H PRN (Reason: Pain) RF: 0 multivitamin Tablet 1 tab PO DAILY RF: 0 Trelegy Ellipta 200-62.5-25 mcg blister with device 1 inh INHALATION DAILY RF: 0 pantoprazole 40 mg Tablet,Delayed Release (Dr/Ec) 40 mg PO DAILY@1700 Qty: 30 RF: 0 Augmentin 875-125 mg tablet 1 tab PO BID Qty: 10 RF: 0 prednisone 5 mg tablets,dose pack See Rx Instructions .ROUTE .COMPLEX Qty: 21 RF: 0 ondansetron HCl [Zofran] 4 mg Tablet 4 mg PO Q6H PRN (Reason: Nausea) RF: 0 prochlorperazine maleate 10 mg tablet 10 mg PO Q6H PRN (Reason: Nausea) RF: 0 Referrals: Anthony Nielson MD [Primary Care Provider] - Coding Level of Care Code ED Portable Irrigation Operator for Chg Fwjeremie
--- NOTE | 2021-05-30 14:01 | ECG_ITS ---
[facility] Test Date: 2021-05-30 Pat Name: Meenu Villalba Department: Room: Gender: Female Fire [employer]: : 1940 Requested By: All Nicole Order Number: [id number] D[place] MD: Pilar Matta M.D. Measurements Intervals Kake Rate: 108 P: 73 IN: 138 QRS: 18 QRSD: 82 T: 62 QT: 335 QTc: 449 Interpretive Statements SINUS TACHYCARDIA WITH OCCASIONAL SUPRAVENTRICULAR PREMATURE COMPLEXES LEFT ATRIAL ENLARGEMENT [-0.15mV P-WAVE IN V1/V2] MODERATE ST DEPRESSION [0.05+ mV ST DEPRESSION] Compared to ECG 10/23/2020 09:33:58 Atrial abnormality now present ST (T wave) deviation now present Sinus rhythm no longer present T-wave abnormality no longer present Electronically Signed On 05-30-2021 22:02:50 ACOUSTIC SENSOR OPERATOR by Pilar Matta M.D. [id number]
--- NOTE | 2021-05-30 14:01 | XRR_ITS ---
PROCEDURE INFORMATION: Exam: XR Chest Exam date and time: 05/30/2021 2:01 PM Age: 80 years old Clinical indication: Shortness of breath; Additional info: Shortness of breath, R posterior chest pain TECHNIQUE: Imaging protocol: XR of the chest. Views: 1 view. COMPARISON: CT chest abd wo/w con 04/30/2021 3:03 PM FINDINGS: Tubes, catheters and devices: Left chest port terminates in the mid SVC. Lungs: Severe emphysematous changes with hyperexpanded lungs, diffuse coarsening of the lung parenchyma, and bullous emphysematous changes in the lung apices. Nodular opacities noted within the mid and lower lung as well as scattered focal areas of pleural thickening, most conspicuous at the right lung base, corresponding to the metastatic disease seen on prior CT. Pleural spaces: See Lungs finding. Heart/Mediastinum: Unremarkable. No cardiomegaly. Bones/joints: Generalized osseous demineralization. Visualized osseous structures are intact. XR/XR chest 1V portable [id number] IMPRESSION: Similar sequela of severe emphysema and metastatic disease as noted on recent CT examination.
[2021-05-30 14:38] LABS: Basophils # 0.1 10^3/uL (0.0-0.1); Basophils % 0.3 %; Eosinophils % 0.1 %; Hematocrit 32.1 % (37.0-47.0); Hemoglobin 9.8 g/dL (11.5-15.3); Lymphocytes # 0.7 10^3/uL (0.8-4.8); Lymphocytes % 2.9 %; Mean Corpuscular HGB Conc 30.5 g/dL (30.0-36.0); Mean Corpuscular Hemoglobin 34.9 pg (28.0-34.0); Mean Corpuscular Volume 114.2 fl (81-99); Mean Platelet Volume 10.5 fL (7.4-10.4); Monocytes # 0.2 10^3/uL (0.2-0.9); Monocytes % 0.7 %; Neutrophils # 20.88 10^3/uL (1.8-7.7); Nucleated Red Blood Cells % 0 %; Platelet Count 201 10^3/cmm (130-400); Red Blood Count 2.81 10^6/uL (4.1-5.3); Red Cell Distribution Width 15.9 % (12.1-15.1); White Blood Count 22.7 10^3/uL (4.0-10.0)
[2021-05-30] MEDS: albuterol 8 gm MDI 2 PUFF INHALATION (14:40)
[2021-05-30] MEDS: ipratropium-albuterol 3 mL Neb INHALATION (14:40)
[2021-05-30 14:46] VITALS: PULSE 110; RESP 22; O2SAT 91
[2021-05-30 14:49] VITALS: PULSE 109; RESP 20; O2SAT 93
[2021-05-30 15:37] LABS: Troponin(5th) Baseline 10 ng/L (0-10)
[2021-05-30 15:40] LABS: Alanine Aminotransferase 16 U/L (0-33); Albumin Level 3.7 g/dL (3.5-5.2); Alkaline Phosphatase 121 IU/L (35-105); Anion Gap 19.8 (5-19); Aspartate Amino Transferase 33 U/L (0-32); Blood Urea Nitrogen 20 mg/dL (8-23); Calcium 8.7 mg/dL (8.5-10.5); Carbon Dioxide 26 mmol/L (22-29); Chloride 98 mmol/L (98-107); Glucose 108 mg/dL (65-115); Osmolality Calculated 293 mOsm/kg (285-295); Potassium 3.8 mmol/L (3.5-5.1); Sodium 140 mmol/L (136-145); Total Bilirubin 0.7 mg/dL (0.15-1.2); Total Protein 6.7 g/dL (6.6-8.7)
[2021-05-30 15:50] VITALS: BP 124/86; PULSE 84; RESP 24; O2SAT 94
== END 2021-05-30 15:51 | disposition left against medical advice (07) ==
PROVIDERS: Emergency Provider Emergency Medicine; PCP Family Medicine
DX: R07.9 Chest pain, unspecified (principal); M54.9 Dorsalgia, unspecified; Z53.21 Procedure and treatment not carried out due to patient leaving prior to being seen by health care provider; J44.9 Chronic obstructive pulmonary disease, unspecified; Z85.118 Personal history of other malignant neoplasm of bronchus and lung; Z87.891 Personal history of nicotine dependence
CPT/HCPCS: 71045; 80053; 84484; 85025; 93005; 94640; 99283; J3535

== ENCOUNTER 2021-05-31 16:53 | Emergency (ER) | payer MEDICARE, SELFPAY ==
[2021-05-31 16:58] VITALS: BP 116/56; PULSE 118; RESP 16; TEMP 36.4; O2SAT 98
--- NOTE | 2021-05-31 17:53 | CTR_ITS ---
PROCEDURE INFORMATION: Exam: CTA Chest With Contrast Exam date and time: 05/31/2021 5:53 PM Age: 80 years old Clinical indication: Condition or disease; Lung condition and disease; Cancer of the lung; Bilateral; Unspecified; Prior surgery; Surgery date: 6+ months; Patient HX: HX lung cancer, dyspnea; Additional info: Dyspnea, lung CA TECHNIQUE: Imaging protocol: Computed tomographic angiography of the chest with contrast. 3D rendering (Not supervised by radiologist): MIP and/or 3D reconstructed images were created by the technologist. Total images: 847 Radiation optimization: All CT scans at this facility use at least one of these dose optimization techniques: automated exposure control; mA and/or kV adjustment per patient size (includes targeted exams where dose is matched to clinical indication); or iterative reconstruction. Contrast material: OMNI 350; Contrast volume: 59 ml; Contrast route: INTRAVENOUS (IV); COMPARISON: 1. CT angio chest PE protcl [id number] 01/22/2021 8:[address] chest abd wo/w con 04/30/2021 3:03:52 PM 3. 04/30/2021. Extensive metastatic disease both lungs. Interval enlargement of a anterior segment pericardiac RADIATION DOSE METRICS: Total DLP (mGy-cm): 408.42 FINDINGS: Tubes, catheters and devices: Left Infusaport catheter. Pulmonary arteries: No visible evidence of pulmonary embolism/pulmonary arterial thrombus. Aorta: The thoracic aorta is nonaneurysmal. No visible intimal flap or dissection. Moderate arterial sclerotic disease. Lungs: Marked progression of lung carcinoma. Interval enlargement of pre-existing lung masses and hematogenous metastatic pulmonary nodules since 04/30/2021. Extensive bilateral hematogenous metastasis with development of new metastatic foci since last evaluation. Considerable interval enlargement of a anterior segment right upper lobe pericardiac tumor mass measuring approximately 40 mm x 30 mm by 24 mm. Advanced bullous emphysema. Pleural spaces: Again note of a small malignant right pleural effusion. Predominantly right pleural metastatic involvement at multiple sites. Heart: No cardiomegaly. Left ventricular hypertrophy. Coronary artery disease. 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 Lymph nodes: Interval progression of disease with enlargement of mediastinal and right hilar tumor lymphadenopathy. Calcified complexes of antecedent granulomatous disease also again evident. Bones/joints: No visible acute osseous abnormality. No visible osteolytic or osteoblastic destructive process. Mild scoliotic curvature of the spine. Old compression fracture T3, T4, and T5. Increased thoracic kyphosis. Osteopenia/osteoporosis. Old sternum fracture. Soft tissues: Interval enlargement of tumor invasion of the right anterior chest wall now measuring approximately 42 mm x [address] angio chest PE protcl [id number] IMPRESSION: 1. No visible evidence of pulmonary embolism/pulmonary arterial thrombus. 2. Marked progression of disease of lung carcinoma as detailed in text above. 3. Advanced bullous emphysema.
--- NOTE | 2021-05-31 17:55 | ED_ITS ---
HPI - SOB/Dyspnea General: Chief Complaint: Shortness of Breath/Dyspnea Stated Complaint: low o2 Time Seen by Provider: 05/31/21 17:50 History of Present Illness: HPI Narrative: Patient presents with intermittent episodes of shortness of breath and oxygen levels dropped down to 70s to stop by being on 15 L nasal cannula. Patient adamantly refusing admission to the hospital states she will stay couple hours and wants to have test done to explain why she has shortness of breath. See in ER yesterday and left AMA. MD elicited complaint: shortness of breath Pertinent past history: other (Lung cancer with metastasis) Onset (ago): week(s) Associated symptoms: Reports other (Sore throat right shoulder pain); Deny abdominal pain, chest pain, extremity pain, fever(s), nausea or vomiting Review of Systems Narrative: Weight loss Const: Denies: fever(s), chills or body aches Eyes: Denies: change in vision or blurry vision ENMT: Reports: throat pain; Denies: nasal congestion Card: Denies: chest pain or dyspnea on exertion Resp: Reports: dyspnea; Denies: productive cough or non-productive cough GI: Denies: abdominal pain, nausea or vomiting Musc: Reports: joint pain; Denies: extremity pain Skin/Breast: Denies: rash Neuro: Denies: headache(s) Psych: Denies: anxiety or depression Conner/Lymph: Denies: easy bruising PFSH ED PFSH: Medical History Chronic obstructive pulmonary disease Small cell lung cancer Metastatic Surgical History History of back surgery History of colonoscopy 2014 Social History Quit status (tobacco): has quit using tobacco Year quit tobacco: 1999 [id number] Second hand smoke exposure: Yes Smoking risk assessment/counseling performed?: Yes Alcohol intake: former Caregiver/support person: No Lives independently: Yes Household members: spouse Housing: House Marital status: service: No Current occupational status: retired Pets and animals: Yes History of recent travel: No Current gender identity: Female Physical Exam Const: COMMON NORMALS: no acute distress, average body habitus and patient oriented x3 HENMT: COMMON NORMALS: normocephalic HEAD & SCALP: normal to inspection and normocephalic FACE & SINUS: normal facial exam MOUTH: Normal oral and palatal mucosa present THROAT: posterior oropharynx normal Eye: COMMON NORMALS: conjunctivae normal GENERAL EYE: appearance normal, both eyes and all related structures CONJUNCTIVA: Yes conjunctivae normal Neck/C-Spine: COMMON NORMALS: no JVD Chest: COMMONS NORMALS: normal inspection of the chest Resp: AUSCULTATION: diminished lung sounds Cardio: COMMON NORMALS: no JVD, regular rate and regular rhythm RATE: regular rate RHYTHM: regular rhythm GI: COMMON NORMALS: Normal to inspection, nondistended, normoactive bowel sounds present Extremity: COMMON NORMALS: normal to inspection and full ROM Neuro: COMMON NORMALS: patient oriented x3 Course Vital Signs: Vital signs: Vital Signs Temperature 97.6 F 05/31/21 16:58 Pulse Rate 118 H 05/31/21 16:58 Respiratory Rate 16 05/31/21 16:58 Blood Pressure 116/56 05/31/21 16:58 Pulse Oximetry 98 05/31/21 16:58 MDM - SOB/Dyspnea MDM Narrative: Medical decision making narrative: Patient has longstanding history of lung cancer. Patient did not have treatments for a few months and discharge treatments again last week. Lung cancer is metastasized. Does have larger mass. Patient is wanting to know why she is having intermittent low O2 sats but refuses any admission to hospital our interventions. Would just like test done she states. Review none doctors note from yesterday patient sign AMA was going pursue CTA to check for clot or other concerning symptoms. CTA was done today labs were done. Leukocytosis is improved. CTA shows increase in size of mass and more areas of concern. Patient states she is fine results wants to go home will continue on oxygen and will take medication she has an follow-up with her oncologist. She states. Lab Data: Labs: Lab Results 05/31/21 05/31/21 17:45 17:45 WBC 15.0 10^3/uL H 10 ^3/uL (4.0-10.0) RBC 2.56 10^6/uL L 10 ^6/uL (4.1-5.3) Hgb 8.8 g/dL L g/dL (11.5-15.3) Hct 28.6 % L % (37.0-47.0) MCV 111.7 fl H fl (81-99) MCH 34.4 pg H pg (28.0-34.0) MCHC 30.8 g/dL g/dL (30.0-36.0) RDW 15.9 % H % (12.1-15.1) Plt Count 146 10^3/cmm 10^3 /cmm (130-400) MPV 11.3 fL H fL (7.4-10.4) Neut % (Auto) 75.4 % % Lymph % (Auto) 2.3 % % [place] % (Auto) 1.1 % % Eos % (Auto) 0.8 % % Baso % (Auto) 0.1 % % Neut # (Auto) 11.33 10^3/uL H 1 0^3/uL (1.8-7.7) Lymph # (Auto) 0.4 10^3/uL L 10^ 3/uL (0.8-4.8) [place] # (Auto) 0.2 10^3/uL 10^3/ uL (0.2-0.9) Eos # (Auto) 0.1 10^3/uL 10^3/ uL (0.0-0.8) Baso # (Auto) 0.0 10^3/uL 10^3/ uL (0.0-0.1) Nucleated RBC % (a uto) 0 % % Nucleated RBCs # 0.0 /100WBC /100W BC Sodium 142 mmol/L mmol/L (136-145) Potassium 3.5 mmol/L mmol/L (3.5-5.1) Chloride 101 mmol/L mmol/L (98-107) Carbon Dioxide 27 mmol/L mmol/L (22-29) Anion Gap 17.5 (5-19) BUN 22 mg/dL mg/dL (8-23) Creatinine 0.3 mg/dL L mg/dL (0.5-0.9) GFR Calculation Not Reportable Glucose 121 mg/dL H mg/dL (65-115) Calculated Osmolal ity 299 mOsm/kg H mOs m/kg (285-295) Calcium 8.4 mg/dL L mg/dL (8.5-10.5) Total Bilirubin 0.7 mg/dL mg/dL (0.15-1.2) AST 34 U/L H U/L (0-32) ALT 13 U/L U/L (0-33) Alkaline Phosphata se 128 IU/L H IU/L (35-105) Total Protein 6.4 g/dL L g/dL (6.6-8.7) Albumin 3.4 g/dL L g/dL (3.5-5.2) Globulin 3.0 g/dL g/dL (1.3-4.6) Discharge Plan Discharge Patient Disposition: Home Clinical Impression: Metastatic lung carcinoma Qualifiers: Laterality: unspecified laterality Qualified Code(s): C78.00 - Secondary malignant neoplasm of unspecified lung Condition: Stable Prescriptions: [place] HurriCaine 20 % aerosol,spray 1 applic mucous membrane TID PRN (Reason: mouth irritation) Qty: 57 RF: 0 No Action budesonide [Pulmicort] 0.25 mg/2 mL suspension for nebulization 0.25 mg inhalation BID Qty: 60 RF: 11 formoterol fumarate [Perforomist] 20 mcg/2 mL solution for nebulization 2 ml inhalation BID Qty: 60 RF: 11 Yupelri 175 mcg/3 mL solution for nebulization 175 mcg inhalation DAILY Qty: 60 RF: 11 (DME) nebulizers Misc See Rx Instructions .Route Qty: 1 RF: 0 oxycodone-acetaminophen 5-325 mg Tablet 1 - 2 tab PO Q4H PRN (Reason: Pain) RF: 0 multivitamin Tablet 1 tab PO DAILY RF: 0 Trelegy Ellipta 200-62.5-25 mcg blister with device 1 inh INHALATION DAILY RF: 0 pantoprazole 40 mg Tablet,Delayed Release (Dr/Ec) 40 mg PO DAILY@1700 Qty: 30 RF: 0 Augmentin 875-125 mg tablet 1 tab PO BID Qty: 10 RF: 0 prednisone 5 mg tablets,dose pack See Rx Instructions .ROUTE .COMPLEX Qty: 21 RF: 0 ondansetron HCl [Zofran] 4 mg Tablet 4 mg PO Q6H PRN (Reason: Nausea) RF: 0 prochlorperazine maleate 10 mg tablet 10 mg PO Q6H PRN (Reason: Nausea) RF: 0 Discharge Orders: Discharge ED (Routine); Ordered 05/31/21 Ordered By: Sean Solorzano Referrals: Anthony Nielson MD [Primary Care Provider] - Discharge Diet: Usual diet Discharge Activity: Increase activity as tolerated Activity Restrictions/Additional Instructions: Follow-up with oncologist as needed. Take medication as directed. Continue to use oxygen at 15 L nasal cannula as directed. Coding Level of Care Code ED Health And Safety Inspector for Chg Fwd Exam Comprehensive
[2021-05-31 18:01] LABS: Basophils % 0.1 %; Eosinophils # 0.1 10^3/uL (0.0-0.8); Eosinophils % 0.8 %; Hematocrit 28.6 % (37.0-47.0); Hemoglobin 8.8 g/dL (11.5-15.3); Lymphocytes # 0.4 10^3/uL (0.8-4.8); Lymphocytes % 2.3 %; Mean Corpuscular HGB Conc 30.8 g/dL (30.0-36.0); Mean Corpuscular Hemoglobin 34.4 pg (28.0-34.0); Mean Corpuscular Volume 111.7 fl (81-99); Mean Platelet Volume 11.3 fL (7.4-10.4); Monocytes # 0.2 10^3/uL (0.2-0.9); Monocytes % 1.1 %; Neutrophils # 11.33 10^3/uL (1.8-7.7); Neutrophils % 75.4 %; Nucleated Red Blood Cells % 0 %; Platelet Count 146 10^3/cmm (130-400); Red Blood Count 2.56 10^6/uL (4.1-5.3); Red Cell Distribution Width 15.9 % (12.1-15.1)
[2021-05-31] MEDS: iohexol 350 mg/mL 100 mL Btl IV (18:08)
[2021-05-31 18:19] LABS: Alanine Aminotransferase 13 U/L (0-33); Albumin Level 3.4 g/dL (3.5-5.2); Alkaline Phosphatase 128 IU/L (35-105); Anion Gap 17.5 (5-19); Aspartate Amino Transferase 34 U/L (0-32); Blood Urea Nitrogen 22 mg/dL (8-23); Calcium 8.4 mg/dL (8.5-10.5); Carbon Dioxide 27 mmol/L (22-29); Chloride 101 mmol/L (98-107); Glucose 121 mg/dL (65-115); Osmolality Calculated 299 mOsm/kg (285-295); Potassium 3.5 mmol/L (3.5-5.1); Sodium 142 mmol/L (136-145); Total Bilirubin 0.7 mg/dL (0.15-1.2); Total Protein 6.4 g/dL (6.6-8.7)
[2021-05-31 18:23] LABS: Creatinine Clr Calc Pharmacy 46.3633
[2021-05-31 18:25] LABS: Slide Review Slide Review Perform
== END 2021-05-31 20:05 | disposition home or self-care (01) ==
PROVIDERS: Emergency Medicine; Emergency Provider Nurse Practitioner Family; PCP Family Medicine
DX: C78.00 Secondary malignant neoplasm of unspecified lung (principal); C80.1 Malignant (primary) neoplasm, unspecified; J44.9 Chronic obstructive pulmonary disease, unspecified; Z87.891 Personal history of nicotine dependence
CPT/HCPCS: 71275; 80053; 85025; 99283; Q9967

== ENCOUNTER 2021-06-05 15:26 | Emergency (ER) | payer MEDICARE, SELFPAY ==
[2021-06-05 16:08] VITALS: BP 107/54; PULSE 114; RESP 24; TEMP 37.1; O2SAT 86; BMI 20.3
--- NOTE | 2021-06-05 16:21 | W.ED.SOB ---
Documented by User: DENNISE Roberts 06/05/21 16:25 HPI - SOB/Dyspnea General: Chief Complaint: Shortness of Breath/Dyspnea Stated Complaint: TROUBLE BREATHING/LOW O2 Time Seen by Provider: 06/05/21 16:21 Source: patient Mode of arrival: wheelchair History of Present Illness: HPI Narrative: Patient is an 80-year-old with a history of COPD and extensive metastatic lung cancer here for complaints of shortness of breath. Patient is chronically on 14L O2. Patient has been seen here several times over this month and usually ends up leaving AMA or is non-compliant with care. 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 PFS ED PFSH: Medical History Chronic obstructive pulmonary disease Small cell lung cancer Metastatic Surgical History History of back surgery History of colonoscopy 2014 Social History Quit status (tobacco): has quit using tobacco Year quit tobacco: 1999 [id number] Second hand smoke exposure: Yes Smoking risk assessment/counseling performed?: Yes Alcohol intake: former Caregiver/support person: No Lives independently: Yes Household members: spouse Housing: House Marital status: service: No Current occupational status: retired Pets and animals: Yes History of recent travel: No Current gender identity: Female Physical Exam Const: OTHER: pt chronically in respiratory distress; she is satting at 85% on 15L (she is on 14L chronically); she is surprisingly talking in full sentences Resp: EFFORT & INSPECTION: Yes able to speak in complete sentences OTHER: acute respiratory distress with hypoxia Cardio: RATE: tachycardic Course Vital Signs: Vital signs: Vital Signs Temperature 98.8 F 06/05/21 16:08 Pulse Rate 114 H 06/05/21 16:08 Respiratory Rate 24 H 06/05/21 16:08 Blood Pressure 107/54 06/05/21 16:08 Pulse Oximetry 86 L 06/05/21 16:08 MDM - SOB/Dyspnea Lab Data: Labs: Lab Results 06/05/21 06/05/21 06/05/21 17:29 17:29 17:29 WBC 12.4 10^3/uL H 10 ^3/uL (4.0-10.0) RBC 2.29 10^6/uL L 10 ^6/uL (4.1-5.3) Hgb 7.8 g/dL L g/dL (11.5-15.3) Hct 25.9 % L % (37.0-47.0) MCV 113.1 fl H fl (81-99) MCH 34.1 pg H pg (28.0-34.0) MCHC 30.1 g/dL g/dL (30.0-36.0) RDW 17.0 % H % (12.1-15.1) Plt Count 156 10^3/cmm 10^3 /cmm (130-400) MPV 11.5 fL H fL (7.4-10.4) Lymph % (Auto) Not Reportable [place] % (Auto) Not Reportable Lymph # (Auto) Not Reportable [place] # (Auto) Not Reportable Total Counted 100 (0-100) Atypical Lymphs % 0.0 % % (0-5) Absolute Neutrophi ls 10.9 10^3/cmm H 1 0^3/cmm (1.4-6.5) Segmented Neutroph ils 72 % % Abs Segm Neuts (Ma n) 8.9 10/cmm H 10/c mm (1.6-7.1) Band Neutrophils 16.0 % % Abs Band Neuts (Ma n) 2.0 10^3/cmm H 10 ^3/cmm (0.0-1.2) Absolute Lymphocyt es 0.7 10^3/cmm L 10 ^3/cmm (1.2-3.4) Lymphocytes (Manua l) 6 % % Monocytes (Manual) 6.0 % % Absolute Monocytes 0.7 10^3/cmm H 10 ^3/cmm (0.1-0.6) Eosinophils (Manua l) 0 % % Absolute Eosinophi ls 0.0 10^3/cmm 10^3 /cmm (0.0-0.7) Basophils (Manual) 0.0 % % Absolute Basophils 0.0 10^3/cmm 10^3 /cmm (0.0-0.2) Platelet Estimate Normal (Normal) Polychromasia 1+ H Anisocytosis 1+ H Macrocytosis 2+ H Lactic Acid 1.2 mmol/L mmol/L (0.5-2.2) NT-Pro-B Natriuret Pep 280 pg/mL pg/mL (0-450) Procalcitonin 2.49 ng/mL H ng/m L (0-0.5) Discharge Plan Discharge Patient Disposition: Left Against Medical Advice Clinical Impression: Hypoxemia, Acute respiratory failure Condition: Stable Prescriptions: No Action budesonide [Pulmicort] 0.25 mg/2 mL suspension for nebulization 0.25 mg inhalation BID Qty: 60 RF: 11 formoterol fumarate [Perforomist] 20 mcg/2 mL solution for nebulization 2 ml inhalation BID Qty: 60 RF: 11 Yupelri 175 mcg/3 mL solution for nebulization 175 mcg inhalation DAILY Qty: 60 RF: 11 (DME) nebulizers Misc See Rx Instructions .Route Qty: 1 RF: 0 oxycodone-acetaminophen 5-325 mg Tablet 1 - 2 tab PO Q4H PRN (Reason: Pain) RF: 0 multivitamin Tablet 1 tab PO DAILY RF: 0 Trelegy Ellipta 200-62.5-25 mcg blister with device 1 inh INHALATION DAILY RF: 0 pantoprazole 40 mg Tablet,Delayed Release (Dr/Ec) 40 mg PO DAILY@1700 Qty: 30 RF: 0 Augmentin 875-125 mg tablet 1 tab PO BID Qty: 10 RF: 0 prednisone 5 mg tablets,dose pack See Rx Instructions .ROUTE .COMPLEX Qty: 21 RF: 0 ondansetron HCl [Zofran] 4 mg Tablet 4 mg PO Q6H PRN (Reason: Nausea) RF: 0 prochlorperazine maleate 10 mg tablet 10 mg PO Q6H PRN (Reason: Nausea) RF: 0 HurriCaine 20 % aerosol,spray 1 applic mucous membrane TID PRN (Reason: mouth irritation) Qty: 57 RF: 0 Referrals: Anthony Nielson MD [Primary Care Provider] - Coding Level of Care 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 Documented by User: Urvashi Cobb MD 06/05/21 18:15 HPI - SOB/Dyspnea General: Chief Complaint: Shortness of Breath/Dyspnea Stated Complaint: TROUBLE BREATHING/LOW O2 Time Seen by Provider: 06/05/21 16:21 PFSH ED PFSH: Medical History Chronic obstructive pulmonary disease Small cell lung cancer Metastatic Surgical History History of back surgery History of colonoscopy 2014 Social History Quit status (tobacco): has quit using tobacco Year quit tobacco: 1999 [id number] Second hand smoke exposure: Yes Smoking risk assessment/counseling performed?: Yes Alcohol intake: former Caregiver/support person: No Lives independently: Yes Household members: spouse Housing: House Marital status: service: No Current occupational status: retired Pets and animals: Yes History of recent travel: No Current gender identity: Female Course Vital Signs: Vital signs: Vital Signs Temperature 98.8 F 06/05/21 16:08 Pulse Rate 114 H 06/05/21 16:08 Respiratory Rate 24 H 06/05/21 16:08 Blood Pressure 107/54 06/05/21 16:08 Pulse Oximetry 86 L 06/05/21 16:08 MDM - SOB/Dyspnea MDM Narrative: Medical decision making narrative: 80-year-old female presents emergency room in with concerns for pulse ox changes at home. On arrival, patient was satting at 75% on room air. X-ray is consistent with metastatic lung cancer. I have offered patient admission for close her physician, however this time, patient tells me that I do not want to stay in this hospital. At 6:15pm Patient electing to leave AMA. Patient counseled regarding risks of leaving including severe morbidity, brain , hypoxia, arrythmia, , chest pain, or any other unwanted consequences of leaving against medical advice today. Patient verbalizes understanding of the risks and still wishes to leave AMA. Signed AMA paperwork. Patient advised that patient is welcome to return at any time. Was instructed that patient may come back if symptoms continue to persist and that emergent adverse conditions have not fully been ruled out. Patient is A&Ox3 and has capacity and is of sound mind to make decisions. Lab Data: Labs: Lab Results 06/05/21 06/05/21 06/05/21 17:29 17:29 17:29 WBC 12.4 10^3/uL H 10 ^3/uL (4.0-10.0) RBC 2.29 10^6/uL L 10 ^6/uL (4.1-5.3) Hgb 7.8 g/dL L g/dL (11.5-15.3) Hct 25.9 % L % (37.0-47.0) MCV 113.1 fl H fl (81-99) MCH 34.1 pg H pg (28.0-34.0) MCHC 30.1 g/dL g/dL (30.0-36.0) RDW 17.0 % H % (12.1-15.1) Plt Count 156 10^3/cmm 10^3 /cmm (130-400) MPV 11.5 fL H fL (7.4-10.4) Lymph % (Auto) Not Reportable [place] % (Auto) Not Reportable Lymph # (Auto) Not Reportable [place] # (Auto) Not Reportable Total Counted 100 (0-100) Atypical Lymphs % 0.0 % % (0-5) Absolute Neutrophi ls 10.9 10^3/cmm H 1 0^3/cmm (1.4-6.5) Segmented Neutroph ils 72 % % Abs Segm Neuts (Ma n) 8.9 10/cmm H 10/c mm (1.6-7.1) Band Neutrophils 16.0 % % Abs Band Neuts (Ma n) 2.0 10^3/cmm H 10 ^3/cmm (0.0-1.2) Absolute Lymphocyt es 0.7 10^3/cmm L 10 ^3/cmm (1.2-3.4) Lymphocytes (Manua l) 6 % % Monocytes (Manual) 6.0 % % Absolute Monocytes 0.7 10^3/cmm H 10 ^3/cmm (0.1-0.6) Eosinophils (Manua l) 0 % % Absolute Eosinophi ls 0.0 10^3/cmm 10^3 /cmm (0.0-0.7) Basophils (Manual) 0.0 % % Absolute Basophils 0.0 10^3/cmm 10^3 /cmm (0.0-0.2) Platelet Estimate Normal (Normal) Polychromasia 1+ H Anisocytosis 1+ H Macrocytosis 2+ H Lactic Acid 1.2 mmol/L mmol/L (0.5-2.2) NT-Pro-B Natriuret Pep 280 pg/mL pg/mL (0-450) Procalcitonin 2.49 ng/mL H ng/m L (0-0.5) Imaging Data^: Other Imaging: Radiologist's impression: [employer] [id number] ReportSigned Patient: Meenu Villalba #: [id number]: 1940Acct#:[id number]/Sex: 80 / FADM Date: 06/05/21Loc: ERRoom/Bed:Attending Dr: Ordering Provider/Ordering MD: Cordelia Kothari Date of Service: 06/05/21 Procedure(s): XR chest 1V portable [id number] Accession Number(s): [id number] Report Number: [id number] PROCEDURE INFORMATION: Exam: XR Chest Exam date and time: 06/05/2021 4:26 PM Age: 80 years old Clinical indication: Patient HX: Patient is an 80-year-old with a history of copd and extensive metastatic lung cancer here for complaints of shortness of breath. Patient is chronically on 14l o2. ; Additional info: SOB TECHNIQUE: Imaging protocol: XR of the chest. Views: 1 view. COMPARISON: CR XR chest 1V portable [id number] 05/30/2021 2:34 PM FINDINGS: Tubes, catheters and devices: Left-sided Port-A-Cath. Lungs: Emphysematous changes. Pleural spaces: Small right pleural effusion. Patchy diffuse airspace and pleural opacities again seen similar to prior exam suggestive of metastatic disease as on recent CT scan. Heart/Mediastinum: Unremarkable. No cardiomegaly. Bones/joints: Unremarkable. XR/XR chest 1V portable [id number] IMPRESSION: 1. Emphysematous changes. 2. Small right pleural effusion. 3. Patchy diffuse airspace and pleural opacities again seen similar to prior exam suggestive of metastatic disease as on recent CT scan. Dictated By:Gabino Hirsch MDSigned By:Gabino Hirsch MDSigned Date/Time:06/05/21 1722DD/ 1626 Discharge Plan Discharge Patient Disposition: Left Against Medical Advice Clinical Impression: Hypoxemia, Acute respiratory failure Condition: Stable Prescriptions: No Action budesonide [Pulmicort] 0.25 mg/2 mL suspension for nebulization 0.25 mg inhalation BID Qty: 60 RF: 11 formoterol fumarate [Perforomist] 20 mcg/2 mL solution for nebulization 2 ml inhalation BID Qty: 60 RF: 11 Yupelri 175 mcg/3 mL solution for nebulization 175 mcg inhalation DAILY Qty: 60 RF: 11 (DME) nebulizers Misc See Rx Instructions .Route Qty: 1 RF: 0 oxycodone-acetaminophen 5-325 mg Tablet 1 - 2 tab PO Q4H PRN (Reason: Pain) RF: 0 multivitamin Tablet 1 tab PO DAILY RF: 0 Trelegy Ellipta 200-62.5-25 mcg blister with device 1 inh INHALATION DAILY RF: 0 pantoprazole 40 mg Tablet,Delayed Release (Dr/Ec) 40 mg PO DAILY@1700 Qty: 30 RF: 0 Augmentin 875-125 mg tablet 1 tab PO BID Qty: 10 RF: 0 prednisone 5 mg tablets,dose pack See Rx Instructions .ROUTE .COMPLEX Qty: 21 RF: 0 ondansetron HCl [Zofran] 4 mg Tablet 4 mg PO Q6H PRN (Reason: Nausea) RF: 0 prochlorperazine maleate 10 mg tablet 10 mg PO Q6H PRN (Reason: Nausea) RF: 0 HurriCaine 20 % aerosol,spray 1 applic mucous membrane TID PRN (Reason: mouth irritation) Qty: 57 RF: 0 Referrals: Anthony Nielson MD [Primary Care Provider] - Coding Level of Care 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
--- NOTE | 2021-06-05 16:24 | PC.NURSE ---
ATTEMPTED TO TAKE PT TO ROOM. PT REFUSES STATING, I'M NOT GOING ANY WHERE WITHOUT MY . REASSURED PT THAT HE WOULD BE SHOWN WERE SHE WAS WHEN HE GOT HERE SHE STILL REFUSED.
--- NOTE | 2021-06-05 16:26 | ECG_ITS ---
[facility] Test Date: 2021-06-05 Pat Name: Meenu Villalba Department: Room: Gender: Female Services Manager: : 1940 Requested By: Cordelia Kothari Order Number: [id number] Dafne MD: Gosia Rogel M.D. Measurements Intervals [place] Rate: 109 P: 70 NM: 159 QRS: 11 QRSD: 113 T: 68 QT: 380 QTc: 512 Interpretive Statements SINUS TACHYCARDIA MODERATE INTRAVENTRICULAR CONDUCTION DELAY Compared to ECG 05/30/2021 14:14:28 Intraventricular conduction delay now present Atrial abnormality no longer present ST (T wave) deviation no longer present Electronically Signed On 06-05-2021 17:55:50 GRANULATOR OPERATOR by Gosia Rogel M.D. [id number]
--- NOTE | 2021-06-05 16:26 | XRR_ITS ---
PROCEDURE INFORMATION: Exam: XR Chest Exam date and time: 06/05/2021 4:26 PM Age: 80 years old Clinical indication: Patient HX: Patient is an 80-year-old with a history of copd and extensive metastatic lung cancer here for complaints of shortness of breath. Patient is chronically on 14l o2. ; Additional info: SOB TECHNIQUE: Imaging protocol: XR of the chest. Views: 1 view. COMPARISON: CR XR chest 1V portable [id number] 05/30/2021 2:34 PM FINDINGS: Tubes, catheters and devices: Left-sided Port-A-Cath. Lungs: Emphysematous changes. Pleural spaces: Small right pleural effusion. Patchy diffuse airspace and pleural opacities again seen similar to prior exam suggestive of metastatic disease as on recent CT scan. Heart/Mediastinum: Unremarkable. No cardiomegaly. Bones/joints: Unremarkable. XR/XR chest 1V portable [id number] IMPRESSION: 1. Emphysematous changes. 2. Small right pleural effusion. 3. Patchy diffuse airspace and pleural opacities again seen similar to prior exam suggestive of metastatic disease as on recent CT scan.
[2021-06-05 17:44] LABS: Hematocrit 25.9 % (37.0-47.0); Hemoglobin 7.8 g/dL (11.5-15.3); Mean Corpuscular HGB Conc 30.1 g/dL (30.0-36.0); Mean Corpuscular Hemoglobin 34.1 pg (28.0-34.0); Mean Corpuscular Volume 113.1 fl (81-99); Mean Platelet Volume 11.5 fL (7.4-10.4); Platelet Count 156 10^3/cmm (130-400); Red Blood Count 2.29 10^6/uL (4.1-5.3); White Blood Count 12.4 10^3/uL (4.0-10.0)
[2021-06-05 18:00] LABS: Lactic Sepsis W/Reflex 1.2 mmol/L (0.5-2.2)
[2021-06-05 18:10] LABS: NT Pro B Type Natriuretic Pept 280 pg/mL (0-450); Procalcitonin 2.49 ng/mL (0-0.5)
[2021-06-05 18:12] LABS: Slide Review Slide Review Perform
[2021-06-05 18:13] LABS: Absolute Neutrophil 10.9 10^3/cmm (1.4-6.5); Absolute Segmented Neutrophil 8.9 10/cmm (1.6-7.1); Anisocytosis 1+; Eosinophils 0 %; Lymphocytes 6 %; Lymphocytes Absolute 0.7 10^3/cmm (1.2-3.4); Macrocytosis 2+; Monocytes Absolute 0.7 10^3/cmm (0.1-0.6); Platelet Estimate Normal (Normal); Polychromasia 1+; Segmented Neutrophils 72 %; Total Cells Counted 100 (0-100)
[2021-06-05 18:21] LABS: Alanine Aminotransferase 11 U/L (0-33); Albumin Level 3.4 g/dL (3.5-5.2); Alkaline Phosphatase 128 IU/L (35-105); Aspartate Amino Transferase 28 U/L (0-32); Blood Urea Nitrogen 20 mg/dL (8-23); Calcium 8.6 mg/dL (8.5-10.5); Carbon Dioxide 25 mmol/L (22-29); Chloride 103 mmol/L (98-107); Globulin 2.8 g/dL (1.3-4.6); Glucose 113 mg/dL (65-115); Osmolality Calculated 299 mOsm/kg (285-295); Sodium 143 mmol/L (136-145); Total Bilirubin 0.8 mg/dL (0.15-1.2); Total Protein 6.2 g/dL (6.6-8.7)
[2021-06-05 18:23] LABS: Anion Gap 18.8 (5-19); Potassium 3.8 mmol/L (3.5-5.1)
[2021-06-05 18:25] VITALS: RESP 32; O2SAT 88
[2021-06-05 19:31] LABS: Adenovirus Not Detected (NOT DETECT); Chlamydia Pneumoniae Not Detected (NOT DETECT); Coronavirus 229E,HKU1,NL63,OC4 Not Detected (NOT DETECT); Human Metapneumovirus Not Detected (NOT DETECT); Human Rhinovirus/Enterovirus Not Detected (NOT DETECT); Influenza A Not Detected (NOT DETECT); Influenza A H1 Not Detected (NOT DETECT); Influenza A H1-2009 Not Detected (NOT DETECT); Influenza A H3 Not Detected (NOT DETECT); Influenza B Not Detected (NOT DETECT); Mycoplasma Pneumoniae Not Detected (NOT DETECT); Parainfluenza Virus Type 1 Not Detected (NOT DETECT); Parainfluenza Virus Type 2 Not Detected (NOT DETECT); Parainfluenza Virus Type 3 Not Detected (NOT DETECT); Parainfluenza Virus Type 4 Not Detected (NOT DETECT); Respiratory Syncytial Virus A Not Detected (NOT DETECT); Respiratory Syncytial Virus B Not Detected (NOT DETECT); SARS-COV-2 Not Detected (NOT DETECT)
== END 2021-06-05 18:30 | disposition left against medical advice (07) ==
PROVIDERS: Physician Assistant; Emergency Provider Emergency Medicine; PCP Family Medicine
DX: J96.01 Acute respiratory failure with hypoxia (principal); Z53.29 Procedure and treatment not carried out because of patient's decision for other reasons; J44.9 Chronic obstructive pulmonary disease, unspecified; C80.1 Malignant (primary) neoplasm, unspecified; C78.00 Secondary malignant neoplasm of unspecified lung; Z99.81 Dependence on supplemental oxygen; Z79.899 Other long term (current) drug therapy; Z87.891 Personal history of nicotine dependence
CPT/HCPCS: 71045; 80053; 83605; 83880; 84145; 85007; 85025; 87635; 93005; 99283

== ENCOUNTER 2021-06-08 22:35 | Observation (INO) | payer MEDICARE, SELFPAY ==
[2021-06-08 22:36] VITALS: BP 99/54; PULSE 114; RESP 24; TEMP 36.3; O2SAT 96; BMI 16.1
[2021-06-08 22:47] VITALS: BP 100/55; PULSE 94; RESP 18; O2SAT 95
--- NOTE | 2021-06-08 22:57 | W.ED.SOB ---
Documented by User: DENNISE Roberts 06/11/21 07:03 HPI - SOB/Dyspnea General: Chief Complaint: Shortness of Breath/Dyspnea Stated Complaint: SOB Time Seen by Provider: 06/08/21 22:45 Source: patient and family () Mode of arrival: EMS Limitations: no limitations History of Present Illness: HPI Narrative: Patient is an 80-year-old female with a history of COPD and metastatic small cell lung cancer here via EMS for complaints of hypoxia and SOB. Patient is chronically on 14 L O2 via nasal cannula and states today, while wearing her oxygen, that she was satting in the 70s. Patient has been here a few times recently and always left AMA. Patient has recently seen her oncologist Dr. Ling and he has spoken to patient and regarding prognosis. and adamantly refuse hospice care at this time and want to continue seeking all treatment options. Patient has not been running fevers. She was seen here 2 days ago and eloped from the waiting room-she had a negative COVID test at that time. Associated symptoms: Deny abdominal pain, chest pain, extremity pain, fever(s), hemoptysis, nausea or vomiting Review of Systems Const: Denies: fever(s), chills, body aches, fatigue or malaise Card: Denies: chest pain Resp: Reports: dyspnea; Denies: productive cough, non-productive cough, wheezing or hemoptysis GI: Denies: abdominal pain, nausea, vomiting or diarrhea Musc: Denies: neck pain, back pain, extremity pain or joint pain Skin/Breast: Denies: rash Neuro: Denies: headache(s) PFSH ED PFSH: Medical History (Updated 06/11/21 @ 00:01 by ) Abnormal finding on urinalysis Acute and chronic respiratory failure Anemia Chronic obstructive pulmonary disease Metastatic lung carcinoma Small cell lung cancer Metastatic Surgical History History of back surgery History of colonoscopy 2014 Social History Quit status (tobacco): has quit using tobacco Year quit tobacco: 1999 [id number] Second hand smoke exposure: Yes Smoking risk assessment/counseling performed?: Yes Alcohol intake: former Caregiver/support person: No Lives independently: Yes Household members: spouse Housing: House Marital status: service: No Current occupational status: retired Pets and animals: Yes History of recent travel: No Current gender identity: Female Physical Exam Const: COMMON NORMALS: no limitations GENERAL APPEARANCE: in distress (pt in acute respiratory distress with hypoxia ), frail appearing and other NUTRITIONAL APPEARANCE: cachectic ORIENTATION/CONSCIOUSNESS: Yes awake, Yes oriented to person and Yes oriented to place HENMT: COMMON NORMALS: normocephalic and atraumatic HEAD & SCALP: normocephalic and atraumatic Resp: EFFORT & INSPECTION: Yes tachypneic AUSCULTATION: diminished lung sounds Cardio: COMMON NORMALS: regular rhythm RATE: tachycardic RHYTHM: regular rhythm Extremity: COMMON NORMALS: no clubbing, cyanosis or edema, no calf tenderness and no pedal edema Neuro: BRENDAN COMA SCALE: document GCS findings Brendan coma scale eye opening: Spontaneous Brendan coma scale verbal response: Orientated Brendan coma scale motor response: Obey commands [place] coma scale total score: 15 SENSORIUM/ORIENTATION: Yes oriented to person and Yes oriented to place Skin: COMMON NORMALS: no rashes or lesions noted GENERAL SKIN EXAM: no rashes or lesions noted Course Consultations: Consultation #1: Dr. Lazcano-accepts hospitalization Vital Signs: Vital signs: Vital Signs Temperature 98.0 F 06/10/21 07:53 Pulse Rate 106 H 06/10/21 12:07 Respiratory Rate 16 06/10/21 12:07 Blood Pressure 119/64 06/10/21 07:53 Pulse Oximetry 94 06/10/21 12:07 MDM - SOB/Dyspnea MDM Narrative: Medical decision making narrative: Patient arrives with her for complaints of hypoxia and increasing shortness of breath. Patient has a known history of COPD and extensive metastatic small cell lung cancer. Patient was initially placed on her normal 14L nasal cannula and was satting in the low 80s. She was placed on high flow oxygen on a non-rebreather and now satting in the low 90s. Patient is a mild white count at 16.2. She is chronically anemic. She has a CRP of almost 170. Lactate is normal. CXR showing diffuse fibrosis and emphysema. Patient is wishing to continue to pursue further care at this time. Will admit to the hospital for acute on chronic respiratory failure. Patient was started on IV cefepime. Spoke to Dr. Lam who agrees with admission. Spoke to Dr. Lazcano who accepts patient. UA resulted later and looks overwhelmingly like a UTI however specimen was contaminated. Will try and have RN collect cath specimen. Lab Data: Labs: Lab Results 06/08/21 06/08/21 06/08/21 23:01 23:01 23:01 WBC 16.2 10^3/uL H 10 ^3/uL (4.0-10.0) RBC 2.34 10^6/uL L 10 ^6/uL (4.1-5.3) Hgb 8.1 g/dL L g/dL (11.5-15.3) Hct 26.8 % L % (37.0-47.0) MCV 114.5 fl H fl (81-99) MCH 34.6 pg H pg (28.0-34.0) MCHC 30.2 g/dL g/dL (30.0-36.0) RDW 18.7 % H % (12.1-15.1) Plt Count 196 10^3/cmm 10^3 /cmm (130-400) MPV 11.3 fL H fL (7.4-10.4) Neut % (Auto) 83.1 % % Lymph % (Auto) 7.7 % % [place] % (Auto) 6.1 % % Eos % (Auto) 0.0 % % Baso % (Auto) 0.9 % % Neut # (Auto) 13.42 10^3/uL H 1 0^3/uL (1.8-7.7) Lymph # (Auto) 1.3 10^3/uL 10^3/ uL (0.8-4.8) [place] # (Auto) 1.0 10^3/uL H 10^ 3/uL (0.2-0.9) Eos # (Auto) 0.0 10^3/uL 10^3/ uL (0.0-0.8) Baso # (Auto) 0.1 10^3/uL 10^3/ uL (0.0-0.1) Nucleated RBC % (a uto) 0.3 % % Nucleated RBCs # 0.1 /100WBC /100W BC Specimen Type Sample Site ABG pH ABG pCO2 ABG pO2 ABG HCO3 ABG O2 Saturation ABG Base Excess Mahesh Test A-a O2 Gradient Hematocrit Hgb O2 Saturation Carboxyhemoglobin Methemoglobin Total Hemoglobin Ionized Calcium O2 Delivery Device O2 Liters/Min Industrial Services Worker ID Sodium 139 mmol/L mmol/L (136-145) Potassium 3.9 mmol/L mmol/L (3.5-5.1) Chloride 100 mmol/L mmol/L (98-107) Carbon Dioxide 29 mmol/L mmol/L (22-29) Anion Gap 13.9 (5-19) BUN 18 mg/dL mg/dL (8-23) Creatinine 0.4 mg/dL L mg/dL (0.5-0.9) GFR Calculation Not Reportable Glucose 108 mg/dL mg/dL (65-115) Calculated Osmolal ity 290 mOsm/kg mOsm/ kg (285-295) Lactic Acid Calcium 8.3 mg/dL L mg/dL (8.5-10.5) Total Bilirubin 1.1 mg/dL mg/dL (0.15-1.2) AST 22 U/L U/L (0-32) ALT 10 U/L U/L (0-33) Alkaline Phosphata se 124 IU/L H IU/L (35-105) Troponin T Baselin e 14 ng/L H ng/L (0-10) C-Reactive Protein 169.8 mg/L H mg/L (0.0-4.9) NT-Pro-B Natriuret Pep 339 pg/mL pg/mL (0-450) Total Protein 6.0 g/dL L g/dL (6.6-8.7) Albumin 3.4 g/dL L g/dL (3.5-5.2) Globulin 2.6 g/dL g/dL (1.3-4.6) Coronavirus 229E ( PCR) SARS-CoV-2 (PCR) SARS-CoV-2 Ag (Rap id) 06/09/21 06/09/21 06/09/21 00:08 00:26 00:26 WBC RBC Hgb Hct MCV MCH MCHC RDW Plt Count MPV Neut % (Auto) Lymph % (Auto) [place] % (Auto) Eos % (Auto) Baso % (Auto) Neut # (Auto) Lymph # (Auto) [place] # (Auto) Eos # (Auto) Baso # (Auto) Nucleated RBC % (a uto) Nucleated RBCs # Specimen Type Sample Site ABG pH ABG pCO2 ABG pO2 ABG HCO3 ABG O2 Saturation ABG Base Excess Mahesh Test A-a O2 Gradient Hematocrit Hgb O2 Saturation Carboxyhemoglobin Methemoglobin Total Hemoglobin Ionized Calcium O2 Delivery Device O2 Liters/Min Industrial Services Worker ID Sodium Potassium Chloride Carbon Dioxide Anion Gap BUN Creatinine GFR Calculation Glucose Calculated Osmolal ity Lactic Acid 1.0 mmol/L mmol/L (0.5-2.2) Calcium Total Bilirubin AST ALT Alkaline Phosphata se Troponin T Baselin e C-Reactive Protein NT-Pro-B Natriuret Pep Total Protein Albumin Globulin Coronavirus 229E ( PCR) Not detected (NOT DETECT) SARS-CoV-2 (PCR) Not detected (NOT DETECT) SARS-CoV-2 Ag (Rap id) Cancelled 06/09/21 00:53 WBC RBC Hgb Hct MCV MCH MCHC RDW Plt Count MPV Neut % (Auto) Lymph % (Auto) [place] % (Auto) Eos % (Auto) Baso % (Auto) Neut # (Auto) Lymph # (Auto) [place] # (Auto) Eos # (Auto) Baso # (Auto) Nucleated RBC % (a uto) Nucleated RBCs # Specimen Type Arterial Sample Site Brachial, right ABG pH 7.44 (7.35-7.45) ABG pCO2 47.4 mmHg H mmHg (35-45) ABG pO2 167.0 mmHg H mmHg (80.0-100.0) ABG HCO3 32.4 mmol/L H mmo l/L (22-26) ABG O2 Saturation > 100.0 ABG Base Excess 7.4 mmol/L H mmol /L (-2.0-2.0) Mahesh Test N/a A-a O2 Gradient Not Reportable Hematocrit 25.2 % L % (37-47) Hgb O2 Saturation 97.0 % % (95-100) Carboxyhemoglobin 2.4 %THgb %THgb (0.4-20.1) Methemoglobin 1.1 % % (0.4-1.5) Total Hemoglobin 8.2 g/dL L g/dL (12-16) Ionized Calcium 1.2 mmol/L mmol/L (1.1-1.4) O2 Delivery Device Nrb O2 Liters/Min 15.0 % % Industrial Services Worker ID [email or web address] Sodium 141.0 mmol/L mmol /L (131-143) Potassium 3.8 mmol/L mmol/L (3.5-5.0) Chloride Carbon Dioxide Anion Gap BUN Creatinine GFR Calculation Glucose 126.0 mg/dL H mg/ dL (70-115) Calculated Osmolal ity Lactic Acid Calcium Total Bilirubin AST ALT Alkaline Phosphata se Troponin T Baselin e C-Reactive Protein NT-Pro-B Natriuret Pep Total Protein Albumin Globulin Coronavirus 229E ( PCR) SARS-CoV-2 (PCR) SARS-CoV-2 Ag (Rap id) Imaging Data^: CXR: Radiologist's impression: [id number] [address] XRay Report Signed Patient: Meenu Villalba Unit #: [id number] : 1940 Age/Sex: 80 / F ADM Date: 06/08/21 Loc: ER Room/Bed: Attending Dr: Ordering Provider/Ordering MD: Cordelia Kothari Date of Service: 06/08/21 Procedure(s): XR chest 1V portable [id number] Accession Number(s): [id number] Report Number: [id number] PROCEDURE INFORMATION: Exam: XR Chest Exam date and time: 06/08/2021 10:56 PM Age: 80 years old Clinical indication: Shortness of breath; Prior surgery; Surgery type: Port; Additional info: SOB TECHNIQUE: Imaging protocol: XR of the chest. Views: 1 view. COMPARISON: CR XR chest 1V portable [id number] 06/05/2021 4:43 PM FINDINGS: Tubes, catheters and devices: Left chest tunneled Port-A-Cath terminates in the central aspect of the left innominate vein. Lungs: Diffuse interstitial fibrosis of the lungs. Emphysematous changes. Hyperinflation pattern. Calcified granulomas near the left hilum. Scattered nodules bilaterally. Pleural spaces: Somewhat nodular pleural thickening versus pleural fluid at the right lateral lung base stable from prior. Negative for pneumothorax. Heart/Mediastinum: Unremarkable. No cardiomegaly. Bones/joints: Diffuse osseous demineralization. XR/XR chest 1V portable [id number] IMPRESSION: No significant changes from comparison. Dictated By: Harshad Mendosa Signed By: Harshad Mendosa Signed Date/Time: 06/09/21 0010 DD/ 2256 Discharge Plan Discharge Patient Disposition: Placed in Observation Admit Provider: Marco Lazcano Clinical Impression: Acute and chronic respiratory failure, Metastatic lung carcinoma, Anemia, Chronic obstructive pulmonary disease Discharge Diet: Regular Discharge Activity: Increase activity as tolerated Coding Level of Care Code ED Ship Self Defense System Mk1 Operator for Chg Fwd Exam Detailed Documented by User: Bg Lam DO 06/09/21 19:59 HPI - SOB/Dyspnea General: Chief Complaint: Shortness of Breath/Dyspnea Stated Complaint: SOB Time Seen by Provider: 06/08/21 22:45 PFSH ED PFSH: Medical History (Updated 06/11/21 @ 00:01 by ) Abnormal finding on urinalysis Acute and chronic respiratory failure Anemia Chronic obstructive pulmonary disease Metastatic lung carcinoma Small cell lung cancer Metastatic Surgical History History of back surgery History of colonoscopy 2014 Social History Quit status (tobacco): has quit using tobacco Year quit tobacco: 1999 [id number] Second hand smoke exposure: Yes Smoking risk assessment/counseling performed?: Yes Alcohol intake: former Caregiver/support person: No Lives independently: Yes Household members: spouse Housing: House Marital status: service: No Current occupational status: retired Pets and animals: Yes History of recent travel: No Current gender identity: Female Course Vital Signs: Vital signs: Vital Signs Temperature 98.0 F 06/10/21 07:53 Pulse Rate 106 H 06/10/21 12:07 Respiratory Rate 16 06/10/21 12:07 Blood Pressure 119/64 06/10/21 07:53 Pulse Oximetry 94 06/10/21 12:07 MDM - SOB/Dyspnea MDM Narrative: Medical decision making narrative: This patient was originally seen by Saniya?SOCRATES Warren. I agree with her history, evaluation, and treatment. Lab Data: Labs: Lab Results 06/08/21 06/08/21 06/08/21 23:01 23:01 23:01 WBC 16.2 10^3/uL H 10 ^3/uL (4.0-10.0) RBC 2.34 10^6/uL L 10 ^6/uL (4.1-5.3) Hgb 8.1 g/dL L g/dL (11.5-15.3) Hct 26.8 % L % (37.0-47.0) MCV 114.5 fl H fl (81-99) MCH 34.6 pg H pg (28.0-34.0) MCHC 30.2 g/dL g/dL (30.0-36.0) RDW 18.7 % H % (12.1-15.1) Plt Count 196 10^3/cmm 10^3 /cmm (130-400) MPV 11.3 fL H fL (7.4-10.4) Neut % (Auto) 83.1 % % Lymph % (Auto) 7.7 % % [place] % (Auto) 6.1 % % Eos % (Auto) 0.0 % % Baso % (Auto) 0.9 % % Neut # (Auto) 13.42 10^3/uL H 1 0^3/uL (1.8-7.7) Lymph # (Auto) 1.3 10^3/uL 10^3/ uL (0.8-4.8) [place] # (Auto) 1.0 10^3/uL H 10^ 3/uL (0.2-0.9) Eos # (Auto) 0.0 10^3/uL 10^3/ uL (0.0-0.8) Baso # (Auto) 0.1 10^3/uL 10^3/ uL (0.0-0.1) Nucleated RBC % (a uto) 0.3 % % Nucleated RBCs # 0.1 /100WBC /100W BC Specimen Type Sample Site ABG pH ABG pCO2 ABG pO2 ABG HCO3 ABG O2 Saturation ABG Base Excess Mahesh Test A-a O2 Gradient Hematocrit Hgb O2 Saturation Carboxyhemoglobin Methemoglobin Total Hemoglobin Ionized Calcium O2 Delivery Device O2 Liters/Min Industrial Services Worker ID Sodium 139 mmol/L mmol/L (136-145) Potassium 3.9 mmol/L mmol/L (3.5-5.1) Chloride 100 mmol/L mmol/L (98-107) Carbon Dioxide 29 mmol/L mmol/L (22-29) Anion Gap 13.9 (5-19) BUN 18 mg/dL mg/dL (8-23) Creatinine 0.4 mg/dL L mg/dL (0.5-0.9) GFR Calculation Not Reportable Glucose 108 mg/dL mg/dL (65-115) Calculated Osmolal ity 290 mOsm/kg mOsm/ kg (285-295) Lactic Acid Calcium 8.3 mg/dL L mg/dL (8.5-10.5) Total Bilirubin 1.1 mg/dL mg/dL (0.15-1.2) AST 22 U/L U/L (0-32) ALT 10 U/L U/L (0-33) Alkaline Phosphata se 124 IU/L H IU/L (35-105) Troponin T Baselin e 14 ng/L H ng/L (0-10) C-Reactive Protein 169.8 mg/L H mg/L (0.0-4.9) NT-Pro-B Natriuret Pep 339 pg/mL pg/mL (0-450) Total Protein 6.0 g/dL L g/dL (6.6-8.7) Albumin 3.4 g/dL L g/dL (3.5-5.2) Globulin 2.6 g/dL g/dL (1.3-4.6) Coronavirus 229E ( PCR) SARS-CoV-2 (PCR) SARS-CoV-2 Ag (Rap id) 06/09/21 06/09/21 06/09/21 00:08 00:26 00:26 WBC RBC Hgb Hct MCV MCH MCHC RDW Plt Count MPV Neut % (Auto) Lymph % (Auto) [place] % (Auto) Eos % (Auto) Baso % (Auto) Neut # (Auto) Lymph # (Auto) [place] # (Auto) Eos # (Auto) Baso # (Auto) Nucleated RBC % (a uto) Nucleated RBCs # Specimen Type Sample Site ABG pH ABG pCO2 ABG pO2 ABG HCO3 ABG O2 Saturation ABG Base Excess Mahesh Test A-a O2 Gradient Hematocrit Hgb O2 Saturation Carboxyhemoglobin Methemoglobin Total Hemoglobin Ionized Calcium O2 Delivery Device O2 Liters/Min Industrial Services Worker ID Sodium Potassium Chloride Carbon Dioxide Anion Gap BUN Creatinine GFR Calculation Glucose Calculated Osmolal ity Lactic Acid 1.0 mmol/L mmol/L (0.5-2.2) Calcium Total Bilirubin AST ALT Alkaline Phosphata se Troponin T Baselin e C-Reactive Protein NT-Pro-B Natriuret Pep Total Protein Albumin Globulin Coronavirus 229E ( PCR) Not detected (NOT DETECT) SARS-CoV-2 (PCR) Not detected (NOT DETECT) SARS-CoV-2 Ag (Rap id) Cancelled 06/09/21 00:53 WBC RBC Hgb Hct MCV MCH MCHC RDW Plt Count MPV Neut % (Auto) Lymph % (Auto) [place] % (Auto) Eos % (Auto) Baso % (Auto) Neut # (Auto) Lymph # (Auto) [place] # (Auto) Eos # (Auto) Baso # (Auto) Nucleated RBC % (a uto) Nucleated RBCs # Specimen Type Arterial Sample Site Brachial, right ABG pH 7.44 (7.35-7.45) ABG pCO2 47.4 mmHg H mmHg (35-45) ABG pO2 167.0 mmHg H mmHg (80.0-100.0) ABG HCO3 32.4 mmol/L H mmo l/L (22-26) ABG O2 Saturation > 100.0 ABG Base Excess 7.4 mmol/L H mmol /L (-2.0-2.0) Mahesh Test N/a A-a O2 Gradient Not Reportable Hematocrit 25.2 % L % (37-47) Hgb O2 Saturation 97.0 % % (95-100) Carboxyhemoglobin 2.4 %THgb %THgb (0.4-20.1) Methemoglobin 1.1 % % (0.4-1.5) Total Hemoglobin 8.2 g/dL L g/dL (12-16) Ionized Calcium 1.2 mmol/L mmol/L (1.1-1.4) O2 Delivery Device Nrb O2 Liters/Min 15.0 % % Industrial Services Worker ID [id number] Sodium 141.0 mmol/L mmol /L (131-143) Potassium 3.8 mmol/L mmol/L (3.5-5.0) Chloride Carbon Dioxide Anion Gap BUN Creatinine GFR Calculation Glucose 126.0 mg/dL H mg/ dL (70-115) Calculated Osmolal ity Lactic Acid Calcium Total Bilirubin AST ALT Alkaline Phosphata se Troponin T Baselin e C-Reactive Protein NT-Pro-B Natriuret Pep Total Protein Albumin Globulin Coronavirus 229E ( PCR) SARS-CoV-2 (PCR) SARS-CoV-2 Ag (Rap id) Discharge Plan Discharge Patient Disposition: Placed in Observation Admit Provider: Marco Lazcano Clinical Impression: Acute and chronic respiratory failure, Metastatic lung carcinoma, Anemia, Chronic obstructive pulmonary disease Discharge Diet: Regular Discharge Activity: Increase activity as tolerated Coding Level of Care Code ED Ship Self Defense System Mk1 Operator for Chg Fwd Exam Detailed
--- NOTE | 2021-06-08 23:03 | ECG_ITS ---
[facility] Test Date: 2021-06-08 Pat Name: Meenu Villalba Department: Room: Gender: Female Vp Scientific: : 1940 Requested By: Cordelia Kothari Order Number: [id number] Dafne MD: Gosia Rogel M.D. Measurements Intervals [place] Rate: 111 P: 78 IA: 178 QRS: 20 QRSD: 84 T: 72 QT: 348 QTc: 473 Interpretive Statements SINUS TACHYCARDIA WITH OCCASIONAL SUPRAVENTRICULAR PREMATURE COMPLEXES POSSIBLE LEFT ATRIAL ENLARGEMENT [-0.1mV P-WAVE IN V1/V2] Compared to ECG 06/05/2021 17:33:14 Intraventricular conduction delay no longer present Electronically Signed On 06-09-2021 17:06:50 ADVERTISING ASSOCIATE by Gosia Rogel M.D. [id number] f
[2021-06-08 23:18] LABS: Basophils # 0.1 10^3/uL (0.0-0.1); Basophils % 0.9 %; Hematocrit 26.8 % (37.0-47.0); Hemoglobin 8.1 g/dL (11.5-15.3); Lymphocytes # 1.3 10^3/uL (0.8-4.8); Lymphocytes % 7.7 %; Mean Corpuscular HGB Conc 30.2 g/dL (30.0-36.0); Mean Corpuscular Hemoglobin 34.6 pg (28.0-34.0); Mean Corpuscular Volume 114.5 fl (81-99); Mean Platelet Volume 11.3 fL (7.4-10.4); Monocytes % 6.1 %; Neutrophils # 13.42 10^3/uL (1.8-7.7); Neutrophils % 83.1 %; Nucleated Red Blood Cells # 0.1 /100WBC; Nucleated Red Blood Cells % 0.3 %; Platelet Count 196 10^3/cmm (130-400); Red Blood Count 2.34 10^6/uL (4.1-5.3); Red Cell Distribution Width 18.7 % (12.1-15.1); White Blood Count 16.2 10^3/uL (4.0-10.0)
[2021-06-08 23:40] LABS: Troponin(5th) Baseline 14 ng/L (0-10)
[2021-06-08 23:47] LABS: Alanine Aminotransferase 10 U/L (0-33); Albumin Level 3.4 g/dL (3.5-5.2); Alkaline Phosphatase 124 IU/L (35-105); Anion Gap 13.9 (5-19); Aspartate Amino Transferase 22 U/L (0-32); Blood Urea Nitrogen 18 mg/dL (8-23); C Reactive Protein 169.8 mg/L (0.0-4.9); Calcium 8.3 mg/dL (8.5-10.5); Carbon Dioxide 29 mmol/L (22-29); Chloride 100 mmol/L (98-107); Globulin 2.6 g/dL (1.3-4.6); Glucose 108 mg/dL (65-115); NT Pro B Type Natriuretic Pept 339 pg/mL (0-450); Osmolality Calculated 290 mOsm/kg (285-295); Potassium 3.9 mmol/L (3.5-5.1); Sodium 139 mmol/L (136-145); Total Bilirubin 1.1 mg/dL (0.15-1.2)
[2021-06-09] VITALS (10 sets, daily range): BP systolic 100–129; BP diastolic 55–67; PULSE 66–103; RESP 16–22; TEMP 36.4–37.2; O2SAT 92–100; BMI 14.0
[2021-06-09] MEDS: cefepime 1,000 MG in sodium chloride 0.9% (plus) 50 ML 100 MG IV (01:03)
--- NOTE | 2021-06-09 01:03 | ECG_ITS ---
[facility] Test Date: 2021-06-08 Pat Name: Meenu Villalba Department: Room: 266 Gender: Female Chemistry Lecturer: : 1940 Requested By: Cordelia Kothari Order Number: [id number] Dafne MD: Gosia Rogel M.D. Measurements Intervals [place] Rate: 111 P: 78 MI: 178 QRS: 20 QRSD: 84 T: 72 QT: 348 QTc: 473 Interpretive Statements SINUS TACHYCARDIA WITH OCCASIONAL SUPRAVENTRICULAR PREMATURE COMPLEXES POSSIBLE LEFT ATRIAL ENLARGEMENT [-0.1mV P-WAVE IN V1/V2] Compared to ECG 06/05/2021 17:33:14 Intraventricular conduction delay no longer present Electronically Signed On 06-09-2021 17:12:42 PERSONAL BANKING ADVISOR by Gosia Rogel M.D. [id number] f
[2021-06-09] MEDS: ipratropium-albuterol 3 mL Neb INHALATION ×2 (01:49→20:38)
[2021-06-09 01:54] LABS: Glucose Urine UA Norm (Normal); Protein Urine Neg (Negative); Urine Color Yellow (Yellow); pH Urine 5 (5-7)
[2021-06-09 01:55] LABS: Add Urine Microscopic? YES; Bilirubin Urine 1+ (Negative); Blood Urine 2+ (Negative); Ketones Urine Negative (Negative); Leukocyte Esterase Urine Trace (Negative); Nitrate Urine Negative (Negative); Urobilinogen Urine 1 mg/dL (Negative)
[2021-06-09 01:56] LABS: Troponin 5 2HR 13.42 ng/L (0-10)
[2021-06-09 01:59] LABS: ABG PCO2 47.4 mmHg (35-45); ABG PH Result 7.44 (7.35-7.45); Arterial Blood Gas Hematocrit 25.2 % (37-47); Base Excess ABG 7.4 mmol/L (-2.0-2.0); Blood Gas Sample Site Brachial, right; Blood Gas Sample Type Arterial; Carboxyhemoglobin 2.4 %THgb (0.4-20.1); HCO3 ABG 32.4 mmol/L (22-26); Ionized Calcium Level - ABG 1.2 mmol/L (1.1-1.4); Methemoglobin 1.1 % (0.4-1.5); Oxygen Device NRB; Oxygen Saturation ABG > 100.0; Potassium Level - ABG 3.8 mmol/L (3.5-5.0); Total Hemoglobin 8.2 g/dL (12-16)
[2021-06-09 02:02] LABS: Add Urine Culture? No; Bacteria Urine 3+ /hpf; Calcium Oxalate Crystals Urine 0-4 /hpf; WBC Urine 55-80 /hpf (0-5)
[2021-06-09 02:03] LABS: Troponin 5 2HR Delta -0.58 ABS# (0-10)
[2021-06-09 02:42] LABS: Adenovirus Not Detected (NOT DETECT); Chlamydia Pneumoniae Not Detected (NOT DETECT); Coronavirus 229E,HKU1,NL63,OC4 Not Detected (NOT DETECT); Human Metapneumovirus Not Detected (NOT DETECT); Human Rhinovirus/Enterovirus Not Detected (NOT DETECT); Influenza A Not Detected (NOT DETECT); Influenza A H1 Not Detected (NOT DETECT); Influenza A H1-2009 Not Detected (NOT DETECT); Influenza A H3 Not Detected (NOT DETECT); Influenza B Not Detected (NOT DETECT); Mycoplasma Pneumoniae Not Detected (NOT DETECT); Parainfluenza Virus Type 1 Not Detected (NOT DETECT); Parainfluenza Virus Type 2 Not Detected (NOT DETECT); Parainfluenza Virus Type 3 Not Detected (NOT DETECT); Parainfluenza Virus Type 4 Not Detected (NOT DETECT); Respiratory Syncytial Virus A Not Detected (NOT DETECT); Respiratory Syncytial Virus B Not Detected (NOT DETECT); SARS-COV-2 Not Detected (NOT DETECT)
--- NOTE | 2021-06-09 02:51 | PC.NURSE ---
ADMIT NOTE Pt received to room from ER at 0235. Is alert but quite confused. Keeps asking where her is and why she has to be here. Denies any pain and says she feels just fine Got agitated with nurse when trying to move her to the bed and change her clothes. Stated she thinks there is something fishy going on here O2 in place per nonrebreather from ER. RT had asked me to change her to an Oxymask at 6l. Has a tiny open area to sacral area & some redness. Had a dressing in place and was removed to evaluate wound. Optifoam replaced. Is very thin. IV PIID intact to left FA. Bed alarm on for safety.
--- NOTE | 2021-06-09 03:22 | PM.HP ---
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 Patient was been seen multiple times in ER for this. She is a poor historian and not able to provide much history. Apparently she was noted to have oxygen saturation in low 70s on her baseline oxygen supplementation. She denied any recent fever, chills, or change in cough. Stated she felt fine at the time of my eval. Laboratory workup showed a WBC of 16.2, hemoglobin of 8.1, hematocrit of 26.8 and platelet count of 196. Sodium 139, potassium 3.9, chloride 100, bicarb 29, BUN 18 and creatinine of 0.4. CRP of 169. Urinalysis showed trace leukocyte esterase, 55 to 80 wbc . COVID-19 was not detected. Chest x-ray showed chronic diffuse interstitial fibrosis of lungs, emphysematous changes and hyperinflation. In ER patient was given Cefepime 1 g Iv x 1 and admitted. Of note patient was on 6L via face mask at the time of my eval. In review of last pulmonary note hospice/palliative care was recommended. Medications/Allergies Home Medications Medication Instructions Recorded Confirmed Last Taken Type oxycodone-acetaminophen 1 - 2 tab PO Q4H PRN 09/29/20 05/24/21 10/22/20 History ondansetron HCl [Zofran] 4 mg PO Q6H PRN 10/23/20 05/24/21 Unknown History prochlorperazine maleate 10 mg PO Q6H PRN 10/23/20 05/24/21 Unknown History Trelegy Ellipta 1 inh INHALATION DAILY 01/22/21 05/24/21 Unknown History multivitamin 1 tab PO DAILY 01/22/21 05/24/21 Unknown History amoxicillin-pot clavulanate 1 tab PO BID #10 tab 01/28/21 Unknown Rx [Augmentin] pantoprazole 40 mg PO DAILY@1700 #30 tab 01/28/21 05/24/21 Unknown Rx prednisone See Rx Instructions .ROUTE 01/28/21 Unknown Rx .COMPLEX #21 ea budesonide 0.25 mg/2 mL suspension 0.25 mg INHALATION BID #60 ml 03/21/21 05/24/21 Unknown Rx for nebulization formoterol fumarate 20 mcg/2 mL 2 ml INHALATION BID #60 ml 03/21/21 03/21/21 Unknown Rx solution for nebulization nebulizers #1 ea 03/21/21 05/24/21 Unknown Rx revefenacin 175 mcg/3 mL solution 175 mcg INHALATION DAILY #60 ml 03/21/21 05/24/21 Unknown Rx for nebulization benzocaine [HurriCaine] 1 applic MUCOUS MEMBRANE TID PRN 05/31/21 Unknown Rx #57 g Allergies Allergy/AdvReac Type Severity Reaction Status Date / Time aspirin Allergy Unknown Verified 05/24/21 08:37 PFSH Acute PFSH: Medical History (Updated 06/09/21 @ 05:24 by Marco Lazcano MD) Chronic obstructive pulmonary disease Small cell lung cancer Metastatic Surgical History History of back surgery History of colonoscopy 2014 Social History Quit status (tobacco): has quit using tobacco Year quit tobacco: 1999 [id number] Second hand smoke exposure: Yes Smoking risk assessment/counseling performed?: Yes Alcohol intake: former Caregiver/support person: No Lives independently: Yes Household members: spouse Housing: House Marital status: service: No Current occupational status: retired Pets and animals: Yes History of recent travel: No Current gender identity: Female Vitals/I&O/Wt Last Vital Signs Temp 97.4 F L 06/08/21 22:36 Pulse 94 06/09/21 02:49 Resp 18 06/09/21 02:49 BP 100/55 06/09/21 02:49 Pulse Ox 97 06/09/21 05:03 06/08/21 06/08/21 06/09/21 14:59 22:59 06:59 Intake Total 50 / 50 Output Total 125 / 125 Balance -75 / -75 Weight last 48 hrs Weight 39.372 kg Weight 45.359 kg Physical Exam Narrative: EXAM NARRATIVE: General : Alert awake, NAD, cachectic, chronically ill appearing HEENT-Grossly unremarkable Chest -nonlabored respiration CVS -normal sinus rhythm Abdomen- nondistended Extremities-no edema Data : 06/08/21 23:01 06/08/21 23:01 Micro: Microbiology 06/09/21 01:10 Blood Culture - Preliminary Blood SPECIMEN COLLECTED 06/09/21 01:14 Blood Culture - Preliminary Blood SPECIMEN COLLECTED A&P Assessment and plan (1) Acute and chronic respiratory failure: Status: Acute Qualifiers: Respiratory failure complication: hypoxia Qualified Code(s): J96.21 - Acute and chronic respiratory failure with hypoxia (2) Abnormal finding on urinalysis: Status: Acute Additional A&P Information Acute on chronic respiratory failure / COPD / metastatic small cell lung cancer On 10L via pendant at home Currently on 6L via simple mask Continue pulmicort 0.25 inh BID Perforomist/Yupelri nebulizations at home ( not on formulary) Duoneb q6hr No evidence of acute infection Possible UTI UA trace leuk esterace, 55-80 WBC Follow upon urine culture Rocephin 1g IV q24hr Metastatic Small Cell Lung Cancer Following with Dr. Ling outpaitient Additional Medical Problems G6PD varient Hx of Malignant pleural effusion rx Thoracentesis Severe Protein/calorie malnutrition DVT ppx Heparin 5000 units q12hr Attestations Medical Necessity Statement*: anticipate less than 2 midnight stay in hospital for eval and treatment Time Spent in Patient Care: Greater than 35 minutes (>than 50% of time spent in counselling and/or direct pt care on unit). Coding Level of Care Code Acute Technician [employer] for Deonte Kaiser Diagnoses Acute and chronic respiratory failure J96.21 Respiratory failure complication: hypoxia Abnormal finding on urinalysis R82.90
--- NOTE | 2021-06-09 05:03 | ECG_ITS ---
[facility] Test Date: 2021-06-09 Pat Name: Meenu Villalba Department: Room: 266 Gender: Female Manager Assurance: : 1940 Requested By: Cordelia Kothari Order Number: [id number] Dafne MD: Gosia Rogel M.D. Measurements Intervals [place]il Rate: 97 P: 80 CA: 146 QRS: 34 QRSD: 79 T: 69 QT: 349 QTc: 443 Interpretive Statements SINUS RHYTHM WITH OCCASIONAL SUPRAVENTRICULAR PREMATURE COMPLEXES LOW QRS VOLTAGE IN EXTREMITY LEADS [QRS DEFLECTION < 0.5 mV IN LIMB LEADS] SEPTAL MYOCARDIAL INFARCTION , PROBABLY OLD [40+ ms Q WAVE IN V1/V2] Compared to ECG 06/08/2021 22:53:25 Low QRS voltage now present Myocardial infarct finding now present Sinus tachycardia no longer present Electronically Signed On 06-09-2021 17:11:50 DATABASES COMPUTER CONSULTANT by Gosia Rogel M.D. [id number]
[2021-06-09] MEDS: sodium chloride 0.9% 1,000 ML 75 ML IV ×2 (05:49→17:23)
[2021-06-09] MEDS: cefTRIAXone 1,000 MG in sodium chloride 0.9% (plus) 50 ML 100 MG IV (05:50)
[2021-06-09] MEDS: heparin 5,000 unit/mL INJ 1 mL 5000 UNIT SUBCUT ×2 (05:50→17:23)
--- NOTE | 2021-06-09 06:25 | PC.NURSE ---
ANEL Had been resting well until this morning when she kept taking her oxymask off and refusing to let nurse pit it back on her. Became quite agitated with it and demanding it not be put on her face. At same time wanting me to help her breathe. Changed to NC per RT instructiion and is resting now and leaving it on
[2021-06-09 07:16] LABS: Basophils # 0.1 10^3/uL (0.0-0.1); Basophils % 0.9 %; Hematocrit 24.5 % (37.0-47.0); Hemoglobin 7.3 g/dL (11.5-15.3); Lymphocytes # 0.5 10^3/uL (0.8-4.8); Lymphocytes % 3.6 %; Mean Corpuscular HGB Conc 29.8 g/dL (30.0-36.0); Mean Corpuscular Hemoglobin 34.1 pg (28.0-34.0); Mean Corpuscular Volume 114.5 fl (81-99); Mean Platelet Volume 11.4 fL (7.4-10.4); Monocytes # 0.2 10^3/uL (0.2-0.9); Monocytes % 1.3 %; Neutrophils # 12.98 10^3/uL (1.8-7.7); Neutrophils % 92.8 %; Nucleated Red Blood Cells % 0.1 %; Platelet Count 179 10^3/cmm (130-400); Red Blood Count 2.14 10^6/uL (4.1-5.3); Red Cell Distribution Width 18.5 % (12.1-15.1)
[2021-06-09 07:35] LABS: Anion Gap 15.1 (5-19); Blood Urea Nitrogen 18 mg/dL (8-23); Calcium 8.5 mg/dL (8.5-10.5); Carbon Dioxide 28 mmol/L (22-29); Chloride 101 mmol/L (98-107); Glucose 121 mg/dL (65-115); Osmolality Calculated 293 mOsm/kg (285-295); Potassium 4.1 mmol/L (3.5-5.1); Sodium 140 mmol/L (136-145)
[2021-06-09 07:40] LABS: Procalcitonin 2.21 ng/mL (0-0.5)
[2021-06-09] MEDS: pantoprazole DR 40 mg Tablet PO (08:16)
--- NOTE | 2021-06-09 08:36 | PC.PHAR ---
pt states she takes care of her own medications-pt states she doesnt take many medications-pt states she uses a nebulizer and uses the medication the way it says-ext med history shows dexamethasone last filled 05/21/21 4d/s #16 tabs-pt states she is unsure if she takes-[facility] not open to verify meds called pts no answer-
[2021-06-09] MEDS: budesonide 0.5 mg/2 mL Neb 0.25 MG INHALATION ×2 (09:02→20:38)
[2021-06-09 10:05] LABS: Charge for UA Resulting for Rev
[2021-06-09 10:12] LABS: Add Urine Microscopic? YES; Bilirubin Urine 1+ (Negative); Blood Urine 2+ (Negative); Glucose Urine UA Norm (Normal); Ketones Urine 1+ (Negative); Leukocyte Esterase Urine Negative (Negative); Nitrate Urine Positive (Negative); Protein Urine Neg (Negative); Urine Appearance Clear (CLEAR); Urine Color Yellow (Yellow); Urobilinogen Urine Norm (Negative); pH Urine 5 (5-7)
--- NOTE | 2021-06-09 17:06 | PC.NURSE ---
Dr. Zhao in to see patient and discuss plan of care with patient and spouse, will re-evaluate status in the morning and if unchanged and is doing well will be discharged home. Patient and spouse verbalized understanding and in agreement wanting discharge in time for patient to receive chemo on Friday.
--- NOTE | 2021-06-09 18:23 | PM.PN ---
Subjective Subjective: Interval history: Patient was seen and examined this morning, no acute events overnight, says that she continues to feel weak, currently saturating on, 14 L oxygen through HFNC Medications: Reviewed: Yes Vitals/I&O/Wt Last Vital Signs Temp 97.8 F 06/09/21 16:00 Pulse 102 H 06/09/21 16:00 Resp 18 06/09/21 16:00 BP 129/66 06/09/21 16:00 Pulse Ox 96 06/09/21 16:00 06/09/21 06/09/21 06/09/21 06:59 14:59 22:59 Intake Total 340 / 340 150 / 150 867.5 / 1017.5 Output Total 125 / 125 200 / 200 Balance 215 / 215 -50 / -50 867.5 / 817.5 Weight last 48 hrs Weight 39.372 kg Weight 45.359 kg Physical Exam Const: COMMON NORMALS: patient oriented x3 HENMT: COMMON NORMALS: normocephalic and atraumatic HEAD & SCALP: normocephalic and atraumatic Resp: COMMON NORMALS: clear to auscultation bilaterally AUSCULTATION: clear to auscultation bilaterally Cardio: COMMON NORMALS: regular rate, regular rhythm, S1 normal heart sound present, S2 normal heart sound present, No gallops present (Cardio), No murmurs present (Cardio), No rub (Cardio) and Peripheral pulses 2+ throughout RATE: regular rate RHYTHM: regular rhythm HEART SOUNDS: S1 normal heart sound present and S2 normal heart sound present PERIPHERAL PULSES: Peripheral pulses 2+ throughout GI: COMMON NORMALS: Normal to inspection, nondistended, normoactive bowel sounds present, Soft to palpation, non-tender, No hepatosplenomegaly present and no masses AUSCULTATION: Yes normoactive bowel sounds PALPATION: Yes Soft to palpation and Yes No hepatosplenomegaly present RECTAL EXAM: deferred Extremity: COMMON NORMALS: no clubbing, cyanosis or edema and no pedal edema Neuro: COMMON NORMALS: patient oriented x3 Data : 06/09/21 06:42 06/09/21 06:42 Micro: Microbiology 06/09/21 01:10 Blood Culture - Preliminary Blood SPECIMEN COLLECTED 06/09/21 01:14 Blood Culture - Preliminary Blood SPECIMEN COLLECTED A&P Assessment and plan (1) Acute and chronic respiratory failure: Status: Acute Qualifiers: Respiratory failure complication: hypoxia Qualified Code(s): J96.21 - Acute and chronic respiratory failure with hypoxia (2) Abnormal finding on urinalysis: Status: Acute Additional A&P Information Acute on chronic hypoxia / COPD / metastatic small cell lung cancer On 10L via pendant at home Continue pulmicort 0.25 inh BID Perforomist/Yupelri nebulizations at home ( not on formulary) Duoneb q6hr No evidence of acute infection UTI UA trace leuk esterace, 55-80 WBC Follow upon urine culture Rocephin 1g IV q24hr Metastatic Small Cell Lung Cancer Following with Dr. Ling outpaitient Additional Medical Problems G6PD varient Hx of Malignant pleural effusion rx Thoracentesis Severe Protein/calorie malnutrition DVT ppx Heparin 5000 units q12hr Attestations Medical Necessity Statement*: Patient is to be in hospital for management of Acute on chronic hypoxia Coding Level of Care Code Acute Commercial Lines Account Assistant for [facility] Diagnoses Acute and chronic respiratory failure J96.21 Respiratory failure complication: hypoxia Abnormal finding on urinalysis R82.90
[2021-06-10] VITALS: BP 119/71; PULSE 95; RESP 17; TEMP 36.6; O2SAT 97
[2021-06-10 04:00] VITALS: BP 120/61; PULSE 99; RESP 16; TEMP 37.1; O2SAT 99
[2021-06-10] MEDS: heparin 5,000 unit/mL INJ 1 mL 5000 UNIT SUBCUT (06:07)
[2021-06-10] MEDS: cefTRIAXone 1,000 MG in sodium chloride 0.9% (plus) 50 ML 100 MG IV (06:07)
[2021-06-10] MEDS: sodium chloride 0.9% 1,000 ML 75 ML IV (06:45)
[2021-06-10 07:53] VITALS: BP 119/64; PULSE 97; RESP 16; TEMP 36.7; O2SAT 96
[2021-06-10 08:32] VITALS: PULSE 103; RESP 16; O2SAT 94
[2021-06-10] MEDS: ipratropium-albuterol 3 mL Neb INHALATION (08:32)
[2021-06-10] MEDS: budesonide 0.5 mg/2 mL Neb 0.25 MG INHALATION (08:32)
[2021-06-10] MEDS: acetaminophen 325 mg Tablet 650 MG PO (08:35)
[2021-06-10] MEDS: pantoprazole DR 40 mg Tablet PO (08:35)
[2021-06-10 08:46] VITALS: PULSE 106; RESP 16; O2SAT 94
--- NOTE | 2021-06-10 10:52 | P.DS_ITS ---
Discharge Providers Date of Admission: 06/09/21 01:07 Date of Discharge: June 10, 2021 Attending Provider at Admission: Marco Lazcano Attending Provider at Discharge: Phi Zhao MD Primary Care Provider: Anthony Nielson MD Diagnoses at Discharge Discharge Diagnosis (1) Acute and chronic respiratory failure: Qualifiers: Respiratory failure complication: hypoxia Qualified Code(s): J96.21 - Acute and chronic respiratory failure with hypoxia (2) Abnormal finding on urinalysis: Reason for Visit Reason for Visit: SOB Hospital Course Hospital Course 80-year-old female with a past medical history significant for G6PD variant, degenerative disc disease, recurrent urinary tract infections, 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 Apparently she was noted to have oxygen saturation in low 70s on her baseline oxygen supplementation. She denied any recent fever, chills, or change in cough.Laboratory workup showed a WBC of 16.2, hemoglobin of 8.1, hematocrit of 26.8 and platelet count of 196. Sodium 139, potassium 3.9, chloride 100, bicarb 29, BUN 18 and creatinine of 0.4. CRP of 169. Urinalysis showed trace leukocyte esterase, 55 to 80 wbc . COVID-19 was not detected. Chest x-ray showed chronic diffuse interstitial fibrosis of lungs, emphysematous changes and hyperinflation.She was admitted for the management of Acute on chronic respiratory failure / COPD / metastatic small cell lung cancer she was kept on conservative respiratory support measures to which she responded well at the time of discharge she was at her baseline supplemental oxygen requirement she was also kept on abxs for UTI. she responded well to above medical management and was discharged in stable condition to home. Physical Exam Const: COMMON NORMALS: patient oriented x3 HENMT: COMMON NORMALS: normocephalic and atraumatic HEAD & SCALP: normocephalic and atraumatic Resp: COMMON NORMALS: clear to auscultation bilaterally AUSCULTATION: clear to auscultation bilaterally Cardio: COMMON NORMALS: regular rate, regular rhythm, S1 normal heart sound present, S2 normal heart sound present, No gallops present (Cardio), No murmurs present (Cardio), No rub (Cardio) and Peripheral pulses 2+ throughout RATE: regular rate RHYTHM: regular rhythm HEART SOUNDS: S1 normal heart sound present and S2 normal heart sound present PERIPHERAL PULSES: Peripheral pulses 2+ throughout GI: COMMON NORMALS: Normal to inspection, nondistended, normoactive bowel sounds present, Soft to palpation, non-tender, No hepatosplenomegaly present and no masses AUSCULTATION: Yes normoactive bowel sounds PALPATION: Yes Soft to palpation and Yes No hepatosplenomegaly present RECTAL EXAM: deferred Extremity: COMMON NORMALS: no clubbing, cyanosis or edema and no pedal edema Neuro: COMMON NORMALS: patient oriented x3 Discharge Data Data Completed and Pending: Completed Studies During Hospitalization Category Date Time Status XR chest 1V jhonny ble [id number] Urgent Exams 06/08/21 22:56 Completed Pending at discharge Category Date Time Status Blood Culture Sta t Lab 06/08/21 22:56 Results Vitals: Last Vital Signs Temp 98.0 F 06/10/21 07:53 Pulse 106 H 06/10/21 08:46 Resp 16 06/10/21 08:46 BP 119/64 06/10/21 07:53 Pulse Ox 94 06/10/21 08:46 Discharge Plan Discharge Patient Disposition: Home Condition: Stable Prescriptions: Continued budesonide [Pulmicort] 0.25 mg/2 mL suspension for nebulization 0.25 mg inhalation BID Qty: 60 RF: 11 formoterol fumarate [Perforomist] 20 mcg/2 mL solution for nebulization 2 ml inhalation BID Qty: 60 RF: 11 Yupelri 175 mcg/3 mL solution for nebulization 175 mcg inhalation DAILY Qty: 60 RF: 11 (DME) nebulizers Misc See Rx Instructions .Route Qty: 1 RF: 0 oxycodone-acetaminophen 5-325 mg Tablet 1 - 2 tab PO Q4H PRN (Reason: Pain) RF: 0 multivitamin Tablet 1 tab PO DAILY RF: 0 Trelegy Ellipta 200-62.5-25 mcg blister with device 1 inh INHALATION DAILY RF: 0 dexamethasone 4 mg tablet See Rx Instructions .ROUTE .COMPLEX RF: 0 albuterol sulfate 90 mcg/actuation HFA aerosol inhaler 2 puff INHALATION Q4H PRN (Reason: Shortness Of Breath) RF: 0 ondansetron HCl [Zofran] 4 mg Tablet 4 mg PO Q6H PRN (Reason: Nausea) RF: 0 prochlorperazine maleate 10 mg tablet 10 mg PO Q6H PRN (Reason: Nausea) RF: 0 HurriCaine 20 % aerosol,spray 1 applic mucous membrane TID PRN (Reason: mouth irritation) Qty: 57 RF: 0 Discharge Orders: Discharge Order (Routine); Ordered 06/10/21 Ordered By: Phi Zhao Referrals: Anthony Nielson MD [Primary Care Provider] - 4-7 days (Please call to make an appointment to be seen in 4-7 days.) Discharge Diet: Regular Discharge Activity: Increase activity as tolerated Patient Instructions: Acute Respiratory Failure (ED), COPD Stoplight, Opioid Safety Discharge Attestations Time Spent in Discharge Care*: less than 30 min Specific Discharge Activities: educating patient, educating and/or supporting family/caregiver, discussing with pcp/other providers, discussing with case management associate/social workers/dc planners, documenting/other paperwork and evaluating patient/reviewing data Status at Discharge: Cognitive status at discharge: mildly impaired cognition , Behavioral status at discharge: dependent in ADL's , Quality Metrics Clinical Quality Measures During this hospital stay, did patient experience: None Coding Level of Care Code Acute Chg FW DC note Diagnoses Acute and chronic respiratory failure J96.21 Respiratory failure complication: hypoxia Abnormal finding on urinalysis R82.90
[2021-06-10 12:07] VITALS: PULSE 106; RESP 16; O2SAT 94
== END 2021-06-10 12:08 | disposition home or self-care (01) ==
LOC: ER 06-09 01:29 → MEDSURG 06-09 01:43
PROVIDERS: Admitting Provider Hospitalist; Emergency Provider Physician Assistant; PCP Family Medicine; Visit Provider Internal Medicine
DX: J96.21 Acute and chronic respiratory failure with hypoxia (principal); R82.90 Unspecified abnormal findings in urine; Z87.440 Personal history of urinary (tract) infections; J44.9 Chronic obstructive pulmonary disease, unspecified; Z99.81 Dependence on supplemental oxygen; C34.90 Malignant neoplasm of unspecified part of unspecified bronchus or lung; E43 Unspecified severe protein-calorie malnutrition; Z68.1 Body mass index [BMI] 19.9 or less, adult; Z87.891 Personal history of nicotine dependence
CPT/HCPCS: 36415; 36600; 71045; 80048; 80051; 80053; 81001; 81003; 82330; 82805; 83605; 83880; 84145; 84484; 85025; 86140; 87040; 87635; 93005; 94640; 94664; 96365; 96367; 96372; 99285; G0378; J0692; J0696; J1644; J7030; J7626

== ENCOUNTER 2021-06-11 09:54 | Outpatient (CLI) | payer MEDICARE, SELFPAY ==
[2021-06-11] MEDS: alteplase 1 mg/mL SDV 2 mL 2 MG INTRACATH (10:35)
[2021-06-11 11:06] LABS: Alanine Aminotransferase 11 U/L (0-33); Albumin Level 3.2 g/dL (3.5-5.2); Alkaline Phosphatase 105 IU/L (35-105); Anion Gap 11.9 (5-19); Aspartate Amino Transferase 18 U/L (0-32); Blood Urea Nitrogen 14 mg/dL (8-23); Calcium 8.6 mg/dL (8.5-10.5); Carbon Dioxide 27 mmol/L (22-29); Chloride 104 mmol/L (98-107); Glucose 93 mg/dL (65-115); Osmolality Calculated 288 mOsm/kg (285-295); Potassium 3.9 mmol/L (3.5-5.1); Sodium 139 mmol/L (136-145); Total Bilirubin 0.5 mg/dL (0.15-1.2); Total Protein 6.2 g/dL (6.6-8.7)
== END 2021-06-11 09:55 | disposition home or self-care (01) ==
PROVIDERS: PCP Family Medicine; Visit Provider Internal Medicine Hematology & Oncology
DX: C34.90 Malignant neoplasm of unspecified part of unspecified bronchus or lung (principal)
CPT/HCPCS: 36415; 36593; 80053; 85025; 96374; J2997